=== PATIENT | female | born 1965 | race African-American/Black ===

== ENCOUNTER 2023-03-17 00:41 | Day surgery (SDC) | payer OTHER, MEDICAID, SELFPAY ==
[2023-03-13 10:00] VITALS: BMI 48.7
--- NOTE | 2023-03-17 07:35 | WPDANESEPPF ---
Anes - Initial Pre Proc Eval Procedure: Operation Date: 03/17/23 12:30 Proposed Procedures p Colonoscopy - Enrique Rodriguez MD Date/Time: 03/17/23 07:35 Surgeon: Enrique Rodriguez MD Pre Op Diagnosis: neoplasm screening Patient Data Age: 57 Gender: F Height: 1.57 m Weight: 121 kg Allergies Allergy/AdvReac Type Severity Reaction Status Date / Time No Known Allergies Allergy Unverified 03/17/23 11:59 Home Medications Medication Instructions Recorded Confirmed Type acetaminophen 500 mg tablet 500 mg PO DAILY 03/13/23 03/13/23 History albuterol sulfate 90 mcg/actuation 2 inh inhalation Q8H PRN Shortness 03/13/23 03/13/23 History aerosol inhaler Of Breath Or Wheezing amlodipine 5 mg tablet 5 mg PO DAILY 03/13/23 03/13/23 History baclofen 10 mg tablet 10 mg PO BID PRN Pain 03/13/23 03/13/23 History cetirizine 10 mg tablet 10 mg PO DAILY PRN Allergy Symptoms 03/13/23 03/13/23 History clotrimazole-betamethasone 1 1 applic topical BID PRN Rash 03/13/23 03/13/23 History %-0.05 % topical cream cyanocobalamin (vitamin B-12) 1,000 mcg IM DIRECTED 03/13/23 03/13/23 History 1,000 mcg/mL injection solution doxazosin 2 mg tablet 2 mg PO HS 03/13/23 03/13/23 History doxepin 3 mg tablet 3 mg PO DAILY 03/13/23 03/13/23 History duloxetine 60 mg capsule,delayed 60 mg PO DAILY 03/13/23 03/13/23 History release fluticasone propionate 50 1 spray intranasal DAILY PRN 03/13/23 03/13/23 History mcg/actuation nasal Allergy Symptoms spray,suspension hydrochlorothiazide 12.5 mg tablet 12.5 mg PO DAILY 03/13/23 03/13/23 History metoprolol succinate 25 mg 25 mg PO DAILY 03/13/23 03/13/23 History tablet,extended release 24 hr Patient hx anesthesia problems: none Family hx anesthesia problems: none Results Review: All pre-operative results and documents have been reviewed as part of the pre-operative evaluation. [facility] Past Medical History Medical History (Updated 03/14/23 @ 14:57 by Jose Daniel Jacobs DO) GERD (gastroesophageal reflux disease) Hypertension Surgical History Surgical History (Updated 03/14/23 @ 14:57 by Jose Daniel Jacobs DO) History of cholecystectomy History of partial hysterectomy Hx of laparoscopic gastric banding 2013 Social History Social History Smoking status: Never smoker Alcohol intake: current Substance use: never Substance use type: does not use Living arrangements: with family Spiritual care concerns: No Anes - Eval Final PreProcedure Day of Procedure 03/17/23 07:35 Patient weight: morbidly obese Heart: regular rate and rhythm Lungs: clear to auscultation Airway: Mallampati scale class II Neurological: alert and oriented Last oral intake: >/= 8 hours ASA classification: III Emergent: no Anesthetic plan: proceed Anesthesia type and monitoring: general GIVS and standard monitoring Results Review: All pre-operative results and documents have been reviewed as part of the pre-operative evaluation. Informed Consent: The patient's anesthetic plan and its attendant risks and benefits were discussed with the patient/family/POA. Questions were solicited and answers provided to the satisfaction of the patient/family/POA.
[2023-03-17 12:02] VITALS: BP 165/90; PULSE 97; RESP 18; TEMP 36.3; O2SAT 100
[2023-03-17] MEDS: LACTATED RINGERS 1,000 ML 150 ML IV CONT (12:16)
--- NOTE | 2023-03-17 12:49 | PM.HPGS ---
History of Present Illness History of Present Illness Consent: Risks, benefits, and alternatives have been discussed and questions answered. Patient agrees to proceed with procedure. Chief complaint: neoplasm screening Narrative: Nevin Deshpaned is a 57 year old female Presents for screening colonoscopy. Patient's current weight appetite and bowel movements are normal. Patient denies abdominal pain. She has had no bleeding. Family history noncontributory. Review of Systems Review of Systems: Review of systems noncontributory. [facility] Past Medical History Medical History (Updated 03/17/23 @ 12:50 by Enrique Rodriguez MD) GERD (gastroesophageal reflux disease) Hypertension Surgical History Surgical History (Updated 03/14/23 @ 14:57 by Jose Daniel Jacobs DO) History of cholecystectomy History of partial hysterectomy Hx of laparoscopic gastric banding 2012 Social History Social History Smoking status: Never smoker Alcohol intake: current Substance use: never Substance use type: does not use Living arrangements: with family Spiritual care concerns: No Meds Home Medications and Allergies Home Medications Medication Instructions Recorded Confirmed Type acetaminophen 500 mg tablet 500 mg PO DAILY 03/13/23 03/13/23 History albuterol sulfate 90 mcg/actuation 2 inh inhalation Q8H PRN Shortness 03/13/23 03/13/23 History aerosol inhaler Of Breath Or Wheezing amlodipine 5 mg tablet 5 mg PO DAILY 03/13/23 03/13/23 History baclofen 10 mg tablet 10 mg PO BID PRN Pain 03/13/23 03/13/23 History cetirizine 10 mg tablet 10 mg PO DAILY PRN Allergy Symptoms 03/13/23 03/13/23 History clotrimazole-betamethasone 1 1 applic topical BID PRN Rash 03/13/23 03/13/23 History %-0.05 % topical cream cyanocobalamin (vitamin B-12) 1,000 mcg IM DIRECTED 03/13/23 03/13/23 History 1,000 mcg/mL injection solution doxazosin 2 mg tablet 2 mg PO HS 03/13/23 03/13/23 History doxepin 3 mg tablet 3 mg PO DAILY 03/13/23 03/13/23 History duloxetine 60 mg capsule,delayed 60 mg PO DAILY 03/13/23 03/13/23 History release fluticasone propionate 50 1 spray intranasal DAILY PRN 03/13/23 03/13/23 History mcg/actuation nasal Allergy Symptoms spray,suspension hydrochlorothiazide 12.5 mg tablet 12.5 mg PO DAILY 03/13/23 03/13/23 History metoprolol succinate 25 mg 25 mg PO DAILY 03/13/23 03/13/23 History tablet,extended release 24 hr Allergies Allergy/AdvReac Type Severity Reaction Status Date / Time No Known Allergies Allergy Unverified 03/17/23 11:59 Vital Signs Vital Signs - 24 hr 03/17/23 12:02 Temperature 97.4 F L Pulse Rate 97 Respiratory Rate 18 Blood Pressure 165/90 H Pulse Oximetry 100 Oxygen Delivery Room Air Exam Narrative: Physical exam reveals patient to be alert. Vital signs stable. HEENT exam is unremarkable. Patient is anicteric. Lungs are clear to auscultation and percussion. Heart is without murmur or extra sounds. Abdomen is obese. Bowel sounds are present soft nontender with no organomegaly. Digital external rectal exam is normal with no obvious swelling appreciated. Assessment and Plan Assessment and plan (1) Encounter for screening colonoscopy: Code(s): Z12.11 - Encounter for screening for malignant neoplasm of colon Status: Acute Assessment and Plan: Patient presents for screening colonoscopy. She appears to be at average risk for colon polyps. Further recommendations may be given after endoscopy.
[2023-03-17 12:50] VITALS: BP 141/81; PULSE 91; RESP 20; O2SAT 99
[2023-03-17 13:00] VITALS: BP 155/84; PULSE 86; RESP 20; O2SAT 100
[2023-03-17 13:10] VITALS: BP 158/74; PULSE 86; RESP 22; O2SAT 100
== END 2023-03-17 13:24 | disposition home or self-care (01) ==
PROVIDERS: PCP Internal Medicine; Visit Provider Internal Medicine Gastroenterology
PROC: 0DJD8ZZ Inspection of Lower Intestinal Tract, Via Natural or Artificial Opening Endoscopic (ICD-10-PCS; CPT 45378; principal; 2023-03-17 12:30)
DX: Z12.11 Encounter for screening for malignant neoplasm of colon (principal); I10 Essential (primary) hypertension; K21.9 Gastro-esophageal reflux disease without esophagitis; Z98.84 Bariatric surgery status; E66.01 Morbid (severe) obesity due to excess calories; Z68.42 Body mass index [BMI] 45.0-49.9, adult; Z79.51 Long term (current) use of inhaled steroids
CPT/HCPCS: 45378; J2704; J7120

== ENCOUNTER 2024-09-30 03:50 | Emergency (ER) | payer OTHER, SELFPAY ==
--- NOTE | ~2024-09-30 | XR_ITS ---
EXAMINATION: XR chest 2V DATE: 09/30/2024 05:14 INDICATION: Cough. TECHNIQUE: Frontal and lateral views of the chest were obtained. COMPARISON: None. FINDINGS: There are airspace opacities in the lower lung zones. No pleural effusion or pneumothorax. Cardiomegaly is noted. There are surgical clips in the abdomen. IMPRESSION: 1. Airspace opacities in the lower lung zones, consistent with atelectasis versus pneumonia. 2. Cardiomegaly. Reviewed, dictated and finalized at location A. A [employer] IMPRESSION: 1. Airspace opacities in the lower lung zones, consistent with atelectasis vers us pneumonia. 2. Cardiomegaly.
[2024-09-30 03:55] VITALS: BP 218/96; PULSE 75; RESP 20; TEMP 36.2; O2SAT 96
[2024-09-30 04:39] VITALS: O2SAT 96
[2024-09-30] MEDS: IPRATROPIUM 0.5 MG/ALBUTEROL SULFATE 2.5 MG AMPUL.NEB 3 ML INHALATION (04:50)
[2024-09-30 04:52] VITALS: PULSE 77; RESP 20
[2024-09-30 05:12] LABS: Influenza A QL RT-PCR Negative (Negative); Influenza B QL RT-PCR Negative (Negative); RSV RNA, RT-PCR Negative (Negative); SARS-CoV-2 RNA PCR Negative (Negative)
--- NOTE | 2024-09-30 05:23 | ED_ITS ---
HPI - General Adult General Chief complaint: Upper Respiratory Infection Stated complaint: cough, tired, unable to sleep Time Seen by Provider: 09/30/24 04:10 History of Present Illness HPI narrative: Patient 59-year-old female who presents emergency department with chief complaint of cough body aches and generalized malaise. Patient reports the last 2 days she has been feeling body aches reports she has finished 2 courses of antibiotics reports that she has had some discolored mucus and congestion. The patient reports he has had no real relief of the symptoms. Patient does report that she has history of chronic hypertension Related Data Home Medications ?Medication ?Instructions ?Recorded ?Confirmed ?Last Taken ?Type acetaminophen 500 mg tablet 500 mg PO DAILY 03/13/23 03/13/23 Unknown History albuterol sulfate 90 mcg/actuation 2 inh inhalation Q8H PRN Shortness 03/13/23 03/13/23 Unknown History aerosol inhaler Of Breath Or Wheezing amlodipine 5 mg tablet 5 mg PO DAILY 03/13/23 03/13/23 Unknown History baclofen 10 mg tablet 10 mg PO BID PRN Pain 03/13/23 03/13/23 Unknown History cetirizine 10 mg tablet 10 mg PO DAILY PRN Allergy Symptoms 03/13/23 03/13/23 Unknown History clotrimazole-betamethasone 1 1 applic topical BID PRN Rash 03/13/23 03/13/23 Unknown History %-0.05 % topical cream cyanocobalamin (vitamin B-12) 1,000 mcg IM DIRECTED 03/13/23 03/13/23 Unknown History 1,000 mcg/mL injection solution doxazosin 2 mg tablet 2 mg PO HS 03/13/23 03/13/23 Unknown History doxepin 3 mg tablet 3 mg PO DAILY 03/13/23 03/13/23 Unknown History duloxetine 60 mg capsule,delayed 60 mg PO DAILY 03/13/23 03/13/23 Unknown History release fluticasone propionate 50 1 spray intranasal DAILY PRN 03/13/23 03/13/23 Unknown History mcg/actuation nasal Allergy Symptoms spray,suspension hydrochlorothiazide 12.5 mg tablet 12.5 mg PO DAILY 03/13/23 03/13/23 Unknown History metoprolol succinate 25 mg 25 mg PO DAILY 03/13/23 03/13/23 Unknown History tablet,extended release 24 hr Allergies Allergy/AdvReac Type Severity Reaction Status Date / Time No Known Allergies Allergy Verified 09/30/24 03:51 Review of Systems Review of Systems: A 10 system review of systems was completed on the patient and is negative except for what is stated in the HPI. Nursing and ancillary documentation was reviewed. [facility] Past Medical History Medical History GERD (gastroesophageal reflux disease) Hypertension Surgical History Surgical History History of partial hysterectomy Hx of laparoscopic gastric banding 2013 History of cholecystectomy Social History Social History Smoking status: Never smoker Alcohol intake: current Substance use: never Substance use type: does not use Living arrangements: with family Spiritual care concerns: No Exam Narrative: GENERAL: Well-appearing, well-nourished, and in no acute distress. HEAD: Normocephalic, atraumatic. EYES: PERRLA and EOMI. ENT: Nares clear, no rhinorrhea or epistaxis. Mucous membranes moist. NECK: Supple. CHEST: Clear to auscultation. No respiratory distress. HEART: Regular rate and rhythm. No murmur heard. Normal peripheral pulses. ABDOMEN: Soft, nontender, nondistended, normal active bowel sounds. EXTREMITIES: Normal range of motion. No edema. SKIN: Warm, dry, no rash. NEURO: No focal deficits. Alert and oriented x3. PSYCH: Normal mood and affect. Course Vital Signs Vital signs: Vital Signs Temperature 36.2 C L 09/30/24 03:55 Pulse Rate 75 09/30/24 03:55 Respiratory Rate 20 09/30/24 03:55 Blood Pressure 218/96 H 09/30/24 03:55 Pulse Oximetry 96 09/30/24 03:55 Oxygen Delivery Room Air 09/30/24 03:55 Temperature 36.2 C L 09/30/24 03:55 Pulse Rate 77 09/30/24 04:52 Respiratory Rate 20 09/30/24 04:52 Blood Pressure 218/96 H 09/30/24 03:55 Pulse Oximetry 96 09/30/24 04:39 Oxygen Delivery Room Air 09/30/24 04:39 Medical Decision Making MDM Narrative Medical decision making narrative: Differential diagnosis includes pneumonia, upper respiratory infection, viral illness COVID flu and RSV were Chest x-ray showed no focal infiltrate Patient was started on a course of prednisone also be given a prescription for Tristan Padron Vital Signs Vital Signs: Vital Signs Temperature 36.2 C L 09/30/24 03:55 Pulse Rate 75 09/30/24 03:55 Respiratory Rate 20 09/30/24 03:55 Blood Pressure 218/96 H 09/30/24 03:55 Pulse Oximetry 96 09/30/24 03:55 Oxygen Delivery Room Air 09/30/24 03:55 Temperature 36.2 C L 09/30/24 03:55 Pulse Rate 77 09/30/24 04:52 Respiratory Rate 20 09/30/24 04:52 Blood Pressure 218/96 H 09/30/24 03:55 Pulse Oximetry 96 09/30/24 04:39 Oxygen Delivery Room Air 09/30/24 04:39 Lab Data Labs: Lab Results 09/30/24 Range/Units 04:29 Influenza A (RT-PCR) Negative (Negative) Influenza B (RT-PCR) Negative (Negative) RSV (RT-PCR) Negative (Negative) SARS-CoV-2 RNA (RT-PCR) Negative (Negative) Discharge Plan Discharge Clinical Impression: Upper respiratory infection, Bronchitis Patient Disposition: Home, Self-Care Condition: Stable Instructions: Antibiotic Form, Acute Bronchitis (ED) Patient Language: Bulgarian Prescriptions: New prednisone 20 mg tablet 40 mg PO DAILY 5 Days Qty: 10 0RF benzonatate 200 mg capsule 200 mg PO TID PRN (Reason: cough) Qty: 21 0RF doxycycline hyclate 100 mg tablet 100 mg PO BID Qty: 14 0RF No Action cetirizine 10 mg tablet 10 mg PO DAILY PRN (Reason: Allergy Symptoms) amlodipine 5 mg tablet 5 mg PO DAILY acetaminophen 500 mg tablet 500 mg PO DAILY baclofen 10 mg tablet 10 mg PO BID PRN (Reason: Pain) cyanocobalamin (vitamin B-12) 1,000 mcg/mL solution 1,000 mcg IM DIRECTED clotrimazole-betamethasone 1-0.05 % cream 1 applic TOPICAL BID PRN (Reason: Rash) metoprolol succinate 25 mg tablet extended release 24 hr 25 mg PO DAILY albuterol sulfate 90 mcg/actuation HFA aerosol inhaler 2 inh INHALATION Q8H PRN (Reason: Shortness Of Breath Or Wheezing) fluticasone propionate 50 mcg/actuation spray,suspension 1 spray INTRANASAL DAILY PRN (Reason: Allergy Symptoms) doxazosin 2 mg tablet 2 mg PO HS duloxetine 60 mg capsule,delayed release(DR/EC) 60 mg PO DAILY hydrochlorothiazide 12.5 mg tablet 12.5 mg PO DAILY doxepin 3 mg tablet 3 mg PO DAILY Follow-up/Referrals: Camryn,MD Rhianna [Primary Care Provider] - Time of Disposition: 05:29
[2024-09-30] MEDS: predniSONE 20 MG TABLET 60 MG PO (05:40)
[2024-09-30] MEDS: DOXYCYCLINE HYCLATE 100 MG TABLET PO (05:40)
[2024-09-30 06:17] VITALS: BP 177/89; PULSE 88; RESP 18; O2SAT 98
--- OUTSIDE RECORDS SUMMARY | 2024-10-07 04:04 | XMS_ITS | Encounter Summary ---
Author Organization [facility] Health Address [address] [place] [address] Care Team Providers Care Inpatient Care Manager Rn Name Role Phone Rhianna Cowan MD Primary Care Provider [phone] Reason for Visit * Reason Comments Follow-up Encounter Details Date Type Department Care Team (Late Contact Info) Description 05/16/2023 10:30 AM CDT Office Visit [facility] [id number] [facility] [address] [facility] [address] [place] [address] Micki Bolden, [employer] [place] [id number] [facility] [address] [place] [address] Morbid obesity (HCC) (Primary Dx); Bariatric surgery status Social History Tobacco Use Types Packs/Day Years Used Date Smoking Tobacco: Never Smokeless Tobacco: Never Alcohol Use Standard Drinks/Week Comments Yes 0 (1 standard drink = 0.6 oz pur e alcohol) 0cc Overall Financial Resource Strain (CARDIA) Answe r Date Recorded How hard is it for you to pa y for the very basics like food, housing, medical care, and heating? Somewhat hard 04/14/2023 [facility] Occupat ional Health - Occupational Stress Questionnaire Answer Date Recorded Do you feel stress - tense, restless, nervous, or anxious, or unable to sleep at night because your mind is troubled all the time - these days? Not at all 04/14/2023 Hunger Vital Sign Answer Date Recorded Within the past 12 months, y ou worried that your food would run out before you got the money to buy more. Never true 04/14/20 23 Within the past 12 months, t he food you bought just didn't last and you didn't have money to get more. Never true 04/14/2023 PRAPARE - Transportation Answer Date Re corded In the past 12 months, has l ack of transportation kept you from medical appointments or from getting medications? No 04/05 In the past 12 months, has l ack of transportation kept you from meetings, work, or from getting things needed for daily living? No 04/14/2023 Housing Stability Vital Sign Answer Carlos e Recorded In the last 12 months, was t here a time when you were not able to pay the mortgage or rent on time? No 04/14/2023 In the last 12 months, how many places have you lived? 1 04/14/2023 In the last 12 months, was t here a time when you did not have a steady place to sleep or slept in a halfway (including now)? No 04/14/2023 Sex and Gender Information Value Date Recorded Sex Assigned at Not on file Gender Identity Not on file Sexual Orientation Not on file documented as of this encounter Last Filed Vital Signs Vital Sign Reading Time Taken Comments Blood Pressure 138/88 05/16/2023 10:41 AM CDT Pulse 91 05/16/2023 10:41 AM CDT Temperature 36.6 ??C (97.9 ??F) 05/16/2023 1 0:41 AM CDT Respiratory Rate - - Oxygen Saturation 95% 05/16/2023 10: 41 AM CDT Inhaled Oxygen Concentration - - Weight 114.9 kg (253 lb 3.2 oz) 023 10:41 AM CDT Height 157.5 cm (5' 2 ) 05/16/2023 10:4 1 AM CDT Body Mass Index 46.31 05/16/2023 10:41 AM CDT documented in this encounter Functional Status Functional Status Response Date of Assess ment Is person deaf or have serious hearing difficult y? No 04/14/2023 Is person blind or have serious difficulty seein g? No 04/14/2023 Does person have serious dif ficulty walking/climbing stairs? No 04/14/2023 Does person have difficulty dressing/bathing? No 04/14/2023 Does person have difficulty doing errands alone? No 04/14/2023 Cognitive Status Response Date of Assessm ent Does person have difficulty concentrating/remembering/making decisions? 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 ( amena ) 2.??Laparoscopic??Repair of gastric perforation?? 3. Omental isabel patch 3. esophagogastroduodenoscopy?? Date of Procedure: 04/14/2023 Todays Weight: 253 Subjective: Patient is here today for their 1 month post surgery follow up She has completed her antibiotics Patient reports overall she feels she is improving She is still feeling tired and is not sure she is ready to return to work and sit at a desk for 8 hours. Patient is tolerating diet and fluids , not following any particular diet Patient has been up and ambulating. Patient denies any fevers, CP or SOB Patient reports a few episodes of nausea and vomiting but is not sure what caused it Abdominal pain is present, overall better but continues to feel sore She is not taking any pain medication or tylenol Patient is moving their bowels Data Vitals: 05/16/23 1041 BP: 138/88 Pulse: 91 Temp: 97.9 ??F (36.6 ??C) SpO2: 95% Weight: 114.9 kg (253 lb 3.2 oz) Height: 1.575 m (5' 2 ) BMI (Calculated): 46.3 Current Outpatient Medications Medication ??? acetaminophen (Tylenol) 500 MG tablet ??? albuterol HFA (Proventil; Ventolin; Proair) 108 (90 Base) MCG/ACT inhaler ??? amLODIPine (Norvasc) 5 MG tablet ??? baclofen (Lioresal) 10 MG tablet ??? cetirizine (ZyrTEC) 10 MG tablet ??? clotrimazole-betamethasone (Lotrisone) 1-0.05 % cream ??? cyanocobalamin (Vitamin B-12) injection ??? doxazosin (Cardura) 2 MG tablet ??? doxepin (Silenor) 3 MG tablet ??? DULoxetine (Cymbalta) 60 MG capsule ??? fluticasone propionate (Flonase) 50 MCG/ACT nasal spray ??? hydroCHLOROthiazide (Hydrodiuril) 12.5 MG ??? metoprolol succinate XL 24hr (Toprol XL) 25 MG tablet ??? mupirocin (Bactroban) 2 % ointment ??? omeprazole (PriLOSEC) 20 MG capsule ??? sodium chloride (Deep Sea Nasal [place]) 0.65 % nasal spray No current facility-administered medications for this visit. Recent Labs Component Name 04/21/23 0924 04/20/23 1021 04/19/23 0414 SODIUM 139 140 140 POTASSIUM 3.6 3.9 4.1 CHLORIDE 105 106 108* CO2 24 27 22* BUN 4* 4* 7* CREATININE 0.85 0.83 0.84 GLUCOSE 99 116* 115* CALCIUM 9.0 9.1 9.1 Recent Labs Component Name 04/21/2324 04/19/23 0414 04/18/23 0357 WBC 8.2 11.9* 16.1* HGB 10.9* 11.2* 11.6* HCT 33.8* 34.2* 35.6* PLTCOUNT 254 211 242 Physical Exam A+O x 3, NAD ABD soft, ND, NT, incisions C/D/I, no e/o hernias Neg BLE edema Assessment/Plan: Pt s/p Laparoscopic removal of adjustable gastric band and port?? 2.??Laparoscopic??Repair of gastric perforation?? 3. Omental isabel patch 3. esophagogastroduodenoscopy?? - we reviewed postoperative complications following bariatric surgery and when to call the office. Patient is to follow soft diet, phase 3 We discussed food choices Incisional pain - pain has overall improved - patient is off pain medication - start tylenol every 4 hours - start ICE pack PRN - start with an abdominal binder - patient is to call the office with any worsening abdominal pain or no improvement Patient is to advance activity to include light cardio,light weights as tolerated Patient reports that she is off work until 05/25/23 currently. I have asked her to call office with any update . Patient is to follow up with PCP in 1-2 week Patient is to RTC as needed . CARLENE Lloyd documented in this encounter Plan of Treatment Not on file documented as of this encounter Visit Diagnoses Diagnosis Morbid obesity (HCC)- Primary Morbid obesity Bariatric surgery status documented in this encounter Care Teams Inpatient Care Manager Rn Relationship Specialty Start Date End Date Rhianna Cowan MD [address] [place] [address] [address] [place] [address] PCP - General Internal Medicine 11/12/16 documented as of this encounter
--- OUTSIDE RECORDS SUMMARY | 2024-10-07 04:04 | XMS_ITS | Referral Summary ---
Author Organization [facility] Address [address] [place] [address] Care Team Providers Care Sludge Filtration Operator Name Role Phone Rhianna Cowan MD Primary Care Provider Source Comments [facility],non-owned Affiliates and Associated Physician Practices is amultiple site organization consisting of ambulatory clinics and hospital sitesin [place], [place], [place] and [place]. This disclosure is being madepursuant to the Care Everywhere program and may not contain all information available regarding this patient. Last updated 18.[facility] Allergies Active Allergy Reactions Criticality Noted Date Comments Lisinopril Cough 04/16/2023 Sulfamethoxazole W-Trimethoprim Angioedema High 04/05 Medications * Be aware that medications may not be up to date on this document. Alwaysverify current medications with the patient. Medication Sig Dispensed Refills Start Date End Date Status acetaminophen (Tylenol) 500 MG tablet Take 1 (one) tablet by mouth every 8 hours as needed for Pain or Fever 06/17/2022 Active albuterol HFA (Proventil; Ventolin; Proair) 108 (90 Base) MCG/ACT inhaler Inhale 2 (two) puffs by mouth every 6 hours as needed for Shortness of Breath or Wheezing 11/30/2021 Active amLODIPine (Norvasc) 5 MG tablet Take 1 (one) tablet by mouth once daily 12/12/2021 Active baclofen (Lioresal) 10 MG tablet Take 1 (one) tablet by mouth 2 times daily as needed for Muscle Spasms 12/12/2021 Active cetirizine (ZyrTEC) 10 MG tablet Take 1 (one) tablet by mouth once daily as needed for Allergies 12/26/2022 Active clotrimazole-betameth asone (Lotrisone) 1-0.05 % cream Apply to affected area 2 times daily as needed (rash) 12/12/2021 Active cyanocobalamin (Vitamin B-12) injection Inject 1,000 (one thousand) mcg into muscle every 30 days Active doxazosin (Cardura) 2 MG tablet Take 1 (one) tablet by mouth at bedtime 12/26/2022 Active DULoxetine (Cymbalta) 60 MG capsule Take 1 (one) capsule by mouth once daily Active fluticasone propionate (Flonase) 50 MCG/ACT nasal spray [place] 2 (two) sprays into each nostril once daily as needed (allergies) 12/12/2021 Active hydroCHLOROthiazide (Hydrodiuril) 12.5 MG Take 1 (one) tablet by mouth once daily 12/12/2021 Active metoprolol succinate XL 24hr (Toprol XL) 25 MG tablet Take 1 (one) tablet by mouth once daily 01/28/2022 Active mupirocin (Bactroban) 2 % ointment Apply to affected area 2 times daily APPLY SMALL AMOUNT TOPICALLY IN EACH NOSTRIL EVERY NIGHT AT BEDTIME 12/26/2022 Active omeprazole (PriLOSEC) 20 MG capsule Take 1 (one) capsule by mouth once daily as needed for Heartburn Active sodium chloride (Deep Sea Nasal [place]) 0.65 % nasal spray [place] 2 (two) sprays into each nostril as needed for Dry Nose 12/26/2022 Active doxepin (Silenor) 3 MG tablet Take 1 (one) tablet by mouth at bedtime 03/10/2023 Active Active Problems Problem Noted Date Diagnosed Date Hypoxemia 04/19/2023 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 Somewhat hard 04/14/2023 [facility] [place] of Occupat ional Health - Occupational Stress [...] place to sleep or slept in a prison (including now)? No 04/14/2023 Sex and Gender Information Value Date Recorded Sex Assigned at Not on file Gender Identity Not on file Sexual Orientation Not on file Last Filed Vital Signs Vital Sign Reading Time Taken Comments Blood Pressure 138/88 05/16/2023 10:41 AM CDT Pulse 91 05/16/2023 10:41 AM CDT Temperature 36.6 ??C (97.9 ??F) 05/16/2023 1 0:41 AM CDT Respiratory Rate 18 04/22/2023 7:35 AM CDT Oxygen Saturation 95% 05/16/2023 10: 41 AM CDT Inhaled Oxygen Concentration - - Weight 114.9 kg (253 lb 3.2 oz) 023 10:41 AM CDT Height 157.5 cm (5' 2 ) 05/16/2023 10:4 1 AM CDT Body Mass Index 46.31 05/16/2023 10:41 AM CDT Functional Status Functional Status Response Date of [...] person have difficulty concentrating/remembering/making decisions? No 04/14/2023 Plan of Treatment Not on file Procedures Procedure Name Priority Date/Time Associated Diagnosis Comments BASIC METABOLIC PANEL (CALCIUM TOTAL) VINICIUS 04/21/2023 9:24 AM CDT from Last 3 Months or Most Recently Relevant to Health Maintenance Results * (ABNORMAL) BASIC METABOLIC PANEL (CALCIUM TOTAL) (04/21/2023 9:24 AM CDT) [facility] Glucose 99 70 - 105 mg/dL 04/21/2023 9:51 AM CDT [facility] Sodium 139 136 - 145 mmol/L 04/21/2023 9:51 AM CDT [facility] Potassium 3.6 3.5 - 5.1 mmol/L 04/21/2023 9:51 AM CDT [facility] Chloride 105 98 - 107 mmol/L 04/21/2023 9:51 AM CDT [facility] CO2 24 23 - 31 mmol/L 04/21/2023 9:51 AM CDT [facility] Calcium 9.0 8.4 - 10.4 mg/dL 04/21/2023 9:51 AM CDT [facility] Anion Gap 10 8 - 18 mmol/L 04/21/2023 9:51 AM CDT [facility] BUN 4(L) 9.8 - 20.1 mg/dL 04/21/2023 9:51 AM CDT [facility] Creatinine 0.85 0.57 - 1.11 mg/dL 04/21/2023 9:51 AM CDT [facility] eGFR by CKD-EPI 81(L) >=90 mL/min/1.7 3 m2 04/21/2023 9:51 AM CDT [facility] Blood BLOOD SPECIMEN / Unknown Venipuncture / Unknown 04/21/2023 9:24 AM CDT 04/21/2023 9:34 AM CDT Marybel Grider Donte CARDIOLOGY [facility]ICAL [facility] ORDERABLES [facility] [address] [place] [address] from Last 3 Months or Most Recently Relevant to Health Maintenance Care Teams Sludge Filtration Operator Relationship Specialty Start Date End Date Rhianna Cowan MD [address] [place] [address] PCP - General Internal Medicine 11/12/16
--- OUTSIDE RECORDS SUMMARY | 2024-10-07 04:04 | XMS_ITS | Encounter Summary ---
Author Organization [facility] Address [address] [address] Care Team Providers Care Stonecutter Name Role Phone Rhianna Cowan MD Primary Care Provider [phone] Encounter Details Date Type Department Care Team (Late Contact Info) Description 04/23/2023 Home Care Visit [facility] [address] [place] [address] Michelle Washington, RN TELEPHONE ENCOUNTER Social History Tobacco Use Types Packs/Day Years [...] medical care, and heating? Somewhat hard 04/14/2023 [facility] [place] of Occupat ional Health - Occupational Stress [...] place to sleep or slept in a residential (including now)? No 04/14/2023 Sex and Gender Information Value Date Recorded Sex Assigned at Not on file Gender Identity Not on file Sexual Orientation Not on file COVID-19 Exposure Response Date Recorded In the last 10 days, have yo u been in contact with someone who was confirmed or suspected to have Coronavirus/COVID-19? No / Unsure 04/01/2023 11:29 AM CDT documented as of this encounter Functional Status Functional Status Response [...] No 04/14/2023 documented as of this encounter Plan of Treatment Not on file documented as of this encounter Visit Diagnoses Not on filedocumented in this encounter Care Teams Stonecutter Relationship Specialty Start Date End Date Rhianna Cowan MD [address] [place] [address] PCP - General Internal Medicine 11/12/16 documented as of this encounter
--- OUTSIDE RECORDS SUMMARY | 2024-10-07 04:04 | XMS_ITS | Encounter Summary ---
Author Organization [facility] Address [address] [place] [address] Care Team Providers Care Hand Edger Name Role Phone Rhianna Cowan MD Primary Care Provider [phone] Reason for Referral * Home Connections (Routine) - Closed Specialty Diagnoses / Procedures Referred By Cydney scott Referred To Contact Home Health Services Diagnoses G[place] [id number] [place] [address] [facility] [address] [place] [address] Referral ID Status Reason Start Date Expiration Date V isits Requested Visits Authorized [id number] Closed Specialty Services Required 04/22/2023 04/21/2024 999 999 Reason for Visit * Auth/Cert (Routine) Specialty Diagnoses / Procedures Referred By Cydney t Referred To Contact Procedures ESOPHAGOGASTRODUODENOSCOPY (EGD) DIAGNOSTIC Referral ID Status Reason Start Date Expiration Date Visits Re quested Visits Authorized [id number] 1 1 Encounter Details Date Type Department Care Team (Latest Contact Info) Description 04/14/2023 7:34 AM CDT - 04/22/2023 3:03 PM CDT Hospital Encounter [facility] 2S SURG/BARIATRIC [address] [place] [address] [place] [address] [place] [address] Surgery General Discharge Disposition: Home or Self Care Social History Tobacco Use Types Packs/Day Years [...] medical care, and heating? Somewhat hard 04/14/2023 [place] [facility] - Occupational Stress [...] No 04/14/2023 Housing Stability Vital Sign Answer Acrlos e Recorded In the last 12 months, [...] place to sleep or slept in a penitentiary (including now)? No 04/14/2023 Sex and Gender [...] AM CDT documented as of this encounter Last Filed Vital Signs Vital Sign Reading Time Taken Comments Blood Pressure 157/98 04/22/2023 7:35 AM CDT Pulse 106 04/22/2023 7:35 AM CDT Temperature 36.6 ??C (97.8 ??F) 04/22/2023 7:35 AM CD T Respiratory Rate 18 04/22/2023 7:35 AM CDT Oxygen Saturation 95% 04/22/2023 7:35 AM CDT Inhaled Oxygen Concentration - - Weight 109.8 kg (242 lb) 04/14/2023 8:12 AM CDT Height 157.5 cm (5' 2 ) 04/14/2023 8:12 AM CDT Body Mass Index 44.26 04/14/2023 8:12 AM CDT documented in this encounter Functional [...] No 04/14/2023 documented as of this encounter Discharge Summaries * Marybel Kent APRN-CNP - 04/22/2023 3:03 PM CDT Physician Discharge Summary PCP: Rhianna Cowan MD, Admit date: 04/14/2023 Discharge date: 04/22/2023 Admitting Physician: Steffen Beckwith MD Attending Physician: Steffen Beckwith MD Discharge Provider : CARLENE Bryan Admission weight: Weight: 109.8 kg (242 lb) (04/14/23811) Most recent weight: Weight: 109.8 kg (242 lb) (04/14/23811) 04/22/2023 [id number] Admitting Diagnosis Clinically Severe Obesity with multiple co-morbidities Body mass index is 44.26 kg/m??. Past Medical History: Diagnosis Date ??? Anxiety and depression ??? Depression ??? Environmental allergies ??? GERD (gastroesophageal reflux disease) ??? Hypertension ??? Mild intermittent asthma, uncomplicated ??? Morbid obesity due to excess calories ([facility]) Discharge Diagnosis: Same Consults : Hospitalist Diagnostic Studies None Principal Procedures Performed: Laparoscopic removal of adjustable gastric band and port??(15735) 2.??Laparoscopic??Repair [place] gastric perforation??([place] [address]) 3. Omental isabel patch (91699) 3. Esophagogastroduodenoscopy Hospital Course The patient underwent the procedures noted above on the day of admission. Following surgery, the patient was taken from the operating room to the recovery room, and later to hospital room. Vital signs were carefully monitored. The patient was started on a phase I bariatric diet. Preoperative medication was administered when indicated by either an oral or parenteral route. Additional assessments of the patient's vital signs, laboratory values and level of pain were performed throughout the patient's hospitalization. The patient was also followed by a hospitalist to manage comorbid conditions. On the day of discharge, the patient was instructed on diet and medication, as well as on wound care. The patient was given a prescription for pain medication and told to take a PPI daily. Patient waseducated and instructions given on vitamin supplement and when to begin. Showers were allowed, but the patient was told not to submerge in water. The patient was instructed on constipation managementif needed. Finally, the patient was printed discharge instructions. We are to see the patient in the office in 1 week and this appointment has been arranged. The patient is to call if fever occurred,nausea persisted, emesis occurred or if there was excessive redenss at the wound sites. Patient Instructions Current Discharge Medication List START taking these medications Instructions Authorizing Provider amoxicillin-clavulanate 250-62.5 MG/5ML suspension Commonly known as: Augmentin Quantity Dispensed: 350 mL Take 17.5 mL by mouth 2 times daily with morning and evening meal for 10 days Marybel Kent APRN-ROHINI magnesium hydroxide 400 MG/5ML suspension Commonly known as: Milk Of Magnesia Take 15 mL by mouth as needed for Constipation CARLENE Bryan ondansetron (disintegrating) 4 MG tablet Commonly known as: Zofrkevin ODT Quantity Dispensed: 20 tablet Take 1 (one) tablet by mouth every 6 hours as needed for Nausea/Vomiting Allow tablet to dissolve on the tongue CARLENE Bryan senna-docusate 8.6-50 MG tablet Commonly known as: Senokot-S Take 1 (one) tablet by mouth 2 times daily as needed for Constipation CARLENE Bryan simethicone 80 MG chew tablet Commonly known as: Mylicon Take 1 (one) tablet by mouth 4 times daily as needed for Gas Pain CARLENE Bryan CONTINUE taking these medications which have NOT CHANGED Instructions Authorizing Provider acetaminophen 500 MG tablet Commonly known as: Tylenol Take 1 (one) tablet by mouth every 8 hours as needed for Pain or Fever albuterol HFA 108 (90 Base) MCG/ACT inhaler Commonly known as: Proventil; Ventolin; Proair Inhale 2 (two) puffs by mouth every 6 hours as needed for Shortness of Breath or Wheezing amLODIPine 5 MG tablet Commonly known as: Norvasc Take 1 (one) tablet by mouth once daily baclofen 10 MG tablet Commonly known as: Lioresal Take 1 (one) tablet by mouth 2 times daily as needed for Muscle Spasms cetirizine 10 MG tablet Commonly known as: ZyrTEC Take 1 (one) tablet by mouth once daily as needed for Allergies clotrimazole-betamethasone 1-0.05 % cream Commonly known as: Lotrisone Apply to affected area 2 times daily as needed (rash) cyanocobalamin injection Commonly known as: Vitamin B-12 Inject 1,000 (one thousand) mcg into muscle every 30 days Deep Sea Nasal Ethel 0.65 % nasal spray Generic drug: sodium chloride Ethel 2 (two) sprays into each nostril as needed for Dry Nose doxazosin 2 MG tablet Commonly known as: Cardura Take 1 (one) tablet by mouth at bedtime doxepin 3 MG tablet Commonly known as: Silenor Take 1 (one) tablet by mouth at bedtime DULoxetine 60 MG capsule Commonly known as: Cymbalta Take 1 (one) capsule by mouth once daily fluticasone propionate 50 MCG/ACT nasal spray Commonly known as: Flonase Ethel 2 (two) sprays into each nostril once daily as needed (allergies) hydroCHLOROthiazide 12.5 MG Commonly known as: Hydrodiuril Take 1 (one) tablet by mouth once daily metoprolol succinate XL 24hr 25 MG tablet Commonly known as: Toprol XL Take 1 (one) tablet by mouth once daily mupirocin 2 % ointment Commonly known as: Bactroban Apply to affected area 2 times daily APPLY SMALL AMOUNT TOPICALLY IN EACH NOSTRIL EVERY NIGHT AT BEDTIME omeprazole 20 MG capsule Commonly known as: PriLOSEC Take 1 (one) capsule by mouth once daily as needed for Heartburn Discharge Procedure Orders Referral to Home Connections Referral Priority: Routine Referral Type: Home Connections Referral Reason: Specialty Services Required Requested Specialty: Home Health Services Number of Visits Requested: 999 Why you were hospitalized Order Specific Question Answer Comments Your discharge diagnosis is: History of removal of laparoscopic gastric banding device [[id number]] Activity as tolerated -- Walk at least four times a day. -- If you are driving for longer than an hour, stop and walk for ten minutes every hour during the drive. No heavy lifting Do not lift anything over 15 pounds until cleared by Dr. Beckwith Shower with incision uncovered -- Remove dressings before showering, then replace dressing afterwards. -- Leave dressings off after 48 hours. No tub baths Until your incision(s) are completely healed. Incentive spirometer Continue to use your incentive spirometer four times a day for two more weeks. Return to work -- You may return to work after you are cleared by Dr. Beckwith Follow up with Primary Care Provider (PCP) Our records show your Primary Care Provider (PCP) is Rhianna Cowan MD. Additional Scheduling Instructions: Readmission Risk Score: 8. 0-20 = Low/Moderate Risk - Follow up within 14 days 21-100 = High Risk - Follow up within 5 days Order Specific Question Answer Comments Follow Up Instructions for Patient: Within 14 Days from Discharge Follow up with provider Additional Scheduling Instructions: Readmission Risk Score: 8. 0-20 = Low/Moderate Risk - Follow up within 14 days 21-100 = High Risk - Follow up within 5 days Order Specific Question Answer Comments Follow Up Instructions for Patient: Other (See Comment) 1 week Medication instructions Upon discharge from the hospital you may take capsules and regular pills (nothing larger than the size of an aspirin). Bariatric vitamins Patient not to take bariatric multivitamin or calcium supplement until your 1 month follow up Ok to take Prilosec No aspirin or NSAID's Until cleared by Dr. Beckwith -- Aspirin may be found in other medications, such as Excedrin or Anacin. -- Non-steroidal Anti-inflammatories (NSAID's) are found in many other medications, such as ibuprofen, Motrin, Aleve, or naproxen. -- Please ask if you are unsure about any medications. For relief of pain Take prescribed pain medications for relief of pain or discomfort. Diet instructions Phase 2 diet for 2 weeks then Phase 3 diet No alcoholic drinks Until cleared by Dr. Beckwith When to call your provider Call Dr. Beckwith if you have questions or concerns, or for any of the following issues: -- heart rate over 100 -- temperature higher than 101 F -- increased shortness of breath -- pain that gets worse or does not get better after taking your pain medication(s) as directed. Severe abdominal pain is defined as 8-10 on the pain scale. -- nausea or vomiting or cannot eat or drink -- bleeding from your incision or IV site -- if your incision or IV site looks infected (red, swollen, warm to the touch, or non-clear, foul-smelling drainage) documented in this encounter Medications at Time of Discharge Medication Sig Dispensed Refills Start Date End Date acetaminophen (Tylenol) 500 MG tablet Take 1 (one) tablet by mouth every 8 hours as needed for Pain or Fever 06/17/2022 albuterol HFA (Proventil; Ventolin; Proair) 108 (90 Base) MCG/ACT inhaler Inhale 2 (two) puffs by mouth every 6 hours as needed for Shortness of Breath or Wheezing 11/30/2021 amLODIPine (Norvasc) 5 MG tablet Take 1 (one) tablet by mouth once daily 12/12/2021 baclofen (Lioresal) 10 MG tablet Take 1 (one) tablet by mouth 2 times daily as needed for Muscle Spasms 12/12/2021 cetirizine (ZyrTEC) 10 MG tablet Take 1 (one) tablet by mouth once daily as needed for Allergies 12/26/2022 clotrimazole-betameth asone (Lotrisone) 1-0.05 % cream Apply to affected area 2 times daily as needed (rash) 12/12/2021 cyanocobalamin (Vitamin B-12) injection Inject 1,000 (one thousand) mcg into muscle every 30 days doxazosin (Cardura) 2 MG tablet Take 1 (one) tablet by mouth at bedtime 12/26/2022 doxepin (Silenor) 3 MG tablet Take 1 (one) tablet by mouth at bedtime 03/10/2023 DULoxetine (Cymbalta) 60 MG capsule Take 1 (one) capsule by mouth once daily fluticasone propionate (Flonase) 50 MCG/ACT nasal spray Ethel 2 (two) sprays into each nostril once daily as needed (allergies) 12/12/2021 hydroCHLOROthiazide (Hydrodiuril) 12.5 MG Take 1 (one) tablet by mouth once daily 12/12/2021 metoprolol succinate XL 24hr (Toprol XL) 25 MG tablet Take 1 (one) tablet by mouth once daily 01/28/2022 mupirocin (Bactroban) 2 % ointment Apply to affected area 2 times daily APPLY SMALL AMOUNT TOPICALLY IN EACH NOSTRIL EVERY NIGHT AT BEDTIME 12/26/2022 omeprazole (PriLOSEC) 20 MG capsule Take 1 (one) capsule by mouth once daily as needed for Heartburn sodium chloride (Deep Sea Nasal Ethel) 0.65 % nasal spray Ethel 2 (two) sprays into each nostril as needed for Dry Nose 12/26/2022 amoxicillin-clavulana te (Augmentin) 250-62.5 MG/5ML suspension Take 17.5 mL by mouth 2 times daily with morning and evening meal for 10 days 350 mL 04/21/2023 05/01/2023 magnesium hydroxide (Milk Of Magnesia) 400 MG/5ML suspension Take 15 mL by mouth as needed for Constipation 04/21/2023 05/16/2023 ondansetron, disintegrating, (Zofran ODT) 4 MG tablet Take 1 (one) tablet by mouth every 6 hours as needed for Nausea/Vomiting Allow tablet to dissolve on the tongue 20 tablet 04/21/2023 05/16/2023 oxyCODONE (Roxicodone) 5 MG/5ML oral solutionIndications:B ariatric surgery status Take 5 mL by mouth every 6 hours as needed for Pain 120 mL 04/22/2023 05/16/2023 senna-docusate (Senokot-S) 8.6-50 MG tablet Take 1 (one) tablet by mouth 2 times daily as needed for Constipation 04/21/2023 05/16/2023 simethicone (Mylicon) 80 MG chew tablet Take 1 (one) tablet by mouth 4 times daily as needed for Gas Pain 04/21/2023 05/16/2023 documented as of this encounter Progress Notes * Teagan Villarreal RN - 04/22/2023 2:04 PM CDT Care Coordination Progress Note Anticipated level of care at discharge: Home, Home - Home Connections Discharge Plan: home today with her daughter. Pt is agreeable to Home Connections. READMISSION RISK SCORE is 9 at 2:05 PM 04/22/2023. Anticipated Discharge Date: 04/22/23 Patient/Family provided with list of resources? Yes Preferred Provider / High Quality Network List given?: No Reason for provider choice: Insurance, Pt. choice - Physician driven, Pt. choice - previous provider, Pt. choice - Pt. choice Family Support (Name and Phone): Extended Emergency Contact Information Primary Emergency Contact: Yuliana Shepherd [address] [address] [place] [address] [place] [address] [facility] Relation: Daughter Patient is alert & orientated or has capacity for decision making: Yes If No , Legal or Designated Decision Maker: N/A Transportation at Discharge: Family Equipment at Home: Equipment at Home: None List DME patient requires but does not have: List DME pt. requires but does not have.: None DME Provider: Medication affordability concerns: No Follow Up Appointment: Follow up appointment/arrangements made Physician Follow Up Appointment(s) Made: Yes Appointment(s) made with the following physician providers: Surgeon Follow up date with Surgeon: 05/15/23 Follow up time with Surgeon: 08 Reason why no ancillary service appointment was made: Appointment already made Transportation to MD: Family Auth Number (if required): [place]: DME: Medications: Transportation: Name: Teagan Villarreal RN Phone: [phone] * Kary De Leon RN - 04/22/2023 1:18 PM CDT Shift Summary: pt A&Ox4, VSS, IV taken out, incisions to abdomen c/d/i, tolerating diet, passing gas/voiding, denies pain/nausea, discharge paperwork given to pt/all questions were answered, all belongings w/ pt, pt safely wheeled off of unit, ride waiting at front entrance..Kary De Leon RN 04/22/2023 1:21 PM * Maria Isabel Schafer MD - 04/22/2023 10:55 AM CDT Admit Date: 04/14/2023 7:34 AM Hospital Day: 8 Reason for visit/follow up: 57 y/o admitted with epigastric pain, gastric band complication/erosion New Symptoms Patient has no new symptoms Data Vitals: 04/21/23 1544 04/21/23 1928 04/22/23 0424 04/22/23 0735 BP: 157/85 159/95 147/66 157/98 Pulse: 98 95 105 106 Resp: Temp: 97.9 ??F (36.6 ??C) 98 ??F (36.7 ??C) 97.9 ??F (36.6 ??C) 97.8 ??F (36.6 ??C) SpO2: 95% 96% 97% 95% Weight: Height: Intake/Output Summary (Last 24 hours) at 04/22/2023 1055 Last data filed at 04/22/2023 0845 Gross per 24 hour Intake 160 ml Output -- Net 160 ml My review of labs, imaging, notes and other tests is significant for no new labs Recent Labs Component Name 04/21/23 0924 04/20/23 1021 04/19/23 0414 SODIUM 139 140 140 POTASSIUM 3.6 3.9 4.1 CHLORIDE 105 106 108* CO2 24 27 22* BUN 4* 4* 7* CREATININE 0.85 0.83 0.84 GLUCOSE 99 116* 115* CALCIUM 9.0 9.1 9.1 Recent Labs Component Name 04/21/23 0924 04/19/23 0414 04/18/23 0357 WBC 8.2 11.9* 16.1* HGB 10.9* 11.2* 11.6* HCT 33.8* 34.2* 35.6* PLTCOUNT 254 211 242 MEDICATIONS FOR CURRENT ENCOUNTER: ?? SCHEDULED MEDICATIONS: ?? acetaminophen (Tylenol) solution 500 mg, Oral, q4h ?? amLODIPine (Norvasc) tablet 5 mg, Oral, QDAY ?? cefTRIAXone (Rocephin) 2,000 mg in 0.9% NaCl IV 50 mL IVPB, Intravenous, q24h ?? doxazosin (Cardura) tablet 2 mg, Oral, AT BEDTIME ?? DULoxetine (Cymbalta) capsule 60 mg, Oral, QDAY ?? heparin injection 5,000 Units, Subcutaneous, BID ?? metroNIDAZOLE (Flagyl) tablet 500 mg, Oral, q8h ?? pantoprazole (Protonix) injection 40 mg, Intravenous, QDAY ?? CONTINUOUS MEDICATIONS: Exam General appearance: alert, cooperative, Heart: regular rhythm, normal S1 and S2, without murmurs, Lungs: breath sounds symmetric; no rales or wheezes Abdomen: soft , tender, with occasional bowel sounds Extremities: no cyanosis, trace edema Assessment and Plan S/P removal of adjustable gastric band and port, repair of gastric perforation - bariatric sx recommends abx for 7 days for perforation, on rocephin. Added flagyl - will plan for omnicef, flagyl at DC for 7 days - L LL haziness on CXR looks like 2/2 atelectasis - CT PE reviewed - already on rocephin, appears to be atelectasis and possible fluid overload giventrace effusions given IV lasix -will not need ambulatory oximetry prior to DC since maintaining O2 sats ?? HTN Resumed home meds ?? Anxiety/depression Resume home meds ?? Hypokalemia Replaced Discharge medication list reviewed and reconciled. ?? Portions of this document have been carried over from prior notes and may contain unintentional discrepancies. Please refer to orders and MAR for the most accurate and up-to-date information. * Kary De Leon RN - 04/22/2023 9:10 AM CDT Problem: Pain/Discomfort Goal: Patient exhibits reduced pain/discomfort as evidenced by pain scores Outcome: Progressing Goal: Patient uses pharmacological and non-pharmacological pain management strategies. Outcome: Progressing Goal: Patient verbalizes acceptable level of pain relief and ability to engage in desired activity. Outcome: Progressing Problem: Nausea/Vomiting Goal: Patients functional goal is met Outcome: Progressing Problem: Elimination--Bowel Goal: Elimination patterns are normal or improving Outcome: Progressing Problem: Fall Risk Goal: Fall risk and fall related injury risk are minimized (interventions related to the fall risk can be found in the flowsheet documentation) Outcome: Progressing Problem: Procedural Site (Incision) Care Goal: Incision remains intact with edges well approximated Outcome: Progressing Goal: Incision is free of infection. Outcome: Progressing Problem: Ineffective breathing pattern related to obstructive sleep apnea Goal: Maintains optimal sleep pattern, as evidenced by relaxed breathing at normal rate and depth. Outcome: Progressing Goal: Adheres to CPAP (Continuous Positive Airway Pressure) device regimen as prescribed. Outcome: Progressing Problem: Sleep deprivation related to sleep apnea. Goal: Achieves restful, refreshing sleep pattern. Outcome: Progressing * Marybel Kent APRN-EDGE BANDER HAND - 04/22/2023 8:09 AM CDT Bariatric Surgery Progress Note Nevin Deshpande Admit Date: 04/14/2023 7:34 AM Hospital Day: 8 Chief Complaint:??epigastric abdominal pain, gerd, dysphagia ?? Pt is a??57??yo F??admitted today secondary to findings of complications of gastric band. There wasnoted gastric band erosion on upper endoscopy. Pt??with a hx of LAGB years ago. Pt reports 30 lb weight loss at maximum with weight recidivism due to GERD and dysphagia symptoms. The GERD is managed with PPI daily but reports breakthrough acid backwash multiple times a week and heartburn. Pt reports intermittent dysphagia consisting of epigastric discomfort with eating with frequent regurgitation. the foods mainly problematic are meats and more solid dense foods. ?? Follow Up for Procedure: Laparoscopic removal of adjustable gastric band and port??(06791) 2.??Laparoscopic??Repair of gastric perforation??([place] [address]) 3. Omental isabel patch (30917) 3. Esophagogastroduodenoscopy POD #6 Overnight Events: None Subjective: Pain well controlled with medications, mild nausea, no emesis, ambulated, Tolerating Phase I diet well Denies CP or SOB + flatus, + loose BM's Data Vitals: 04/21/23 1544 04/21/23 1928 04/22/23 0424 04/22/23 0735 BP: 157/85 159/95 147/66 157/98 Pulse: 98 95 105 106 Resp: Temp: 97.9 ??F (36.6 ??C) 98 ??F (36.7 ??C) 97.9 ??F (36.6 ??C) 97.8 ??F (36.6 ??C) SpO2: 95% 96% 97% 95% Weight: Height: Intake/Output Summary (Last 24 hours) at 04/22/2023 1511 Last data filed at 04/22/2023 0845 Gross per 24 hour Intake 60 ml Output -- Net 60 ml Current Facility-Administered Medications Medication ??? acetaminophen (Tylenol) solution 500 mg ??? albuterol HFA (Proventil; Ventolin; Proair) 108 (90 Base) MCG/ACT inhaler 2 puff ??? amLODIPine (Norvasc) tablet 5 mg ??? baclofen (Lioresal) tablet 10 mg ??? cefTRIAXone (Rocephin) 2,000 mg in 0.9% NaCl IV 50 mL IVPB ??? doxazosin (Cardura) tablet 2 mg ??? DULoxetine (Cymbalta) capsule 60 mg ??? heparin injection 5,000 Units ??? hydroCHLOROthiazide (Hydrodiuril) tablet 12.5 mg ??? metoprolol succinate XL 24hr (Toprol XL) tablet 25 mg ??? metroNIDAZOLE (Flagyl) tablet 500 mg ??? ondansetron (Zofran) injection 4 mg ??? oxyCODONE (Roxicodone) oral solution 10 mg ??? pantoprazole EC (Protonix) tablet 40 mg ??? simethicone (Mylicon) chew tablet 80 mg Current Outpatient Medications Medication ??? acetaminophen (Tylenol) 500 MG tablet ??? albuterol HFA (Proventil; Ventolin; Proair) 108 (90 Base) MCG/ACT inhaler ??? amLODIPine (Norvasc) 5 MG tablet ??? amoxicillin-clavulanate (Augmentin) 250-62.5 MG/5ML suspension ??? baclofen (Lioresal) 10 MG tablet ??? cetirizine (ZyrTEC) 10 MG tablet ??? clotrimazole-betamethasone (Lotrisone) 1-0.05 % cream ??? cyanocobalamin (Vitamin B-12) injection ??? doxazosin (Cardura) 2 MG tablet ??? doxepin (Silenor) 3 MG tablet ??? DULoxetine (Cymbalta) 60 MG capsule ??? fluticasone propionate (Flonase) 50 MCG/ACT nasal spray ??? hydroCHLOROthiazide (Hydrodiuril) 12.5 MG ??? magnesium hydroxide (Milk Of Magnesia) 400 MG/5ML suspension ??? metoprolol succinate XL 24hr (Toprol XL) 25 MG tablet ??? mupirocin (Bactroban) 2 % ointment ??? omeprazole (PriLOSEC) 20 MG capsule ??? ondansetron, disintegrating, (Zofran ODT) 4 MG tablet ??? senna-docusate (Senokot-S) 8.6-50 MG tablet ??? simethicone (Mylicon) 80 MG chew tablet ??? sodium chloride (Deep Sea Nasal Ethel) 0.65 % nasal spray Recent Labs Component Name 04/21/23 0924 04/20/23 1021 04/19/23 0414 SODIUM 139 140 140 POTASSIUM 3.6 3.9 4.1 CHLORIDE 105 106 108* CO2 24 27 22* BUN 4* 4* 7* CREATININE 0.85 0.83 0.84 GLUCOSE 99 116* 115* CALCIUM 9.0 9.1 9.1 Recent Labs Component Name 04/21/23 0924 04/19/23 0414 04/18/23 0357 WBC 8.2 11.9* 16.1* HGB 10.9* 11.2* 11.6* HCT 33.8* 34.2* 35.6* PLTCOUNT 254 211 242 Physical Exam A+O x 3, NAD CTA B/L RRR ABD soft, ND, appropriate TTP, incisions C/D/I Neg BLE edema Assessment/Plan: S/P Laparoscopic removal of adjustable gastric band and port??(46440) 2.??Laparoscopic??Repair [place] gastric perforation[place] [address]) 3. Omental isabel patch (04788) 3. esophagogastroduodenoscopy POD #6 Neuro: ??PO pain control ( tylenol / roxicodone ) - increase roxicodone to 10 mg?? - continue with ice packs PRN - continue with abdominal binder PRN ?? PULM: aggressive IS, ambulation, OOBTC - CXR reviewed with hospitalist -??off oxygen , RA 90-91%? CV: stable ?? GI: - PPI, - UGI??ok?? - start bowel regimen ?? FEN: wean IVF ?? : adequate UOP ?? HEME: stable H/H ?? ID: afebrile,?? - leukocytosis??improving - continue with antibiotics for 10 days? DVT: cont SCD and heparin ?? Dispo: - continue with pain and nausea control and monitor oral intake -??Ok to DC today once ok with all other provider's?? - Plan for Phase 2 diet for 2 weeks then Phase 3 diet - Plan for Augmentin x 10 days Marybel Kent, MACHINE ST[employer] * Enrique Tapia - 04/21/2023 9:56 PM CDT Shift Summary; A+OX4 BP elevated, other VSS, CTM 4 sites w/ glue IV s.l, iv abx this shift Phase 2 jesus fair Ad abi, encouraged laps Voiding, bm loose and watery Scheduled pain medication Prn zofran Call light in place at this time Enrique Tapia 04/21/2023 9:57 PM * Enrique Tapia - 04/21/2023 9:55 PM CDT Problem: Pain/Discomfort Goal: Patient exhibits reduced pain/discomfort as evidenced by pain scores Outcome: Progressing Problem: Nausea/Vomiting Goal: Patients functional goal is met Outcome: Progressing Problem: Elimination--Bowel Goal: Elimination patterns are normal or improving Outcome: Progressing Problem: Fall Risk Goal: Fall risk and fall related injury risk are minimized (interventions related to the fall risk can be found in the flowsheet documentation) Outcome: Progressing Problem: Procedural Site (Incision) Care Goal: Incision remains intact with edges well approximated Outcome: Progressing * Teagan Villarreal RN - 04/21/2023 12:56 PM CDT Care Coordination Progress Note Anticipated level of care at discharge: Home S/P removal of adjustable gastric band and port, repair of gastric perforation. Omnicef and flagyl on discharge. Pt will need walk study prior to discharge. Discharge Plan: home READMISSION RISK SCORE is 9 at 12:57 PM 04/21/2023. Anticipated Discharge Date: 04/22/23 Patient/Family provided with list of resources? Yes Preferred Provider / High Quality Network List given?: No Reason for provider choice: Insurance, Pt. choice - Physician driven, Pt. choice - previous provider, Pt. choice - Pt. choice Family Support (Name and Phone): Extended Emergency Contact Information Primary Emergency Contact: Yuliana Shepherd Address: [address] [place] [address] [place] Relation: Daughter Patient is alert & orientated or has capacity for decision making: Yes If No , Legal or Designated Decision Maker: N/A Transportation at Discharge: Family Equipment at Home: Equipment at Home: None List DME patient requires but does not have: List DME pt. requires but does not have.: None Medication affordability concerns: No Transportation to MD: Family Auth Number (if required): [place]: DME: Medications: Transportation: Name: Teagan Villarreal RN Phone: [phone] * Guerline Melgar MD - 04/21/2023 9:40 AM CDT Admit Date: 04/14/2023 7:34 AM Hospital Day: 7 Clinical Course 57 y/o admitted with epigastric pain, gastric band complication/erosion New Symptoms No new complaints Exam Vitals: 04/20/23 2114 04/21/23 0059 04/21/23 0337 04/21/23 0726 BP: 157/89 177/95 Pulse: 100 93 92 93 Resp: 18 18 18 16 Temp: 97.8 ??F (36.6 ??C) 97.7 ??F (36.5 ??C) SpO2: 90% 91% 91% 91% Weight: Height: General appearance: awake, alert, NAD Lungs: clear to auscultation B/L Heart: regular rhythm, normal S1 and S2 Abdomen: soft without mass, appropriately tender Extremities: no clubbing, cyanosis or edema Data Intake/Output Summary (Last 24 hours) at 04/21/2023 0940 Last data filed at 04/21/2023 0821 Gross per 24 hour Intake 240 ml Output -- Net 240 ml My review of labs, imaging, notes and other tests is significant for improving leukocytosis Recent Labs Component Name 04/21/23 0924 04/19/23 0414 04/18/23 0357 WBC 8.2 11.9* 16.1* HGB 10.9* 11.2* 11.6* HCT 33.8* 34.2* 35.6* PLTCOUNT 254 211 242 Recent Labs Component Name 04/20/23 1021 04/19/23 0414 04/18/23 0357 SODIUM 140 140 139 POTASSIUM 3.9 4.1 4.2 CHLORIDE 106 108* 107 CO2 27 22* 23 BUN 4* 7* 9* CREATININE 0.83 0.84 0.89 GLUCOSE 116* 115* 118* CALCIUM 9.1 9.1 8.8 MEDICATIONS FOR CURRENT ENCOUNTER: SCHEDULED MEDICATIONS: acetaminophen (Tylenol) solution 500 mg, Oral, q4h amLODIPine (Norvasc) tablet 5 mg, Oral, QDAY cefTRIAXone (Rocephin) 2,000 mg in 0.9% NaCl IV 50 mL IVPB, Intravenous, q24h doxazosin (Cardura) tablet 2 mg, Oral, AT BEDTIME DULoxetine (Cymbalta) capsule 60 mg, Oral, QDAY furosemide (Lasix) injection 20 mg, Intravenous, Once heparin injection 5,000 Units, Subcutaneous, BID metroNIDAZOLE (Flagyl) 500 mg in 100 mL IVPB, Intravenous, q8h pantoprazole (Protonix) injection 40 mg, Intravenous, QDAY [COMPLETED] furosemide (Lasix) injection 20 mg, Intravenous, Once ?? [] iopamidol (Isovue 370) 76 % contrast, Intravenous, Contrast - Once ?? CONTINUOUS MEDICATIONS: PRN MEDICATIONS: ondansetron (Zofran) injection 4 mg, Intravenous, q6h PRN oxyCODONE (Roxicodone) oral solution 10 mg, Oral, q4h PRN ?? simethicone (Mylicon) chew tablet 80 mg, Oral, 4X/day PRN Assessment and Plan S/P removal of adjustable gastric band and port, repair of gastric perforation - bariatric sx recommends abx for 7 days for perforation, on rocephin. Added flagyl - will plan for omnicef, flagyl at DC for 7 days - L LL haziness on CXR looks like 2/2 atelectasis - CT PE reviewed - already on rocephin, appears to be atelectasis and possible fluid overload giventrace effusions - receiving IV lasix on and off - will need ambulatory oximetry prior to DC HTN - resumed home meds ?? Anxiety/depression - meds will be resumed when able to take PO ?? Hypokalemia - replaced D/W RN ?? Portions of this note were carried over from previous note, EHR template. I reviewed and updated asnecessary Peripheral IV Left;Posterior Hand (Active) Placement Date/Time: 04/21/23 6615 Orientation: Left;Posterior Location: Hand Name/Credentials of person who placed: james banks IV Catheter Size: 22 Gauge Number of start attempts: 1 Local Anesthetic Used?: None Procedure Tolerance: Well Number of days: 0 Procedural Site (Incision) Abdomen (Active) Date: 04/16/23 Location: Abdomen Multiple Sites: Laparoscopic Number of days: 5 READMISSION RISK SCORE is 8 at 9:40 AM 04/21/2023. * Marybel Kent, MACHINE [employer] - 04/21/2023 7:49 AM CDT Bariatric Surgery Progress Note Nevin Deshpande Admit Date: 04/14/2023 7:34 AM Hospital Day: 7 Chief Complaint: epigastric abdominal pain, gerd, dysphagia ?? Pt is a??57??yo F admitted today secondary to findings of complications of gastric band. There was noted gastric band erosion on upper endoscopy. Pt with a hx of LAGB years ago. Pt reports 30 lb weight loss at maximum with weight recidivism due to GERD and dysphagia symptoms. The GERD is managed with PPI daily but reports breakthrough acid backwash multiple times a week and heartburn. Pt reports intermittent dysphagia consisting of epigastric discomfort with eating with frequent regurgitation. the foods mainly problematic are meats and more solid dense foods. Follow Up for Procedure: Laparoscopic removal of adjustable gastric band and port??(84246) 2.??Laparoscopic??Repair of gastric perforation[place] [address]) 3. Omental isabel patch (99941) 3. esophagogastroduodenoscopy POD#5 Overnight Events: None Subjective: Pain well controlled with medications, mild nausea, no emesis, ambulated, Tolerating Phase I diet well-starting phase 2 diet this am Denies CP or SOB + flatus, + BM yesterday Data Vitals: 04/20/23 2114 04/21/23 0059 04/21/23 0337 04/21/23 0726 BP: 157/89 177/95 Pulse: 100 93 92 93 Resp: 18 18 18 16 Temp: 97.8 ??F (36.6 ??C) 97.7 ??F (36.5 ??C) SpO2: 90% 91% 91% 91% Weight: Height: Intake/Output Summary (Last 24 hours) at 04/21/2023 0832 Last data filed at 04/21/2023 0821 Gross per 24 hour Intake 240 ml Output -- Net 240 ml Current Facility-Administered Medications Medication ??? acetaminophen (Tylenol) solution 500 mg ??? amLODIPine (Norvasc) tablet 5 mg ??? cefTRIAXone (Rocephin) 2,000 mg in 0.9% NaCl IV 50 mL IVPB ??? doxazosin (Cardura) tablet 2 mg ??? DULoxetine (Cymbalta) capsule 60 mg ??? heparin injection 5,000 Units ??? iopamidol (Isovue 370) 76 % contrast ??? metroNIDAZOLE (Flagyl) 500 mg in 100 mL IVPB ??? ondansetron (Zofran) injection 4 mg ??? oxyCODONE (Roxicodone) oral solution 10 mg ??? pantoprazole (Protonix) injection 40 mg ??? simethicone (Mylicon) chew tablet 80 mg Recent Labs Component Name 04/20/23 1021 04/19/23 0414 04/18/23 0357 SODIUM 140 140 139 POTASSIUM 3.9 4.1 4.2 CHLORIDE 106 108* 107 CO2 27 22* 23 BUN 4* 7* 9* CREATININE 0.83 0.84 0.89 GLUCOSE 116* 115* 118* CALCIUM 9.1 9.1 8.8 Recent Labs Component Name 04/19/23 0414 04/18/23 0357 04/17/23 0633 WBC 11.9* 16.1* 18.9* HGB 11.2* 11.6* 12.8 HCT 34.2* 35.6* 39.5 PLTCOUNT 211 242 271 Physical Exam A+O x 3, NAD CTA B/L RRR ABD soft, ND, appropriate TTP, incisions C/D/I Neg BLE edema Assessment/Plan: S/P Laparoscopic removal of adjustable gastric band and port??(97883) 2.??Laparoscopic??Repair of gastric perforation??([place] similar to [address]) 3. Omental isabel patch (03368) 3. esophagogastroduodenoscopy POD #5 Neuro: ??PO pain control ( tylenol / roxicodone ) - increase roxicodone to 10 mg - continue with ice packs PRN - continue with abdominal binder PRN ?? PULM: aggressive IS, ambulation, OOBTC - CXR reviewed with hospitalist - off oxygen , RA 90-91% ?? CV: stable ?? GI: - PPI, - UGI ok - start bowel regimen ?? FEN: wean IVF ?? : adequate UOP ?? HEME: stable H/H ?? ID: afebrile,?? - leukocytosis improving - continue with antibiotics for 7 days ?? DVT: cont SCD and heparin ?? Dispo: - continue with pain and nausea control and monitor oral intake - Dr. beckwith to see - Possible discharge today if tolerates Phase 2 diet and labs ok - Plan for Phase 2 diet for 2 weeks then Phase 3 diet - Plan for Augmentin x 10 days Marybel Kent APRN-EDGE [employer] * Cinda Corley RN - 04/21/2023 7:23 AM CDT Problem: Pain/Discomfort Goal: Patient exhibits reduced pain/discomfort as evidenced by pain scores Outcome: Progressing Problem: Nausea/Vomiting Goal: Patients functional goal is met Outcome: Progressing Problem: Fall Risk Goal: Fall risk and fall related injury risk are minimized (interventions related to the fall risk can be found in the flowsheet documentation) Outcome: Progressing Problem: Procedural Site (Incision) Care Goal: Incision remains intact with edges well approximated Outcome: Progressing * Kathy Wadsworth RN - 04/20/2023 11:31 PM CDT Shift Summary:pt denies nausea or vomiting at this time,tolerating phase 1 diet,stated voiding and had bowel movement today,ambulates in room,encouraged to ambulate in the hallway,tylenol and roxicodone given for pain this shift. * Kathy Wadsworth RN - 04/20/2023 11:29 PM CDT Problem: Pain/Discomfort Goal: Patient exhibits reduced pain/discomfort as evidenced by pain scores Outcome: Progressing Note: Nevin was given tylenol and roxicodone for pain this shift . Problem: Fall Risk Goal: Fall risk and fall related injury risk are minimized (interventions related to the fall risk can be found in the flowsheet documentation) Outcome: Progressing Note: Nevin was instructed to call for help for safety this shift. Problem: Nausea/Vomiting Goal: Patients functional goal is met Outcome: Adequate for Discharge Note: Nevin denies nausea or vomiting at this time. Problem: Procedural Site (Incision) Care Goal: Incision remains intact with edges well approximated Outcome: Adequate for Discharge Note: Nevin's abdominal lap sites incision remains clean and well approximated this shift. * Marybel Mann RN - 04/20/2023 5:03 PM CDT Problem: Pain/Discomfort Goal: Patient exhibits reduced pain/discomfort as evidenced by pain scores Outcome: Progressing Goal: Patient uses pharmacological and non-pharmacological pain management strategies. Outcome: Progressing Goal: Patient verbalizes acceptable level of pain relief and ability to engage in desired activity. Outcome: Progressing Problem: Nausea/Vomiting Goal: Patients functional goal is met Outcome: Progressing Problem: Elimination--Bowel Goal: Elimination patterns are normal or improving Outcome: Progressing Problem: Fall Risk Goal: Fall risk and fall related injury risk are minimized (interventions related to the fall risk can be found in the flowsheet documentation) Outcome: Progressing Problem: Procedural Site (Incision) Care Goal: Incision remains intact with edges well approximated Outcome: Progressing Goal: Incision is free of infection. Outcome: Progressing Problem: Ineffective breathing pattern related to obstructive sleep apnea Goal: Maintains optimal sleep pattern, as evidenced by relaxed breathing at normal rate and depth. Outcome: Progressing Goal: Adheres to CPAP (Continuous Positive Airway Pressure) device regimen as prescribed. Outcome: Progressing Problem: Sleep deprivation related to sleep apnea. Goal: Achieves restful, refreshing sleep pattern. Outcome: Progressing * Guerline Melgar MD - 04/20/2023 1:36 PM CDT Admit Date: 04/14/2023 7:34 AM Hospital Day: 6 Clinical Course 57 y/o admitted with epigastric pain, gastric band complication/erosion New Symptoms Saturating 93-94% on RA sitting in bed Asking if her diet can be advanced Exam Vitals: 04/19/23 2110 04/20/23 0252 04/20/23 0328 04/20/23 0856 BP: 157/86 146/89 Pulse: 102 90 96 92 Resp: Temp: 98.6 ??F (37 ??C) 98.3 ??F (36.8 ??C) SpO2: 95% 96% 91% Weight: Height: General appearance: awake, alert, NAD Lungs: clear to auscultation B/L Heart: regular rhythm, normal S1 and S2 Abdomen: soft without mass, appropriately tender Extremities: no clubbing, cyanosis or edema Data Intake/Output Summary (Last 24 hours) at 04/20/2023 1336 Last data filed at 04/20/2023 0512 Gross per 24 hour Intake 4240.48 ml Output 1200 ml Net 3040.48 ml My review of labs, imaging, notes and other tests is significant for improving leukocytosis Recent Labs Component Name 04/19/23 0414 04/18/23 0357 04/17/23 0633 WBC 11.9* 16.1* 18.9* HGB 11.2* 11.6* 12.8 HCT 34.2* 35.6* 39.5 PLTCOUNT 211 242 271 Recent Labs Component Name 04/20/23 1021 04/19/23 0414 04/18/23 0357 SODIUM 140 140 139 POTASSIUM 3.9 4.1 4.2 CHLORIDE 106 108* 107 CO2 27 22* 23 BUN 4* 7* 9* CREATININE 0.83 0.84 0.89 GLUCOSE 116* 115* 118* CALCIUM 9.1 9.1 8.8 MEDICATIONS FOR CURRENT ENCOUNTER: SCHEDULED MEDICATIONS: acetaminophen (Tylenol) solution 500 mg, Oral, q4h amLODIPine (Norvasc) tablet 5 mg, Oral, QDAY cefTRIAXone (Rocephin) 2,000 mg in 0.9% NaCl IV 50 mL IVPB, Intravenous, q24h doxazosin (Cardura) tablet 2 mg, Oral, AT BEDTIME DULoxetine (Cymbalta) capsule 60 mg, Oral, QDAY heparin injection 5,000 Units, Subcutaneous, BID iopamidol (Isovue 370) 76 % contrast, Intravenous, Contrast - Once metroNIDAZOLE (Flagyl) 500 mg in 100 mL IVPB, Intravenous, q8h pantoprazole (Protonix) injection 40 mg, Intravenous, QDAY [COMPLETED] furosemide (Lasix) injection 20 mg, Intravenous, Once ?? [COMPLETED] furosemide (Lasix) injection 20 mg, Intravenous, Once ?? CONTINUOUS MEDICATIONS: PRN MEDICATIONS: ondansetron (Zofran) injection 4 mg, Intravenous, q6h PRN oxyCODONE (Roxicodone) oral solution 10 mg, Oral, q4h PRN ?? simethicone (Mylicon) chew tablet 80 mg, Oral, 4X/day PRN Assessment and Plan S/P removal of adjustable gastric band and port, repair of gastric perforation - bariatric sx recommends abx for 7 days for perforation, on rocephin. Added flagyl - will plan for omnicef, flagyl at PR for 7 days - L LL haziness on CXR looks like 2/2 atelectasis - CT PE reviewed - already on rocephin, appears to be atelectasis and possible fluid overload giventrace effusions - received IV lasix yesterday, another dose ordered for today HTN - resumed home meds ?? Anxiety/depression - meds will be resumed when able to take PO ?? Hypokalemia - replaced D/W RN ?? Portions of this note were carried over from previous note, EHR template. I reviewed and updated asnecessary Peripheral IV Left;Posterior Forearm (Active) Placement Date/Time: 04/15/23 0844 Orientation: Left;Posterior Location: Forearm Name/Credentials of person who placed: Hayes Singh RN task IV Catheter Length: 2.5 IV Catheter Size: 20 Gauge In Home Aide/Model : florez introcan Technique: An... Number of days: 5 Procedural Site (Incision) Abdomen (Active) Date: 04/16/23 Location: Abdomen Multiple Sites: Laparoscopic Number of days: 4 READMISSION RISK SCORE is 8 at 1:36 PM 04/20/2023. * Kathy Wadsworth RN - 04/20/2023 1:36 AM CDT Shift Summary:pt resting quietly in bed,ivf infusing,call light within reach,scheduled tylenol and roxicodone given for pain as needed this shift,remain on phase 1 diet,stated voiding and having bowel movement this shift. * Kathy Wadsworth RN - 04/20/2023 1:36 AM CDT Problem: Pain/Discomfort Goal: Patient exhibits reduced pain/discomfort as evidenced by pain scores Outcome: Progressing Note: Nevin was given scheduled tylenol with roxicodone as needed for pain this shift. Problem: Fall Risk Goal: Fall risk and fall related injury risk are minimized (interventions related to the fall risk can be found in the flowsheet documentation) Outcome: Progressing Note: Nevin was instructed to call for help for safety this shift. Problem: Procedural Site (Incision) Care Goal: Incision remains intact with edges well approximated Outcome: Progressing Note: Nevin's abdominal lap sites remains clean and well approximated at this time. Problem: Nausea/Vomiting Goal: Patients functional goal is met Outcome: Adequate for Discharge Note: Nevin denies nausea or vomiting at this time. * Kim Lazar RCP - 04/19/2023 11:10 PM CDT Pt remains on ETCO2. * Kary De Leon RN - 04/19/2023 7:17 PM CDT Shift Summary: pt A&Ox4, VSS, o2 on 3L/pulse o2 machine, IVF's infusing,??pt up to chair, voiding/passing gas/ BM/episode of incontinence, lasix given,??roxix1 for pain, denies nausea, toleratingphase 1 diet,??encouraged to sit up and use IS 10x an hour, incisions to ab c/d/i w/ skin glue,??bed/chair low and locked, call light within reach..Kary De Leon RN 04/19/2023 7:20 PM * Guerline Melgar MD - 04/19/2023 2:29 PM CDT Admit Date: 04/14/2023 7:34 AM Hospital Day: 5 Clinical Course 57 y/o admitted with epigastric pain, gastric band complication/erosion New Symptoms On and off [address] PE ordered pending Exam Vitals: 04/18/23 1927 04/19/23 0428 04/19/23 0809 04/19/23 1313 BP: 157/90 156/57 150/61 144/73 Pulse: 93 99 102 104 Resp: 16 18 18 20 Temp: 97.9 ??F (36.6 ??C) 98 ??F (36.7 ??C) 98.3 ??F (36.8 ??C) SpO2: 95% 94% 95% 90% Weight: Height: General appearance: drowsy, appears comfortable Lungs: decreased air entry B/L Heart: regular rhythm, normal S1 and S2 Abdomen: soft without mass, appropriately tender Extremities: no clubbing, cyanosis or edema Data Intake/Output Summary (Last 24 hours) at 04/19/2023 1429 Last data filed at 04/19/2023 0004 Gross per 24 hour Intake 340 ml Output -- Net 340 ml My review of labs, imaging, notes and other tests is significant for improving leukocytosis Recent Labs Component Name 04/19/23 0414 04/18/23 0357 04/17/23 0633 WBC 11.9* 16.1* 18.9* HGB 11.2* 11.6* 12.8 HCT 34.2* 35.6* 39.5 PLTCOUNT 211 242 271 Recent Labs Component Name 04/19/23 0414 04/18/23 0357 04/17/23 0633 SODIUM 140 139 139 POTASSIUM 4.1 4.2 4.4 CHLORIDE 108* 107 108* CO2 22* 23 22* BUN 7* 9* 6* CREATININE 0.84 0.89 0.96 GLUCOSE 115* 118* 140* CALCIUM 9.1 8.8 9.0 MEDICATIONS FOR CURRENT ENCOUNTER: SCHEDULED MEDICATIONS: acetaminophen (Tylenol) solution 500 mg, Oral, q4h cefTRIAXone (Rocephin) 2,000 mg in 0.9% NaCl IV 50 mL IVPB, Intravenous, q24h heparin injection 5,000 Units, Subcutaneous, BID iopamidol (Isovue 370) 76 % contrast, Intravenous, Contrast - Once metroNIDAZOLE (Flagyl) 500 mg in 100 mL IVPB, Intravenous, q8h pantoprazole (Protonix) injection 40 mg, Intravenous, QDAY [COMPLETED] loperamide (Imodium) capsule 2 mg, Oral, Once ?? [] iopamidol (Isovue 370) 76 % contrast, Oral, Contrast - Once CONTINUOUS MEDICATIONS: ?? dextrose 5 % and 0.45 % NaCl with KCl 20 mEq infusion, Intravenous, Continuous PRN MEDICATIONS: ondansetron (Zofran) injection 4 mg, Intravenous, q6h PRN oxyCODONE (Roxicodone) oral solution 10 mg, Oral, q4h PRN ?? simethicone (Mylicon) chew tablet 80 mg, Oral, 4X/day PRN Assessment and Plan S/P removal of adjustable gastric band and port, repair of gastric perforation - bariatric sx recommends abx for 7 days for perforation, on rocephin. Added flagyl - will plan for omnicef, flagyl at PR for 7 days - L LL haziness on CXR looks like 2/2 atelectasis - CT PE pending?? HTN - resumed home meds ?? Anxiety/depression - meds will be resumed when able to take PO ?? Hypokalemia - replaced ?? Portions of this note were carried over from previous note, EHR template. I reviewed and updated asnecessary Peripheral IV Left;Posterior Forearm (Active) Placement Date/Time: 04/15/23 0844 Orientation: Left;Posterior Location: Forearm Name/Credentials of person who placed: Hayes Singh RN task IV Catheter Length: 2.5 IV Catheter Size: 20 Gauge In Home Aide/Model : florez introcan Technique: An... Number of days: 4 Procedural Site (Incision) Abdomen (Active) Date: 04/16/23 Location: Abdomen Multiple Sites: Laparoscopic Number of days: 3 READMISSION RISK SCORE is 10 at 2:29 PM 04/19/2023. * Kary De Leon RN - 04/19/2023 9:39 AM CDT Problem: Pain/Discomfort Goal: Patient exhibits reduced pain/discomfort as evidenced by pain scores Outcome: Progressing Goal: Patient uses pharmacological and non-pharmacological pain management strategies. Outcome: Progressing Goal: Patient verbalizes acceptable level of pain relief and ability to engage in desired activity. Outcome: Progressing Problem: Nausea/Vomiting Goal: Patients functional goal is met Outcome: Progressing Problem: Elimination--Bowel Goal: Elimination patterns are normal or improving Outcome: Progressing Problem: Fall Risk Goal: Fall risk and fall related injury risk are minimized (interventions related to the fall risk can be found in the flowsheet documentation) Outcome: Progressing Problem: Procedural Site (Incision) Care Goal: Incision remains intact with edges well approximated Outcome: Progressing Goal: Incision is free of infection. Outcome: Progressing * Haley Boykin RN - 04/18/2023 9:45 PM CDT Problem: Pain/Discomfort Goal: Patient exhibits reduced pain/discomfort as evidenced by pain scores Outcome: Progressing Goal: Patient uses pharmacological and non-pharmacological pain management strategies. Outcome: Progressing Goal: Patient verbalizes acceptable level of pain relief and ability to engage in desired activity. Outcome: Progressing Problem: Nausea/Vomiting Goal: Patients functional goal is met Outcome: Progressing Problem: Elimination--Bowel Goal: Elimination patterns are normal or improving Outcome: Progressing Problem: Fall Risk Goal: Fall risk and fall related injury risk are minimized (interventions related to the fall risk can be found in the flowsheet documentation) Outcome: Progressing Problem: Procedural Site (Incision) Care Goal: Incision remains intact with edges well approximated Outcome: Progressing Goal: Incision is free of infection. Outcome: Progressing * Kary De Leon RN - 04/18/2023 2:09 PM CDT Shift Summary: pt A&Ox4, VSS, IVF's infusing, pt up to chair, voiding/passing gas/ BMx1, [id number] pain, denies nausea, tolerating phase 1 diet, encouraged to sit up and use IS 10x an hour, incisions to ab c/d/i w/ skin glue, bed/chair low and locked, call light within reach..Kary De Leon RN 04/18/2023 2:10 PM * Guerline Melgar MD - 04/18/2023 1:55 PM CDT Admit Date: 04/14/2023 7:34 AM Hospital Day: 4 Clinical Course 57 y/o admitted with epigastric pain, gastric band complication/erosion New Symptoms No new complaints Sitting in recliner Exam Vitals: 04/18/23 0204 04/18/23 0820 04/18/23 1210 04/18/23 1211 BP: 147/69 149/71 147/81 Pulse: (!) 118 108 98 Resp: 16 17 16 Temp: 99.6 ??F (37.6 ??C) 98.2 ??F (36.8 ??C) 98.1 ??F (36.7 ??C) SpO2: 90% 91% (!) 89% 93% Weight: Height: General appearance: drowsy, appears comfortable Lungs: breath sounds normal and symmetric; no rales or wheezes Heart: regular rhythm, normal S1 and S2 Abdomen: soft without mass, appropriately tender Extremities: no clubbing, cyanosis or edema Data Intake/Output Summary (Last 24 hours) at 04/18/2023 1355 Last data filed at 04/18/2023 0800 Gross per 24 hour Intake 420 ml Output 200 ml Net 220 ml My review of labs, imaging, notes and other tests is significant for leukocytosis Recent Labs Component Name 04/18/23 0357 04/17/23 0633 04/15/23 0404 WBC 16.1* 18.9* 6.1 HGB 11.6* 12.8 11.9* HCT 35.6* 39.5 36.8 PLTCOUNT 242 271 257 Recent Labs Component Name 04/18/23 0357 04/17/23 0633 04/16/23 0434 SODIUM 139 139 140 POTASSIUM 4.2 4.4 4.0 CHLORIDE 107 108* 109* CO2 23 22* 24 BUN 9* 6* 6* CREATININE 0.89 0.96 0.89 GLUCOSE 118* 140* 110* CALCIUM 8.8 9.0 9.1 MEDICATIONS FOR CURRENT ENCOUNTER: SCHEDULED MEDICATIONS: acetaminophen (Tylenol) solution 500 mg, Oral, q4h cefTRIAXone (Rocephin) 2,000 mg in 0.9% NaCl IV 50 mL IVPB, Intravenous, q24h heparin injection 5,000 Units, Subcutaneous, BID iopamidol (Isovue 370) 76 % contrast, Oral, Contrast - Once pantoprazole (Protonix) injection 40 mg, Intravenous, QDAY ?? [COMPLETED] HYDROcodone-acetaminophen (Plush) 5-325 MG tablet 1 tablet, Oral, Once CONTINUOUS MEDICATIONS: ?? dextrose 5 % and 0.45 % NaCl with KCl 20 mEq infusion, Intravenous, Continuous PRN MEDICATIONS: diphenhydrAMINE (Benadryl) injection 25 mg, Intravenous, Once PRN HYDROmorphone (Dilaudid) injection 0.5 mg, Intravenous, q10 min PRN ketorolac (Toradol) injection 15 mg, Intravenous, q6h PRN ondansetron (Zofran) injection 4 mg, Intravenous, q6h PRN oxyCODONE (Roxicodone) oral solution 10 mg, Oral, q4h PRN ?? simethicone (Mylicon) chew tablet 80 mg, Oral, 4X/day PRN Assessment and Plan S/P removal of adjustable gastric band and port, repair of gastric perforation - WBC higher today - bariatric sx recommends abx for 7 days for perforation, on rocephin. Monitor for now, if WBC not improving may consider zosyn - L LL haziness on CXR looks like 2/2 atelectasis, with O2 sats improved to RA with OOB to chair and IS ?? HTN - Holding home meds - will monitor BP and resume meds as needed - currently BP soft and does not need BP meds ?? Anxiety/depression - meds will be resumed when able to take PO ?? Hypokalemia - replaced ?? Portions of this note were carried over from previous note, EHR template. I reviewed and updated asnecessary Peripheral IV Left;Posterior Forearm (Active) Placement Date/Time: 04/15/23 0844 Orientation: Left;Posterior Location: Forearm Name/Credentials of person who placed: Hayes Singh RN task IV Catheter Length: 2.5 IV Catheter Size: 20 Gauge In Home Aide/Model : florez [email or web address] Technique: An... Number of days: 3 Procedural Site (Incision) Abdomen (Active) Date: 04/16/23 Location: Abdomen Multiple Sites: Laparoscopic Number of days: 2 READMISSION RISK SCORE is 7 at 1:55 PM 04/18/2023. * Kary De Leon RN - 04/18/2023 7:42 AM CDT Problem: Pain/Discomfort Goal: Patient exhibits reduced pain/discomfort as evidenced by pain scores Outcome: Progressing Goal: Patient uses pharmacological and non-pharmacological pain management strategies. Outcome: Progressing Goal: Patient verbalizes acceptable level of pain relief and ability to engage in desired activity. Outcome: Progressing Problem: Nausea/Vomiting Goal: Patients functional goal is met Outcome: Progressing Problem: Elimination--Bowel Goal: Elimination patterns are normal or improving Outcome: Progressing Problem: Fall Risk Goal: Fall risk and fall related injury risk are minimized (interventions related to the fall risk can be found in the flowsheet documentation) Outcome: Progressing Problem: Procedural Site (Incision) Care Goal: Incision remains intact with edges well approximated Outcome: Progressing Goal: Incision is free of infection. Outcome: Progressing * Micki Bolden APRN-CNP - 04/18/2023 7:11 AM CDT Bariatric Surgery Progress Note Nevin Deshpande Admit Date: 04/14/2023 7:34 AM Hospital Day: 4 Chief Complaint:??epigastric abdominal pain, gerd, dysphagia ?? Pt is a??57??yo F??admitted today secondary to findings of complications of gastric band. There wasnoted gastric band erosion on upper endoscopy. Pt??with a hx of LAGB years ago. Pt reports 30 lb weight loss at maximum with weight recidivism due to GERD and dysphagia symptoms. The GERD is managed with PPI daily but reports breakthrough acid backwash multiple times a week and heartburn. Pt reports intermittent dysphagia consisting of epigastric discomfort with eating with frequent regurgitation. the foods mainly problematic are meats and more solid dense foods. ? Procedure: Laparoscopic removal of adjustable gastric band and port?? 2.??Laparoscopic??Repair of gastric perforation?? 3. Omental isabel patch 3. esophagogastroduodenoscopy? POD#2 Overnight Events: None Subjective: Pain not controlled well and wanting IV medication , no nausea or emesis, ambulated, denies any CP or SOB Tolerating Phase I diet, minimal yesterday Positive gas , + BM Data Vitals: 04/17/23 1050 04/17/23 1523 04/17/23202404/18/23 0204 BP: 125/57 151/84 157/65 147/69 Pulse: 81 92 104 (!) 118 Resp: 16 16 18 16 Temp: 98.1 ??F (36.7 ??C) 98.4 ??F (36.9 ??C) 99.6 ??F (37.6 ??C) SpO2: 94% 91% 90% 90% Weight: Height: Intake/Output Summary (Last 24 hours) at 04/18/2023 0713 Last data filed at 04/17/20232007 Gross per 24 hour Intake 330 ml Output 1050 ml Net -720 ml Current Facility-Administered Medications Medication ??? albuterol-ipratropium (Duo-Neb) nebulizer solution 3 mL ??? cefTRIAXone (Rocephin) 2,000 mg in 0.9% NaCl IV 50 mL IVPB ??? dextrose 5 % and 0.45 % NaCl with KCl 20 mEq infusion ??? diphenhydrAMINE (Benadryl) injection 25 mg ??? diphenhydrAMINE (Benadryl) injection 25 mg ??? fentaNYL (PF) (Sublimaze) injection 25 mcg ??? heparin injection 5,000 Units ??? HYDROmorphone (Dilaudid) injection 0.2 mg ??? HYDROmorphone (Dilaudid) injection 0.5 mg ??? iopamidol (Isovue 370) 76 % contrast ??? ketorolac (Toradol) injection 15 mg ??? naloxone (Narcan) injection 0.04 mg ??? ondansetron (Zofran) injection 4 mg ??? ondansetron (Zofran) injection 4 mg ??? oxyCODONE (immediate release) (Roxicodone) tablet 5 mg ??? oxyCODONE (Roxicodone) oral solution 5 mg ??? pantoprazole (Protonix) injection 40 mg ??? prochlorperazine (Compazine) injection 10 mg ??? simethicone (Mylicon) chew tablet 80 mg Recent Labs Component Name 04/18/23 0357 04/17/23 0633 04/16/23 0434 SODIUM 139 139 140 POTASSIUM 4.2 4.4 4.0 CHLORIDE 107 108* 109* CO2 23 22* 24 BUN 9* 6* 6* CREATININE 0.89 0.96 0.89 GLUCOSE 118* 140* 110* CALCIUM 8.8 9.0 9.1 Recent Labs Component Name 04/18/23 0357 04/17/23 0633 04/15/23 0404 WBC 16.1* 18.9* 6.1 HGB 11.6* 12.8 11.9* HCT 35.6* 39.5 36.8 PLTCOUNT 242 271 257 Physical Exam A+O x 3, NAD ABD soft, ND, appropriate TTP, incisions C/D/I Neg BLE edema Assessment/Plan: S/P Laparoscopic removal of adjustable gastric band and port?? 2.??Laparoscopic??Repair of gastric perforation?? 3. Omental isabel patch 3. esophagogastroduodenoscopy?? POD #2 ?? Neuro: PO pain control ( tylenol / roxicodone ) - increase roxicodone to 10 mg - IV toradol - IV dilaudid PRN wean - continue with ice packs PRN - continue with abdominal binder PRN ?? PULM: aggressive IS, ambulation, OOBTC - CXR reviewed with hospitalist - off oxygen , RA 90-91% ?? CV: stable ?? GI: - PPI, - UGI ok - start bowel regimen ?? FEN: wean IVF ?? : adequate UOP ?? HEME: stable H/H ?? ID: afebrile, - leukocytosis improving - continue with antibiotics for 7 days ?? DVT: cont SCD and heparin ?? Dispo: - continue with pain and nausea control and monitor oral intake - Dr. beckwith to see Micki Bolden APRN-[facility] [facility] * Haley Boykin RN - 04/17/2023 9:53 PM CDT Problem: Pain/Discomfort Goal: Patient exhibits reduced pain/discomfort as evidenced by pain scores Outcome: Progressing Goal: Patient uses pharmacological and non-pharmacological pain management strategies. Outcome: Progressing Goal: Patient verbalizes acceptable level of pain relief and ability to engage in desired activity. Outcome: Progressing Problem: Nausea/Vomiting Goal: Patients functional goal is met Outcome: Progressing Problem: Elimination--Bowel Goal: Elimination patterns are normal or improving Outcome: Progressing Problem: Fall Risk Goal: Fall risk and fall related injury risk are minimized (interventions related to the fall risk can be found in the flowsheet documentation) Outcome: Progressing * Kary De Leon RN - 04/17/2023 6:27 PM CDT Shift Summary: pt A&Ox4, VSS, IVF's infusing, pt up to chair, voiding/no gas at this time, dilaudid x1 for pain, denies nausea, tolerating phase 1 diet, encouraged to sit up and use IS 10x an hour, bed low and locked, call light within reach..Kary De Leon RN 04/17/2023 6:29 PM * Teagan Villarreal RN - 04/17/2023 1:33 PM CDT Care Coordination Progress Note Anticipated level of care at discharge: Home LAPAROSCOPIC REMOVAL GASTRIC BAND W/GASTRIC PERFORATION REPAIR 04/16/23 ?? On presentation??pt c/o?epigastric abdominal pain, gerd, dysphagia??s/p LAGB years ago. Pt is encouraged OOB, IS Pt weaned to room air today. ?? Discharge Plan: home when medically cleared. READMISSION RISK SCORE is 9 at 1:33 PM 04/17/2023. Anticipated Discharge Date: 04/19/23 Patient/Family provided with list of resources? Yes Preferred Provider / High Quality Network List given?: No Reason for provider choice: Insurance, Pt. choice - Physician driven, Pt. choice - previous provider, Pt. choice - Pt. choice Family Support (Name and Phone): Extended Emergency Contact Information Primary Emergency Contact: PrasanthfannieYuliaan Address: [address] [place] [address] [place] [phone] [facility] Mobile Relation: Daughter Patient is alert & orientated or has capacity for decision making: Yes If No , Legal or Designated Decision Maker: N/A Transportation at Discharge: Family Equipment at Home: Equipment at Home: None List DME patient requires but does not have: List DME pt. requires but does not have.: None DME Provider: Medication affordability concerns: No Follow Up Appointment: Transportation to MD: Family Auth Number (if required): [place]: DME: Medications: Transportation: Name: Teagan Villarreal RN Phone: [phone] * Guerline Melgar MD - 04/17/2023 12:02 PM CDT Admit Date: 04/14/2023 7:34 AM Hospital Day: 3 Clinical Course 57 y/o admitted with epigastric pain, gastric band complication/erosion New Symptoms Remained in 6 lit NC O/N D/W RN Encouraged IS, OOB to chair and sats improved and saturating well on RA Exam Vitals: 04/17/23 0738 04/17/23 0740 04/17/23 0904 04/17/23 1050 BP: 155/78 125/57 Pulse: 85 81 Resp: 15 16 Temp: 97.9 ??F (36.6 ??C) SpO2: 92% 96% 92% 94% Weight: Height: General appearance: drowsy, appears comfortable Lungs: breath sounds normal and symmetric; no rales or wheezes Heart: regular rhythm, normal S1 and S2 Abdomen: soft without mass, appropriately tender Extremities: no clubbing, cyanosis or edema Data Intake/Output Summary (Last 24 hours) at 04/17/2023 1202 Last data filed at 04/17/2023 0331 Gross per 24 hour Intake 920 ml Output 650 ml Net 270 ml My review of labs, imaging, notes and other tests is significant for Recent Labs Component Name 04/17/23 0633 04/15/23 0404 WBC 18.9* 6.1 HGB 12.8 11.9* HCT 39.5 36.8 PLTCOUNT 271 257 Recent Labs Component Name 04/17/23 0633 04/16/23 0434 04/15/23 0404 SODIUM 139 140 141 POTASSIUM 4.4 4.0 3.3* CHLORIDE 108* 109* 108* CO2 22* 24 25 BUN 6* 6* 10 CREATININE 0.96 0.89 1.05 GLUCOSE 140* 110* 107* CALCIUM 9.0 9.1 9.4 MEDICATIONS FOR CURRENT ENCOUNTER: SCHEDULED MEDICATIONS: azithromycin (Zithromax) 500 mg in 250 mL IVPB, Intravenous, q24h cefTRIAXone (Rocephin) 2,000 mg in 0.9% NaCl IV 50 mL IVPB, Intravenous, q24h heparin injection 5,000 Units, Subcutaneous, BID iopamidol (Isovue 370) 76 % contrast, Oral, Contrast - Once pantoprazole (Protonix) injection 40 mg, Intravenous, QDAY ?? [COMPLETED] morphine injection 2 mg, Intravenous, Once CONTINUOUS MEDICATIONS: ?? dextrose 5 % and 0.45 % NaCl with KCl 20 mEq infusion, Intravenous, Continuous PRN MEDICATIONS: diphenhydrAMINE (Benadryl) injection 25 mg, Intravenous, Once PRN fentaNYL (PF) (Sublimaze) injection 25 mcg, Intravenous, q10 min PRN HYDROmorphone (Dilaudid) injection 0.2 mg, Intravenous, q15 min PRN HYDROmorphone (Dilaudid) injection 0.5 mg, Intravenous, q10 min PRN ketorolac (Toradol) injection 15 mg, Intravenous, q6h PRN ondansetron (Zofran) injection 4 mg, Intravenous, Once PRN ondansetron (Zofran) injection 4 mg, Intravenous, q6h PRN oxyCODONE (immediate release) (Roxicodone) tablet 5 mg, Oral, Once PRN oxyCODONE (Roxicodone) oral solution 5 mg, Oral, q4h PRN ?? prochlorperazine (Compazine) injection 10 mg, Intravenous, Once PRN Assessment and Plan S/P removal of adjustable gastric band and port, repair of gastric perforation - WBC higher today - will await bariatric recs regarding abx for perforation - L LL haziness on CXR looks like 2/2 atelectasis, with O2 sats improved to RA with OOB to chair and IS ?? HTN - Holding home meds - will monitor BP and resume meds as needed - currently BP soft and does not need BP meds ?? Anxiety/depression - meds will be resumed when able to take PO ?? Hypokalemia - replaced ?? Portions of this note were carried over from previous note, EHR template. I reviewed and updated asnecessary Peripheral IV Left;Posterior Forearm (Active) Placement Date/Time: 04/15/23 0844 Orientation: Left;Posterior Location: Forearm Name/Credentials of person who placed: Hayes Singh RN task IV Catheter Length: 2.5 IV Catheter Size: 20 Gauge In Home Aide/Model : [email or web address] [employer]can Technique: An... Number of days: 2 Procedural Site (Incision) Abdomen (Active) Date: 04/16/23 Location: Abdomen Multiple Sites: Laparoscopic Number of days: 1 READMISSION RISK SCORE is 9 at 12:02 PM 04/17/2023. * Kary De Leon RN - 04/17/2023 7:58 AM CDT Problem: Pain/Discomfort Goal: Patient exhibits reduced pain/discomfort as evidenced by pain scores 04/17/2023 0758 by Kary De Leon RN Outcome: Progressing 04/17/2023757 by Kary De Leon RN Outcome: Progressing Goal: Patient uses pharmacological and non-pharmacological pain management strategies. 04/17/2023757 by Kary De Leon RN Outcome: Progressing 04/17/2023757 by Kary De Leon RN Outcome: Progressing Goal: Patient verbalizes acceptable level of pain relief and ability to engage in desired activity. 04/17/2023757 by Kary De Leon RN Outcome: Progressing 04/17/2023757 by Kary De Leon RN Outcome: Progressing Problem: Nausea/Vomiting Goal: Patients functional goal is met 04/17/2023757 by Kary De Leon RN Outcome: Progressing 04/17/2023757 by Kary De Leon RN Outcome: Progressing Problem: Elimination--Bowel Goal: Elimination patterns are normal or improving 04/17/2023757 by Kary De Leon RN Outcome: Progressing 04/17/2023757 by Kary De Leon RN Outcome: Progressing Problem: Fall Risk Goal: Fall risk and fall related injury risk are minimized (interventions related to the fall risk can be found in the flowsheet documentation) 04/17/2023757 by Kary De Leon RN Outcome: Progressing 04/17/2023757 by Kary De Leon RN Outcome: Progressing * Kary De Leon RN - 04/17/2023 7:58 AM CDT Problem: Pain/Discomfort Goal: Patient exhibits reduced pain/discomfort as evidenced by pain scores Outcome: Progressing Goal: Patient uses pharmacological and non-pharmacological pain management strategies. Outcome: Progressing Goal: Patient verbalizes acceptable level of pain relief and ability to engage in desired activity. Outcome: Progressing Problem: Nausea/Vomiting Goal: Patients functional goal is met Outcome: Progressing Problem: Elimination--Bowel Goal: Elimination patterns are normal or improving Outcome: Progressing Problem: Fall Risk Goal: Fall risk and fall related injury risk are minimized (interventions related to the fall risk can be found in the flowsheet documentation) Outcome: Progressing * Micki Bolden APRN-[facility] [facility] [employer] - 04/17/2023 6:05 AM CDT Bariatric Surgery Progress Note Nevin Deshpande Admit Date: 04/14/2023 7:34 AM Hospital Day: 3 Chief Complaint:??epigastric abdominal pain, gerd, dysphagia ?? Pt is a??57??yo F??admitted today secondary to findings of complications of gastric band. There wasnoted gastric band erosion on upper endoscopy. Pt??with a hx of LAGB years ago. Pt reports 30 lb weight loss at maximum with weight recidivism due to GERD and dysphagia symptoms. The GERD is managed with PPI daily but reports breakthrough acid backwash multiple times a week and heartburn. Pt reports intermittent dysphagia consisting of epigastric discomfort with eating with frequent regurgitation. the foods mainly problematic are meats and more solid dense foods. ?? Procedure: Laparoscopic removal of adjustable gastric band and port?? 2.??Laparoscopic??Repair of gastric perforation?? 3. Omental isabel patch 3. esophagogastroduodenoscopy POD#1 Overnight Events: None Subjective: Pain well controlled, no nausea or emesis, She has not gotten out of bed yet She has not used the IS denies any CP or SOB Currently NPO Positive gas Data Vitals: 04/17/23 0420 04/17/23 0738 04/17/23 0740 04/17/23 0904 BP: 147/85 155/78 Pulse: 99 85 Resp: 17 15 Temp: 98.1 ??F (36.7 ??C) 97.9 ??F (36.6 ??C) SpO2: 97% 92% 96% 92% Weight: Height: Intake/Output Summary (Last 24 hours) at 04/17/2023 0922 Last data filed at 04/17/2023 0331 Gross per 24 hour Intake 920 ml Output 650 ml Net 270 ml Current Facility-Administered Medications Medication ??? albuterol-ipratropium (Duo-Neb) nebulizer solution 3 mL ??? azithromycin (Zithromax) 500 mg in 250 mL IVPB ??? cefTRIAXone (Rocephin) 2,000 mg in 0.9% NaCl IV 50 mL IVPB ??? dextrose 5 % and 0.45 % NaCl with KCl 20 mEq infusion ??? diphenhydrAMINE (Benadryl) injection 25 mg ??? diphenhydrAMINE (Benadryl) injection 25 mg ??? fentaNYL (PF) (Sublimaze) injection 25 mcg ??? heparin injection 5,000 Units ??? HYDROmorphone (Dilaudid) injection 0.2 mg ??? HYDROmorphone (Dilaudid) injection 0.5 mg ??? iopamidol (Isovue 370) 76 % contrast ??? ketorolac (Toradol) injection 15 mg ??? naloxone (Narcan) injection 0.04 mg ??? ondansetron (Zofran) injection 4 mg ??? ondansetron (Zofran) injection 4 mg ??? oxyCODONE (immediate release) (Roxicodone) tablet 5 mg ??? oxyCODONE (Roxicodone) oral solution 5 mg ??? pantoprazole (Protonix) injection 40 mg ??? prochlorperazine (Compazine) injection 10 mg Recent Labs Component Name 04/17/23 0633 04/16/23 0434 04/15/23 0404 SODIUM 139 140 141 POTASSIUM 4.4 4.0 3.3* CHLORIDE 108* 109* 108* CO2 22* 24 25 BUN 6* 6* 10 CREATININE 0.96 0.89 1.05 GLUCOSE 140* 110* 107* CALCIUM 9.0 9.1 9.4 Recent Labs Component Name 04/17/23 0633 04/15/23 0404 WBC 18.9* 6.1 HGB 12.8 11.9* HCT 39.5 36.8 PLTCOUNT 271 257 UGI: pending Physical Exam A+O x 3, NAD ABD soft, ND, appropriate TTP, incisions C/D/I Neg BLE edema Assessment/Plan: S/P Laparoscopic removal of adjustable gastric band and port?? 2.??Laparoscopic??Repair of gastric perforation?? 3. Omental isabel patch 3. esophagogastroduodenoscopy POD #1 Neuro: PO pain control ( tylenol / roxicodone ) - IV toradol - IV dilaudid PRN - continue with ice packs PRN - continue with abdominal binder PRN PULM: aggressive IS, ambulation, OOBTC - CXR reviewed with hospitalist - will attempt to wean down oxygen , currently 6L / NC CV: stable GI: - PPI, - UGI pending - start bowel regimen FEN: wean IVF : adequate UOP HEME: stable H/H ID: afebrile, on abx - leukocytosis will monitor, ? Reactive DVT: cont SCD and heparin Dispo: await UGI results, - continue with pain and nausea control and monitor oral intake - discharge instructions reviewed. Micki Bolden, AMRITA-[facility] * Haley Boykin RN - 04/17/2023 5:55 AM CDT Shift Summary: PRN paige, Toradol, and one time morphine dose for pain. 6L OxiMask continues. Voiding without complaint to bedpan. MIVF infusing. Tolerating ice chips. CXR complete. New IV abx given, see MAR. No other needs to report at this time. * Haley Boykin RN - 04/16/2023 11:24 PM CDT Problem: Pain/Discomfort Goal: Patient exhibits reduced pain/discomfort as evidenced by pain scores Outcome: Progressing Goal: Patient uses pharmacological and non-pharmacological pain management strategies. Outcome: Progressing Goal: Patient verbalizes acceptable level of pain relief and ability to engage in desired activity. Outcome: Progressing Problem: Nausea/Vomiting Goal: Patients functional goal is met Outcome: Progressing Problem: Elimination--Bowel Goal: Elimination patterns are normal or improving Outcome: Progressing Problem: Fall Risk Goal: Fall risk and fall related injury risk are minimized (interventions related to the fall risk can be found in the flowsheet documentation) Outcome: Progressing * Guerline Melgar MD - 04/16/2023 4:33 PM CDT Admit Date: 04/14/2023 7:34 AM Hospital Day: 2 Clinical Course 57 y/o admitted with epigastric pain, gastric band complication/erosion New Symptoms Seen in PACU Exam Vitals: 04/16/23 1600 04/16/23 1601 04/16/23 1615 04/16/23 1630 BP: 131/84 131/84 114/54 119/56 Pulse: 87 90 91 88 Resp: 19 25 17 25 Temp: SpO2: 95% 95% 93% 96% Weight: Height: General appearance: drowsy, appears comfortable Lungs: breath sounds normal and symmetric; no rales or wheezes Heart: regular rhythm, normal S1 and S2 Abdomen: soft without mass, non-tender, with normal bowel sounds Extremities: no clubbing, cyanosis or edema Data Intake/Output Summary (Last 24 hours) at 04/16/2023 1633 Last data filed at 04/16/2023 1548 Gross per 24 hour Intake 2295.04 ml Output 300 ml Net 1995.04 ml My review of labs, imaging, notes and other tests is significant for Recent Labs Component Name 04/15/23 0404 WBC 6.1 HGB 11.9* HCT 36.8 PLTCOUNT 257 Recent Labs Component Name 04/16/23 0434 04/15/23 0404 SODIUM 140 141 POTASSIUM 4.0 3.3* CHLORIDE 109* 108* CO2 24 25 BUN 6* 10 CREATININE 0.89 1.05 GLUCOSE 110* 107* CALCIUM 9.1 9.4 MEDICATIONS FOR CURRENT ENCOUNTER: ?? SCHEDULED MEDICATIONS: ?? ceFAZolin (Ancef) 2,000 mg in 50 ml IVPB, Intravenous, q8h ?? heparin injection 5,000 Units, Subcutaneous, BID ?? pantoprazole (Protonix) injection 40 mg, Intravenous, QDAY ?? [COMPLETED] potassium chloride 40 mEq in 270 mL bolus, Intravenous, Once ?? CONTINUOUS MEDICATIONS: ?? dextrose 5 % and 0.45 % NaCl with KCl 20 mEq infusion, Intravenous, Continuous ?? PRN MEDICATIONS: ?? diphenhydrAMINE (Benadryl) injection 25 mg, Intravenous, Once PRN ?? fentaNYL (PF) (Sublimaze) injection 25 mcg, Intravenous, q10 min PRN ?? HYDROmorphone (Dilaudid) injection 0.2 mg, Intravenous, q15 min PRN ?? HYDROmorphone (Dilaudid) injection 0.5 mg, Intravenous, q10 min PRN ?? ondansetron (Zofran) injection 4 mg, Intravenous, Once PRN ?? ondansetron (Zofran) injection 4 mg, Intravenous, q6h PRN ?? oxyCODONE (immediate release) (Roxicodone) tablet 5 mg, Oral, Once PRN ?? oxyCODONE (Roxicodone) oral solution 5 mg, Oral, q4h PRN ?? prochlorperazine (Compazine) injection 10 mg, Intravenous, Once PRN Assessment and Plan ?? HTN - Holding home meds - will monitor BP and resume meds as needed in AM - currently BP soft and does not need BP meds ?? Anxiety/depression - meds will be resumed when able to take PO ?? Hypokalemia - replaced ? Gastric band erosion S/P removal by Dr Beckwith Portions of this note were carried over from previous note, EHR template. I reviewed and updated asnecessary Peripheral IV Left;Posterior Forearm (Active) Placement Date/Time: 04/15/23 0844 Orientation: Left;Posterior Location: Forearm Name/Credentials of person who placed: Hayes Singh RN task IV Catheter Length: 2.5 IV Catheter Size: 20 Gauge In Home Aide/Model : florez introcan Technique: An... Number of days: 1 Procedural Site (Incision) Abdomen (Active) Date: 04/16/23 Location: Abdomen Multiple Sites: Laparoscopic Number of days: 0 READMISSION RISK SCORE is 9 at 4:33 PM 04/16/2023. * Jami Piña RN - 04/16/2023 4:22 PM CDT Able to arouse with tactile stimuli more than before, but drifts off to sleep immediately * Jami Piña RN - 04/16/2023 4:18 PM CDT Pt sedated, suddenly oxygen sat and respirations decreased significantly. Nasal trumpet inserted, oxygen sat decreased as low as 68%, upon insertion of nasal airway sat increased to 92% within 1-2 min. O2 increased to 15 L. Anesthesia here * Teagan Villarreal RN - 04/16/2023 3:01 PM CDT Care Coordination Initial Assessment Anticipated Discharge Date: 04/17/23 Transportation at Discharge: Family Anticipated level of care at discharge: Home Anticipated level of care provider: None Prior to admission level of care: Home Prior to admit provider: None Patient Goals: home Plans: Discharge needs identified. See progress notes for details. Case Management to follow for discharge planning. Comments: LAPAROSCOPIC REMOVAL GASTRIC BAND W/GASTRIC PERFORATION REPAIR 04/16/23 On presentation pt c/o epigastric abdominal pain, gerd, dysphagia s/p LAGB years ago. Lives with: Alone Physical Limitations: None Requires Assistance With: None Preferred Pharmacy: [facility][id number] - [id number] [facility] [id number] [place] [employer] [address] [facility] [id number] Advance Directive: No Advance Directive Information Given: Refused Information Would you like assistance on completing and executing or revising an Advance Directive?: No READMISSION RISK SCORE is 9 at 3:01 PM 04/16/2023. Met with chart reviewed Family Support (name and phone): Extended Emergency Contact Information Primary Emergency Contact: CoraYuliana Address: [address] [place] [id number] [place] Relation: Daughter Patient or traffic workforce representative requests care coordination reach out to family or caregiver listed above regarding discharge planning and at time of discharge? Yes Patient/Family provided with list of resources? Yes Preferred Provider / High Quality Network List given?: No Reason for provider choice: Insurance, Pt. choice - Physician driven, Pt. choice - previous provider, Pt. choice - Pt. choice Equipment at Home: None List DME pt. requires but does not have.: None Genetic Counselor Referral: No Will continue to follow. For any questions or needs please contact: Orchard Manager Name/Phone number: Teagan Villarreal RN [phone] * Kary De Leon RN - 04/16/2023 7:33 AM CDT Problem: Pain/Discomfort Goal: Patient exhibits reduced pain/discomfort as evidenced by pain scores Outcome: Progressing Goal: Patient uses pharmacological and non-pharmacological pain management strategies. Outcome: Progressing Goal: Patient verbalizes acceptable level of pain relief and ability to engage in desired activity. Outcome: Progressing Problem: Nausea/Vomiting Goal: Patients functional goal is met Outcome: Progressing Problem: Elimination--Bowel Goal: Elimination patterns are normal or improving Outcome: Progressing Problem: Fall Risk Goal: Fall risk and fall related injury risk are minimized (interventions related to the fall risk can be found in the flowsheet documentation) Outcome: Progressing * Steffen Beckwith MD - 04/16/2023 7:32 AM CDT Bariatric Surgery Progress Note Nevin Cherry Deshpande Admit Date: 04/14/2023 7:34 AM Hospital Day: 2 Chief Complaint: epigastric abdominal pain, gerd, dysphagia ?? Pt is a??57??yo F admitted today secondary to findings of complications of gastric band. There was noted gastric band erosion on upper endoscopy. Pt with a hx of LAGB years ago. Pt reports 30 lb weight loss at maximum with weight recidivism due to GERD and dysphagia symptoms. The GERD is managed with PPI daily but reports breakthrough acid backwash multiple times a week and heartburn. Pt reports intermittent dysphagia consisting of epigastric discomfort with eating with frequent regurgitation. the foods mainly problematic are meats and more solid dense foods. Overnight Events: None Subjective: Pain well controlled, mild nausea no emesis, ambulated, denies any CP or SOB Tolerating clears Positive gas Data Vitals: 04/15/23 0357 04/15/23 1617 04/15/23 1933 07/12/23 0429 BP: 129/66 110/67 136/57 147/51 Pulse: 88 81 93 83 Resp: 18 18 17 Temp: 97.7 ??F (36.5 ??C) 98.3 ??F (36.8 ??C) 97.7 ??F (36.5 ??C) 98 ??F (36.7 ??C) SpO2: 96% 96% 95% 94% Weight: Height: Intake/Output Summary (Last 24 hours) at 04/16/2023 0733 Last data filed at 04/16/2023 0457 Gross per 24 hour Intake 9.7 ml Output -- Net 9.7 ml Recent Labs Component Name 04/16/23 0434 04/15/23 0404 SODIUM 140 141 POTASSIUM 4.0 3.3* CHLORIDE 109* 108* CO2 24 25 BUN 6* 10 CREATININE 0.89 1.05 GLUCOSE 110* 107* CALCIUM 9.1 9.4 Recent Labs Component Name 04/15/23 0404 WBC 6.1 HGB 11.9* HCT 36.8 PLTCOUNT 257 UGI: pending Physical Exam A+O x 3, NAD CTA B/L RRR ABD soft, ND, appropriate TTP, incisions C/D/I Neg BLE edema Assessment/Plan: Impression: Epigastric abdominal pain, gastric band erosion ?? Plan: ?? 1. Epigastric abdominal pain - prn pain control - will plan for laparoscopic removal of gastric band and port ?? 2. Gastric band complication/erosion - laparoscopic removal of gastric band and port and repair of gastric perforation - clears - IV abx - PPI Steffen Beckwith MD * Jose Powell RN - 04/15/2023 10:30 PM CDT Problem: Pain/Discomfort Goal: Patient exhibits reduced pain/discomfort as evidenced by pain scores Outcome: Progressing Problem: Nausea/Vomiting Goal: Patients functional goal is met Outcome: Progressing Problem: Elimination--Bowel Goal: Elimination patterns are normal or improving Outcome: Progressing Problem: Fall Risk Goal: Fall risk and fall related injury risk are minimized (interventions related to the fall risk can be found in the flowsheet documentation) Outcome: Progressing * Kary De Leon RN - 04/15/2023 2:33 PM CDT Shift Summary: pt A&Ox4, VSS, IVF's infusing, K+ bolus given, ambulating in room, passing gas/voiding, paige x1 for pain, denies nausea, tolerating phase 1 diet, NPO at midnight for surgery in themorning, bed low and locked, call light within reach..Kary De Leon RN 04/15/2023 2:35 PM * Kary De Leon RN - 04/15/2023 11:06 AM CDT Problem: Pain/Discomfort Goal: Patient exhibits reduced pain/discomfort as evidenced by pain scores Outcome: Progressing Goal: Patient uses pharmacological and non-pharmacological pain management strategies. Outcome: Progressing Goal: Patient verbalizes acceptable level of pain relief and ability to engage in desired activity. Outcome: Progressing Problem: Nausea/Vomiting Goal: Patients functional goal is met Outcome: Progressing Problem: Elimination--Bowel Goal: Elimination patterns are normal or improving Outcome: Progressing Problem: Fall Risk Goal: Fall risk and fall related injury risk are minimized (interventions related to the fall risk can be found in the flowsheet documentation) Outcome: Progressing * Teagan Villarreal RN - 04/15/2023 9:38 AM CDT Care Coordination Initial Assessment Anticipated Discharge Date: 04/16/23 Transportation at Discharge: Family Anticipated level of care at discharge: Home Anticipated level of care provider: None Prior to admission level of care: Home Prior to admit provider: None Comments: pt c/o epigastric abdominal pain, gerd, dysphagia s/p LAGB years ago. Laparoscopic removal of gastric band and port Lives with: Alone Physical Limitations: None Requires Assistance With: None Preferred Pharmacy: [facility] #[id number] - [id number] [facility] [phone] [address] [facility] [phone] Advance Directive: No Advance Directive Information Given: Refused Information Would you like assistance on completing and executing or revising an Advance Directive?: No READMISSION RISK SCORE is 8 at 9:42 AM 04/15/2023. Met with: chart reviewed Family Support (name and phone): Extended Emergency Contact Information Primary Emergency Contact: Sara Shepherdney Address: [address] [place] [address] [facility] [place] Relation: Daughter Patient or traffic workforce representative requests care coordination reach out to family or caregiver listed above regarding discharge planning and at time of discharge? Yes Patient/Family provided with list of resources? Yes Preferred Provider / High Quality Network List given?: No Reason for provider choice: Insurance, Pt. choice - Physician driven, Pt. choice - previous provider, Pt. choice - Pt. choice Equipment at Home: None List DME pt. requires but does not have.: None Genetic Counselor Referral: No Will continue to follow. For any questions or needs please contact: Orchard Manager Name/Phone number: Teagan Villarreal RN [phone] * Jenise Santillan RN - 04/15/2023 6:32 AM CDT Shift Summary:uneventful night. paige given once. ivf infusing.VSS. * Jenise Santillan RN - 04/15/2023 6:31 AM CDT Problem: Pain/Discomfort Goal: Patient exhibits reduced pain/discomfort as evidenced by pain scores Outcome: Progressing Goal: Patient uses pharmacological and non-pharmacological pain management strategies. Outcome: Progressing Goal: Patient verbalizes acceptable level of pain relief and ability to engage in desired activity. Outcome: Progressing Problem: Nausea/Vomiting Goal: Patients functional goal is met Outcome: Progressing * Ky Torres PharmD - 04/14/2023 2:59 PM CDT [facility] Pharmacy Services Admission Medication Review Nevin Deshpande is a 57 year old female I have reviewed patient's home medication list with the patient and the electronic medical record. The medication list review was after the physician has seen and acted upon, and is now ready for re-review/order by physician. Medication List Revisions Medications removed: duplicate amlodipine aspirin 81 mg semaglutide sertraline topiramate Medications added: doxepin Medications were modified to correct dosage or frequencies: duloxetine increased from 30 to 60 mg baclofen, cetirizine, fluticasone nasal, omeprazole, and sodium intranasal changed to PRN Thank you for the opportunity to take part of Nevin Deshpande's care. Ky Torres PharmD * Kary De Leon RN - 04/14/2023 10:56 AM CDT Problem: Pain/Discomfort Goal: Patient exhibits reduced pain/discomfort as evidenced by pain scores Outcome: Progressing Goal: Patient uses pharmacological and non-pharmacological pain management strategies. Outcome: Progressing Goal: Patient verbalizes acceptable level of pain relief and ability to engage in desired activity. Outcome: Progressing Problem: Nausea/Vomiting Goal: Patients functional goal is met Outcome: Progressing Problem: Elimination--Bowel Goal: Elimination patterns are normal or improving Outcome: Progressing documented in this encounter H&P Notes * Steffen Beckwith MD - 04/14/2023 10:54 PM CDT BARIATRIC EVALUATION HISTORY & PHYSICAL Height: 157.5 cm (5' 2 ) Weight: 109.8 kg (242 lb) BMI (Calculated): 44.25 Chief Complaint: epigastric abdominal pain, gerd, dysphagia Pt is a 57 yo F admitted today secondary to findings of complications of gastric band. There was noted gastric band erosion on upper endoscopy. Pt with a hx of LAGB years ago. Pt reports 30 lb weightloss at maximum with weight recidivism due to GERD and dysphagia symptoms. The GERD is managed withPPI daily but reports breakthrough acid backwash multiple times a week and heartburn. Pt reports intermittent dysphagia consisting of epigastric discomfort with eating with frequent regurgitation. the foods mainly problematic are meats and more solid dense foods. Past Medical History: Diagnosis Date ??? Anxiety and depression ??? Depression ??? Environmental allergies ??? GERD (gastroesophageal reflux disease) ??? Hypertension ??? Mild intermittent asthma, uncomplicated ??? Morbid obesity due to excess calories (CMS/HCC) Past Surgical History: Procedure Laterality Date ??? ADJUSTABLE GASTRIC BAND, LAP PLACEMENT ??? Breast Reduction Bilateral ??? Section x3 ??? Cholecystectomy, Laparoscopic ??? ENDOSCOPY, UPPER N/A 04/14/2023 N/A; ESOPHAGOGASTRODUODENOSCOPY (EGD) DIAGNOSTIC ??? Hysterectomy Current Facility-Administered Medications Medication ??? dextrose 5 % and 0.45 % NaCl with KCl 20 mEq infusion ??? heparin injection 5,000 Units ??? ondansetron (Zofran) injection 4 mg ??? oxyCODONE (Roxicodone) oral solution 5 mg ??? pantoprazole (Protonix) injection 40 mg No Known Allergies Social History Smoking status: Never Smokeless tobacco: Never Alcohol use: Yes Comment: 0cc Drug use: Never Sexual activity: Not on file Review of Systems: Constitutional: denies recent significant weight loss HEENT: Denies headaches, vision or auditory changes Cardiovascular: Denies chest pain, orthopnea or palpitations Respiratory: Denies cough, hemoptysis. Oxygen dependent : No Gastrointestinal: + abdominal pain, no melena or hematemesis Genitourinary: denies hematuria, dysuria Musculoskeletal: denies muscle weakness Endocrine: Denies diabetes mellitus or thyroid issues Allergic / Immuno: Normal Neuro / Psych: denies depression, SI/SA Skin: denies open wounds, skin infections Functional Health Status prior to surgery : Independent- The patient does not require assistance from another person for any ADLs.. Physical Examination: BP 134/78 Pulse 84 Temp 98.3 ??F (36.8 ??C) (Oral) Resp 18 Ht 1.575 m (5' 2 ) Wt 109.8 kg(242 lb) SpO2 95% Constitutional: well-developed, well-nourished, and in no distress. No distress. HENT: Head: Normocephalic and atraumatic. Eyes: EOM are normal. No scleral icterus. Neck: No tracheal deviation present. Pulmonary/Chest: Effort normal. No stridor. No respiratory distress. Abdominal: Soft. Non tender, non distended, obese Musculoskeletal: Normal range of motion. Exhibits no tenderness. Neurological: A+O x3, GCS score is 15. Skin: Skin is warm. No erythema. Psychiatric: Mood and affect normal. Studies reviewed and discussed with patient: Upper endoscopy Findings: ?The examined esophagus was normal. ?Evidence of an adjustable gastric banding was found in the cardia. This ?was characterized by erosion of gastric band 75% intraluminal. ?Localized mild inflammation characterized by erosions and erythema was ?found in the gastric antrum. Biopsies were taken with a cold forceps for ?Helicobacter pylori testing using CLOtest. ?The duodenal bulb, first portion of the duodenum and second portion of ?the duodenum were normal. Impression: Epigastric abdominal pain Plan: 1. Epigastric abdominal pain - prn pain control - will plan for laparoscopic removal of gastric band and port 2. Gastric band complication/erosion - laparoscopic removal of gastric band and port - clears - IV abx - PPI Steffen Beckwith MD 04/14/2023 * Steffen Beckwith MD - 04/13/2023 10:46 PM CDT ENDOSCOPY PRE-PROCEDURE MEDICAL HISTORY & PHYSICAL Today's Date: 04/13/2023 10:46 PM Nevin Deshpande 57 year old female Date of Service: There were no vitals taken for this visit. History: Past Medical History: Diagnosis Date ??? Anxiety and depression ??? Depression ??? Environmental allergies ??? GERD (gastroesophageal reflux disease) ??? Hypertension ??? Mild intermittent asthma, uncomplicated ??? Morbid obesity due to excess calories ([facility]/HCC) No Known Allergies No medications prior to admission. No current facility-administered medications for this encounter. Current Outpatient Medications Medication Sig Dispense Refill ??? acetaminophen (Tylenol) 500 MG tablet acetaminophen 500 mg tablet TAKE 1 TABLET BY MOUTH EVERY 8 HOURS ??? albuterol HFA (Proventil; Ventolin; Proair) 108 (90 Base) MCG/ACT inhaler albuterol sulfate HFA90 mcg/actuation aerosol inhaler ??? amLODIPine (NORVASC) 2.5 MG tablet Take 1 (one) tablet by mouth once daily ??? amLODIPine (Norvasc) 5 MG tablet amlodipine 5 mg tablet TAKE 1 TABLET BY MOUTH EVERY MORNING ??? aspirin (ASPIRIN) 81 MG tablet Take 1 (one) tablet by mouth once daily ??? baclofen (Lioresal) 10 MG tablet baclofen 10 mg tablet TAKE 1 TABLET BY MOUTH TWICE DAILY NEEDED ??? cetirizine (ZyrTEC) 10 MG tablet cetirizine 10 mg tablet TAKE 1 TABLET BY MOUTH EVERY NIGHT AT BEDTIME ??? clotrimazole-betamethasone (Lotrisone) 1-0.05 % cream clotrimazole- betamethasone 1 %-0.05 % topical cream APPLY TOPICALLY TO THE AFFECTED AREA TWICE DAILY FOR 2 WEEKS ??? cyanocobalamin (Vitamin B-12) injection cyanocobalamin (vit B-12) 1,000 mcg/mL injection solution ??? doxazosin (Cardura) 2 MG tablet doxazosin 2 mg tablet TAKE 1 TABLET BY MOUTH EVERY DAY AT BEDTIME ??? DULoxetine (Cymbalta) 30 MG capsule Take 1 (one) capsule by mouth once daily ??? fluticasone propionate (Flonase) 50 MCG/ACT nasal spray fluticasone propionate 50 mcg/actuationnasal spray,suspension SHAKE LIQUID AND USE 1 SPRAY IN EACH NOSTRIL EVERY DAY ??? hydroCHLOROthiazide (Hydrodiuril) 12.5 MG hydrochlorothiazide 12.5 mg tablet TAKE 1 TABLET BY MOUTH EVERY MORNING ??? metoprolol succinate XL 24hr (Toprol XL) 25 MG tablet metoprolol succinate ER 25 mg tablet,extended release 24 hr TAKE 1 TABLET BY MOUTH EVERY DAY IN THE MORNING ??? mupirocin (Bactroban) 2 % ointment mupirocin 2 % topical ointment APPLY SMALL AMOUNT TOPICALLY IN EACH NOSTRIL EVERY NIGHT AT BEDTIME ??? omeprazole (PriLOSEC) 20 MG capsule Take 1 (one) capsule by mouth once daily ??? semaglutide (Ozempic, 0.25 or 0.5 MG/DOSE,) 2 MG/1.5ML pen Inject 0.25 mg every week by subcutaneous route. ??? sertraline (ZOLOFT) 100 MG tablet Take 100 mg by mouth once daily ??? sodium chloride (Deep Sea Nasal Ethel) 0.65 % nasal spray Deep Sea Nasal 0.65 % spray aerosol SPRAY 2 SPRAYS FIVE TIMES DAILY INTO EACH NOSTRIL ??? topiramate (Topamax) 25 MG tablet topiramate 25 mg tablet TAKE 1 TABLET BY MOUTH AT BEDTIME Physicial Exam: General appearance: alert, cooperative, no distress Heart: regular rhythm, normal S1 and S2, without murmurs, rubs or gallops Lungs: breath sounds normal and symmetric; no rales or wheezes Abdomen: soft without mass, non-tender, with normal bowel sounds Extremities: no clubbing, cyanosis or edema ASA Evaluation and Anesthesia Plan: Anesthesia administered per Anesthesia Department Indication(s) for Procedure: Dysphagia and Heartburn Procedure Planned: EGD Steffen Beckwith MD documented in this encounter Procedure Notes * Steffen Beckwith MD - 04/14/2023 9:09 AM CDTAssociated Order(s): EGD PLAN: 1. Admit 2. Laparoscopic removal of gastric band and port documented in this encounter Consult Notes * Guerline Melgar MD - 04/15/2023 6:00 PM CDTAssociated Order(s): IP CONSULT TO HOSPITALIST Date of Admission : 04/14/2023 PCP: Rhianna Cowan MD Reason for Consultation: Med management in pt with HTN, asthma, anxiety/depression admitted with epigastric pain, gastric band complication/erosion HPI: Pt is a 57 year old HTN, asthma, anxiety/depression admitted with epigastric pain, gastric band complication/erosion Pt with H/O gastric band from years ago Pt reports intermittent dysphagia consisting of epigastric discomfort with eating with frequent regurgitation. the foods mainly problematic are meats and more solid dense foods. EGD with gastric band erosion Allergies No Known Allergies Past Medical History: Diagnosis Date ??? Anxiety and depression ??? Depression ??? Environmental allergies ??? GERD (gastroesophageal reflux disease) ??? Hypertension ??? Mild intermittent asthma, uncomplicated ??? Morbid obesity due to excess calories (CMS/HCC) Past Surgical History: Procedure Laterality Date ??? ADJUSTABLE GASTRIC BAND, LAP PLACEMENT ??? Breast Reduction Bilateral ??? Section x3 ??? Cholecystectomy, Laparoscopic ??? ENDOSCOPY, UPPER N/A 04/14/2023 N/A; ESOPHAGOGASTRODUODENOSCOPY (EGD) DIAGNOSTIC ??? Hysterectomy No current facility-administered medications on file prior to encounter. Current Outpatient Medications on File Prior to Encounter Medication Sig Dispense Refill ??? acetaminophen (Tylenol) 500 MG tablet Take 1 (one) tablet by mouth every 8 hours as needed for Pain or Fever ??? albuterol HFA (Proventil; Ventolin; Proair) 108 (90 Base) MCG/ACT inhaler Inhale 2 (two) puffs by mouth every 6 hours as needed for Shortness of Breath or Wheezing ??? amLODIPine (Norvasc) 5 MG tablet Take 1 (one) tablet by mouth once daily ??? baclofen (Lioresal) 10 MG tablet Take 1 (one) tablet by mouth 2 times daily as needed for Muscle Spasms ??? cetirizine (ZyrTEC) 10 MG tablet Take 1 (one) tablet by mouth once daily as needed for Allergies ??? clotrimazole-betamethasone (Lotrisone) 1-0.05 % cream Apply to affected area 2 times daily as needed (rash) ??? cyanocobalamin (Vitamin B-12) injection Inject 1,000 (one thousand) mcg into muscle every 30 days ??? doxazosin (Cardura) 2 MG tablet Take 1 (one) tablet by mouth at bedtime ??? doxepin (Silenor) 3 MG tablet Take 1 (one) tablet by mouth at bedtime ??? DULoxetine (Cymbalta) 60 MG capsule Take 1 (one) capsule by mouth once daily ??? fluticasone propionate (Flonase) 50 MCG/ACT nasal spray Ethel 2 (two) sprays into each nostril once daily as needed (allergies) ??? hydroCHLOROthiazide (Hydrodiuril) 12.5 MG Take 1 (one) tablet by mouth once daily ??? metoprolol succinate XL 24hr (Toprol XL) 25 MG tablet Take 1 (one) tablet by mouth once daily ??? mupirocin (Bactroban) 2 % ointment Apply to affected area 2 times daily APPLY SMALL AMOUNT TOPICALLY IN EACH NOSTRIL EVERY NIGHT AT BEDTIME ??? omeprazole (PriLOSEC) 20 MG capsule Take 1 (one) capsule by mouth once daily as needed for Heartburn ??? sodium chloride (Deep Sea Nasal Ethel) 0.65 % nasal spray Ethel 2 (two) sprays into each nostril as needed for Dry Nose Social History Has been reviewed Social History Socioeconomic History ??? Marital status: Spouse name: Not on file ??? Number of children: Not on file ??? Years of education: Not on file ??? Highest education level: Not on file Occupational History ??? Not on file Tobacco Use ??? Smoking status: Never ??? Smokeless tobacco: Never Vaping Use ??? Vaping Use: Never used Substance and Sexual Activity ??? Alcohol use: Yes Comment: 0cc ??? Drug use: Never ??? Sexual activity: Not on file Other Topics Concern ??? Not on file Social History Narrative ??? Not on file Social Determinants of Health Financial Resource Strain: Medium Risk (04/14/2023) Overall Financial Resource Strain (CARDIA) ??? Difficulty of Paying Living Expenses: Somewhat hard Food Insecurity: No Food Insecurity (04/14/2023) Hunger Vital Sign ??? Worried About Running Out of Food in the Last Year: Never true ??? Ran Out of Food in the Last Year: Never true Transportation Needs: No Transportation Needs (04/14/2023) PRAPARE - Transportation ??? Lack of Transportation (Medical): No ??? Lack of Transportation (Non-Medical): No Stress: No Stress Concern Present (04/14/2023) [place] [employer] - Occupational Stress Questionnaire ??? Feeling of Stress : Not at all Housing Stability: Low Risk (04/14/2023) Housing Stability Vital Sign ??? Unable to Pay for Housing in the Last Year: No ??? Number of Places Lived in the Last Year: 1 ??? Unstable Housing in the Last Year: No Family History family history is not on file. ROS As per HPI, rest of the 14 point ROS were reviewed and were negative PHYSICAL EXAM: Patient Vitals for the past 24 hrs: Temp Pulse Resp BP 04/15/23 1617 98.3 ??F (36.8 ??C) 81 20 110/67 04/15/23 0357 97.7 ??F (36.5 ??C) 88 18 129/66 04/14/23 1919 98.3 ??F (36.8 ??C) 84 18 134/78 General appearance: alert, cooperative, no distress, HEENT : No JVD, non icteric conjunctiva Normocephalic , MM moist CVS: regular rhythm, normal S1 and S2 Pulm: breath sounds normal and symmetric; no rales or wheezes GI: soft without mass, non tender MSK/Extremities: no clubbing, cyanosis or edema Neuro: alert and oriented x 3, no gross focal deficits Psych: calm, Skin: no rash Recent Labs Component Name 04/15/23 0404 SODIUM 141 POTASSIUM 3.3* CHLORIDE 108* CO2 25 BUN 10 CREATININE 1.05 GLUCOSE 107* CALCIUM 9.4 ALBUMIN 3.5 ALKPHOS 151* ALT 13 AST 23 TBIL 0.7 TPROT 6.4 EGFR 63* Recent Labs Component Name 04/15/23 0404 ALBUMIN 3.5 ALKPHOS 151* ALT 13 AST 23 TBIL 0.7 TPROT 6.4 Recent Labs Component Name 04/15/23 0404 WBC 6.1 HGB 11.9* HCT 36.8 PLTCOUNT 257 LABS AND IMAGING DONE SINCE ADMISSION WERE REVIEWED BY ME ASSESSMENT AND PLAN HTN - Holding home meds - will monitor BP and resume meds as needed in AM, post procedure - currently BP soft and does not need BP meds Anxiety/depression - meds will be resumed in AM Hypokalemia - replaced Gastric band erosion Plan for removal in AM per Dr Beckwith documented in this encounter OR Notes * Operative - Steffen Beckwith MD - 04/16/2023 9:58 PM CDT [facility] Operative Report OPERATIVE REPORT PATIENT:Nevin Deshpande MR#: ADMIT DATE: 04/14/2023 7:34 AM ACCT#: DATE OF SURGERY: 04/16/2023 : 1965 PHYSICIAN: Steffen Beckwith MD 57 yrs Body mass index is 44.26 kg/m??. PREOPERATIVE DIAGNOSES: adjustable gastric band erosion, complications of adjustable gastric band, abdominal pain, gastric perforation Morbid Obesity, Body mass index is 44.26 kg/m??. Past Medical History: Diagnosis Date ??? Anxiety and depression ??? Depression ??? Environmental allergies ??? GERD (gastroesophageal reflux disease) ??? Hypertension ??? Mild intermittent asthma, uncomplicated ??? Morbid obesity due to excess calories (CMS/HCC) POSTOPERATIVE DIAGNOSES: SAME and gastric band erosion and gastric perforation PROCEDURES PERFORMED: 1. Laparoscopic removal of adjustable gastric band and port (17044) 2. Laparoscopic Repair [place] gastric perfor[place] [address]) 3. Omental isabel patch (28742) 3. esophagogastroduodenoscopy SURGEON: Steffen Beckwith MD ASSISTANT PLANT CONTROL OPERATOR: Aramis DAIGLE ANESTHESIA: General endotracheal. PROCEDURE: The patient was brought to the operating suite. Patient was placed under general endotracheal anesthesia. Patient was prepped and draped in the sterile fashion. Two 5mm incisions in the periumbilical region. An optical 5-mm port was placed under direct vision without difficulty via this incision site. The peritoneal cavity was insufflated with CO2 gas to 15 mmHg pressure. A 45- degree angled laparoscope was placed into the peritoneal cavity. There was no blood, fluid, or evidence of intra-abdominal injury. Two 5mm ports were placed in the LUQ and RUQ of the abdomen. The patient was placed in steep reverse Trendelenburg position.The left lobe of the liver was elevated demonstrating liver adhesions to the tubing of the band with dense chronic omental edema and calcifications with dense attachment of the omentum to the gastric wall along the lesser curve. These omental adhesions were taken down with the harmonic scalpel to identify the gastric band tubing and gastric band. There were additional dense adhesions that were also encountered and taken down along the area of lessersac surrounding the upper stomach. There was significant edema in this area. Continued dissection followed the gastric band tubing, as there were significant adhesions of omentum to the tubing with evidence of gastric secretions that were emanating as continued dissection proceeded to identify the gastric band buckle. The buckle was buried in the gastric inflammatory wall. This was indicative of gastric perforation from gastric band erosion. There was a gastric perforation. A gastrotomy was made using harmonic scalpel to cut the band cuff and facilitate the removal. The gastrotomy made was 3cm in length. The gastric band cuff was identified and it was sharply cut using scissors. Once cut the tubing along the lesser curve was grasped and pulled and the band was able to be removed. It was placed in an endocatch bag and removed from the abdomen via the trocar site. The gastric edges where the band had been removed was inflamed and a gastric perforation of 1cm was noted. The surrounding tissue was debrided using harmonic scalpel. This gastric perforation would be repaired. Using primaryapproach with omental patch reinforcement. A 3-0 vicryl suture was used to close and repair the gastric perforation. A running suture repair was performed taking wide bites of the gastric wall on opposing sides full thickness and the edges of the gastric perforation was approximated. Full thicknessbites of the gastric wall were taken and approximated in a running fashion. A second layer in a lembert seromuscular running technique was performed. To reinforce this an additional omental patch wasperformed. A pedicle of omentum was dissected and mobilized from the greater omentum about 4cm width. It was lifted and reflected to the area of the perforation closure. The omentum was sutured to the stomach using 3-0 vicryl suture in a isabel patch fashion by anchoring at three points. This completed the repair of the gastric perforation. The gastrotomy was then closed using 3-0 vicryl suture in a simple interrupted and running fashion followed by lembert sutures for the second layer. An esophagogastroduodenoscopy was performed to test the repair for gastric leak The gastroscope was inserted and passed thorugh the bite block into the posterior pharynx and into the esophagus. The gastroscope was further advanced to the level of the GE junction where the z-linewas noted at 38cm from the incissors. The gastroscope was further advanced and passed into the stomach. The stomach was insufflated with air revealing a patent pyloric channel and opening. The scope was further advanced into the duodenum. On slow withdrawel evaluation of the duodenum lining was performed and found to be normal in appearance, without ulcers, masses, bleeding. The gastroscope was further withdrawn into the stomach body where the antrum and pylorus appeared normal. The gastroscopewas retroflexed and the upper stomach inspected. The area of the repair appeared intact and an air leak test was performed, with no evidence of air bubbles. The gastroscope was straightened and further withdrawn to the level of the GE junction. The mucosa in the area of the lower esophagus appeared normal. Attention was then focused on removal of the gastric port. Blunt dissection was performed in the subcutaneous space. The adjustable gastric band port was seen. The LAGB port mobilized. Posterior portattachments were taken down using cautery. Once the LAGB port was completely mobilized it was removed. hemostasis with electrocautery was used. The fascia of the trocar site where the LAGB was removed was closed with a 0 Vicryl suture in a [id number] fashion.. The remaining incisions were closed with running subcuticular Vicryl sutures. Sterile dressing was placed. The patient tolerated the procedure well and was taken to recovery room in stable condition. FINDINGS: gastric band erosion and gastric perforation, gastric perforation repaired and omental patch reinforced, EGD peformed. SPECIMEN: none EBL: 25ml COMPLICATIONS: None. PROSTHETICS: none Steffen Beckwith MD * Brief Op Note - Steffen Beckwith MD - 04/16/2023 2:24 PM CDT Brief Op Note Procedure: LAPAROSCOPIC REMOVAL GASTRIC BAND & PORT W/GASTRIC PERFORATION REPAIR & UPPER ENODOSCOPY Patient Name: Nevin Deshpande Date of Service: 04/16/2023 Pre-Op Diagnosis: ??epigastric abdominal pain, gerd, dysphagia, gastric band erosion Post-Op Diagnosis: same Surgeon(s) and Role: * Steffen Beckwith MD - Primary Powder Operator(s): Blanche DAIGLE Anesthesia Type: general ETT Complications: none Findings: significant epigastric adhesions, band erosion along proximal lesser curve EBL: blood loss of 15 ml Urine Output : none IV Fluid Intake: per anesthesia Drains: * No LDAs found * Specimen(s): * No specimens in log * Implant(s): * No implants in log * Steffen Beckwith MD documented in this encounter Plan of Treatment Scheduled Orders Name Type Priority Associated Diagnoses Order Schedule HOME OXYGEN EVALUATION Respiratory Care Routine ONCE for 1 Occurrences starting 04/21/2023 until 04/21/2023 Scheduled Referrals Name Type Priority Associated Diagnoses Order Schedule Referral to Home Connections Outpatient Referral Routine Gastric band erosion Ordered: 04/22/2023 documented as of this encounter Procedures Procedure Name Priority Date/Time Associated Diagnosis Comments CBC W/O DIFFERENTIAL VINICIUS 04/21/2023 9:24 AM CDT BASIC METABOLIC PANEL (CALCIUM TOTAL) VINICIUS 04/21/2023 9:24 AM CDT BASIC METABOLIC PANEL (CALCIUM TOTAL) Routine 04/20/2023 10:[address] ANGIO CHEST PULM EMBOLISM Routine 04/19/2023 2:24 PM CDT Hypoxemia CBC W AUTO DIFFERENTIAL AM Draw 04/19/2023 4:14 AM CDT BASIC METABOLIC PANEL (CALCIUM TOTAL) AM Draw 04/19/2023 4:14 AM CDT CBC W AUTO DIFFERENTIAL AM Draw 04/18/2023 3:57 AM CDT BASIC METABOLIC PANEL (CALCIUM TOTAL) AM Draw 04/18/2023 3:57 AM CDT FL UGI SERIES Routine 04/17/2023 12:25 PM CDT Gastric band erosion CBC W/O DIFFERENTIAL STAT 04/17/2023 6:33 AM CDT Gastric band erosion BASIC METABOLIC PANEL (CALCIUM TOTAL) STAT 04/17/2023 6:33 AM CDT Gastric band erosion XR CHEST 1VW PORTABLE STAT 04/16/2023 7:30 PM CDT Gastric band erosion LAPAROSCOPIC REMOVAL/REPLACEMENT GASTRIC BAND 04/16/2023 1:43 PM CDT BASIC METABOLIC PANEL (CALCIUM TOTAL) AM Draw 04/16/2023 4:34 AM CDT Gastric band erosion CBC W AUTO DIFFERENTIAL AM Draw 04/15/2023 4:04 AM CDT Gastric band erosion COMPREHENSIVE METABOLIC PANEL AM Draw 04/15/2023 4:04 AM CDT Gastric band erosion HELICOBACTER PYLORI UREASE (STL) STAT 04/14/2023 9:08 AM CDT Diagnosis unknown MD ED EGD FLEX TRANSORAL DX 04/14/2023 8:20 AM CDT EGD Routine 04/14/2023 8:15 AM CDT documented in this encounter Results * (ABNORMAL) BASIC METABOLIC PANEL (CALCIUM TOTAL) (04/21/2023 9:24 AM CDT) Glucose 99 70 - 105 mg/dL 04/21/2023 9:51 AM CDT [facility] Sodium 139 136 - 145 mmol/L 04/21/2023 9:51 AM CDT [facility] Potassium 3.6 3.5 - 5.1 mmol/L 04/21/2023 9:51 AM CDT [facility] Chloride 105 98 - 107 mmol/L 04/21/2023 9:51 AM CDT [facility] CO2 24 23 - 31 mmol/L 04/21/2023 9:51 AM CDT [facility] Calcium 9.0 8.4 - 10.4 mg/dL 04/21/2023 9:51 AM CDT [facility] Anion Gap 10 8 - 18 mmol/L 04/21/2023 9:51 AM CDT [facility] BUN 4(L) 9.8 - 20.1 mg/dL 04/21/2023 9:51 AM CDT [facility] Creatinine 0.85 0.57 - 1.11 mg/dL 04/21/2023 9:51 AM CDT [facility] eGFR by CKD-EPI 81(L) >=90 mL/min/1.7 3 m2 04/21/2023 9:51 AM CDT [facility] Blood BLOOD SPECIMEN / Unknown Venipuncture / Unknown 04/21/2023 9:24 AM CDT 04/21/2023 9:34 AM CDT Marybel Grider Donte MACHINE ST[employer] [facility] - MANFRED GEMINI ORDERABLES Performing Organization Address City/State/RUST Co de Phone Number [facility] [address] [place] [address] * (ABNORMAL) CBC W/O DIFFERENTIAL (04/21/2023 9:24 AM CDT) WBC 8.2 4.4 - 10.7 x10E9/L 04/21/2023 9:37 AM CDT [facility] RBC 3.05(L) 3.80 - 5.20 x10E12/L 04/21/2023 9:37 AM CDT [facility] Hemoglobin 10.9(L) 12.0 - 15.6 gm/dL 04/21/2023 9:37 AM CDT [facility] Hematocrit 33.8(L) 35.9 - 45.5 % 04/21/2023 9:37 AM CDT [facility] MCV 110.8(H) 80.7 - 98.3 fl 04/21/2023 9:37 AM CDT [facility] MCH 35.7(H) 26.7 - 34.0 pg 04/21/2023 9:37 AM CDT [facility] MCHC 32.2 30.8 - 35.9 gm/dL 04/21/2023 9:37 AM CDT [facility] Platelet Count 254 153 - 416 x10E9/L 04/21/2023 9:37 AM CDT [facility] RDW-CV 14.6 12.1 - 14.9 % 04/21/2023 9:37 AM CDT [facility] MPV 10.8 9.4 - 12.9 fl 04/21/2023 9:37 AM CDT [facility] Blood BLOOD SPECIMEN / Unknown Venipuncture / Unknown 04/21/2023 9:24 AM CDT 04/21/2023 9:34 AM CDT Marybel Grider Donte MACHINE [employer] [facility] - HEM ATOLOGY ORDERABLES [facility] [address] [place] [address] * (ABNORMAL) BASIC METABOLIC PANEL (CALCIUM TOTAL) (04/20/2023 10:21 AM CDT) Glucose 116(H) 70 - 105 mg/dL 04/20/2023 10:45 AM CDT [facility] Sodium 140 136 - 145 mmol/L 04/20/2023 10:45 AM CDT [facility] Potassium 3.9 3.5 - 5.1 mmol/L 04/20/2023 10:45 AM CDT [facility] Chloride 106 98 - 107 mmol/L 04/20/2023 10:45 AM CDT [facility] CO2 27 23 - 31 mmol/L 04/20/2023 10:45 AM CDT [facility] Calcium 9.1 8.4 - 10.4 mg/dL 04/20/2023 10:45 AM T [facility] Anion Gap 7(L) 8 - 18 mmol/L 04/20/2023 10:45 AM CDT [facility] BUN 4(L) 9.8 - 20.1 mg/dL 04/20/2023 10:45 AM CDT [facility] Creatinine 0.83 0.57 - 1.11 mg/dL 04/20/2023 10:45 AM CDT [facility] eGFR by CKD-EPI 83(L) >=90 mL/min/1.7 3 m2 04/20/2023 10:45 AM CDT [facility] Blood BLOOD SPECIMEN / Unknown Venipuncture / Unknown 04/20/2023 10:21 AM CDT 04/20/2023 10:27 AM CDT Guerline Melgar MD LAB - CHEMISTRY INGRID CORRALES [facility] [address] [place] [address] * CT CHEST PE (04/19/2023 2:24 PM CDT) Anatomical Region Laterality Modality Chest Computed Tomogra phy 04/19/2023 2:35 PM CDT Impressions 04/19/2023 2:37 PM CDT IMPRESSION: No pulmonary embolism. Mild left basilar infiltrate and minimal infiltrate right lung base. Trace pleural effusions. > Interpreting Provider: Wally Disla MD on 04/19/2023 2:37 PM Narrative 04/19/2023 2:[address] angiogram PE Protocol Clinical Indication: Shortness of breath Technique: The pulmonary embolus protocol was utilized. Axial CT images from the lung apices to the lung bases were obtained following Isovue 370, 80 cc intravenous contrast administration. Multiplanar maximum intensity projection reconstructions were created on an independent workstation. Findings: There is no supraclavicular or axillary lymphadenopathy. No mediastinal or hilar lymphadenopathy. The heart is normal in size. Trace pleural effusions noted. No thoracic aneurysm or dissection. No pulmonary embolism identified. Limited views of the upper abdomen show small amount of fluid within the gastrohepatic ligament. Lung windows demonstrate patchy infiltrate in the left lung base and minimal groundglass infiltrate right lung base. Mild bibasilar atelectasis. The central airways are clear. The bony thorax is intact. Procedure Note Wally Disla MD - 04/19/2023 CT angiogram PE Protocol Clinical Indication: Shortness of breath Technique: The pulmonary embolus protocol was utilized. Axial CT images from the lung apices to the lung bases were obtained following [id number], 80 cc intravenous contrast administration. Multiplanar maximum intensity projection reconstructions were created on an independent workstation. Findings: There is no supraclavicular or axillary lymphadenopathy. No mediastinalor hilar lymphadenopathy. The heart is normal in size. Trace pleuraleffusions noted. No thoracic aneurysm or dissection. No pulmonary embolism identified. Limited views of the upper abdomen show small amount of fluid within the gastrohepatic ligament. Lung windows demonstrate patchy infiltrate in the left lung base and minimal groundglass infiltrate right lung base. Mild bibasilaratelectasis. The central airways are clear. The bony thorax is intact. IMPRESSION: No pulmonary embolism. Mild left basilar infiltrate and minimal infiltrate right lung base.Trace pleural effusions. > Interpreting Provider: Wally Disla MD on 04/19/2023 2:37 PM Steffen Beckwith MD CT ORDERABLES * (ABNORMAL) BASIC METABOLIC PANEL (CALCIUM TOTAL) (04/19/2023 4:14 AM CDT) Glucose 115(H) 70 - 105 mg/dL 04/19/2023 4:48 AM CDT [facility] Sodium 140 136 - 145 mmol/L 04/19/2023 4:48 AM CDT [facility] Potassium 4.1 3.5 - 5.1 mmol/L 04/19/2023 4:48 AM CDT [facility] Chloride 108(H) 98 - 107 mmol/L 04/19/2023 4:48 AM CDT [facility] CO2 22(L) 23 - 31 mmol/L 04/19/2023 4:48 AM CDT [facility] Calcium 9.1 8.4 - 10.4 mg/dL 04/19/2023 4:48 AM CDT [facility] Anion Gap 10 8 - 18 mmol/L 04/19/2023 4:48 AM CDT [facility] BUN 7(L) 9.8 - 20.1 mg/dL 04/19/2023 4:48 AM CDT [facility] Creatinine 0.84 0.57 - 1.11 mg/dL 04/19/2023 4:48 AM CDT [facility] eGFR by CKD-EPI 82(L) >=90 mL/min/1.7 3 m2 04/19/2023 4:48 AM CDT [facility] Blood BLOOD SPECIMEN / Unknown Venipuncture / Unknown 04/19/2023 4:14 AM CDT 04/19/2023 4:18 AM CDT Guerline Melgar MD LAB - CHEMISTRY INGRID CORRALES [facility] Organization Address City/State/ZIP Co de Phone Number [facility] [address] [place] [address] * (ABNORMAL) CBC W AUTO DIFFERENTIAL (04/19/2023 4:14 AM CDT) WBC 11.9(H) 4.4 - 10.7 x10E9/L 04/19/2023 4:22 AM CDT [facility] WBC Corrected 04/19/2023 4:22 AM CDT [facility] RBC 3.07(L) 3.80 - 5.20 x10E12/L 04/19/2023 4:22 AM CDT [facility] Hemoglobin 11.2(L) 12.0 - 15.6 gm/dL 04/19/2023 4:22 AM CDT [facility] Hematocrit 34.2(L) 35.9 - 45.5 % 04/19/2023 4:22 AM CDT [facility] MCV 111.4(H) 80.7 - 98.3 fl 04/19/2023 4:22 AM CDT [facility] MCH 36.5(H) 26.7 - 34.0 pg 04/19/2023 4:22 AM CDT [facility] MCHC 32.7 30.8 - 35.9 gm/dL 04/19/2023 4:22 AM CDT [facility] Platelet Count 211 153 - 416 x10E9/L 04/19/2023 4:22 AM CDT [facility] RDW-CV 14.8 12.1 - 14.9 % 04/19/2023 4:22 AM CDT [facility] MPV 11.1 9.4 - 12.9 fl 04/19/2023 4:22 AM CDT [facility] Neutrophils % 79.3(H) 44.0 - 73.0 % 04/19/2023 4:22 AM CDT [facility] Lymphocytes % 9.2(L) 20.0 - 43.0 % 04/19/2023 4:22 AM CDT [facility] Monocytes % 6.7 5.0 - 13.0 % 04/19/2023 4:22 AM CDT [facility] Eosinophils % 3.3 0.0 - 6.0 % 04/19/2023 4:22 AM CDT [facility] Basophils % 0.4 0.0 - 2.0 % 04/19/2023 4:22 AM CDT [facility] Immature Granulocytes 1.1(H) 0 - 1 % 04/19/2023 4:22 AM CDT [facility] Neutrophil Absolute 9.47(H) 2.01 - 7.14 x10E9/L 04/19/2023 4:22 AM CDT [facility] Lymphocytes Absolute 1.10 1.07 - 3.94 x10E9/L 04/19/2023 4:22 AM CDT [facility] Monocytes Absolute 0.80 0.26 - 1.07 x10E9/L 04/19/2023 4:22 AM CDT [facility] Eosinophils Absolute 0.39 0 - 0.47 x10E9/L 04/19/2023 4:22 AM CDT [facility] Basophils Absolute 0.05 0 - 0.08 x10E9/L 04/19/2023 4:22 AM CDT [facility] Immature Granulocytes Absolute 0.13(H) 0.00 - 0.06 x10E9/L 04/19/2023 4:22 AM CDT [facility] nRBC Auto 0 /100 WBC 04/19/2023 4:22 AM CDT [facility] Blood BLOOD SPECIMEN / Unknown Venipuncture / Unknown 04/19/2023 4:14 AM CDT 04/19/2023 4:18 AM CDT Guerline Melgar MD LAB - HEMATOLOGY ORD ERABLES [facility] [address] [place] [address] * (ABNORMAL) CBC W AUTO DIFFERENTIAL (04/18/2023 3:57 AM CDT) WBC 16.1(H) 4.4 - 10.7 x10E9/L 04/18/2023 4:08 AM CDT [facility] WBC Corrected 04/18/2023 4:08 AM CDT [facility] RBC 3.26(L) 3.80 - 5.20 x10E12/L 04/18/2023 4:08 AM CDT [facility] Hemoglobin 11.6(L) 12.0 - 15.6 gm/dL 04/18/2023 4:08 AM CDT [facility] Hematocrit 35.6(L) 35.9 - 45.5 % 04/18/2023 4:08 AM CDT [facility] MCV 109.2(H) 80.7 - 98.3 fl 04/18/2023 4:08 AM CDT [facility] MCH 35.6(H) 26.7 - 34.0 pg 04/18/2023 4:08 AM CDT [facility] MCHC 32.6 30.8 - 35.9 gm/dL 04/18/2023 4:08 AM CDT [facility] Platelet Count 242 153 - 416 x10E9/L 04/18/2023 4:08 AM CDT [facility] RDW-CV 14.9 12.1 - 14.9 % 04/18/2023 4:08 AM CDT [facility] MPV 10.9 9.4 - 12.9 fl 04/18/2023 4:08 AM CDT [facility] Neutrophils % 85.1(H) 44.0 - 73.0 % 04/18/2023 4:08 AM CDT [facility] Lymphocytes % 6.5(L) 20.0 - 43.0 % 04/18/2023 4:08 AM CDT [facility] Monocytes % 6.7 5.0 - 13.0 % 04/18/2023 4:08 AM CDT [facility] Eosinophils % 0.7 0.0 - 6.0 % 04/18/2023 4:08 AM CDT [facility] Basophils % 0.3 0.0 - 2.0 % 04/18/2023 4:08 AM CDT [facility] Immature Granulocytes 0.7 0 - 1 % 04/18/2023 4:08 AM CDT [facility] Neutrophil Absolute 13.67(H) 2.01 - 7.14 x10E9/L 04/18/2023 4:08 AM CDT [facility] Lymphocytes Absolute 1.04(L) 1.07 - 3.94 x10E9/L 04/18/2023 4:08 AM CDT [facility] Monocytes Absolute 1.08(H) 0.26 - 1.07 x10E9/L 04/18/2023 4:08 AM CDT [facility] Eosinophils Absolute 0.12 0 - 0.47 x10E9/L 04/18/2023 4:08 AM CDT [facility] Basophils Absolute 0.05 0 - 0.08 x10E9/L 04/18/2023 4:08 AM CDT [facility] Immature Granulocytes Absolute 0.11(H) 0.00 - 0.06 x10E9/L 04/18/2023 4:08 AM CDT [facility] nRBC Auto 0 /100 WBC 04/18/2023 4:08 AM CDT [facility] Blood BLOOD SPECIMEN / Unknown Venipuncture / Unknown 04/18/2023 3:57 AM CDT 04/18/2023 4:00 AM CDT Steffen Beckwith MD LAB - HEMATOLOGY ORD ERABLES [facility] [address] [place] [address] * (ABNORMAL) BASIC METABOLIC PANEL (CALCIUM TOTAL) (04/18/2023 3:57 AM CDT) Glucose 118(H) 70 - 105 mg/dL 04/18/2023 4:27 AM CDT [facility] Sodium 139 136 - 145 mmol/L 04/18/2023 4:27 AM CDT [facility] Potassium 4.2 3.5 - 5.1 mmol/L 04/18/2023 4:27 AM CDT [facility] Chloride 107 98 - 107 mmol/L 04/18/2023 4:27 AM CDT [facility] CO2 23 23 - 31 mmol/L 04/18/2023 4:27 AM CDT [facility] Calcium 8.8 8.4 - 10.4 mg/dL 04/18/2023 4:27 AM CDT [facility] Anion Gap 9 8 - 18 mmol/L 04/18/2023 4:27 AM CDT [facility] BUN 9(L) 9.8 - 20.1 mg/dL 04/18/2023 4:27 AM CDT [facility] Creatinine 0.89 0.57 - 1.11 mg/dL 04/18/2023 4:27 AM CDT [facility] eGFR by CKD-EPI 77(L) >=90 mL/min/1.7 3 m2 04/18/2023 4:27 AM CDT [facility] Blood BLOOD SPECIMEN / Unknown Venipuncture / Unknown 04/18/2023 3:57 AM CDT 04/18/2023 4:00 AM CDT Micki Bolden MACHINE [employer] [facility] - CHEMIS TRY ORDERABLES [facility] [address] [place] [address] * FL UGI SERIES (04/17/2023 12:25 PM CDT) Anatomical Region Laterality Modality Abdomen Radiographic Josie ging 04/17/2023 1:10 PM CDT Impressions 04/17/2023 1:16 PM CDT IMPRESSION: 1. No contrast extravasation is identified to indicate a persistent or recurrent gastric leak. > Interpreting Provider: Roge Corley DO on 04/17/2023 1:16 PM Narrative 04/17/2023 1:16 PM CDT PROCEDURE: ??FL UGI SERIES DATE/TIME OF EXAM: ??04/17/2023 12:36 PM CLINICAL INFORMATION: Removal of laparoscopic gastric band device with repair of gastric perforation with Isabel patch. COMPARISON: Upper GI examination 03/10/2023. TECHNIQUE: Patient ingested 100 cc Isovue 370 contrast. 394 images were obtained utilizing video format. 1.1 minutes of fluoroscopy. FINDINGS: Contrast empties from the nondilated distal esophagus into the stomach. No hiatal hernia. Laparoscopic gastric banding device has been removed. Stomach fills normally. There is no contrast extravasation to indicate a gastric leak. Contrast is seen emptying into the duodenum. FLUOROSCOPY DOSE: ??5.99 mGy Reference air kerma (ka,r). Procedure Note Roge Corley DO - 04/17/2023 PROCEDURE: FL UGI SERIES DATE/TIME OF EXAM: 04/17/2023 12:36 PM CLINICAL INFORMATION: Removal of laparoscopic gastric band device with repair of gastric perforation with Isabel patch. COMPARISON: Upper GI examination 03/10/2023. TECHNIQUE: Patient ingested 100 cc Isovue 370 contrast. 394 images were obtained utilizing video format. 1.1 minutes of fluoroscopy. FINDINGS: Contrast empties from the nondilated distal esophagus into the stomach.No hiatal hernia. Laparoscopic gastric banding device has been removed. Stomach fills normally. There is no contrast extravasation to indicate a gastric leak. Contrast is seen emptying into the duodenum. FLUOROSCOPY DOSE: 5.99 mGy Reference air kerma (ka,r). IMPRESSION: 1. No contrast extravasation is identified to indicate a persistent or recurrent gastric leak. > Interpreting Provider: Roge Corley DO on 04/17/2023 1:16 PM Steffen Beckwith MD FLUOROSCOPY ORDERABL ES * (ABNORMAL) BASIC METABOLIC PANEL (CALCIUM TOTAL) (04/17/2023 6:33 AM CDT) Glucose 140(H) 70 - 105 mg/dL 04/17/2023 7:36 AM CDT [facility] Sodium 139 136 - 145 mmol/L 04/17/2023 7:36 AM CDT [facility] Potassium 4.4 3.5 - 5.1 mmol/L 04/17/2023 7:36 AM CDT [facility] Chloride 108(H) 98 - 107 mmol/L 04/17/2023 7:36 AM CDT [facility] CO2 22(L) 23 - 31 mmol/L 04/17/2023 7:36 AM CDT [facility] Calcium 9.0 8.4 - 10.4 mg/dL 04/17/2023 7:36 AM CDT [facility] Anion Gap 9 8 - 18 mmol/L 04/17/2023 7:36 AM CDT [facility] BUN 6(L) 9.8 - 20.1 mg/dL 04/17/2023 7:36 AM CDT [facility] Creatinine 0.96 0.57 - 1.11 mg/dL 04/17/2023 7:36 AM CDT [facility] eGFR by CKD-EPI 70(L) >=90 mL/min/1.7 3 m2 04/17/2023 7:36 AM CDT [facility] Blood BLOOD SPECIMEN / Unknown Venipuncture / Unknown 04/17/2023 6:33 AM CDT 04/17/2023 6:37 AM CDT Micki Stephan Kimi [employer] [facility] - CHEMIS TRY ORDERABLES [facility] [address] [place] [address] * (ABNORMAL) CBC W/O DIFFERENTIAL (04/17/2023 6:33 AM CDT) WBC 18.9(H) 4.4 - 10.7 x10E9/L 04/17/2023 6:45 AM CDT [facility] RBC 3.62(L) 3.80 - 5.20 x10E12/L 04/17/2023 6:45 AM CDT [facility] Hemoglobin 12.8 12.0 - 15.6 gm/dL 04/17/2023 6:45 AM CDT [facility] Hematocrit 39.5 35.9 - 45.5 % 04/17/2023 6:45 AM CDT [facility] MCV 109.1(H) 80.7 - 98.3 fl 04/17/2023 6:45 AM CDT [facility] MCH 35.4(H) 26.7 - 34.0 pg 04/17/2023 6:45 AM CDT [facility] MCHC 32.4 30.8 - 35.9 gm/dL 04/17/2023 6:45 AM CDT [facility] Platelet Count 271 153 - 416 x10E9/L 04/17/2023 6:45 AM CDT [facility] RDW-CV 14.6 12.1 - 14.9 % 04/17/2023 6:45 AM CDT [facility] MPV 11.2 9.4 - 12.9 fl 04/17/2023 6:45 AM CDT [facility] Blood BLOOD SPECIMEN / Unknown Venipuncture / Unknown 04/17/2023 6:33 AM CDT 04/17/2023 6:37 AM CDT Micki Bolden [employer] [facility] - HEMATO LOGY ORDERABLES [facility] [address] [place] [address] * XR CHEST 1VW PORTABLE (04/16/2023 7:30 PM CDT) Anatomical Region Laterality Modality Chest Radiographic Josie ging 04/16/2023 7:46 PM CDT Narrative 04/16/2023 7:46 PM CDT PROCEDURE(s): XR CHEST 1VW PORTABLE DATE AND TIME OF EXAM(s): 04/16/2023 7:30 PM INDICATION(s): K95.09: Other complications of gastric band procedure. COMPARISON(s): None available. FINDINGS: The cardiomediastinal silhouette is grossly unremarkable. There is trace left basilar atelectasis or infiltrate. No pneumothorax or pleural effusion is seen. The osseous structures are grossly unremarkable. > Interpreting Provider: Kristopher Crowell MD on 04/16/2023 7:46 PM Procedure Note Kristopher Crowell MD - 04/16/2023 PROCEDURE(s): XR CHEST 1VW PORTABLE DATE AND TIME OF EXAM(s): 04/16/2023 7:30 PM INDICATION(s): K95.09: Other complications of gastric band procedure. COMPARISON(s): None available. FINDINGS: The cardiomediastinal silhouette is grossly unremarkable.There is trace left basilar atelectasis or infiltrate. No pneumothorax orpleural effusion is seen. The osseous structures are grossly unremarkable. > Interpreting Provider: Kristopher Crowell MD on 04/16/2023 7:46 PM Guerline Melgar MD DIAGNOSTIC IMAGING O RDERABLES * (ABNORMAL) BASIC METABOLIC PANEL (CALCIUM TOTAL) (04/16/2023 4:34 AM CDT) Glucose 110(H) 70 - 105 mg/dL 04/16/2023 5:16 AM CDT [facility] Sodium 140 136 - 145 mmol/L 04/16/2023 5:16 AM CDT [facility] Potassium 4.0 3.5 - 5.1 mmol/L 04/16/2023 5:16 AM CDT [facility] Chloride 109(H) 98 - 107 mmol/L 04/16/2023 5:16 AM CDT [facility] CO2 24 23 - 31 mmol/L 04/16/2023 5:16 AM CDT [facility] Calcium 9.1 8.4 - 10.4 mg/dL 04/16/2023 5:16 AM CDT [facility] Anion Gap 7(L) 8 - 18 mmol/L 04/16/2023 5:16 AM CDT [facility] BUN 6(L) 9.8 - 20.1 mg/dL 04/16/2023 5:16 AM CDT [facility] Creatinine 0.89 0.57 - 1.11 mg/dL 04/16/2023 5:16 AM CDT [facility] eGFR by CKD-EPI 77(L) >=90 mL/min/1.7 3 m2 04/16/2023 5:16 AM CDT [facility] Blood BLOOD SPECIMEN / Unknown Venipuncture / Unknown 04/16/2023 4:34 AM CDT 04/16/2023 4:39 AM CDT Steffen Beckwith MD LAB - CHEMISTRY INGRID CORRALES [facility] Organization Address City/State/ZIP Co de Phone Number [facility] [address] [place] [address] * (ABNORMAL) COMPREHENSIVE METABOLIC PANEL (04/15/2023 4:04 AM CDT) [facility] Glucose 107(H) 70 - 105 mg/dL 04/15/2023 5:26 AM CDT [facility] Sodium 141 136 - 145 mmol/L 04/15/2023 5:26 AM CDT [facility] Potassium 3.3(L) 3.5 - 5.1 mmol/L 04/15/2023 5:26 AM CDT [facility] Chloride 108(H) 98 - 107 mmol/L 04/15/2023 5:26 AM CDT [facility] CO2 25 23 - 31 mmol/L 04/15/2023 5:26 AM CDT [facility] Calcium 9.4 8.4 - 10.4 mg/dL 04/15/2023 5:26 AM CDT [facility] Anion Gap 8 8 - 18 mmol/L 04/15/2023 5:26 AM CDT [facility] BUN 10 9.8 - 20.1 mg/dL 04/15/2023 5:26 AM CDT [facility] Creatinine 1.05 0.57 - 1.11 mg/dL 04/15/2023 5:26 AM CDT [facility] Alkaline Phosphatase 151(H) 40 - 150 U/L 04/15/2023 5:26 AM CDT [facility] ALT 13 0 - 61 U/L 04/15/2023 5:26 AM CDT [facility] AST 23 5 - 34 U/L 04/15/2023 5:26 AM CDT [facility] Protein Total 6.4 6.4 - 8.3 gm/dL 04/15/2023 5:26 AM CDT [facility] Albumin 3.5 3.5 - 5.2 gm/dL 04/15/2023 5:26 AM CDT [facility] Bilirubin Total 0.7 0.2 - 1.2 mg/dL 04/15/2023 5:26 AM CDT [facility] eGFR by CKD-EPI 63(L) >=90 mL/min/1.7 3 m2 04/15/2023 5:26 AM CDT [facility] Blood BLOOD SPECIMEN / Unknown Venipuncture / Unknown 04/15/2023 4:04 AM CDT 04/15/2023 4:38 AM CDT Steffen Beckwith MD LAB - CHEMISTRY INGRID CORRALES [facility] [address] [place] [address] * (ABNORMAL) CBC W AUTO DIFFERENTIAL (04/15/2023 4:04 AM CDT) WBC 6.1 4.4 - 10.7 x10E9/L 04/15/2023 5:02 AM CDT [facility] WBC Corrected 04/15/2023 5:02 AM CDT [facility] RBC 3.32(L) 3.80 - 5.20 x10E12/L 04/15/2023 5:02 AM CDT [facility] Hemoglobin 11.9(L) 12.0 - 15.6 gm/dL 04/15/2023 5:02 AM CDT [facility] Hematocrit 36.8 35.9 - 45.5 % 04/15/2023 5:02 AM CDT [facility] MCV 110.8(H) 80.7 - 98.3 fl 04/15/2023 5:02 AM CDT [facility] MCH 35.8(H) 26.7 - 34.0 pg 04/15/2023 5:02 AM CDT [facility] MCHC 32.3 30.8 - 35.9 gm/dL 04/15/2023 5:02 AM CDT [facility] Platelet Count 257 153 - 416 x10E9/L 04/15/2023 5:02 AM CDT [facility] RDW-CV 15.0(H) 12.1 - 14.9 % 04/15/2023 5:02 AM CDT [facility] MPV 11.3 9.4 - 12.9 fl 04/15/2023 5:02 AM CDT [facility] Neutrophils % 62.4 44.0 - 73.0 % 04/15/2023 5:02 AM CDT [facility] Lymphocytes % 26.2 20.0 - 43.0 % 04/15/2023 5:02 AM CDT [facility] Monocytes % 8.9 5.0 - 13.0 % 04/15/2023 5:02 AM CDT [facility] Eosinophils % 1.3 0.0 - 6.0 % 04/15/2023 5:02 AM CDT [facility] Basophils % 0.7 0.0 - 2.0 % 04/15/2023 5:02 AM CDT [facility] Immature Granulocytes 0.5 0 - 1 % 04/15/2023 5:02 AM CDT [facility] Neutrophil Absolute 3.80 2.01 - 7.14 x10E9/L 04/15/2023 5:02 AM CDT [facility] Lymphocytes Absolute 1.59 1.07 - 3.94 x10E9/L 04/15/2023 5:02 AM CDT [facility] Monocytes Absolute 0.54 0.26 - 1.07 x10E9/L 04/15/2023 5:02 AM CDT [facility] Eosinophils Absolute 0.08 0 - 0.47 x10E9/L 04/15/2023 5:02 AM CDT [facility] Basophils Absolute 0.04 0 - 0.08 x10E9/L 04/15/2023 5:02 AM CDT [facility] Immature Granulocytes Absolute 0.03 0.00 - 0.06 x10E9/L 04/15/2023 5:02 AM CDT [facility] nRBC Auto 0 /100 WBC 04/15/2023 5:02 AM CDT [facility] Blood BLOOD SPECIMEN / Unknown Venipuncture / Unknown 04/15/2023 4:04 AM CDT 04/15/2023 4:38 AM CDT Steffen Beckwith MD LAB - HEMATOLOGY ORD ERABLES Performing Organization Address [facility] de Phone Number [facility] [address] [place] [id number] * HELICOBACTER PYLORI UREASE (STL) (04/14/2023 9:08 AM CDT) Helicobacter pylori Urease Initial Negative Negative 04/15/2023 9:14 AM CDT [facility] Helicobacter pylori Urease Final Negative Negative 04/15/2023 9:14 AM CDT [facility] Comment:This is an appended report. These results have been appended to a previously preliminary verified report. Microbiology GASTRIC ANTRAL BIOPSY SPECIMEN / Unknown 04/14/2023 9:08 AM CDT 04/14/2023 2:44 PM CDT Steffen Beckwith MD LAB - MICROBIOLOGY O RDERABLES Performing Organization Address [facility] Co de Phone Number [facility] [id number] [place] [address] [phone] * EGD (04/14/2023 8:15 AM CDT) Report Endoscopy POC _ Patient Name: Nevin Deshpande ? Procedure Date: 04/14/2023 8:15 AM ? Date of : 1965 ? Admit Type: Outpatient Age: 57 ? Gender: Female Attending MD: Steffen Beckwith MD, ?? _ Procedure: ? Upper GI endoscopy Indications: ? Epigastric abdominal pain, Heartburn, Postoperative ? assessment Providers: ? Steffen Beckwith MD (Doctor) Referring MD: ?Rhianna Cowan MD (Referring MD) Medicines: ? Propofol per Anesthesia Complications: ? No immediate complications. _ Estimated Blood Loss: ? Estimated blood loss: none. Procedure: ? Pre-Anesthesia Assessment: ? - Prior to the procedure, a History and Physical was ? performed, and patient medications and allergies were ? reviewed. The patient's tolerance of previous ? anesthesia was also reviewed. The risks and benefits ? of the procedure and the sedation options and risks ? were discussed with the patient. All questions were ? answered, and informed consent was obtained. Prior ? Anticoagulants: The patient has taken no anticoagulant ? or antiplatelet agents. ASA Grade Assessment: II - A ? patient with mild systemic disease. After reviewing ? the risks and benefits, the patient was deemed in ? satisfactory condition to undergo the procedure. ? After obtaining informed consent, the endoscope was ? passed under direct vision. Throughout the procedure, ? the patient's blood pressure, pulse, and oxygen ? saturations were monitored continuously. The Endoscope ? was introduced through the mouth, and advanced to the ? second part of duodenum. The upper GI endoscopy was ? accomplished without difficulty. The patient tolerated ? the procedure well. ? Findings: ? The examined esophagus was normal. ? 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 This ? was characterized by erosion of gastric band 75% intraluminal. ? Localized mild inflammation characterized by erosions and erythema was ? found in the gastric antrum. Biopsies were taken with a cold forceps for ? Helicobacter pylori testing using CLOtest. ? The duodenal bulb, first portion of the duodenum and second portion of ? the duodenum were normal. _ ? Impression: ?- Normal esophagus. ? 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 characterized by erosion of gastric band 75% ? intraluminal. ? - Gastritis. Biopsied. ? - Normal duodenal bulb, first portion of the duodenum ? and second portion of the duodenum. Recommendation: ?- Await pathology results. ? - Discharge patient to home. ? - Resume previous diet. ? - Continue present medications. ? Procedure Code(s): ? --- Professional --- ? 38624, Esophagogastroduo denoscopy, flexible, transoral; with biopsy, ? single or multiple ? --- Technical --- ? 93499, Esophagogastroduo denoscopy, flexible, transoral; with biopsy, ? single or multiple Diagnosis Code(s): ? --- Professional --- ? Z98.84, Bariatric surgery status ? K29.70, Gastritis, unspecified, without bleeding ? R10.13, Epigastric pain ? R12, Heartburn ? Z09, Encounter for follow-up examination after completed treatment for ? conditions other than malignant neoplasm ? --- Technical --- ? Z98.84, Bariatric surgery status ? K29.70, Gastritis, unspecified, without bleeding ? R10.13, Epigastric pain ? R12, Heartburn ? Z09, Encounter for follow-up examination after completed treatment for ? conditions other than malignant neoplasm CPT copyright 2020 [employer]. All rights reserved. The codes documented in this report are preliminary and upon poker in review may be revised to meet current compliance requirements. __ Steffen Beckwith MD 04/14/2023 9:09:18 AM Number of Addenda: 0 Note Initiated On: 04/14/2023 8:15 AM [facility] 04/14/2023 8:15 AM CDT Narrative Procedure Note Steffen Beckwith MD - 04/14/2023 9:09 AM CDT PLAN: 1. Admit 2. Laparoscopic removal of gastric band and port Steffen Beckwith MD GI PROCEDURE ORDERAB LES [facility] [place] [address] documented in this encounter Visit Diagnoses Diagnosis Gastric band erosion- Primary Mechanical complication due to other implant and internal device, not elsewhere classified Diagnosis unknown Other unknown and unspecified cause of morbidity or mortality Gastric band erosion Mechanical complication due to other implant and internal device, not elsewhere classified Hypoxemia Hypoxemia documented in this encounter Administered Medications Inactive Administered Medications - up to 3 most recent administrations Medication Order MAR Action Action Date Dose Rate Site acetaminophen (Tylenol) solution 500 mg 500 mg, Oral, EVERY 4 HOURS, First dose on Fri04/18/23 at 1200, Until Discontinued, Patient preference for lesser PRN pain meds may be honored when the patient requests a less strong medication, a lower dose, or a less intrusive route of administration when the lesser drug, dose and route have been ordered for the patient. This patient request must be documented in the MAR. $ Given 04/21/2023 10:06 PM CDT 500 mg $ Given 04/21/2023 7:41 AM CDT 500 mg $ Given 04/20/2023 10:57 PM CDT 500 mg amLODIPine (Norvasc) tablet 5 mg 5 mg, Oral, DAILY, First dose on Fri04/19/23 at 1515, Until Discontinued $ Given 04/22/2023 7:53 AM CDT 5 mg $ Given 04/21/2023 7:42 AM CDT 5 mg $ Given 04/20/2023 8:20 AM CDT 5 mg azithromycin (Zithromax) 500 mg in 250 mL IVPB 500 mg, at 250 mL/hr, Intravenous, EVERY 24 HOURS, 5 doses, First dose on Fri04/16/23 at 2200, Last dose on Fri04/20/23 at 2200, Indication for anti-infective therapy: Suspected infection, Site of anti-infective therapy: Lower Respiratory $ New Bag/Syringe 04/16/2023 10:02 PM CDT 500 mg 250 mL/hr ceFAZolin (Ancef) 2,000 mg in 50 ml IVPB 2,000 mg (2 g), at 100 mL/hr, Intravenous, EVERY 12 HOURS, First dose on Fri04/14/23 at 2345, Until Discontinued, Indication for anti-infective therapy: Documented infection, Site of anti-infective therapy: Intra-abdominal $ New Bag/Syringe 04/16/2023 12:02 AM CDT 2,000 mg 100 mL/hr $ New Bag/Syringe 04/15/2023 11:38 AM CDT 2,000 mg 100 m L/hr $ New Bag/Syringe 04/15/2023 12:05 AM CDT 2,000 mg 100 m L/hr ceFAZolin (Ancef) 2,000 mg in 50 ml IVPB 2,000 mg (2 g), at 100 mL/hr, Intravenous, EVERY 8 HOURS, First dose (after last modification) on Fri04/16/23 at 1745, Until Discontinued, Indication for anti-infective therapy: Documented infection, Site of anti-infective therapy: Intra-abdominal $ New Bag/Syringe 04/16/2023 6:28 PM CDT 2,000 mg 100 mL/hr cefTRIAXone (Rocephin) 2,000 mg in 0.9% NaCl IV 50 mL IVPB 2,000 mg (2 g), at 100 mL/hr, Intravenous, EVERY 24 HOURS, 7 doses, First dose on Fri04/16/23 at 2100, Last dose on Fri04/22/23 at 2100, Ceftriaxone can cause precipitation when administered with calcium-containing fluids, including LR. Flush lines with a compatible fluid, such as D5W or NS before and after ceftriaxone dose. Admin through separate lumens is acceptable. , Indication for anti-infective therapy: Suspected infection, Site of anti-infective therapy: Lower Respiratory $ New Bag/Syringe 04/21/2023 10:05 PM CDT 2,000 mg 100 mL/hr $ New Bag/Syringe 04/20/2023 9:32 PM CDT 2,000 mg 100 mL /hr $ New Bag/Syringe 04/19/2023 9:07 PM CDT 2,000 mg 100 mL /hr dextrose 5 % and 0.45 % NaCl with KCl 20 mEq infusion at 75 mL/hr, Intravenous, CONTINUOUS, Starting on 04/14/23 at 1015, Until 04/20/23 at 1100 $ New Bag/Syringe 04/20/2023 2:50 AM CDT 75 mL/hr Current Rate 04/19/2023 5:32 PM CDT 75 mL/hr Restarted 04/19/2023 2:37 PM CDT 75 mL/hr doxazosin (Cardura) tablet 2 mg 2 mg, Oral, AT BEDTIME, First dose on 04/19/23 at 2100, Until Discontinued $ Given 04/21/2023 10:06 PM CDT 2 mg DULoxetine (Cymbalta) capsule 60 mg 60 mg, Oral, DAILY, First dose on 04/19/23 at 1515, Until Discontinued, Capsules can be opened and sprinkled on food/mixed with liquids and should be used within 2 hrs (Do not crush pellets inside capsule) Whole capsules should be swallowed whole and not chewed $ Given 04/22/2023 7:53 AM CDT 60 mg $ Given 04/21/2023 7:42 AM CDT 60 mg $ Given 04/20/2023 8:20 AM CDT 60 mg furosemide (Lasix) injection 20 mg 20 mg, Intravenous, ONCE, 1 dose, On 04/19/23 at 1515 $ Given 04/19/2023 2:59 PM CDT 20 mg furosemide (Lasix) injection 20 mg 20 mg, Intravenous, ONCE, 1 dose, On Fri04/20/23 at 1130 $ Given 04/20/2023 11:37 AM CDT 20 mg furosemide (Lasix) injection 20 mg 20 mg, Intravenous, ONCE, 1 dose, On Fri04/21/23 at 1000 $ Given 04/21/2023 10:28 AM CDT 20 mg heparin injection 5,000 Units 5,000 Units, Subcutaneous, 2 TIMES DAILY, First dose on Fri04/14/23 at 2100, Until Discontinued $ Given 04/22/2023 7:53 AM CDT 5,000 Units Abdominal Tissue $ Given 04/21/2023 10:06 PM CDT 5,000 Units Abd Left Lower Quadrant $ Given 04/21/2023 7:41 AM CDT 5,000 Units A bdominal Tissue hydroCHLOROthiazide (Hydrodiuril) tablet 12.5 mg 12.5 mg, Oral, DAILY, First dose on Fri04/22/23 at 1130, Until Discontinued, Hold dose if Blood pressure is less than 120mm Hg systolic $ Given 04/22/2023 12:03 PM CDT 12.5 mg HYDROcodone-acetaminophen (Plush) 5-325 MG tablet 1 tablet 1 tablet, Oral, Once, 1 dose, On Fri04/18/23 at 0030, Patient preference for lesser PRN pain meds may be honored when the patient requests a less strong medication, a lower dose, or a less intrusive route of administration when the lesser drug, dose and route have been ordered for the patient. This patient request must be documented in the MAR. $ Given 04/18/2023 12:21 AM CDT 1 tablet HYDROmorphone (Dilaudid) injection 0.5 mg 0.5 mg, Intravenous, EVERY 10 MIN PRN, Severe Pain, 4 doses, Starting on Fri04/16/23 at 1611, Until 04/19/23 at 1415, Maximum total of 4 doses If patient reaches max total dose, please consult anesthesiologist prior to further administration of pain meds. Hold pain meds if there are signs of hypoventilation. Patient preference for lesser PRN pain meds may be honored when the patient requests a less strong medication, a lower dose, or a less intrusive route of administration when the lesser drug, dose and route have been ordered for the patient. This patient request must be documented in the MAR., PACU $ Given 04/17/2023 7:23 PM CDT 0.5 mg $ Given 04/17/2023 1:03 PM CDT 0.5 mg iopamidol (Isovue 370) 76 % contrast Oral, CONTRAST ONCE, Starting on Chiara 04/17/23 at 0816, Until 04/19/23 at 0815 $ Given - Contrast 04/17/2023 12:35 PM CDT 100 mL iopamidol (Isovue 370) 76 % contrast Intravenous, CONTRAST ONCE, Starting on 04/19/23 at 0858, Until 04/21/23 at 0857 $ Given - Contrast 04/19/2023 2:25 PM CDT 80 mL ketorolac (Toradol) injection 15 mg 15 mg, Intravenous, EVERY 6 HOURS PRN, Moderate Pain, Starting on Fri04/16/23 at 1907, Until Fri04/18/23 at 1906 $ Given 04/16/2023 8:06 PM CDT 15 mg lactated ringers infusion at 20 mL/hr, Intravenous, PRE-OP ONCE, 1 dose, On Fri04/16/23 at 0945 $ New Bag/Syringe 04/16/2023 9:42 AM CDT 20 mL/hr loperamide (Imodium) capsule 2 mg 2 mg, Oral, ONCE, 1 dose, On Fri04/19/23 at 0030, Max dose 16mg/day $ Given 04/19/2023 12:12 AM CDT 2 mg metoprolol succinate XL 24hr (Toprol XL) tablet 25 mg 25 mg, Oral, DAILY, First dose on Fri04/22/23 at 1130, Until Discontinued, Hold dose if BP is less than 110 systolic or heart rate is less than 60 bpm. May cut in half but do not crush or chew $ Given 04/22/2023 12:02 PM CDT 25 mg metroNIDAZOLE (Flagyl) 500 mg in 100 mL IVPB 500 mg, at 200 mL/hr, Intravenous, EVERY 8 HOURS, First dose on Fri04/19/23 at 1230, Until Discontinued, Controlled Room Temperature, Indication for anti-infective therapy: Suspected infection, Site of anti-infective therapy: Intra-abdominal $ New Bag/Syringe 04/21/2023 4:30 AM CDT 500 mg 200 mL/hr $ New Bag/Syringe 04/20/2023 8:38 PM CDT 500 mg 200 mL /hr $ New Bag/Syringe 04/20/2023 11:39 AM CDT 500 mg 200 m L/hr metroNIDAZOLE (Flagyl) tablet 500 mg 500 mg, Oral, EVERY 8 HOURS, First dose on Fri04/21/23 at 1400, Until Discontinued, May take with food or milk., Indication for anti-infective therapy: Suspected infection, Site of anti-infective therapy: Intra-abdominal $ Given 04/22/2023 8:33 AM CDT 500 mg $ Given 04/21/2023 10:06 PM CDT 500 mg $ Given 04/21/2023 2:24 PM CDT 500 mg morphine injection 2 mg 2 mg, Intravenous, ONCE, 1 dose, On Chiara 04/17/23 at 0015, Patient preference for lesser PRN pain meds may be honored when the patient requests a less strong medication, a lower dose, or a less intrusive route of administration when the lesser drug, dose and route have been ordered for the patient. This patient request must be documented in the MAR. $ Given 04/17/2023 12:02 AM CDT 2 mg ondansetron (Zofran) injection 4 mg 4 mg, Intravenous, EVERY 6 HOURS PRN, Nausea/Vomiting, Starting on Fri04/14/23 at 0910, Until Fri04/22/23 at 1603, Administer over 2 to 5 minutes. $ Given 04/21/2023 10:06 PM CDT 4 mg $ Given 04/21/2023 6:30 AM CDT 4 mg $ Given 04/20/2023 6:00 PM CDT 4 mg oxyCODONE (Roxicodone) oral solution 10 mg 10 mg, Oral, EVERY 4 HOURS PRN, Moderate Pain, Starting on Fri04/18/23 at 0839, Until Fri04/22/23 at 1603, Patient preference for lesser PRN pain meds may be honored when the patient requests a less strong medication, a lower dose, or a less intrusive route of administration when the lesser drug, dose and route have been ordered for the patient. This patient request must be documented in the MAR. $ Given 04/20/2023 10:57 PM CDT 10 m g $ Given 04/20/2023 6:00 PM CDT 10 mg $ Given 04/20/2023 8:19 AM CDT 10 mg oxyCODONE (Roxicodone) oral solution 5 mg 5 mg, Oral, EVERY 4 HOURS PRN, Moderate Pain, Starting on Fri04/14/23 at 0910, Until Fri04/18/23 at 0839, Patient preference for lesser PRN pain meds may be honored when the patient requests a less strong medication, a lower dose, or a less intrusive route of administration when the lesser drug, dose and route have been ordered for the patient. This patient request must be documented in the MAR. $ Given 04/17/2023 3:28 AM CDT 5 mg $ Given 04/16/2023 12:01 AM CDT 5 mg $ Given 04/15/2023 7:18 PM CDT 5 mg pantoprazole (Protonix) injection 40 mg 40 mg, Intravenous, DAILY, First dose on Fri04/14/23 at 0945, Until Discontinued, For every 40 mg of pantoprazole mix with 10 mL Normal Saline (final concentration = 4 mg/mL). Inject SLOWLY over 2 min. $ Given 04/22/2023 7:53 AM CDT 40 mg $ Given 04/21/2023 7:41 AM CDT 40 mg $ Given 04/20/2023 8:20 AM CDT 40 mg potassium chloride 40 mEq in 270 mL bolus 40 mEq, at 54 mL/hr, Administer over 5 Hours, Intravenous, ONCE, 1 dose, On Fri04/15/23 at 1345 $ New Bag/Syringe 04/15/2023 1:48 PM CDT 40 mEq 54 mL/hr simethicone (Mylicon) chew tablet 80 mg 80 mg, Oral, 4 TIMES DAILY PRN, Gas Pain, Starting on Fri04/18/23 at 0015, Until Fri04/22/23 at 1603 $ Given 04/21/2023 7:42 AM CDT 80 mg $ Given 04/18/2023 4:57 PM CDT 80 mg $ Given 04/18/2023 12:21 AM CDT 80 mg documented in this encounter Active and Recently Administered Medications Times are shown in CDT. Scheduled Medication Order 04/20/2023 04/21/2023 04/22/2023 acetaminophen (Tylenol) solution 500 mg 500 mg, Oral, EVERY 4 HOURS, First dose on Fri04/18/23 at 1200, Until Discontinued, Patient preference for lesser PRN pain meds may be honored when the patient requests a less strong medication, a lower dose, or a less intrusive route of administration when the lesser drug, dose and route have been ordered for the patient. This patient request must be documented in the MAR. 0026 (Not Administered - Provider: Kathy Wadsworth RN - Reason: Refused-Patient)0452 (Not Administered - Provider: Kathy Wadsworth RN - Reason: Refused-Patient)0819 ($ Given - Provider: Marybel Mann RN)1137 ($ Given - Provider: aMrybel Mann, SAQIB)1801 ($ Given - Provider: Marybel Mann RN)2038 (Not Administered - Provider: Kathy Wadsworth RN - Reason: Documented on duplicate row)2257 ($ Given - Provider: Kathy Wadsworth RN) 0429 (Not Administered - Provider: Kathy Wadsworth RN - Reason: Refused-Patient)0741 ($ Given - Provider: Cinda Corley RN)1238 (Not Administered - Provider: Cinda Corley RN - Reason: Refused-Patient)1433 (Not Administered - Provider: Cinda Corley RN - Reason: Refused-Patient)2206 ($ Given - Provider: Enrique Tapia) 0209 (Not Administered - Provider: Enrique Tapia - Reason: Refused-Patient)0534 (Not Administered - Provider: Enrique Tapia - Reason: Refused-Patient)0957 (Not Administered - Provider: Kary De Leon RN - Reason: Refused-Patient)1323 (Not Administered - Provider: Kary De Leon RN - Reason: Refused-Patient) amLODIPine (Norvasc) tablet 5 mg 5 mg, Oral, DAILY, First dose on Fri04/19/23 at 1515, Until Discontinued 0820 ($ Given - Provider: Marybel Mann RN) 0742 ($ Given - Provider: Cinda Corley, RN) 0753 ($ Given - Provider: Kary De Leon, SAQIB) cefTRIAXone (Rocephin) 2,000 mg in 0.9% NaCl IV 50 mL IVPB 2,000 mg (2 g), at 100 mL/hr, Intravenous, EVERY 24 HOURS, 7 doses, First dose on Fri04/16/23 at 2100, Last dose on Fri04/22/23 at 2100, Ceftriaxone can cause precipitation when administered with calcium-containing fluids, including LR. Flush lines with a compatible fluid, such as D5W or NS before and after ceftriaxone dose. Admin through separate lumens is acceptable. , Indication for anti-infective therapy: Suspected infection, Site of anti-infective therapy: Lower Respiratory 2131 ($ New Bag/Syringe - Provider: Kathy Wadsworth RN)225 (Stopped - Provider: Kathy Wadsworth RN) 2204 ($ New Bag/Syringe - Provider: Enrique Tapia)225 (Stopped - Provider: Enrique Tapia) doxazosin (Cardura) tablet 2 mg 2 mg, Oral, AT BEDTIME, First dose on 04/19/23 at 2100, Until Discontinued 2110 (Not Administered - Provider: Kathy Wadsworth RN - Reason: Refused-Patient) 2205 ($ Given - Provider: Enrique Tapia) DULoxetine (Cymbalta) capsule 60 mg 60 mg, Oral, DAILY, First dose on 04/19/23 at 1515, Until Discontinued, Capsules can be opened and sprinkled on food/mixed with liquids and should be used within 2 hrs (Do not crush pellets inside capsule) Whole capsules should be swallowed whole and not chewed 0820 ($ Given - Provider: Marybel Mann RN) 0742 ($ Given - Provider: Cinda Corley, SAQIB) 0753 ($ Given - Provider: Kary De Leon, SAQIB) furosemide (Lasix) injection 20 mg (COMPLETED) 20 mg, Intravenous, ONCE, 1 dose, On 04/20/23 at 1130 1137 ($ Given - Provider: Marybel Mann RN) furosemide (Lasix) injection 20 mg (COMPLETED) 20 mg, Intravenous, ONCE, 1 dose, On Fri04/21/23 at 1000 1028 ($ Given - Provider: Kary De Leon RN) heparin injection 5,000 Units 5,000 Units, Subcutaneous, 2 TIMES DAILY, First dose on Fri04/14/23 at 2100, Until Discontinued 0820 ($ Given - Provider: Marybel Mann, SAQIB)2039 ($ Given - Provider: Kathy Wadsworth RN) 0741 ($ Given - Provider: Cinda Corley RN)2206 ($ Given - Provider: Enrique Tapia) 0753 ($ Given - Provider: Kary De Leon, SAQIB) hydroCHLOROthiazide (Hydrodiuril) tablet 12.5 mg 12.5 mg, Oral, DAILY, First dose on Fri04/22/23 at 1130, Until Discontinued, Hold dose if Blood pressure is less than 120mm Hg systolic 1203 ($ Given - Provider: Kary De Leon RN) metoprolol succinate XL 24hr (Toprol XL) tablet 25 mg 25 mg, Oral, DAILY, First dose on Fri04/22/23 at 1130, Until Discontinued, Hold dose if BP is less than 110 systolic or heart rate is less than 60 bpm. May cut in half but do not crush or chew 1202 ($ Given - Provider: Kary De Leon RN) metroNIDAZOLE (Flagyl) 500 mg in 100 mL IVPB (CANCELED) 500 mg, at 200 mL/hr, Intravenous, EVERY 8 HOURS, First dose on Fri04/19/23 at 1230, Until Discontinued, Controlled Room Temperature, Indication for anti-infective therapy: Suspected infection, Site of anti-infective therapy: Intra-abdominal 0453 ($ New Bag/Syringe - Provider: Kathy Wadsworth RN)0523 (Stopped - Provider: Marybel Mann RN)1139 ($ New Bag/Syringe - Provider: Marybel Mann RN)1209 (Stopped - Provider: Marybel Mann RN)2038 ($ New Bag/Syringe - Provider: Kathy Wadsworth RN)2112 (Stopped - Provider: Kathy Wadsworth RN) 0430 ($ New Bag/Syringe - Provider: Kathy Wadsworth RN)0520 (Stopped - Provider: Kathy Wadsworth RN) metroNIDAZOLE (Flagyl) tablet 500 mg 500 mg, Oral, EVERY 8 HOURS, First dose on Fri04/21/23 at 1400, Until Discontinued, May take with food or milk., Indication for anti-infective therapy: Suspected infection, Site of anti-infective therapy: Intra-abdominal 1424 ($ Given - Provider: Cherri Hawkins)2206 ($ Given - Provider: Enrique Tapia) 0833 ($ Given - Provider: Kary De Leon, SAQIB - Comment: pt request to take it with/ after breakfast)1400 (Due) pantoprazole (Protonix) injection 40 mg (CANCELED) 40 mg, Intravenous, DAILY, First dose on Fri04/14/23 at 0945, Until Discontinued, For every 40 mg of pantoprazole mix with 10 mL Normal Saline (final concentration = 4 mg/mL). Inject SLOWLY over 2 min. 0820 ($ Given - Provider: Marybel Mann RN) 0741 ($ Given - Provider: Cinda Corley RN) 0753 ($ Given - Provider: Kary De Leon, SAQIB) pantoprazole EC (Protonix) tablet 40 mg 40 mg, Oral, DAILY, First dose on Fri04/22/23 at 1130, Until Discontinued, Do not crush, chew, or cut in half. 1203 (Not Administered - Provider: Kary De Leon RN - Reason: See Comments - Comment: already gave this morning IV) Continuous Medication Order 04/20/2023 04/21/2023 04/22/2023 dextrose 5 % and 0.45 % NaCl with KCl 20 mEq infusion (CANCELED) at 75 mL/hr, Intravenous, CONTINUOUS, Starting on Fri04/14/23 at 1015, Until Fri04/20/23 at 1100 0250 ($ New Bag/Syringe - Provider: Bella Camarena, Graduate Nurse) PRN Medication Order 04/20/2023 04/21/2023 04/22/2023 albuterol HFA (Proventil; Ventolin; Proair) 108 (90 Base) MCG/ACT inhaler 2 puff 2 puff, Inhalation, EVERY 6 HOURS PRN, Shortness of Breath, Wheezing, Starting on Fri04/22/23 at 1057, Until Fri04/22/23 at 1603, Shake well before using. WASTE DISPOSAL INSTRUCTION: Send to Pharmacy for Disposal. baclofen (Lioresal) tablet 10 mg 10 mg, Oral, 2 TIMES DAILY PRN, Muscle Spasms, Starting on Fri04/22/23 at 1057, Until Fri04/22/23 at 1603 ondansetron (Zofran) injection 4 mg 4 mg, Intravenous, EVERY 6 HOURS PRN, Nausea/Vomiting, Starting on Fri04/14/23 at 0910, Until Fri04/22/23 at 1603, Administer over 2 to 5 minutes. 1800 ($ Given - Provider: Marybel Mann RN) 0630 ($ Given - Provider: Kathy Wadsworth RN)2206 ($ Given - Provider: Enrique Tapia) oxyCODONE (Roxicodone) oral solution 10 mg 10 mg, Oral, EVERY 4 HOURS PRN, Moderate Pain, Starting on Fri04/18/23 at 0839, Until Fri04/22/23 at 1603, Patient preference for lesser PRN pain meds may be honored when the patient requests a less strong medication, a lower dose, or a less intrusive route of administration when the lesser drug, dose and route have been ordered for the patient. This patient request must be documented in the MAR. 818 ($ Given - Provider: Marybel Mann RN)1800 ($ Given - Provider: Marybel Mann RN)2257 ($ Given - Provider: Kathy Wadsworth RN) simethicone (Mylicon) chew tablet 80 mg 80 mg, Oral, 4 TIMES DAILY PRN, Gas Pain, Starting on Fri04/18/23 at 0015, Until Fri04/22/23 at 1603 0742 ($ Given - Provider: Cinda Corley RN) documented in this encounter Care Teams Hand Edger Relationship Specialty Start Date End Date Rhianna Cowan MD [address] [facility] [address] [place] [address] PCP - General Internal Medicine 11/12/16 documented as of this encounter
--- OUTSIDE RECORDS SUMMARY | 2024-10-07 04:04 | XMS_ITS | Encounter Summary ---
Author Organization [facility] Address [address] [place] [address] Care Team Providers Care Insurance Territory Manager Name Role Phone Rhianna Cowan MD Primary Care Provider [phone] Reason for Visit * Auth/Cert (Routine) Specialty Diagnoses / Procedures Referred By Cydney scott Referred To Contact Procedures ESOPHAGOGASTRODUODENOSCOPY (EGD) DIAGNOSTIC Referral ID Status Reason Start Date Expiration Date Visits Re quested Visits Authorized [id number] 1 1 Encounter Details Date Type Department Care Team (Late st Contact Info) Description 04/16/2023 1:49 PM CDT Anesthesia Event [facility] - Perioperative Surgery [address] [place] [address] Kristopher Araujo MD [address] [place] [address] Kirk Torres APRN-BARAK [address] [place] [address] Anesthesia Record Procedure Summary Procedure Name Responsible Anesthesiologist Anesthesia Start Time Anesthesia Stop Time LAPAROSCOPIC REMOVAL GASTRIC BAND & PORT W/GASTRIC PERFORATION REPAIR & UPPER ENODOSCOPY (Abdomen) Kristopher Araujo MD 04/16/23 1349 04/16/23 1551 Events Date Time Event Comment 04/16/2023 1111 1349 An Start 1353 An Start Data 1359 PT Reassessment 1400 An Induction 1403 An Intubation 1424 Timeout Anesthesia part icipated in timeout at the time documented in the record by nursing. 1537 An Emergence 1539 Extubation 1544 Electnc Sig This record is electronically signed by the providers listed under staff. 1544 an stop data 1544 ANPTO2 1551 An Stop Meds Name Total midazolam 2 mg/2mL injection 2 mg fentaNYL 100 mcg/2mL injection 200 mcg lidocaine 1% (PF) injection (50 mg/5mL) 50 mg propofol 200 mg/20mL injection 200 mg rocuronium 50 mg/5mL injection 90 mg ondansetron 4 mg/2mL injection 8 mg dexamethasone 4 mg/mL injection 8 mg sugammadex 200 mg/2mL injection 400 mg ceFAZolin 2g/20mL syringe 2 g metoprolol 5 mg/5mL injection 2.5 mg lactated ringers infusion 700 mL * Agents Name Exp. Sevoflurane Exp. N2O O2 Air Insp. Sevoflurane * Blood No blood administrations on file. Lines, Drains, and Airways Type Details Placement Removal Peripheral IV Date: 04/15/23; Time : 0844; Orientation: Left, Posterior; Placed By: Hayes Singh RN task; Length (in): 2.5 ; Tolerance: Well 04/15/23 0844 by Susanna Moon RN 04/21/23 0451 by Kathy Wadsworth RN Procedural Site (Incision) 04/16/23; Abdomen; Laparoscopic; 04/22/23; 21004/16/23 0000 by Sweta Castro RN 04/22/232102 by Generic, Auto Release ETT Date: 04/16/23; Time : 1403; Placed By: AUDREY Carter; Vent: easy with oral airway mask; Induction: Standard IV; Blade Type: Video; Blade Size: 3; Laryngoscopy View: Grade 1 (full cords); Intubation Adjuncts: Stylet; Tube: Endotracheal Tube; Placement: Oral; Tube Type: Cuffed-inflated; Tube Size(mm): 7 MM; Depth of Insertion: 21 CM; Measured From: lips; Attempts: 1; Cuff Infated: Air; Verified By: Direct visualization, Bilateral breath sounds, Chest Auscultation, CO2 Monitor 04/16/23 1403 by Kirk Torres APRN-CRNA 04/16/23 1539 by Thuy Bernstein APRN-CRNA Airways 04/16/23; 1600; DARIANA NOLASCO RN-PACU; Nasal Pharyngeal Airway; Sedated; 04/16/23; 1627; NEYDA RN- PACU 04/16/23 1600 by Neyda Piña RN 04/16/23 1627 by Neyda Piña, RN documented in this encounter Social History Tobacco Use Types Packs/Day Years [...] medical care, and heating? Somewhat hard 04/14/2023 [facility] [place] of Occupat ional Health - Occupational Stress [...] place to sleep or slept in a care home (including now)? No 04/14/2023 Sex and Gender Information Value Date Recorded Sex Assigned at Not on file Gender Identity Not on file Sexual Orientation Not on file COVID-19 Exposure Response Date Recorded In the last 10 days, have janette u been in contact with someone who [...] as of this encounter Progress Notes * Ajay Nowak APRN-BARAK - 04/16/2023 3:51 PM CDT ANESTHESIA POSTOP EVALUATION NOTE Procedure: LAPAROSCOPIC REMOVAL GASTRIC BAND & PORT W/GASTRIC PERFORATION REPAIR & UPPER ENODOSCOPY (Abdomen) Nevin Deshpande is a 57 year old female No data found. Anesthesia Type: general ETT * No Diagnosis Codes entered * Mental Status: awake, alert and sufficiently recovered from acute administration of anesthesia to participate in the evaluation Neuro Status: No numbness, tingling or visual disturbances Respiratory Function: natural Cardiac Function: stable Postop Pain: acceptable to the patient Postop Hydration: adequate Postop Nausea: none Assessment: no apparent anesthetic complications, patient tolerated procedure well and no evidence of recall Patient Disposition: Release from Anesthesia Care NOTABLE EVENTS: No notable events documented. * Ronnie Langley MD - 04/16/2023 11:10 AM CDT ANESTHESIA PREOPERATIVE EVALUATION NOTE Procedure: LAPAROSCOPIC REMOVAL GASTRIC BAND W/GASTRIC PERFORATION REPAIR (Abdomen) NPO status: Since Midnight (04/16/2023 9:40 AM) Vitals: Patient Vitals for the past 6 hrs: BP Temp Pulse Resp SpO2 Pain Rating Score #1 04/16/23 0938 144/95 96.9 ??F (36.1 ??C) 81 16 96 % 0 04/16/23 0830 -- -- -- -- -- 0 04/16/23 0751 155/74 98.1 ??F (36.7 ??C) 79 16 97 % -- LMP: No LMP recorded. Patient has had a hysterectomy. OB Status: Hysterectomy ANESTHESIA PRE-EVALUATION NOTE Physical Exam: Orientation X3 Airway/Mallampati Score: II Mouth Opening Distance: 3 fingerwidths Neck ROM: full Teeth: normal Heart: normal - S1 S2 Lungs: clear to ausculation bilaterally Review of Systems: History of anesthetic complications: No Diagnostic Tests: ECG(s) reviewed: Yes Lab(s) reviewed: Yes. ANESTHESIA PLAN ASA Score: 3 NPO Status: No solids since midnight Anesthesia Plan: general Planned Induction: intravenous Planned Postop Destination: PACU Anesthetic plan was discussed with: patient Anesthetic Plan discussion was: Consented The patient's procedural Anesthetic Plan was discussed with the CONTACT OFFICER. BMI, Height, Weight Tobacco History Estimated body mass index is 44.26 kg/m?? as calculated from the following: Height as of this encounter: 1.575 m (5' 2 ). Weight as of this encounter: 109.8 kg (242 lb). Social History Tobacco Use Smoking Status Never Smokeless Tobacco Never Vaping Use ??? Vaping Use: Never used Alcohol History Drug History Social History Substance and Sexual Activity Alcohol Use Yes Comment: 0cc Social History Substance and Sexual Activity Drug Use Never Outpatient Medications: Inpatient Medications: Outpatient Medications Marked as Taking for the 04/14/23 encounter (Hospital Encounter) Medication Sig Last Dose ??? albuterol HFA Inhale 2 (two) puffs by mouth every 6 hours as needed for Shortness of Breath or Wheezing Past Month ??? amLODIPine Take 1 (one) tablet by mouth once daily 04/13/2023 ??? baclofen Take 1 (one) tablet by mouth 2 times daily as needed for Muscle Spasms Past Month ??? cetirizine Take 1 (one) tablet by mouth once daily as needed for Allergies 04/13/2023 ??? doxazosin Take 1 (one) tablet by mouth at bedtime 04/13/2023 ??? DULoxetine Take 1 (one) capsule by mouth once daily 04/13/2023 ??? fluticasone propionate [place] 2 (two) sprays into each nostril once daily as needed (allergies) Past Week ??? hydroCHLOROthiazide Take 1 (one) tablet by mouth once daily 04/13/2023 ??? metoprolol succinate XL 24hr Take 1 (one) tablet by mouth once daily 04/13/2023 ??? omeprazole Take 1 (one) capsule by mouth once daily as needed for Heartburn 04/13/2023 ??? sodium chloride [place] 2 (two) sprays into each nostril as needed for Dry Nose Past Week Current Facility-Administered Medications Medication Dose Last Admin ??? ceFAZolin 2 g ??? dextrose 5 % and 0.45 % NaCl with KCl 20 mEq New Bag at 04/16/23 0443 ??? heparin 5,000 Units 5,000 Units at 04/15/23 2200 ??? ondansetron 4 mg 4 mg at 04/14/232010 ??? oxyCODONE 5 mg 5 mg at 04/16/23 0001 ??? pantoprazole 40 mg 40 mg at 04/16/23 0753 Allergies: Allergies Allergen Reactions ??? Lisinopril Cough ??? Sulfamethoxazole W-Trimethoprim Angioedema Relevant Problems No relevant active problems Problem List: Patient Active Problem List Diagnosis Date Noted ??? Gastric band erosion 04/14/2023 Priority: Not Prioritized Medical History: Past Medical History: Diagnosis Date ??? Anxiety and depression ??? Depression ??? Environmental allergies ??? GERD (gastroesophageal reflux disease) ??? Hypertension ??? Mild intermittent asthma, uncomplicated ??? Morbid obesity due to excess calories ([facility]) Surgical History: Past Surgical History: Procedure Laterality Date ??? ADJUSTABLE GASTRIC BAND, LAP PLACEMENT ??? Breast Reduction Bilateral ??? Section x3 ??? Cholecystectomy, Laparoscopic ??? ENDOSCOPY, UPPER N/A 04/14/2023 N/A; ESOPHAGOGASTRODUODENOSCOPY (EGD) DIAGNOSTIC ??? Hysterectomy DIGITAL COMPUTER SYSTEMS ANALYST Status: No LMP recorded. Patient has had a hysterectomy. Hysterectomy OB History No obstetric history on file. Covid Vaccine: Lab Results: Recent Labs Component Name 04/15/23 0404 WBC 6.1 RBC 3.32* HCT 36.8 HGB 11.9* PLTCOUNT 257 MCV 110.8* MCH 35.8* MCHC 32.3 MPV 11.3 Recent Labs Component Name 04/16/23 0434 SODIUM 140 POTASSIUM 4.0 CALCIUM 9.1 CHLORIDE 109* CO2 24 GLUCOSE 110* BUN 6* CREATININE 0.89 No results found for requested labs within last 120 days. Recent Labs Result Component Current Result Albumin 3.5 (04/15/2023) Alkaline Phosphatase 151 (H) (04/15/2023) ALT 13 (04/15/2023) Anion Gap 7 (L) (04/16/2023) AST 23 (04/15/2023) Bilirubin Total 0.7 (04/15/2023) eGFR by CKD-EPI 77 (L) (04/16/2023) documented in this encounter Procedure Notes * Kirk Torres APRN-CRNA - 04/16/2023 2:19 PM CDTAssociated Order(s): ETT Placement Endotracheal Tube Placement: Patient Location: OR. Intubation Event Date/Time: 04/16/2023 2:03 PM Procedure: intubation (69353). Procedure Section: Sedation: under general anesthesia. Indications for Airway Management: anesthesia Procedure pretreatments used? Nursing documentation on the [facility] Procedure Pretreatments (manual): 100% O2 Induction: standard IV Patient Position: sniffing Mask Ventilation: easy with oral airway. Blade Type: Video Blade Size: 3 Laryngoscopy View: grade 1 (full cords) Intubation Adjuncts: stylet Tube: endotracheal tube Placement: oral Tube type: cuff - inflated Tube Size (MM): 7 Depth of Insertion (CM): 21 Measured From: lips Cuff Inflated With: air Number of Attempts: 1. Placement Verified By: direct visualization, bilateral breath sounds, CO2 monitor and chest auscultation CXR Findings: ETT in proper place. Tube secured with: adhesive tape. Dentition unchanged? Yes Difficult Airway? No. Procedure Start Time: 04/16/2023 2:03 PM. Staff Section Anesthesia Provider: Kirk Torres APRN-CRNA, Performed the procedure documented in this encounter Miscellaneous Notes * Anesthesia Transfer of Care - Ajay Nowak PROFESSOR OF ENGLISH-CONTACT OFFICER - 04/16/2023 3:50 PM CDT ANESTHESIA TRANSFER OF CARE NOTE Today's Date: 04/16/2023 Date of : 1965 Patient: Nevin Deshpande Procedure(s): LAPAROSCOPIC REMOVAL GASTRIC BAND & PORT W/GASTRIC PERFORATION REPAIR & UPPER ENODOSCOPY Surgeon(s): Primary: Steffen Choi MD Preop Diagnosis: * No Diagnosis Codes entered * Pre-op Meds (From admission, onward) Start Stop Status Route Frequency Ordered 04/16/23 1528 0.9% NaCl injection -- Sent PRN 04/16/23 1528 04/16/23 1520 0.9% nacl irrigation solution -- Sent CONTINUOUS PRN 04/16/23 1520 04/16/23 1528 BUPivacaine liposome (Exparel) 1.3 % injection -- Sent PRN 04/16/23 1529 04/16/23 1745 ceFAZolin (Ancef) 2,000 mg in 50 ml IVPB -- Verified IV EVERY 8 HOURS 04/16/23 1029 04/16/23 1418 ceFAZolin (Ancef) syringe -- Sent IV PRN 04/16/23 1419 04/16/23 1418 dexAMETHasone (Decadron) injection -- Sent IV PRN 04/16/23 1418 04/14/23 1010 dextrose 5 % and 0.45 % NaCl with KCl 20 mEq infusion -- Dispensed IV CONTINUOUS 04/14/23 0911 04/16/23 1400 fentaNYL (PF) (Sublimaze) injection -- Sent IV PRN 04/16/23 1402 04/14/23 2100 heparin injection 5,000 Units -- Dispensed SC 2 TIMES DAILY 04/14/23 0911 04/16/23 0945 lactated ringers infusion 04/16/23 0942 Completed IV PRE-OP ONCE 04/16/23 0942 04/16/23 1353 lactated ringers infusion -- Sent IV CONTINUOUS PRN 04/16/23 1453 04/16/23 1400 lidocaine PF (Xylocaine MPF) 1 % injection -- Sent IV PRN 04/16/23 1402 04/16/23 1435 metoprolol (Lopressor) injection -- Sent IV PRN 04/16/23 1438 04/16/23 1349 midazolam (Versed) injection -- Sent IV PRN 04/16/23 1359 04/16/23 1513 ondansetron (Zofran) injection -- Sent IV PRN 04/16/23 1514 04/14/23 0910 ondansetron (Zofran) injection 4 mg -- Dispensed IV EVERY 6 HOURS PRN 04/14/23 0911 04/16/23 1512 Oxidized Cellulose PADS -- Sent PRN 04/16/23 1512 04/14/23 0910 oxyCODONE (Roxicodone) oral solution 5 mg -- Dispensed PO EVERY 4 HOURS PRN 04/14/23 0911 04/14/23 0945 pantoprazole (Protonix) injection 40 mg -- Dispensed IV DAILY 04/14/23 0911 04/15/23 1345 potassium chloride 40 mEq in 270 mL bolus 04/15/23 2130 Completed IV ONCE 04/15/23 1341 04/16/23 1400 propofol (Diprivan) injection -- Sent IV PRN 04/16/23 1402 04/16/23 1401 rocuronium (Zemuron) injection -- Sent IV PRN 04/16/23 1402 04/16/23 1536 sugammadex (Bridion) injection -- Sent IV PRN 04/16/23 1536 * No Diagnosis Codes entered * . Allergies Allergen Reactions ??? Lisinopril Cough ??? Sulfamethoxazole W-Trimethoprim Angioedema Vitals: No data found. Lines, Drains, and Airways Type Details Placement Removal Peripheral IV Date: 04/15/23; Time: 843; Orientation: Left, Posterior; Location: Forearm; Placed By: Hayes Singh RN task; Length (in): 2.5 ; Gauge: 20 Gauge; Locals: None; Tolerance: Well 04/15/2344 by Susanna Moon RN ETT Date: 04/16/23; Time: 1402; Placed By: Kirk Torres APRN-CONTACT OFFICER; Vent: easy with oral airway mask; Induction: Standard IV; Blade Type: Video; Blade Size: 3; Laryngoscopy View: Grade 1 (full cords); Intubation Adjuncts: Stylet; Tube: Endotracheal Tube; Placement: Oral; Tube Type: Cuffed-inflated;Tube Size(mm): 7 MM; Depth of Insertion: 21 CM; Measured From: lips; Attempts: 1; Cuff Infated: Air; Verified By: Direct visualization, Bilateral breath sounds, Chest Auscultation, CO2 Monitor 04/16/23 1403 by Kirk Torres APRN-CRNA 04/16/23 1539 by Thuy Bernstein APRN-CRNA Intraprocedure I/O Totals Intake ceFAZolin 2g/20mL syringe 20.00 mL Total Intake 20 mL Patient Transfer Location: PACU Transport Airway: supplemental O2 and spontaneous respirations Complications: None Handoff Given? Yes Checklist or Protocol - The [facility] handoff elements that must be included in the transfer of care checklist include: 1. Identification of patient. 2. Identification of responsible practitioner (PACU nurse or advanced practitioner). 3. Discussion of pertinent medical history. 4. Discussion of the surgical/procedure course (procedure, reason for surgery, procedure performed). 5. Intraoperative anesthetic management and issue/concerns. 6. Expectations/Plans for the early post-procedure period. 7. Opportunity for questions and acknowledgement of understanding of report from the receiving PACUteam. AUDREY Arboleda documented in this encounter Plan of Treatment Not on file documented as of this encounter Procedures Procedure Name Priority Date/Time Associated Diagnosis Comments ENDOTRACHEAL TUBE NOTE Routine 04/16/2023 2:19 PM CDT documented in this encounter Results * ETT LINE PERFORMABLE (04/16/2023 2:19 PM CDT) Narrative Kirk Torres APRN-CRNA - 04/16/2023 2:19 PM CDT Kirk Torres APRN-CRNA ? 04/16/2023 ??2:19 PM Endotracheal Tube Placement: ? Patient Location: OR. Intubation Event Date/Time: ??04/16/2023 2:03 PM Procedure: intubation (45024). Procedure Section: ?? Sedation: under general anesthesia. Indications for Airway Management: ??anesthesia Procedure pretreatments used? ??Nursing documentation on the MAR ? Procedure Pretreatments (manual): ??100% O2 Induction: standard IV Patient Position: ??sniffing Mask Ventilation: easy with oral airway. Blade Type: Video Blade Size: 3 Laryngoscopy View: grade 1 (full cords) Intubation Adjuncts: stylet Tube: endotracheal tube Placement: oral Tube type: cuff - inflated Tube Size (MM): 7 Depth of Insertion (CM): 21 Measured From: lips Cuff Inflated With: air Number of Attempts: 1. Placement Verified By: direct visualization, bilateral breath sounds, CO2 monitor and chest auscultation CXR Findings: ETT in proper place. Tube secured with: ??adhesive tape. Dentition unchanged? ??Yes Difficult Airway? ??No. Procedure Start Time: 04/16/2023 2:03 PM. Staff Section ? Anesthesia Provider: Kirk Torres APRN-BARAK, Performed the procedure Kristopher Araujo MD GENERAL ANESTHESIA O RDERABLES documented in this encounter Visit Diagnoses Not on filedocumented in this encounter Administered Medications Inactive Administered Medications - up to 3 most recent administrations Medication Order [facility] Action Action Date Dose Rate Site ceFAZolin (Ancef) syringe Intravenous, PRN, Starting on Fri04/16/23 at 1418, Until Fri04/16/23 at 1551, Anesthesia Intra-op $ Given 04/16/2023 2:18 PM CDT 2 g dexAMETHasone (Decadron) injection Intravenous, PRN, Starting on Fri04/16/23 at 1418, Until Fri04/16/23 at 1551, Anesthesia Intra-op $ Given 04/16/2023 2:18 PM CDT 8 mg fentaNYL (PF) (Sublimaze) injection Intravenous, PRN, Starting on Fri04/16/23 at 1400, Until Fri04/16/23 at 1551, Anesthesia Intra-op $ Given 04/16/2023 3:49 PM CDT 50 mcg $ Given 04/16/2023 2:26 PM CDT 50 mcg $ Given 04/16/2023 2:00 PM CDT 100 mcg lactated ringers infusion Intravenous, CONTINUOUS PRN, Starting on Fri04/16/23 at 1353, Until Fri04/16/23 at 1551, Anesthesia Intra-op $ New Bag/Syringe 04/16/2023 1:53 PM CDT lidocaine PF (Xylocaine MPF) 1 % injection Intravenous, PRN, Starting on Fri04/16/23 at 1400, Until Fri04/16/23 at 1551, Anesthesia Intra-op $ Given 04/16/2023 2:00 PM CDT 50 mg metoprolol (Lopressor) injection Intravenous, PRN, Starting on Fri04/16/23 at 1435, Until Fri04/16/23 at 1551, Anesthesia Intra-op $ Given 04/16/2023 2:35 PM CDT 2.5 mg midazolam (Versed) injection Intravenous, PRN, Starting on Fri04/16/23 at 1349, Until Fri04/16/23 at 1551, Anesthesia Intra-op $ Given 04/16/2023 1:49 PM CDT 2 mg ondansetron (Zofran) injection Intravenous, PRN, Starting on Fri04/16/23 at 1513, Until Fri04/16/23 at 1551, Anesthesia Intra-op $ Given 04/16/2023 3:13 PM CDT 8 mg propofol (Diprivan) injection Intravenous, PRN, Starting on Fri04/16/23 at 1400, Until Fri04/16/23 at 1551, Anesthesia Intra-op $ Given 04/16/2023 2:00 PM CDT 200 mg rocuronium (Zemuron) injection Intravenous, PRN, Starting on Fri04/16/23 at 1401, Until Fri04/16/23 at 1551, Anesthesia Intra-op $ Given 04/16/2023 2:58 PM CDT 20 mg $ Given 04/16/2023 2:12 PM CDT 20 mg $ Given 04/16/2023 2:01 PM CDT 50 mg sugammadex (Bridion) injection Intravenous, PRN, Starting on Fri04/16/23 at 1536, Until Fri04/16/23 at 1551, Anesthesia Intra-op $ Given 04/16/2023 3:36 PM CDT 400 mg documented in this encounter Care Teams Insurance Territory Manager Relationship Specialty Start Date End Date Rhianna Cowan MD [address] [place] [address] PCP - General Internal Medicine 11/12/16 documented as of this encounter
--- OUTSIDE RECORDS SUMMARY | 2024-10-07 04:04 | XMS_ITS | Encounter Summary ---
Author Organization [facility] Address [address] [place] [address] Care Team Providers Care Director Electronics Name Role Phone Rhianna Cowan MD Primary Care Provider [phone] Encounter Details Date Type Department Care Team (Latest Contact Info) Description 04/01/2023 Travel Social History Tobacco Use Types Packs/Day Years Used Date Smoking Tobacco: Never Smokeless Tobacco: Never Alcohol Use Standard Drinks/Week Comments Yes 0 (1 standard drink = 0.6 oz pur e alcohol) 0cc Sex and Gender Information Value Date Recorded Sex Assigned at Not on file Gender Identity Not on file Sexual Orientation Not on file COVID-19 Exposure Response Date Recorded In the last 10 days, have yo u been in contact with someone who was confirmed or suspected to have Coronavirus/COVID-19? No / Unsure 04/01/2023 11:29 AM CDT documented as of this encounter Plan of Treatment Not on file documented as of this encounter Visit Diagnoses Not on filedocumented in this encounter Care Teams Director Electronics Relationship Specialty Start Date End Date Rhianna Cowan MD [address] [place] [address] PCP - General Internal Medicine 11/12/16 documented as of this encounter
--- OUTSIDE RECORDS SUMMARY | 2024-10-07 04:04 | XMS_ITS | Encounter Summary ---
Author Organization [facility] Address [address] [place] [address] Care Team Providers Care Site Safety Coordinator Name Role Phone Rhianna Cowan MD Primary Care Provider [phone] Encounter Details Date Type Department Care Team (Late Contact Info) Description 04/24/2023 Home Care Visit [facility] [address] [place] [address] Michelle Washington, RN TELEPHONE ENCOUNTER [...] medical care, and heating? Somewhat hard 04/14/2023 [facility] of Occupat ional Health - Occupational Stress [...] place to sleep or slept in a retirement (including now)? No 04/14/2023 Sex and Gender [...] on filedocumented in this encounter Care Teams Site Safety Coordinator Relationship Specialty Start Date End Date Rhianna Cowan MD [address] [place] [address] PCP - General Internal Medicine 11/12/16 documented as of this encounter
--- OUTSIDE RECORDS SUMMARY | 2024-10-07 04:04 | XMS_ITS | Encounter Summary ---
Author Organization [facility] Address [address] [place] [address] Care Team Providers Care Physical Science Aide Name Role Phone Rhianna Cowan MD Primary Care Provider [phone] Encounter Details Date Type Department Care Team (Late st Contact Info) Description 04/21/2023 Orders Only [facility] Weight Management Services [address] [place] [address] Marybel Kent, WATER COMMISSIONER-TOOL RADIAL DRILL PRESS SET UP OPERATOR [address] [address] [place] [address] Bariatric surgery status Social History Tobacco Use [...] medical care, and heating? Somewhat hard 04/14/2023 [facility] [place] of Occupat ional Health - Occupational Stress [...] place to sleep or slept in a snf (including now)? No 04/14/2023 Sex and Gender [...] as of this encounter Visit Diagnoses Diagnosis Bariatric surgery status- Primary documented in this encounter Care Teams Physical Science Aide Relationship Specialty Start Date End Date Rhianna Cowan MD [address] [facility] [address] [place] [address] PCP - General Internal Medicine 11/12/16 documented as of this encounter
--- OUTSIDE RECORDS SUMMARY | 2024-10-07 04:04 | XMS_ITS | Clinical Summary ---
Author Organization [facility] Address [address] [place] [address] Care Team Providers Care Acquisition Lead Name Role Phone Rhianna Cowan MD Primary Care Provider [phone] Source Comments [facility],non-owned Affiliates and Associated Physician Practices is amultiple site organization consisting of ambulatory clinics and hospital sitesin [place], [place], [place] and [place]. This disclosure is being madepursuant to the Care Everywhere program and may not contain all information available regarding this patient. Last updated 18.[facility] Allergies Active Allergy Reactions Criticality Noted Date [...] fluticasone propionate (Flonase) 50 MCG/ACT nasal spray [place] 2 (two) sprays into each nostril once [...] Heartburn Active sodium chloride (Deep Sea Nasal [place]) 0.65 % nasal spray [place] 2 (two) sprays into each nostril as [...] medical care, and heating? Somewhat hard 04/14/2023 [facility] [place] [facility] - Occupational Stress [...] place to sleep or slept in a [facility] (including now)? No 04/14/2023 Sex and Gender [...] Mass Index 46.31 05/16/2023 10:41 AM CDT Plan of Treatment Health Maintenance Due Date Last Done Comments COLOGUARD (AGES 45-75) - COLON CA SCREENING 1967 COLON MONITORING 1967 COLONOSCOPY - COLON CA SCREENING 1967 CT COLONOGRAPHY - COLON CA SCREENING 1967 Colorectal Cancer Screening 1967 FIT - COLON CA SCREENING 1967 FLEX SIG - COLON CA SCREENING 1967 LIPID TESTING 1967 MAMMOGRAM 1967 PAP SMEAR 1967 HIV SCREENING 1982 HEPATITIS C SCREENING 08/10/1985 DTAP/TDAP/TD VACCINES (1 - Tdap) 1986 HEPATITIS B VACCINE (1 of 3 - 19+ 3-dose series) 1986 ZOSTER VACCINE (1 of 2) 2017 DEPRESSION SCREENING 10/06/2023 COVID-19 VACCINE ( season) 2024 INFLUENZA VACCINE (#1) 2024 0, 08/05/2017, 08/01/2016 SCREENING FOR DIABETES 04/21/2026 3, 04/20/2023, 04/19/2023, Additional history exists HIB VACCINE Aged Out No longer eligi ble based on patient's age to complete this topic HPV VACCINE Aged Out No longer eligi ble based on patient's age to complete this topic MENINGOCOCCAL VACCINE Aged Out No mahamed jeremiah eligible based on patient's age to complete this topic PNEUMOCOCCAL VACCINE Aged Out No long er eligible based on patient's age to complete this topic Procedures Procedure Name Priority Date/Time Associated Diagnosis Comments BASIC METABOLIC PANEL (CALCIUM TOTAL) VINICIUS 04/21/2023 9:24 AM CDT from Last 3 Months or Most Recently Relevant to Health Maintenance Results * (ABNORMAL) BASIC METABOLIC PANEL (CALCIUM TOTAL) (04/21/2023 9:24 AM CDT) Pathologist [facility] Glucose 99 70 - 105 mg/dL 04/21/2023 9:51 AM CDT [facility] Sodium 139 136 - 145 mmol/L 04/21/2023 9:51 AM CDT [facility] Potassium 3.6 3.5 - 5.1 mmol/L 04/21/2023 9:51 AM CDT [facility] Chloride 105 98 - 107 mmol/L 04/21/2023 9:51 AM CDT [facility] CO2 24 23 - 31 mmol/L 04/21/2023 9:51 AM CDT [facility] Calcium 9.0 8.4 - 10.4 mg/dL 04/21/2023 9:51 AM CDT [facility] Anion Gap 10 8 - 18 mmol/L 04/21/2023 9:51 AM CDT [facility] BUN 4(L) 9.8 - 20.1 mg/dL 04/21/2023 9:51 AM CDT [facility] Creatinine 0.85 0.57 - 1.11 mg/dL 04/21/2023 9:51 AM CDT [facility] eGFR by CKD-EPI 81(L) >=90 mL/min/1.7 3 m2 04/21/2023 9:51 AM CDT [facility] Blood BLOOD SPECIMEN / Unknown Venipuncture / Unknown 04/21/2023 9:24 AM CDT 04/21/2023 9:34 AM CDT Marybel Kent [employer] MECH[employer]IC-MECH[employer]ICAL SP[employer]ER OPERATOR [facility] - [facility] GEMINI ORDERABLES [facility] [address] [place] [address] from Last 3 Months or Most Recently Relevant to Health Maintenance Care Teams Acquisition Lead Relationship Specialty Start Date End Date Rhianna Cowan MD [address] [place] [address] PCP - General Internal Medicine 11/12/16
--- OUTSIDE RECORDS SUMMARY | 2024-10-07 04:04 | XMS_ITS | Encounter Summary ---
Author Organization [facility] Address [address] [place] [address] Care Team Providers Care Social Scientist Name Role Phone Rhianna Cowan MD Primary Care Provider [phone] Reason for Visit * Auth/Cert (Routine) Specialty Diagnoses / Procedures Referred By Cydney t Referred To Contact Procedures ESOPHAGOGASTRODUODENOSCOPY (EGD) DIAGNOSTIC Referral ID Status Reason Start Date Expiration Date Visits Re quested Visits Authorized [id number] 1 1 Encounter Details Date Type Department Care Team (Latest Contact Info) Description 04/14/2023 8:20 AM CDT - 04/14/2023 8:40 AM CDT Surgery [facility] - Endoscopy Services [address] [place] [address] [place] [address] [facility] [address] [place] [address] ESOPHAGOGASTRODUODENOSCOPY (EGD) DIAGNOSTIC Surgery Details Date/Time Status Location OR Service Patient Class Case Class Case Type Trauma Case? 04/14/2023 8:20 AM Posted [facility] ENDO ENDO 02 Gastroenterology Surgery Day Care Elective > 5 days Panel 1 Procedure LRB Anes Op Region Wound Class Comments ESOPHAGOGASTRODUODENOSCOPY ( EGD) DIAGNOSTIC N/A MAC Clean Contaminated Surgeon Surgeon Role Service Panel Steffen Beckwith MD Primary Gastroenterology 1 documented in this encounter Social History Tobacco [...] medical care, and heating? Somewhat hard 04/14/2023 [place] [facility] - Occupational Stress [...] place to sleep or slept in a long-term (including now)? No 04/14/2023 Sex and Gender [...] Sign Reading Time Taken Comments Blood Pressure 153/70 04/14/2023 8:12 AM CDT Pulse 76 04/14/2023 8:12 AM CDT Temperature 36.7 ??C (98.1 ??F) 04/14/2023 8:12 AM CD T Respiratory Rate 18 04/14/2023 8:12 AM CDT Oxygen Saturation 98% 04/14/2023 8:12 AM CDT Inhaled Oxygen Concentration - - [...] Physician: Steffen Beckwith MD Discharge Provider : [facility]bel [place] [facility] Nevin Deshpande Admission weight: Weight: 109.8 kg (242 lb) (04/14/23811) Most recent weight: Weight: 109.8 kg (242 lb) (04/14/23811) 04/22/2023 [id number] Admitting Diagnosis Clinically Severe Obesity with multiple co-morbidities Body mass index is 44.26 kg/m??. Past Medical History: Diagnosis Date ??? Anxiety and depression ??? Depression ??? Environmental allergies ??? GERD (gastroesophageal reflux disease) ??? Hypertension ??? Mild intermittent asthma, uncomplicated ??? Morbid obesity due to excess calories ([facility]) Discharge Diagnosis: Same Consults : Hospitalist Diagnostic Studies None Principal Procedures Performed: Laparoscopic removal of adjustable gastric band and port??(20321) 2.??Laparoscopic??Repair of gastric perforation??([place] [address]) 3. Omental isabel patch (08848) 3. Esophagogastroduodenoscopy Hospital Course The patient underwent [...] morning and evening meal for 10 days CARLENE Bryan magnesium hydroxide 400 MG/5ML suspension Commonly known as: Milk Of Magnesia Take 15 mL by mouth as needed for Constipation CARLENE Bryan ondansetron (disintegrating) 4 MG tablet Commonly known as: Zofran ODT Quantity Dispensed: 20 tablet Take 1 (one) tablet by mouth every 6 hours as needed for Nausea/Vomiting Allow tablet to dissolve on the tongue Marybel [place] APRN-ROHINI senna-docusate 8.6-50 MG tablet Commonly known as: [...] muscle every 30 days Deep Sea Nasal [place] 0.65 % nasal spray Generic drug: sodium chloride [place] 2 (two) sprays into each nostril as [...] MCG/ACT nasal spray Commonly known as: Flonase [place] 2 (two) sprays into each nostril once [...] of removal of laparoscopic gastric banding device [0266350] Activity as tolerated -- Walk at least [...] fluticasone propionate (Flonase) 50 MCG/ACT nasal spray [place] 2 (two) sprays into each nostril once [...] for Heartburn sodium chloride (Deep Sea Nasal [place]) 0.65 % nasal spray [place] 2 (two) sprays into each nostril as [...] Information Primary Emergency Contact: Yuliana [place] Address: [address] [place] [id number] [facility] Mobile Relation: Daughter Patient is alert [...] Surgeon: 05/15/23 Follow up time with Surgeon: 819 Reason why no ancillary service appointment was made: Appointment already made Transportation to MD: Family Auth Number (if required): [place]: DME: Medications: Transportation: Name: Teagan Villarreal RN Phone: [phone] * Kary De Leon RN - 04/22/2023 [...] Component Name 04/21/23 0924 04/20/23 1021 04/19/23 041 SODIUM 139 140 140 POTASSIUM 3.6 3.9 4.1 CHLORIDE 105 106 108* CO2 24 27 22* BUN 4* 4* 7* CREATININE 0.85 0.83 0.84 GLUCOSE 99 116* 115* CALCIUM 9.0 9.1 9.1 Recent Labs Component Name 04/21/2392304/19/23 0414 04/18/23 0357 WBC 8.2 11.9* 16.1* [...] sleep pattern. Outcome: Progressing * Marybel [place] APRN-REGASIFICATION PLANT OPERATOR - 04/22/2023 8:09 AM CDT Bariatric Surgery [...] Laparoscopic removal of adjustable gastric band and port??(45958) 2.??Laparoscopic??Repair of gastric perforation??([place] to [address]) 3. Omental isabel patch (19236) 3. Esophagogastroduodenoscopy POD #6 Overnight Events: None [...] tablet ??? sodium chloride (Deep Sea Nasal [place]) 0.65 % nasal spray Recent Labs Component [...] Laparoscopic removal of adjustable gastric band and port??(37504) 2.??Laparoscopic??Repair of gastric perforation??([place] similar to [address]) 3. Omental isabel patch (19165) 3. esophagogastroduodenoscopy POD #6 Neuro: ??PO pain [...] for Augmentin x 10 days Marybel [place], EATING DISORDER PSYCHOLOGIST-REGASIFICATION PLANT OPERATOR * Enrique Tapia - 04/21/2023 9:56 PM CDT Shift Summary; A+OX4 BP elevated, other VSS, CTM 4 sites w/ glue IV s.l, iv abx this shift Phase 2 jesus fair Ad abi, encouraged laps Voiding, bm loose and watery Scheduled pain medication Prn zofran Call light in place at this time Enrique Tapia 04/21/2023 9:57 PM * nErique Tapia - 04/21/2023 9:55 PM CDT Problem: [...] Contact Information Primary Emergency Contact: CoraYuliana [address]: [address] [place] [address] Mobile Relation: Daughter Patient is alert & [...] Medications: Transportation: Name: Teagan Villarreal RN Phone: [phone] * Guerline Melgar MD - 04/21/2023 9:40 AM CDT Admit Date: 04/14/2023 7:34 AM Hospital Day: 7 Clinical Course 57 y/o admitted with epigastric pain, gastric band complication/erosion New Symptoms No new complaints Exam Vitals: 04/20/23 2114 04/21/23 0059 04/21/23 0337 04/21/23 0726 BP: 157/89 177/95 Pulse: 100 93 92 93 Resp: 18 16 Temp: 97.8 ??F (36.6 ??C) [...] IV Left;Posterior Hand (Active) Placement Date/Time: 04/21/23 0430 Orientation: Left;Posterior Location: Hand Name/Credentials of person who placed: james banks IV Catheter Size: 22 Gauge Number of start attempts: 1 Local Anesthetic Used?: None Procedure Tolerance: Well Number of days: 0 Procedural Site (Incision) Abdomen (Active) Date: 04/16/23 Location: Abdomen Multiple Sites: Laparoscopic Number of days: 5 READMISSION RISK SCORE is 8 at 9:40 AM 04/21/2023. * Donte Marybel Marni, EATING DISORDER PSYCHOLOGIST-REGASIFICATION PLANT OPERATOR - 04/21/2023 7:49 AM CDT Bariatric Surgery [...] Laparoscopic removal of adjustable gastric band and port??(59383) 2.??Laparoscopic??Repair of gastric perforation??([place] to [address]) 3. Omental isabel patch (15884) 3. esophagogastroduodenoscopy POD#5 Overnight Events: None Subjective: [...] Laparoscopic removal of adjustable gastric band and port??(41998) 2.??Laparoscopic??Repair of gastric perforation??([place] similar to [address]) 3. Omental isabel patch (91747) 3. esophagogastroduodenoscopy POD #5 Neuro: ??PO pain [...] for Augmentin x 10 days Marybel [place] APRN-REGASIFICATION PLANT OPERATOR * Cinda Corley RN - 04/21/2023 7:23 [...] - will plan for omnicef, flagyl at [facility] for 7 days - L LL haziness [...] Length: 2.5 IV Catheter Size: 20 Gauge Director Of Surgery/Model : florez introcan Technique: An... Number of [...] - will plan for omnicef, flagyl at [facility] for 7 days - L LL haziness [...] Length: 2.5 IV Catheter Size: 20 Gauge Director Of Surgery/Model : florez introcan Technique: An... Number of [...] pt up to chair, voiding/passing gas/ BMx1, [id number] pain, denies nausea, tolerating phase 1 diet, [...] 40 mg, Intravenous, QDAY ?? [COMPLETED] HYDROcodone-acetaminophen (Douglas) 5-325 MG tablet 1 tablet, Oral, Once [...] Length: 2.5 IV Catheter Size: 20 Gauge Director Of Surgery/Model : florez introcan Technique: An... Number of days: 3 Procedural [...] of infection. Outcome: Progressing * Micki Bolden APRN-ROHINI - 04/18/2023 7:11 AM CDT Bariatric Surgery [...] 9.1 Recent Labs Component Name 04/18/23 0357 04/17/2333 04/15/23 0404 WBC 16.1* 18.9* 6.1 HGB [...] - Dr. beckwith to see Micki Bolden APRN-REGASIFICATION PLANT OPERATOR * Haley Boykin RN - 04/17/2023 9:53 [...] Information Primary Emergency Contact: Sara Shepherdney Address: [address] [place] [address] [facility] Mobile Relation: Daughter Patient is alert [...] Medications: Transportation: Name: Teagan Villarreal RN Phone: [phone] * Guerline Melgar MD - 04/17/2023 12:02 [...] Length: 2.5 IV Catheter Size: 20 Gauge Director Of Surgery/Model : florez introcan Technique: An... Number of days: 2 Procedural Site (Incision) Abdomen (Active) Date: 04/16/23 Location: Abdomen Multiple Sites: Laparoscopic Number of days: 1 READMISSION RISK SCORE is 9 at 12:02 PM 04/17/2023. * Kary De Leon RN - 04/17/2023 7:58 AM CDT Problem: Pain/Discomfort Goal: Patient exhibits reduced pain/discomfort as evidenced by pain scores 04/17/2023757 by Kary De Leon RN Outcome: [...] flowsheet documentation) Outcome: Progressing * Micki Bolden APRN-ROHINI - 04/17/2023 6:05 AM CDT Bariatric Surgery [...] oral intake - discharge instructions reviewed. Micki Bolden APRN-REGASIFICATION PLANT OPERATOR * Haley Boykin RN - 04/17/2023 5:55 [...] Length: 2.5 IV Catheter Size: 20 Gauge Director Of Surgery/Model : florez introcan Technique: An... Number of [...] None Requires Assistance With: None Preferred Pharmacy: [id number] - [id number] [facility] [phone] [facility] [address] [facility] [id number] Advance Directive: No Advance Directive Information Given: Refused Information Would you like assistance on completing and executing or revising an Advance Directive?: No READMISSION RISK SCORE is 9 at 3:01 PM 04/16/2023. Met with chart reviewed Family Support (name and phone): Extended Emergency Contact Information Primary Emergency Contact: PrasanthfannieYuliana Address: [address] [place] [address] [facility] Mobile Relation: Daughter Patient or litigation claim representative requests care coordination reach out to [...] pt. requires but does not have.: None Deep [place] Diver Referral: No Will continue to follow. For any questions or needs please contact: Spray Dyer Name/Phone number: Teagan Villarreal RN [phone] * Kary De Leon RN - 04/16/2023 [...] Vitals: 04/15/23 0357 04/15/23 1617 04/15/23 1933 04/16/23 0429 BP: 129/66 110/67 136/57 147/51 Pulse: 88 81 93 83 Resp: 18 20 18 17 Temp: 97.7 ??F (36.5 ??C) 98.3 ??F (36.8 ??C) 97.7 ??F (36.5 ??C) 98 ??F (36.7 ??C) SpO2: 96% 96% 95% 94% Weight: Height: Intake/Output Summary (Last 24 hours) at 04/16/2023732 Last data filed at 04/16/2023 0457 Gross per 24 hour Intake 2029.7 ml Output -- Net 2029.7 ml Recent Labs Component Name 04/16/23 0434 [...] None Requires Assistance With: None Preferred Pharmacy: [id number] - [address] [facility] [address] [place] [facility] [address] Advance Directive: No Advance Directive Information Given: Refused Information Would you like assistance on completing and executing or revising an Advance Directive?: No READMISSION RISK SCORE is 8 at 9:42 AM 04/15/2023. Met with: chart reviewed Family Support (name and phone): Extended Emergency Contact Information Primary Emergency Contact: Yuliana [place] Address: [address] [place] [address] [facility] Mobile Relation: Daughter Patient or litigation claim representative requests care coordination reach out to [...] pt. requires but does not have.: None Deep Sea Diver Referral: No Will continue to follow. For any questions or needs please contact: Spray Dyer Name/Phone number: Teagan Villarreal RN [phone] * Jenise Santillan RN - 04/15/2023 6:32 [...] PharmD - 04/14/2023 2:59 PM CDT [facility] Pharmacy Services Admission Medication Review Nevin Deshpande [...] ??? Morbid obesity due to excess calories ([facility]) No Known Allergies No medications prior to [...] daily ??? sodium chloride (Deep Sea Nasal [place]) 0.65 % nasal spray Deep Sea Nasal [...] fluticasone propionate (Flonase) 50 MCG/ACT nasal spray [place] 2 (two) sprays into each nostril once [...] Heartburn ??? sodium chloride (Deep Sea Nasal [place]) 0.65 % nasal spray [place] 2 (two) sprays into each nostril as [...] No Stress: No Stress Concern Present (04/14/2023) [place] [facility] - Occupational Stress Questionnaire [...] Beckwith MD - 04/16/2023 9:58 PM CDT [facility] Operative Report OPERATIVE REPORT PATIENT:Nevin Deshpande MR#: [...] ??? Morbid obesity due to excess calories ([facility]/H[facility]) POSTOPERATIVE DIAGNOSES: SAME and gastric band erosion and gastric perforation PROCEDURES PERFORMED: 1. Laparoscopic removal of adjustable gastric band and port (69452) 2. Laparoscopic Repair of gastric perfor[place] ([place] [address]) 3. Omental isabel patch (43226) 3. esophagogastroduodenoscopy SURGEON: Steffen Beckwith MD WEIGHT CALLER: Aramis DAIGLE ANESTHESIA: General endotracheal. PROCEDURE: The [...] with a 0 Vicryl suture in a krqyhg-en-zrpeo fashion.. The remaining incisions were closed with [...] Role: * Steffen Beckwith MD - Primary Marine Scientist(s): Blanche DAIGLE Anesthesia Type: general ETT Complications: [...] 04/16/2023 7:30 PM CDT Gastric band erosion BASIC METABOLIC PANEL (CALCIUM TOTAL) AM Draw 04/16/2023 4:34 AM CDT Gastric band erosion CBC W AUTO DIFFERENTIAL AM Draw 04/15/2023 4:04 AM CDT Gastric band erosion COMPREHENSIVE METABOLIC PANEL AM Draw 04/15/2023 4:04 AM CDT Gastric band erosion HELICOBACTER PYLORI UREASE (STL) STAT 04/14/2023 9:08 AM CDT Diagnosis unknown [facility] ED EGD FLEX TRANSORAL DX 04/14/2023 8:20 [...] - 10.4 mg/dL 04/21/2023 9:51 AM CDT [facility] Anion Gap 10 8 - 18 mmol/L 04/21/2023 9:51 AM CDT [facility] BUN 4(L) 9.8 - 20.1 mg/dL 04/21/2023 9:51 AM CDT [facility] Creatinine 0.85 0.57 - 1.11 mg/dL 04/21/2023 9:51 AM CDT [facility] eGFR by CKD-EPI 81(L) >=90 mL/min/1.7 3 m2 04/21/2023 9:51 AM CDT [facility] Blood BLOOD SPECIMEN / Unknown Venipuncture / Unknown 04/21/2023 9:24 AM CDT 04/21/2023 9:34 AM CDT Marybelrach Grider Donte EATING DISORDER PSYCHOLOGIST-REGASIFICATION PLANT OPERATOR LAB - MANFRED GEMINI ORDERABLES [facility] [address] [place] [address] * (ABNORMAL) CBC W/O DIFFERENTIAL (04/21/2023 9:24 AM CDT) WBC 8.2 4.4 - 10.7 x10E9/L 04/21/2023 9:37 AM CDT [facility] RBC 3.05(L) 3.80 - 5.20 x10E12/L 04/21/2023 9:37 AM CDT [facility] Hemoglobin 10.9(L) 12.0 - 15.6 gm/dL 04/21/2023 9:37 AM CDT [facility] Hematocrit 33.8(L) 35.9 - 45.5 % 04/21/2023 9:37 AM CDT [facility] MCV 110.8(H) 80.7 - 98.3 fl 04/21/2023 9:37 AM CDT [facility] MCH 35.7(H) 26.7 - 34.0 pg 04/21/2023 9:37 AM CDT [facility] MCHC 32.2 30.8 - 35.9 gm/dL 04/21/2023 9:37 AM CDT [facility] Platelet Count 254 153 - 416 x10E9/L 04/21/2023 9:37 AM CDT [facility] RDW-CV 14.6 12.1 - 14.9 % 04/21/2023 9:37 AM CDT [facility] MPV 10.8 9.4 - 12.9 fl 04/21/2023 9:37 AM CDT [facility] Blood BLOOD SPECIMEN / Unknown Venipuncture / Unknown 04/21/2023 9:24 AM CDT 04/21/2023 9:34 AM CDT Marybel Grider Donte EATING DISORDER PSYCHOLOGIST-REGASIFICATION PLANT OPERATOR LAB - HEM ATOLOGY ORDERABLES [facility] [address] [place] [id number] * (ABNORMAL) BASIC METABOLIC PANEL (CALCIUM TOTAL) (04/20/2023 10:21 AM CDT) Glucose 116(H) 70 - 105 mg/dL 04/20/2023 10:45 AM CDT [facility] Sodium 140 136 - 145 mmol/L 04/20/2023 10:45 AM CDT [facility] Potassium 3.9 3.5 - 5.1 mmol/L 04/20/2023 10:45 AM CDT [facility] Chloride 106 98 - 107 mmol/L 04/20/2023 10:45 AM CDT [facility] CO2 27 23 - 31 mmol/L 04/20/2023 10:45 AM CDT [facility] Calcium 9.1 8.4 - 10.4 mg/dL 04/20/2023 10:45 AM CDT [facility] Anion Gap 7(L) 8 - 18 mmol/L 04/20/2023 10:45 AM CDT [facility] BUN 4(L) 9.8 - 20.1 mg/dL 04/20/2023 10:45 AM CDT [facility] Creatinine 0.83 0.57 - 1.11 mg/dL 04/20/2023 10:45 AM CDT [facility] eGFR by CKD-EPI 83(L) >=90 mL/min/1.7 3 m2 04/20/2023 10:45 AM CDT [facility] Blood BLOOD SPECIMEN / Unknown Venipuncture / Unknown 04/20/2023 10:21 AM CDT 04/20/2023 10:27 AM CDT Guerline Melgar MD LAB - CHEMISTRY INGRID CORRALES [facility] [address] [place] [address] * CT CHEST PE (04/19/2023 2:24 PM [...] to the lung bases were obtained following [id number], 80 cc intravenous contrast administration. Multiplanar maximum [...] - 105 mg/dL 04/19/2023 4:48 AM CDT [facility] Sodium 140 136 - 145 mmol/L 04/19/2023 4:48 AM CDT [facility] Potassium 4.1 3.5 - 5.1 mmol/L 04/19/2023 4:48 AM CDT [facility] Chloride 108(H) 98 - 107 mmol/L 04/19/2023 4:48 AM CDT [facility] CO2 22(L) 23 - 31 mmol/L 04/19/2023 4:48 AM CDT [facility] Calcium 9.1 8.4 - 10.4 mg/dL 04/19/2023 4:48 AM CDT [facility] Anion Gap 10 8 - 18 mmol/L 04/19/2023 4:48 AM CDT [facility] BUN 7(L) 9.8 - 20.1 mg/dL 04/19/2023 4:48 AM CDT [facility] Creatinine 0.84 0.57 - 1.11 mg/dL 04/19/2023 4:48 AM CDT [facility] eGFR by CKD-EPI 82(L) >=90 mL/min/1.7 3 m2 04/19/2023 4:48 AM CDT [facility] Blood BLOOD SPECIMEN / Unknown Venipuncture / Unknown 04/19/2023 4:14 AM CDT 04/19/2023 4:18 AM CDT Guerline Mel[place] MD LAB - CHEMISTRY INGRID CORRALES [facility] [address] [place] [address] * (ABNORMAL) CBC W AUTO DIFFERENTIAL (04/19/2023 4:14 AM CDT) WBC 11.9(H) 4.4 - 10.7 x10E9/L 04/19/2023 4:22 AM CDT [facility] WBC Corrected 04/19/2023 4:22 AM CDT [facility] RBC 3.07(L) 3.80 - 5.20 x10E12/L 04/19/2023 4:22 AM CDT [facility] Hemoglobin 11.2(L) 12.0 - 15.6 gm/dL 04/19/2023 4:22 AM CDT [facility] Hematocrit 34.2(L) 35.9 - 45.5 % 04/19/2023 4:22 AM CDT [facility] MCV 111.4(H) 80.7 - 98.3 fl 04/19/2023 4:22 AM CDT [facility] MCH 36.5(H) 26.7 - 34.0 pg 04/19/2023 4:22 AM CDT [facility] MCHC 32.7 30.8 - 35.9 gm/dL 04/19/2023 4:22 AM CDT [facility] Platelet Count 211 153 - 416 x10E9/L 04/19/2023 4:22 AM CDT [facility] RDW-CV 14.8 12.1 - 14.9 % 04/19/2023 4:22 AM CDT [facility] MPV 11.1 9.4 - 12.9 fl 04/19/2023 4:22 AM CDT [facility] Neutrophils % 79.3(H) 44.0 - 73.0 % 04/19/2023 4:22 AM CDT [facility] Lymphocytes % 9.2(L) 20.0 - 43.0 % 04/19/2023 4:22 AM CDT [facility] Monocytes % 6.7 5.0 - 13.0 % 04/19/2023 4:22 AM CDT [facility] Eosinophils % 3.3 0.0 - 6.0 % 04/19/2023 4:22 AM CDT [facility] Basophils % 0.4 0.0 - 2.0 % 04/19/2023 4:22 AM CDT [facility] Immature Granulocytes 1.1(H) 0 - 1 % 04/19/2023 4:22 AM CDT [facility] Neutrophil Absolute 9.47(H) 2.01 - 7.14 x10E9/L 04/19/2023 4:22 AM CDT [facility] Lymphocytes Absolute 1.10 1.07 - 3.94 x10E9/L 04/19/2023 4:22 AM CDT [facility] Monocytes Absolute 0.80 0.26 - 1.07 x10E9/L 04/19/2023 4:22 AM CDT [facility] Eosinophils Absolute 0.39 0 - 0.47 x10E9/L 04/19/2023 4:22 AM CDT [facility] Basophils Absolute 0.05 0 - 0.08 x10E9/L 04/19/2023 4:22 AM CDT [facility] Immature Granulocytes Absolute 0.13(H) 0.00 - 0.06 x10E9/L 04/19/2023 4:22 AM CDT [facility] nRBC Auto 0 /100 WBC 04/19/2023 4:22 AM CDT [facility] Blood BLOOD SPECIMEN / Unknown Venipuncture / Unknown 04/19/2023 4:14 AM CDT 04/19/2023 4:18 AM CDT Guerline Melgar MD LAB - HEMATOLOGY ORD ERABLES [facility] [address] [place] [address] * (ABNORMAL) CBC W AUTO DIFFERENTIAL (04/18/2023 3:57 AM CDT) WBC 16.1(H) 4.4 - 10.7 x10E9/L 04/18/2023 4:08 AM CDT [facility] WBC Corrected 04/18/2023 4:08 AM CDT [facility] RBC 3.26(L) 3.80 - 5.20 x10E12/L 04/18/2023 4:08 AM CDT [facility] Hemoglobin 11.6(L) 12.0 - 15.6 gm/dL 04/18/2023 4:08 AM CDT [facility] Hematocrit 35.6(L) 35.9 - 45.5 % [...] - 12.9 fl 04/18/2023 4:08 AM CDT [facility] Neutrophils % 85.1(H) 44.0 - 73.0 % 04/18/2023 4:08 AM CDT [facility] Lymphocytes % 6.5(L) 20.0 - 43.0 % 04/18/2023 4:08 AM CDT [facility] Monocytes % 6.7 5.0 - 13.0 % 04/18/2023 4:08 AM CDT [facility] Eosinophils % 0.7 0.0 - 6.0 % 04/18/2023 4:08 AM CDT [facility] Basophils % 0.3 0.0 - 2.0 % 04/18/2023 4:08 AM CDT [facility] Immature Granulocytes 0.7 0 - 1 % 04/18/2023 4:08 AM CDT [facility] Neutrophil Absolute 13.67(H) 2.01 - 7.14 x10E9/L 04/18/2023 4:08 AM CDT [facility] Lymphocytes Absolute 1.04(L) 1.07 - 3.94 x10E9/L 04/18/2023 4:08 AM CDT [facility] Monocytes Absolute 1.08(H) 0.26 - 1.07 x10E9/L 04/18/2023 4:08 AM CDT [facility] Eosinophils Absolute 0.12 0 - 0.47 x10E9/L 04/18/2023 4:08 AM CDT [facility] Basophils Absolute 0.05 0 - 0.08 x10E9/L 04/18/2023 4:08 AM CDT [facility] Immature Granulocytes Absolute 0.11(H) 0.00 - 0.06 x10E9/L 04/18/2023 4:08 AM CDT [facility] nRBC Auto 0 /100 WBC 04/18/2023 4:08 AM CDT [facility] Blood BLOOD SPECIMEN / Unknown Venipuncture / Unknown 04/18/2023 3:57 AM CDT 04/18/2023 4:00 AM CDT Steffen Beckwith MD LAB - HEMATOLOGY ORD ERABLES [facility] [id number] [place] [address] * (ABNORMAL) BASIC METABOLIC PANEL (CALCIUM TOTAL) (04/18/2023 3:57 AM CDT) Glucose 118(H) 70 - 105 mg/dL 04/18/2023 4:27 AM CDT [facility] Sodium 139 136 - 145 mmol/L 04/18/2023 4:27 AM CDT [facility] Potassium 4.2 3.5 - 5.1 mmol/L 04/18/2023 4:27 AM CDT [facility] Chloride 107 98 - 107 mmol/L 04/18/2023 4:27 AM CDT [facility] CO2 23 23 - 31 mmol/L 04/18/2023 4:27 AM CDT [facility] Calcium 8.8 8.4 - 10.4 mg/dL 04/18/2023 4:27 AM CDT [facility] Anion Gap 9 8 - 18 mmol/L 04/18/2023 4:27 AM CDT [facility] BUN 9(L) 9.8 - 20.1 mg/dL 04/18/2023 4:27 AM CDT [facility] Creatinine 0.89 0.57 - 1.11 mg/dL 04/18/2023 4:27 AM CDT [facility] eGFR by CKD-EPI 77(L) >=90 mL/min/1.7 3 m2 04/18/2023 4:27 AM CDT [facility] Blood BLOOD SPECIMEN / Unknown Venipuncture / Unknown 04/18/2023 3:57 AM CDT 04/18/2023 4:00 AM CDT Micik Bolden EATING DISORDER PSYCHOLOGIST-REGASIFICATION PLANT OPERATOR LAB - CHEMIS TRY ORDERABLES [facility] [address] [place] [address] * FL UGI SERIES (04/17/2023 12:25 PM [...] mGy Reference air kerma (ka,r). Procedure Note Rgoe Corley DO - 04/17/2023 PROCEDURE: FL UGI [...] - 105 mg/dL 04/17/2023 7:36 AM CDT [facility] Sodium 139 136 - 145 mmol/L 04/17/2023 7:36 AM CDT [facility] Potassium 4.4 3.5 - 5.1 mmol/L 04/17/2023 7:36 AM CDT [facility] Chloride 108(H) 98 - 107 mmol/L 04/17/2023 7:36 AM CDT [facility] CO2 22(L) 23 - 31 mmol/L 04/17/2023 7:36 AM CDT [facility] Calcium 9.0 8.4 - 10.4 mg/dL 04/17/2023 7:36 AM CDT [facility] Anion Gap 9 8 - 18 mmol/L 04/17/2023 7:36 AM CDT [facility] BUN 6(L) 9.8 - 20.1 mg/dL 04/17/2023 7:36 AM CDT [facility] Creatinine 0.96 0.57 - 1.11 mg/dL 04/17/2023 7:36 AM CDT [facility] eGFR by CKD-EPI 70(L) >=90 mL/min/1.7 3 m2 04/17/2023 7:36 AM CDT [facility] Blood BLOOD SPECIMEN / Unknown Venipuncture / Unknown 04/17/2023 6:33 AM CDT 04/17/2023 6:37 AM CDT Micki Bolden APRN-REGASIFICATION PLANT OPERATOR LAB - CHEMIS TRY ORDERABLES Performing Organization Address City/[facility]/ZIP Co de Phone Number [facility] [address] [place] [address] * (ABNORMAL) CBC W/O DIFFERENTIAL (04/17/2023 6:33 AM CDT) WBC 18.9(H) 4.4 - 10.7 x10E9/L 04/17/2023 6:45 AM CDT [facility] RBC 3.62(L) 3.80 - 5.20 x10E12/L 04/17/2023 6:45 AM CDT [facility] Hemoglobin 12.8 12.0 - 15.6 gm/dL 04/17/2023 6:45 AM CDT [facility] Hematocrit 39.5 35.9 - 45.5 % 04/17/2023 6:45 AM CDT [facility] MCV 109.1(H) 80.7 - 98.3 fl 04/17/2023 6:45 AM CDT [facility] MCH 35.4(H) 26.7 - 34.0 pg 04/17/2023 6:45 AM CDT [facility] MCHC 32.4 30.8 - 35.9 gm/dL 04/17/2023 6:45 AM CDT [facility] Platelet Count 271 153 - 416 x10E9/L 04/17/2023 6:45 AM CDT [facility] RDW-CV 14.6 12.1 - 14.9 % 04/17/2023 6:45 AM CDT [facility] MPV 11.2 9.4 - 12.9 fl 04/17/2023 6:45 AM CDT [facility] Blood BLOOD SPECIMEN / Unknown Venipuncture / Unknown 04/17/2023 6:33 AM CDT 04/17/2023 6:37 AM CDT Micki Bolden [facility] LAB - HEMATO LOGY ORDERABLES Performing Organization Address City/[facility]/ZIP Co de Phone Number [facility] [address] [place] [address] * XR CHEST 1VW PORTABLE (04/16/2023 7:30 [...] - 105 mg/dL 04/16/2023 5:16 AM CDT [facility] Sodium 140 136 - 145 mmol/L 04/16/2023 5:16 AM CDT [facility] Potassium 4.0 3.5 - 5.1 mmol/L 04/16/2023 5:16 AM CDT [facility] Chloride 109(H) 98 - 107 mmol/L 04/16/2023 5:16 AM CDT [facility] CO2 24 23 - 31 mmol/L 04/16/2023 5:16 AM CDT [facility] Calcium 9.1 8.4 - 10.4 mg/dL 04/16/2023 5:16 AM CDT [facility] Anion Gap 7(L) 8 - 18 mmol/L 04/16/2023 5:16 AM CDT [facility] BUN 6(L) 9.8 - 20.1 mg/dL 04/16/2023 5:16 AM CDT [facility] Creatinine 0.89 0.57 - 1.11 mg/dL 04/16/2023 5:16 AM CDT [facility] eGFR by CKD-EPI 77(L) >=90 mL/min/1.7 3 m2 04/16/2023 5:16 AM CDT [facility] Blood BLOOD SPECIMEN / Unknown Venipuncture / Unknown 04/16/2023 4:34 AM CDT 04/16/2023 4:39 AM CDT Steffen Beckwith MD LAB - [facility]MISTRY [facility] Organization Address City/State/ZIP Co de Phone Number [facility] [address] [place] [address] * (ABNORMAL) COMPREHENSIVE METABOLIC PANEL (04/15/2023 4:04 AM CDT) Glucose 107(H) 70 - 105 mg/dL 04/15/2023 5:26 AM CDT [facility] Sodium 141 136 - 145 mmol/L 04/15/2023 5:26 AM CDT [facility] Potassium 3.3(L) 3.5 - 5.1 mmol/L 04/15/2023 5:26 AM CDT [facility] Chloride 108(H) 98 - 107 mmol/L 04/15/2023 5:26 AM CDT [facility] CO2 25 23 - 31 mmol/L 04/15/2023 5:26 AM CDT [facility] Calcium 9.4 8.4 - 10.4 mg/dL 04/15/2023 5:26 AM CDT [facility] Anion Gap 8 8 - 18 mmol/L 04/15/2023 5:26 AM CDT [facility] BUN 10 9.8 - 20.1 mg/dL 04/15/2023 5:26 AM CDT [facility] Creatinine 1.05 0.57 - 1.11 mg/dL 04/15/2023 5:26 AM CDT [facility] Alkaline Phosphatase 151(H) 40 - 150 U/L 04/15/2023 5:26 AM CDT [facility] ALT 13 0 - 61 U/L 04/15/2023 5:26 AM CDT [facility] AST 23 5 - 34 U/L 04/15/2023 5:26 AM CDT [facility] Protein Total 6.4 6.4 - 8.3 gm/dL 04/15/2023 5:26 AM CDT [facility] Albumin 3.5 3.5 - 5.2 gm/dL 04/15/2023 5:26 AM CDT [facility] Bilirubin Total 0.7 0.2 - 1.2 mg/dL 04/15/2023 5:26 AM CDT [facility] eGFR by CKD-EPI 63(L) >=90 mL/min/1.7 3 m2 04/15/2023 5:26 AM CDT [facility] Blood BLOOD SPECIMEN / Unknown Venipuncture / Unknown 04/15/2023 4:04 AM CDT 04/15/2023 4:38 AM CDT Steffen Beckwith MD LAB - CHEMISTRY INGRID [facility] Organization Address City/State/ZIP Co de Phone Number [facility] [address] [place] [address] * (ABNORMAL) CBC W AUTO DIFFERENTIAL (04/15/2023 4:04 AM CDT) WBC 6.1 4.4 - 10.7 x10E9/L 04/15/2023 5:02 AM CDT [facility] WBC Corrected 04/15/2023 5:02 AM CDT [facility] RBC 3.32(L) 3.80 - 5.20 x10E12/L 04/15/2023 5:02 AM CDT [facility] Hemoglobin 11.9(L) 12.0 - 15.6 gm/dL 04/15/2023 5:02 AM CDT [facility] Hematocrit 36.8 35.9 - 45.5 % 04/15/2023 5:02 AM CDT [facility] MCV 110.8(H) 80.7 - 98.3 fl 04/15/2023 5:02 AM CDT [facility] MCH 35.8(H) 26.7 - 34.0 pg 04/15/2023 5:02 AM CDT [facility] MCHC 32.3 30.8 - 35.9 gm/dL 04/15/2023 5:02 AM CDT [facility] Platelet Count 257 153 - 416 [...] - 1.07 x10E9/L 04/15/2023 5:02 AM CDT [facility] Eosinophils Absolute 0.08 0 - 0.47 x10E9/L 04/15/2023 5:02 AM CDT [facility] Basophils Absolute 0.04 0 - 0.08 x10E9/L 04/15/2023 5:02 AM CDT [facility] Immature Granulocytes Absolute 0.03 0.00 - 0.06 x10E9/L 04/15/2023 5:02 AM CDT [facility] nRBC Auto 0 /100 WBC 04/15/2023 5:02 AM CDT [facility] Blood BLOOD SPECIMEN / Unknown Venipuncture / Unknown 04/15/2023 4:04 AM CDT 04/15/2023 4:38 AM CDT Steffen Beckwith MD LAB - HEMATOLOGY ORD ERABLES Performing Organization Address [facility] de Phone Number [facility] [address] [place] [address] * HELICOBACTER PYLORI UREASE (STL) (04/14/2023 9:08 AM CDT) Helicobacter pylori Urease Initial Negative Negative 04/15/2023 9:14 AM CDT [facility] Helicobacter pylori Urease Final Negative Negative 04/15/2023 9:14 AM CDT [facility] Comment:This is an appended report. These results have been appended to a previously preliminary verified report. Microbiology GASTRIC ANTRAL BIOPSY SPECIMEN / Unknown 04/14/2023 9:08 AM CDT 04/14/2023 2:44 PM CDT Steffen Beckwith MD LAB - MICROBIOLOGY O RDERABLES Performing Organization Address [facility] de Phone Number [facility] [address] [place] [address] * EGD (04/14/2023 8:15 AM CDT) Report [...] Procedure Code(s): ? --- Professional --- ? 49750, Esophagogastroduo denoscopy, flexible, transoral; with biopsy, ? single or multiple ? --- Technical --- ? 34240, Esophagogastroduo denoscopy, flexible, transoral; with biopsy, ? [...] other than malignant neoplasm CPT copyright 2020 [employer]. All rights reserved. The codes documented in this report are preliminary and upon bridge tender review may be revised to meet current compliance requirements. __ Steffen Beckwith MD 04/14/2023 9:09:18 AM Number of Addenda: 0 Note Initiated On: 04/14/2023 8:15 AM [facility] 04/14/2023 8:15 AM CDT Narrative Procedure Note Steffen Beckwith MD - 04/14/2023 9:09 AM CDT PLAN: 1. Admit 2. Laparoscopic removal of gastric band and port Steffen Beckwith MD GI PROCEDURE ORDERAB LES [facility] [place] [address] documented in this encounter Visit Diagnoses Not [...] Given 04/20/2023 8:20 AM CDT 5 mg cefTRIAXone (Rocephin) 2,000 mg in 0.9% NaCl [...] PM CDT 2,000 mg 100 mL /hr doxazosin (Cardura) tablet 2 mg 2 mg, [...] Given 04/20/2023 8:20 AM CDT 60 mg heparin injection 5,000 Units 5,000 Units, [...] Given 04/22/2023 12:03 PM CDT 12.5 mg metoprolol succinate XL 24hr (Toprol XL) tablet 25 mg 25 mg, Oral, DAILY, First dose on Fri04/22/23 at 1130, Until Discontinued, Hold dose if BP is less than 110 systolic or heart rate is less than 60 bpm. May cut in half but do not crush or chew $ Given 04/22/2023 12:02 PM CDT 25 mg metroNIDAZOLE (Flagyl) tablet 500 mg 500 mg, Oral, EVERY 8 HOURS, First dose on Fri04/21/23 at 1400, Until Discontinued, May take with food or milk., Indication for anti-infective therapy: Suspected infection, Site of anti-infective therapy: Intra-abdominal $ Given 04/22/2023 8:33 AM CDT 500 mg $ Given 04/21/2023 10:06 PM CDT 500 mg $ Given 04/21/2023 2:24 PM CDT 500 mg ondansetron (Zofran) injection 4 mg 4 [...] Given 04/20/2023 8:19 AM CDT 10 mg simethicone (Mylicon) chew tablet 80 mg 80 [...] Marybel Mann RN)1137 ($ Given - Provider: Marybel Mann RN)1801 ($ Given - Provider: Marybel Mann RN)2038 (Not Administered - Provider: Kathy Wadsworth RN - Reason: Documented on duplicate row)2257 ($ Given - Provider: Kathy Wadsworth RN) 0429 (Not Administered - Provider: Kathy Wadsworth RN - Reason: Refused-Patient)0741 ($ Given - Provider: Cinda Corley RN)1238 (Not Administered - Provider: Cinda Corley RN - Reason: Refused-Patient)1433 (Not Administered - Provider: Cinda C Ptaszek, RN - Reason: Refused-Patient)220 ($ Given - Provider: Enrique Tapia) 0209 (Not Administered - Provider: Enrique Tapia - Reason: Refused-Patient)0534 (Not Administered - Provider: Enrique Tapia - Reason: Refused-Patient)0957 (Not Administered - Provider: Kary De Leon RN - Reason: Refused-Patient)1323 (Not Administered - Provider: Kary De Leon RN - Reason: Refused-Patient) amLODIPine (Norvasc) tablet 5 mg 5 mg, Oral, DAILY, First dose on 04/19/23 at 1515, Until Discontinued 0820 ($ Given - Provider: Marybel Mann RN) 0742 ($ Given - Provider: Cinda Corley RN) 0753 ($ Given - Provider: Kary De Leon RN) cefTRIAXone (Rocephin) 2,000 mg in 0.9% NaCl [...] ($ New Bag/Syringe - Provider: Kathy Wadsworth RN)2256 (Stopped - Provider: Kathy Wadsworth RN) 2204 [...] ONCE, 1 dose, On Fri04/20/23 at 1130 1137 ($ Given - Provider: Marybel Mann RN) furosemide (Lasix) injection 20 mg (COMPLETED) 20 mg, Intravenous, ONCE, 1 dose, On Fri04/21/23 at 1000 1028 ($ Given - Provider: Kary De Leon RN) heparin injection 5,000 Units 5,000 Units, Subcutaneous, 2 TIMES DAILY, First dose on Fri04/14/23 at 2100, Until Discontinued 0820 ($ Given - Provider: Marybel Mann RN)2039 ($ Given - Provider: Kathy Wadsworth RN) [...] 1203 ($ Given - Provider: Kary De Leon, SAQIB) metoprolol succinate XL 24hr (Toprol XL) tablet 25 mg 25 mg, Oral, DAILY, First dose on Fri04/22/23 at 1130, Until Discontinued, Hold dose if BP is less than 110 systolic or heart rate is less than 60 bpm. May cut in half but do not crush or chew 1202 ($ Given - Provider: Kary De Leon, SAQIB) metroNIDAZOLE (Flagyl) 500 mg in 100 mL [...] 0833 ($ Given - Provider: Kary De Leon RN - Comment: pt request to take it [...] 0753 ($ Given - Provider: Kary De Leon RN) pantoprazole EC (Protonix) tablet 40 mg 40 mg, Oral, DAILY, First dose on Fri04/22/23 at 1130, Until Discontinued, Do not crush, chew, or cut in half. 1203 (Not Administered - Provider: Kary De Leon RN - Reason: See Comments - Comment: already gave this morning IV) Continuous Medication Order 04/20/2023 04/21/202304/22/2023 dextrose 5 % and 0.45 % NaCl [...] request must be documented in the MAR. 0819 ($ Given - Provider: Marybel Mann RN)1800 ($ Given - Provider: Marybel Mann RN)2257 ($ Given - Provider: Kathy Wadsworth RN) simethicone (Mylicon) chew tablet 80 mg 80 mg, Oral, 4 TIMES DAILY PRN, Gas Pain, Starting on Fri04/18/23 at 0015, Until Fri04/22/23 at 1603 0742 ($ Given - Provider: Cinda Corley RN) documented in this encounter Care Teams Social Scientist Relationship Specialty Start Date End Date Rhianna Cowan MD [address] [place] [address] [address] [place] [address] PCP - General Internal Medicine 11/12/16 documented as of this encounter
--- OUTSIDE RECORDS SUMMARY | 2024-10-07 04:04 | XMS_ITS | Encounter Summary ---
Author Organization [facility] Health Address [address] [email or web address] [address] Care Team Providers Care Staff Radiographer Name Role Phone Rhianna Cowan MD Primary Care Provider [phone] Encounter Details Date Type Department Care Team (Late Contact Info) Description 04/25/[address] [facility] [address] [facility] [address] [place] [address] Michelle Washington, RN TELEPHONE ENCOUNTER [...] medical care, and heating? Somewhat hard 04/14/2023 [facility] [place] [facility] - Occupational Stress [...] place to sleep or slept in a skilled nursing (including now)? No 04/14/2023 Sex and Gender [...] on filedocumented in this encounter Care Teams Staff Radiographer Relationship Specialty Start Date End Date Rhianna Cowan MD [address] [facility] [address] [place] [address] PCP - General Internal Medicine 11/12/16 documented as of this encounter
--- OUTSIDE RECORDS SUMMARY | 2024-10-07 04:04 | XMS_ITS | Encounter Summary ---
Author Organization [facility] Address [address] [facility] [place] [address] Care Team Providers Care Mold Release Worker Name Role Phone Rhianna Cowan MD Primary Care Provider [phone] Reason for Visit * Reason Onset Date Comments Procedure 03/11/2023 Band removal EGD Encounter Details Date Type Department Care Team (Late st Contact Info) Description 03/11/2023 Telephone [facility] [employer] [facility] [address] [facility], [address] [place] [address] [place] [address] [facility] [address] [place] [address] Procedure (Band removal EGD) Social History Tobacco Use Types Packs/Day Years [...] AM CDT documented as of this encounter Miscellaneous Notes * Telephone Encounter - Svitlana Jimenez - 04/01/2023 11:32 AM CDT Spoke with patient, EGD has been scheduled for 7/10/23 at 8:20 am. Patient aware she will receive amychart message with appointment information and instructions. * Telephone Encounter - Svitlana Jimenez - 03/11/2023 1:00 PM CDT Called patient to schedule pre band removal EGD, female answered phone and said patient is working right now and she will call back when she goes on her break. documented in this encounter Plan of Treatment Not on file documented as of this encounter Visit Diagnoses Not on filedocumented in this encounter Care Teams Mold Release Worker Relationship Specialty Start Date End Date Rhianna Cowan MD [address] [facility] [address] [place] [phone] PCP - General Internal Medicine 11/12/16 documented as of this encounter
--- OUTSIDE RECORDS SUMMARY | 2024-10-07 04:04 | XMS_ITS | Encounter Summary ---
Author Organization [facility] Address [address] [place] [address] Care Team Providers Care Rn Clinical Documentation Specialist Name Role Phone Rhianna Cowan MD Primary Care Provider [phone] Reason for Visit * Auth/Cert (Routine) Specialty Diagnoses / Procedures Referred By Cydney t Referred To Contact Procedures ESOPHAGOGASTRODUODENOSCOPY (EGD) DIAGNOSTIC Referral ID Status Reason Start Date Expiration Date Visits Re quested Visits Authorized [id number] 1 1 Encounter Details Date Type Department Care Team (Late st Contact Info) Description 04/16/2023 12:05 PM CDT - 04/16/2023 1:37 PM CDT Surgery [facility] - Perioperative Surgery [address] [place], [place] [id number] [place] [address] [place] [address] LAPAROSCOPIC REMOVAL GASTRIC BAND & PORT W/GASTRIC PERFORATION REPAIR & UPPER ENODOSCOPY Surgery Details Date/Time Status Location OR Service Patient Class Case Class Case Type Trauma Case? 04/16/2023 12:05 PM Posted [facility] MAIN OR OR 03 Bariatric Inpatient Work Ins >24 Hrs to 5 Days Panel 1 Procedure LRB Anes Op Region Wound Class Comments LAPAROSCOPIC REMOVAL GASTRIC BAND & PORT W/GASTRIC PERFORATION REPAIR & UPPER ENODOSCOPY N/A General Abdomen Clean Contaminated Surgeon Surgeon Role Service Panel Steffen Beckwith MD Primary Bariatric 1 documented in this encounter Social History [...] medical care, and heating? Somewhat hard 04/14/2023 [facility] [place] [facility] - Occupational Stress [...] Sign Reading Time Taken Comments Blood Pressure 144/95 04/16/2023 9:38 AM CDT Pulse 81 04/16/2023 9:38 AM CDT Temperature 36.1 ??C (96.9 ??F) 04/16/2023 9:38 AM CD T Respiratory Rate 16 04/16/2023 9:38 AM CDT Oxygen Saturation 96% 04/16/2023 9:38 AM CDT Inhaled Oxygen Concentration - - [...] Weight: 109.8 kg (242 lb) (04/14/23811) 04/22/2023 [id number] Admitting Diagnosis Clinically Severe Obesity with multiple co-morbidities Body mass index is 44.26 kg/m??. Past Medical History: Diagnosis Date ??? Anxiety and depression ??? Depression ??? Environmental allergies ??? GERD (gastroesophageal reflux disease) ??? Hypertension ??? Mild intermittent asthma, uncomplicated ??? Morbid obesity due to excess calories ([facility]) Discharge Diagnosis: Same Consults : Hospitalist Diagnostic Studies None Principal Procedures Performed: Laparoscopic removal of adjustable gastric band and port??(60238) 2.??Laparoscopic??Repair of gastric perforation??([place] [address]) 3. Omental isabel patch (70394) 3. Esophagogastroduodenoscopy Hospital Course The patient underwent [...] muscle every 30 days Deep Sea Nasal [place] 0.65 % nasal spray Generic drug: sodium chloride [place] 2 (two) sprays into each nostril as [...] MCG/ACT nasal spray Commonly known as: Flonase [place] 2 (two) sprays into each nostril once [...] of removal of laparoscopic gastric banding device [7625650] Activity as tolerated -- Walk at least [...] fluticasone propionate (Flonase) 50 MCG/ACT nasal spray [place] 2 (two) sprays into each nostril once [...] for Heartburn sodium chloride (Deep Sea Nasal [place]) 0.65 % nasal spray [place] 2 (two) sprays into each nostril as [...] Information Primary Emergency Contact: Yuliana Shepherd Address: [address] [place] [address] Mobile Relation: Daughter Patient is alert [...] Medications: Transportation: Name: Teagan Villarreal RN Phone: [phone] * Kary De Leon RN - 04/22/2023 [...] sleep pattern. Outcome: Progressing * Marybel Kent APRN-CNP - 04/22/2023 8:09 AM CDT Bariatric Surgery [...] Laparoscopic removal of adjustable gastric band and port??(72720) 2.??Laparoscopic??Repair of gastric perforation??([place] to [address]) 3. Omental isabel patch (96322) 3. Esophagogastroduodenoscopy POD #6 Overnight Events: None [...] tablet ??? sodium chloride (Deep Sea Nasal [place]) 0.65 % nasal spray Recent Labs Component [...] Laparoscopic removal of adjustable gastric band and port??(60472) 2.??Laparoscopic??Repair of gastric perforation??([place] [address]) 3. Omental isabel patch (07190) 3. esophagogastroduodenoscopy POD #6 Neuro: ??PO pain [...] for Augmentin x 10 days Marybel Kent, HYDRAULIC PUNCH PRESS OPERATOR-[employer] W[employer]ER * Enrique Tapia - 04/21/2023 9:56 PM [...] Information Primary Emergency Contact: Yuliana Shepherd Address: [address] [place] [address] Mobile Relation: Daughter Patient is alert [...] Medications: Transportation: Name: Teagan Villarreal RN Phone: [phone] * Guerline Melgar MD - 04/21/2023 9:40 AM CDT Admit Date: 04/14/2023 7:34 AM Hospital Day: 7 Clinical Course 57 y/o admitted with epigastric pain, gastric band complication/erosion New Symptoms No new complaints Exam Vitals: 04/20/23 2114 04/21/23 0059 04/21/23 0337 04/21/23 0726 BP: 157/89 177/95 Pulse: 100 93 92 93 Resp: 18 18 16 Temp: 97.8 ??F (36.6 [...] at 9:40 AM 04/21/2023. * Marybel Kent, HYDRAULIC PUNCH PRESS OPERATOR-[employer]INS WINDER - 04/21/2023 7:49 AM CDT Bariatric Surgery [...] Laparoscopic removal of adjustable gastric band and port??(09736) 2.??Laparoscopic??Repair of gastric perforation??([place] to [address]) 3. Omental isabel patch (88924) 3. esophagogastroduodenoscopy POD#5 Overnight Events: None Subjective: [...] Laparoscopic removal of adjustable gastric band and port??(57517) 2.??Laparoscopic??Repair of gastric perforation??([place] [address]) 3. Omental isabel patch (99150) 3. esophagogastroduodenoscopy POD #5 Neuro: ??PO pain [...] for Augmentin x 10 days Marybel Kent APRN-[employer] * Cinda Corley RN - 04/21/2023 7:23 [...] with edges well approximated Outcome: Progressing * Ktahy Wadsworth RN - 04/20/2023 11:31 PM CDT [...] Length: 2.5 IV Catheter Size: 20 Gauge Supervisor [employer]/Model : florez introcan Technique: An... Number of [...] is met Outcome: Adequate for Discharge Note: eNvin denies nausea or vomiting at this time. [...] - will plan for omnicef, [place]yl [place] for 7 days - L LL haziness [...] Length: 2.5 IV Catheter Size: 20 Gauge Supervisor [employer]/Model : florez introcan Technique: An... Number of [...] pt up to chair, voiding/passing gas/ BMx1, [id number] pain, denies nausea, tolerating phase 1 diet, [...] 40 mg, Intravenous, QDAY ?? [COMPLETED] HYDROcodone-acetaminophen ([place]) 5-325 MG tablet 1 tablet, Oral, Once [...] Length: 2.5 IV Catheter Size: 20 Gauge Supervisor [employer]/Model : florez introcan Technique: An... Number of [...] BM Data Vitals: 04/17/23 1050 04/17/23 1523 04/17/23 2025 04/18/23 0204 BP: 125/57 151/84 157/65 147/69 Pulse: [...] - Dr. beckwith to see Micki Bolden APRN-[employer] * Haley Boykin, SAQIB - 04/17/2023 9:53 PM CDT Problem: Pain/Discomfort [...] Contact Information Primary Emergency Contact: PrasanthfannieYuliana Address: [address] [place] [address] [facility] Mobile Relation: Daughter Patient is alert & [...] Medications: Transportation: Name: Teagan Villarreal RN Phone: [phone] * Guerline Melgar MD - 04/17/2023 12:02 [...] Length: 2.5 IV Catheter Size: 20 Gauge Supervisor [employer]/Model : florez introcan Technique: An... Number of [...] flowsheet documentation) Outcome: Progressing * Micki Bolden APRN-CNP - 04/17/2023 6:05 AM CDT Bariatric Surgery [...] intake - discharge instructions reviewed. Micki Bolden APRN-[employer] * Haley Boykin RN - 04/17/2023 5:55 [...] Length: 2.5 IV Catheter Size: 20 Gauge Supervisor [employer]/Model : florez introcan Technique: An... Number of [...] None Requires Assistance With: None Preferred Pharmacy: [facility][id number] - [address] [facility] [address] [facility] [address] [facility] [address] [facility] [address] Advance Directive: No Advance Directive Information Given: Refused Information Would you like assistance on completing and executing or revising an Advance Directive?: No READMISSION RISK SCORE is 9 at 3:01 PM 04/16/2023. 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 requires but does not have.: None Columnist Referral: No Will continue to follow. For any questions or needs please contact: Focuser Name/Phone number: Teagan Villarreal RN [phone] * Kary De Leon RN - 04/16/2023 [...] hour Intake 9.7 ml Output -- Net 2029.7 ml Recent [...] None Requires Assistance With: None Preferred Pharmacy: [id number] - [address] [facility] [address] [address] [facility] [address] Advance Directive: No Advance Directive Information Given: Refused Information Would you like assistance on completing and executing or revising an Advance Directive?: No READMISSION RISK SCORE is 8 at 9:42 AM 04/15/2023. Met with: chart reviewed Family Support (name and phone): Extended Emergency Contact Information Primary Emergency Contact: Yuliana Shepherd Address: [address] [place] [address] [facility] Mobile Relation: Daughter Patient or senior sales representative requests care coordination reach out to [...] pt. requires but does not have.: None Columnist Referral: No Will continue to follow. For any questions or needs please contact: Focuser Name/Phone number: Teagan Villarreal RN [phone] * Jenise Santillan RN - 04/15/2023 6:32 [...] Torres PharmD - 04/14/2023 2:59 PM CDT [facility] Pharmacy Services Admission Medication Review Nevin [...] ??? Morbid obesity due to excess calories ([facility]) No Known Allergies No medications prior to [...] daily ??? sodium chloride (Deep Sea Nasal [place]) 0.65 % nasal spray Deep Sea Nasal [...] fluticasone propionate (Flonase) 50 MCG/ACT nasal spray [place] 2 (two) sprays into each nostril once [...] Heartburn ??? sodium chloride (Deep Sea Nasal [place]) 0.65 % nasal spray [place] 2 (two) sprays into each nostril as [...] No Stress: No Stress Concern Present (04/14/2023) [place] [facility] - Occupational Stress Questionnaire [...] Beckwith MD - 04/16/2023 9:58 PM CDT [facility] Operative Report OPERATIVE REPORT PATIENT:Nevin Deshpande MR#: [...] ??? Morbid obesity due to excess calories ([facility]) POSTOPERATIVE DIAGNOSES: SAME and gastric band erosion and gastric perforation PROCEDURES PERFORMED: 1. Laparoscopic removal of adjustable gastric band and port (91605) 2. Laparoscopic Repair [place] [address]) 3. Omental isabel patch (01232) 3. esophagogastroduodenoscopy SURGEON: Steffen Beckwith MD [employer]: Aramis DAIGLE ANESTHESIA: General endotracheal. PROCEDURE: The [...] stomach using 3-0 vicryl suture in a isable patch fashion by anchoring at three points. [...] with a 0 Vicryl suture in a vqruqh-da-lzela fashion.. The remaining incisions were closed with [...] Role: * Steffen Beckwith MD - Primary Pharm Tech(s): Blanche DAIGLE Anesthesia Type: general ETT Complications: [...] STAT 04/14/2023 9:08 AM CDT Diagnosis unknown EGD Routine 04/14/2023 8:15 AM CDT documented [...] - 1.11 mg/dL 04/21/2023 9:51 AM CDT [facility] eGFR by CKD-EPI 81(L) >=90 mL/min/1.7 3 m2 04/21/2023 9:51 AM CDT [facility] Blood BLOOD SPECIMEN / Unknown Venipuncture / Unknown 04/21/2023 9:24 AM CDT 04/21/2023 9:34 AM CDT Marybelrach Grider Donte HYDRAULIC PUNCH PRESS OPERATOR-[employer]ER LAB - MANFRED GEMINI ORDERABLES [facility] [address] [place] [address] * (ABNORMAL) CBC W/O DIFFERENTIAL (04/21/2023 9:24 AM CDT) WBC 8.2 4.4 - 10.7 x10E9/L 04/21/2023 9:37 AM CDT [facility] RBC 3.05(L) 3.80 - 5.20 x10E12/L 04/21/2023 9:37 AM CDT [facility] Hemoglobin 10.9(L) 12.0 - 15.6 gm/dL 04/21/2023 9:37 AM CDT [facility] Hematocrit 33.8(L) 35.9 - 45.5 % 04/21/2023 9:37 AM CDT [facility] MCV 110.8(H) 80.7 - 98.3 fl 04/21/2023 9:37 AM CDT [facility] MCH 35.7(H) 26.7 - 34.0 pg 04/21/2023 9:37 AM CDT [facility] MCHC 32.2 30.8 - 35.9 gm/dL 04/21/2023 9:37 AM CDT [facility] Platelet Count 254 153 - 416 x10E9/L 04/21/2023 9:37 AM CDT [facility] RDW-CV 14.6 12.1 - 14.9 % 04/21/2023 9:37 AM CDT [facility] MPV 10.8 9.4 - 12.9 fl 04/21/2023 9:37 AM CDT [facility] Blood BLOOD SPECIMEN / Unknown Venipuncture / Unknown 04/21/2023 9:24 AM CDT 04/21/2023 9:34 AM CDT Marybel Coxlion HYDRAULIC PUNCH PRESS OPERATOR-[employer]INS WINDER LAB - HEM ATOLOGY ORDERABLES Performing Organization Address City/[facility]/ZIP Co de Phone Number [facility] [address] [place] [address] * (ABNORMAL) BASIC METABOLIC PANEL (CALCIUM TOTAL) (04/20/2023 10:21 AM CDT) Glucose 116(H) 70 - 105 mg/dL 04/20/2023 10:45 AM CDT [facility] Sodium 140 136 - 145 mmol/L 04/20/2023 10:45 AM CDT [facility] Potassium 3.9 3.5 - 5.1 mmol/L 04/20/2023 10:45 AM CDT [facility] Chloride 106 98 - 107 mmol/L 04/20/2023 10:45 AM CDT [facility] CO2 27 23 - 31 mmol/L 04/20/2023 10:45 AM CDT [facility] Calcium 9.1 8.4 - 10.4 mg/dL 04/20/2023 10:45 AM CDT [facility] Anion Gap 7(L) 8 - 18 mmol/L 04/20/2023 10:45 AM CDT [facility] BUN 4(L) 9.8 - 20.1 mg/dL 04/20/2023 10:45 AM CDT [facility] Creatinine 0.83 0.57 - 1.11 mg/dL 04/20/2023 10:45 AM CDT [facility] eGFR by CKD-EPI 83(L) >=90 mL/min/1.7 3 m2 04/20/2023 10:45 AM CDT [facility] Blood BLOOD SPECIMEN / Unknown Venipuncture / Unknown 04/20/2023 10:21 AM CDT 04/20/2023 10:27 AM CDT Guerline Melgar MD LAB - CHEMISTRY INGRID CORRALES [facility] [address] [place] [address] * CT CHEST PE (04/19/2023 2:24 PM [...] to the lung bases were obtained following [id number], 80 cc intravenous contrast administration. Multiplanar maximum [...] - 105 mg/dL 04/19/2023 4:48 AM CDT [facility] Sodium 140 136 - 145 mmol/L 04/19/2023 4:48 AM CDT [facility] Potassium 4.1 3.5 - 5.1 mmol/L 04/19/2023 4:48 AM CDT [facility] Chloride 108(H) 98 - 107 mmol/L 04/19/2023 4:48 AM CDT [facility] CO2 22(L) 23 - 31 mmol/L 04/19/2023 4:48 AM CDT [facility] Calcium 9.1 8.4 - 10.4 mg/dL 04/19/2023 4:48 AM CDT [facility] Anion Gap 10 8 - 18 mmol/L 04/19/2023 4:48 AM CDT [facility] BUN 7(L) 9.8 - 20.1 mg/dL 04/19/2023 4:48 AM CDT [facility] Creatinine 0.84 0.57 - 1.11 mg/dL 04/19/2023 4:48 AM CDT [facility] eGFR by CKD-EPI 82(L) >=90 mL/min/1.7 3 m2 04/19/2023 4:48 AM CDT [facility] Blood BLOOD SPECIMEN / Unknown Venipuncture / Unknown 04/19/2023 4:14 AM CDT 04/19/2023 4:18 AM CDT Guerline Melgar MD LAB - CHEMISTRY INGRID CORRALES [facility] Organization Address City/State/ZIP Co de Phone Number [facility] [address] [place] [address] * (ABNORMAL) CBC W AUTO [...] - 12.9 fl 04/19/2023 4:22 AM CDT [facility] Neutrophils % 79.3(H) 44.0 - 73.0 [...] - 1 % 04/19/2023 4:22 AM CDT [facility] Neutrophil Absolute 9.47(H) 2.01 - 7.14 x10E9/L 04/19/2023 4:22 AM CDT [facility] Lymphocytes Absolute 1.10 1.07 - 3.94 x10E9/L 04/19/2023 4:22 AM CDT [facility] Monocytes Absolute 0.80 0.26 - 1.07 x10E9/L 04/19/2023 4:22 AM CDT [facility] Eosinophils Absolute 0.39 0 - 0.47 x10E9/L 04/19/2023 4:22 AM CDT [facility] Basophils Absolute 0.05 0 - 0.08 x10E9/L 04/19/2023 4:22 AM CDT [facility] Immature Granulocytes Absolute 0.13(H) 0.00 - 0.06 x10E9/L 04/19/2023 4:22 AM CDT [facility] nRBC Auto 0 /100 WBC 04/19/2023 4:22 AM CDT [facility] Blood BLOOD SPECIMEN / Unknown Venipuncture / Unknown 04/19/2023 4:14 AM CDT 04/19/2023 4:18 AM CDT Guerline Melgar MD LAB - HEMATOLOGY ORD ERABLES [facility] [address] [place] [address] * (ABNORMAL) CBC W AUTO DIFFERENTIAL (04/18/2023 3:57 AM CDT) WBC 16.1(H) 4.4 - 10.7 x10E9/L 04/18/2023 4:08 AM CDT [facility] WBC Corrected 04/18/2023 4:08 AM CDT [facility] RBC 3.26(L) 3.80 - 5.20 x10E12/L 04/18/2023 4:08 AM CDT [facility] Hemoglobin 11.6(L) 12.0 - 15.6 gm/dL [...] - 416 x10E9/L 04/18/2023 4:08 AM CDT [facility] RDW-CV 14.9 12.1 - 14.9 % 04/18/2023 4:08 AM CDT [facility] MPV 10.9 9.4 - 12.9 fl 04/18/2023 4:08 AM T [facility] Neutrophils % 85.1(H) 44.0 - 73.0 % 04/18/2023 4:08 AM CDT [facility] Lymphocytes % 6.5(L) 20.0 - 43.0 % 04/18/2023 4:08 AM CDT [facility] Monocytes % 6.7 5.0 - 13.0 % 04/18/2023 4:08 AM CDT [facility] Eosinophils % 0.7 0.0 - 6.0 % 04/18/2023 4:08 AM T [facility] Basophils % 0.3 0.0 - 2.0 % 04/18/2023 4:08 AM CDT [facility] Immature Granulocytes 0.7 0 - 1 % 04/18/2023 4:08 AM CDT [facility] Neutrophil Absolute 13.67(H) 2.01 - 7.14 x10E9/L 04/18/2023 4:08 AM CDT [facility] Lymphocytes Absolute 1.04(L) 1.07 - 3.94 x10E9/L 04/18/2023 4:08 AM CDT [facility] Monocytes Absolute 1.08(H) 0.26 - 1.07 x10E9/L 04/18/2023 4:08 AM CDT [facility] Eosinophils Absolute 0.12 0 - 0.47 x10E9/L 04/18/2023 4:08 AM CDT [facility] Basophils Absolute 0.05 0 - 0.08 x10E9/L 04/18/2023 4:08 AM CDT [facility] Immature Granulocytes Absolute 0.11(H) 0.00 - 0.06 x10E9/L 04/18/2023 4:08 AM CDT [facility] nRBC Auto 0 /100 WBC 04/18/2023 4:08 AM CDT [facility] Blood BLOOD SPECIMEN / Unknown Venipuncture / Unknown 04/18/2023 3:57 AM CDT 04/18/2023 4:00 AM CDT Steffen Beckwith MD LAB - HEMATOLOGY ORD ERABLES [facility] [address] [place] [address] * (ABNORMAL) BASIC METABOLIC PANEL (CALCIUM TOTAL) (04/18/2023 3:57 AM CDT) Glucose 118(H) 70 - 105 mg/dL 04/18/2023 4:27 AM CDT [facility] Sodium 139 136 - 145 mmol/L 04/18/2023 4:27 AM CDT [facility] Potassium 4.2 3.5 - 5.1 mmol/L 04/18/2023 4:27 AM CDT [facility] Chloride 107 98 - 107 mmol/L 04/18/2023 4:27 AM CDT [facility] CO2 23 23 - 31 mmol/L 04/18/2023 4:27 AM CDT [facility] Calcium 8.8 8.4 - 10.4 mg/dL 04/18/2023 4:27 AM CDT [facility] Anion Gap 9 8 - 18 mmol/L 04/18/2023 4:27 AM CDT [facility] BUN 9(L) 9.8 - 20.1 mg/dL 04/18/2023 4:27 AM CDT [facility] Creatinine 0.89 0.57 - 1.11 mg/dL 04/18/2023 4:27 AM CDT [facility] eGFR by CKD-EPI 77(L) >=90 mL/min/1.7 3 m2 04/18/2023 4:27 AM CDT [facility] Blood BLOOD SPECIMEN / Unknown Venipuncture / Unknown 04/18/2023 3:57 AM CDT 04/18/2023 4:00 AM CDT Micki Bolden HYDRAULIC PUNCH PRESS OPERATOR-[employer] LAB - CHEMIS TRY ORDERABLES [facility] [address] [place] [address] * FL UGI SERIES (04/17/2023 12:25 PM [...] CDT 04/17/2023 6:37 AM CDT Micki Bolden APRN-[facility] LAB - CHEMIS TRY ORDERABLES Performing Organization Address City/[facility]/ZIP Co de Phone Number [facility] [address] [place] [address] * (ABNORMAL) CBC W/O DIFFERENTIAL (04/17/2023 6:33 AM CDT) WBC 18.9(H) 4.4 - 10.7 x10E9/L 04/17/2023 6:45 AM CDT [facility] RBC 3.62(L) 3.80 - 5.20 x10E12/L 04/17/2023 6:45 AM CDT [facility] Hemoglobin 12.8 12.0 - 15.6 gm/dL 04/17/2023 6:45 AM CDT [facility] Hematocrit 39.5 35.9 - 45.5 % 04/17/2023 6:45 AM CDT [facility] MCV 109.1(H) 80.7 - 98.3 fl 04/17/2023 6:45 AM CDT [facility] MCH 35.4(H) 26.7 - 34.0 pg 04/17/2023 6:45 AM CDT [facility] MCHC 32.4 30.8 - 35.9 gm/dL 04/17/2023 6:45 AM CDT [facility] Platelet Count 271 153 - 416 x10E9/L 04/17/2023 6:45 AM CDT [facility] RDW-CV 14.6 12.1 - 14.9 % 04/17/2023 6:45 AM CDT [facility] MPV 11.2 9.4 - 12.9 fl 04/17/2023 6:45 AM CDT [facility] Blood BLOOD SPECIMEN / Unknown Venipuncture / Unknown 04/17/2023 6:33 AM CDT 04/17/2023 6:37 AM CDT Micki Bolden APRN-[employer] LAB - HEMATO LOGY ORDERABLES [facility] [address] [place] [address] * XR CHEST 1VW PORTABLE (04/16/2023 7:30 [...] - 31 mmol/L 04/16/2023 5:16 AM CDT [facility] Calcium 9.1 8.4 - 10.4 mg/dL 04/16/2023 5:16 AM CDT [facility] Anion Gap 7(L) 8 - 18 mmol/L 04/16/2023 5:16 AM CDT [facility] BUN 6(L) 9.8 - 20.1 mg/dL 04/16/2023 5:16 AM CDT [facility] Creatinine 0.89 0.57 - 1.11 mg/dL 04/16/2023 5:16 AM CDT [facility] eGFR by CKD-EPI 77(L) >=90 mL/min/1.7 3 m2 04/16/2023 5:16 AM CDT [facility] Blood BLOOD SPECIMEN / Unknown Venipuncture / Unknown 04/16/2023 4:34 AM CDT 04/16/2023 4:39 AM CDT Steffen Beckwith MD LAB - CHEMISTRY [facility] Organization Address City/State/ZIP Co de Phone Number [facility] [id number] [place] [address] * (ABNORMAL) COMPREHENSIVE METABOLIC PANEL (04/15/2023 4:04 AM CDT) Glucose 107(H) 70 - 105 mg/dL 04/15/2023 5:26 AM CDT [facility] Sodium 141 136 - 145 mmol/L 04/15/2023 5:26 AM CDT [facility] Potassium 3.3(L) 3.5 - 5.1 mmol/L 04/15/2023 5:26 AM CDT [facility] Chloride 108(H) 98 - 107 mmol/L 04/15/2023 5:26 AM CDT [facility] CO2 25 23 - 31 mmol/L 04/15/2023 5:26 AM CDT [facility] Calcium 9.4 8.4 - 10.4 mg/dL 04/15/2023 5:26 AM CDT [facility] Anion Gap 8 8 - 18 mmol/L 04/15/2023 5:26 AM CDT [facility] BUN 10 9.8 - 20.1 mg/dL 04/15/2023 5:26 AM CDT [facility] Creatinine 1.05 0.57 - 1.11 mg/dL 04/15/2023 5:26 AM CDT [facility] Alkaline Phosphatase 151(H) 40 - 150 U/L 04/15/2023 5:26 AM CDT [facility] ALT 13 0 - 61 U/L 04/15/2023 5:26 AM CDT [facility] AST 23 5 - 34 U/L 04/15/2023 5:26 AM CDT [facility] Protein Total 6.4 6.4 - 8.3 gm/dL 04/15/2023 5:26 AM CDT [facility] Albumin 3.5 3.5 - 5.2 gm/dL 04/15/2023 5:26 AM CDT [facility] Bilirubin Total 0.7 0.2 - 1.2 mg/dL 04/15/2023 5:26 AM CDT [facility] eGFR by CKD-EPI 63(L) >=90 mL/min/1.7 3 m2 04/15/2023 5:26 AM CDT [facility] Blood BLOOD SPECIMEN / Unknown Venipuncture / Unknown 04/15/2023 4:04 AM CDT 04/15/2023 4:38 AM CDT Steffen Beckwith MD [facility] Organization Address City/State/ZIP Co de Phone Number [facility] [address] [place] [address] * (ABNORMAL) CBC W AUTO DIFFERENTIAL (04/15/2023 4:04 AM CDT) [facility] WBC 6.1 4.4 - 10.7 x10E9/L 04/15/2023 5:02 AM CDT [facility] WBC Corrected 04/15/2023 5:02 AM CDT [facility] RBC 3.32(L) 3.80 - 5.20 x10E12/L 04/15/2023 5:02 AM CDT [facility] Hemoglobin 11.9(L) 12.0 - 15.6 gm/dL 04/15/2023 5:02 AM CDT [facility] Hematocrit 36.8 35.9 - 45.5 % [...] - 0.08 x10E9/L 04/15/2023 5:02 AM CDT [facility] Immature Granulocytes Absolute 0.03 0.00 - 0.06 x10E9/L 04/15/2023 5:02 AM CDT [facility] nRBC Auto 0 /100 WBC 04/15/2023 5:02 AM CDT [facility] Blood BLOOD SPECIMEN / Unknown Venipuncture / Unknown 04/15/2023 4:04 AM CDT 04/15/2023 4:38 AM CDT Steffen Beckwith MD LAB - HEMATOLOGY ORD ERABLES Performing Organization Address [facility] Co de Phone Number [facility] [address] [place] [address] * HELICOBACTER PYLORI UREASE (STL) (04/14/2023 9:08 AM CDT) Helicobacter pylori Urease Initial Negative Negative 04/15/2023 9:14 AM CDT [facility] Helicobacter pylori Urease Final Negative Negative 04/15/2023 9:14 AM CDT [facility] Comment:This is an appended report. These results have been appended to a previously preliminary verified report. Microbiology GASTRIC ANTRAL BIOPSY SPECIMEN / Unknown 04/14/2023 9:08 AM CDT 04/14/2023 2:44 PM CDT Steffen Beckwith MD LAB - MICROBIOLOGY O RDERABLES Performing Organization Address [facility] Co de Phone Number [facility] [id number] [place] [address] * EGD (04/14/2023 8:15 AM CDT) Report [...] Procedure Code(s): ? --- Professional --- ? 36413, Esophagogastroduo denoscopy, flexible, transoral; with biopsy, ? single or multiple ? --- Technical --- ? 39085, Esophagogastroduo denoscopy, flexible, transoral; with biopsy, ? [...] other than malignant neoplasm CPT copyright 2020 [employer]. All rights reserved. The codes documented in this report are preliminary and upon central office maintainer review may be revised to meet current compliance requirements. __ Steffen Beckwith MD 04/14/2023 9:09:18 AM Number of Addenda: 0 Note Initiated On: 04/14/2023 8:15 AM [facility] 04/14/2023 8:15 AM CDT Narrative Procedure Note Steffen Beckwith MD - 04/14/2023 9:09 AM CDT PLAN: 1. Admit 2. Laparoscopic removal of gastric band and port Steffen Beckwith MD GI PROCEDURE ORDERAB LES [facility] [place] [address] documented in this encounter Visit Diagnoses Not on filedocumented in this encounter Administered Medications Inactive Administered Medications - up to 3 most recent administrations Medication Order MAR Action Action Date Dose Rate Site 0.9% NaCl injection PRN, Starting on Fri04/16/23 at 1528, Until Fri04/16/23 at 1608, Intra-op $ Given 04/16/2023 3:28 PM CDT 20 mL Operative Site 0.9% nacl irrigation solution CONTINUOUS PRN, Starting on Fri04/16/23 at 1520, Until Fri04/16/23 at 1608, Intra-op $ New Bag/Syringe 04/16/2023 3:20 PM CDT 3,000 mL Operative Site acetaminophen (Tylenol) solution 500 mg 500 [...] dose on 04/19/23 at 1515, Until Discontinued $ Given 04/22/2023 7:53 AM CDT 5 mg $ Given 04/21/2023 7:42 AM CDT 5 mg $ Given 04/20/2023 8:20 AM CDT 5 mg BUPivacaine liposome (Exparel) 1.3 % injection PRN, Starting on Fri04/16/23 at 1528, Until Fri04/16/23 at 1608, Intra-op $ Given 04/16/2023 3:28 PM CDT 20 mL Operative Site cefTRIAXone (Rocephin) 2,000 mg in 0.9% NaCl [...] Given 04/20/2023 6:00 PM CDT 4 mg Oxidized Cellulose PADS PRN, Starting on Fri04/16/23 at 1512, Until Fri04/16/23 at 1608, Intra-op $ Given 04/16/2023 3:12 PM CDT 1 Each Operative Site oxyCODONE (Roxicodone) oral solution 10 mg 10 [...] $ Given 04/20/2023 10:57 PM CDT 10 mg $ Given 04/20/2023 6:00 PM CDT 10 [...] 2204 ($ New Bag/Syringe - Provider: Enrique Tapia)2255 (Stopped - Provider: Enrique Tapia) doxazosin (Cardura) [...] Given - Provider: Kary De Leon RN) furosemide (Lasix) injection 20 mg (COMPLETED) 20 mg, Intravenous, ONCE, 1 dose, On Fri04/20/23 at 1130 1137 ($ Given - Provider: Marybel Mann RN) furosemide (Lasix) injection 20 mg (COMPLETED) 20 mg, Intravenous, ONCE, 1 dose, On 04/21/23 at 1000 1028 ($ Given - Provider: Kary De Leon RN) heparin injection 5,000 Units 5,000 Units, Subcutaneous, 2 TIMES DAILY, First dose on Fri04/14/23 at 2100, Until Discontinued 0820 ($ Given - Provider: Marybel Mann RN)203 ($ Given - Provider: Kathy Wadsworth RN) 0741 ($ Given - Provider: Cinda Corley RN)2205 ($ Given - Provider: Enrique Tapia) 0753 ($ Given - Provider: Kary De Leon RN) hydroCHLOROthiazide (Hydrodiuril) tablet 12.5 mg 12.5 mg, [...] Enrique Tapia) 0833 ($ Given - Provider: Kray De Leon RN - Comment: pt request [...] RN) documented in this encounter Care Teams Rn Clinical Documentation Specialist Relationship Specialty Start Date End Date Rhianna Cowan MD [address] [place] [address] [address] [place] [address] PCP - General Internal Medicine 11/12/16 documented as of this encounter
--- OUTSIDE RECORDS SUMMARY | 2024-10-07 04:04 | XMS_ITS | Patient Health Summary ---
Author Organization [facility] Address [address] [place] [address] Care Team Providers Care Associate Professor Of Literacy Name Role Phone Rhianna Cowan MD Primary Care Provider [phone] Note from [facility],non-owned Affiliates and Associated Physician Practices is amultiple site organization consisting of ambulatory clinics and hospital sitesin [place], [place], [place] and [place]. This disclosure is being madepursuant to the Care Everywhere program and may not contain all information available regarding this patient. Last updated 18.[facility] Allergies * Lisinopril(Cough) * Sulfamethoxazole W-Trimethoprim(Angioedema) -High Criticality Medications * Be aware that medications may not be up to date on this document. Alwaysverify current medications with the patient. * acetaminophen (Tylenol) 500 MG tablet(Started 06/17/2022) Take 1 (one) tablet by mouth every 8 hours as needed for Pain or Fever * albuterol HFA (Proventil; Ventolin; Proair) 108 (90 Base) MCG/ACT inhaler (Started 11/30/2021) Inhale 2 (two) puffs by mouth every 6 hours as needed for Shortness of Breath or Wheezing * amLODIPine (Norvasc) 5 MG tablet(Started 12/12/2021) Take 1 (one) tablet by mouth once daily * baclofen (Lioresal) 10 MG tablet(Started 12/12/2021) Take 1 (one) tablet by mouth 2 times daily as needed for Muscle Spasms * cetirizine (ZyrTEC) 10 MG tablet(Started 12/26/2022) Take 1 (one) tablet by mouth once daily as needed for Allergies * clotrimazole-betamethasone (Lotrisone) 1-0.05 % cream(Started 12/12/2021) Apply to affected area 2 times daily as needed (rash) * cyanocobalamin (Vitamin B-12) injection Inject 1,000 (one thousand) mcg into muscle every 30 days * doxazosin (Cardura) 2 MG tablet(Started 12/26/2022) Take 1 (one) tablet by mouth at bedtime * DULoxetine (Cymbalta) 60 MG capsule Take 1 (one) capsule by mouth once daily * fluticasone propionate (Flonase) 50 MCG/ACT nasal spray(Started 12/12/2021) Eldred 2 (two) sprays into each nostril once daily as needed (allergies) * hydroCHLOROthiazide (Hydrodiuril) 12.5 MG(Started 12/12/2021) Take 1 (one) tablet by mouth once daily * metoprolol succinate XL 24hr (Toprol XL) 25 MG tablet(Started 01/28/2022) Take 1 (one) tablet by mouth once daily * mupirocin (Bactroban) 2 % ointment(Started 12/26/2022) Apply to affected area 2 times daily APPLY SMALL AMOUNT TOPICALLY IN EACH NOSTRIL EVERY NIGHT AT BEDTIME * omeprazole (PriLOSEC) 20 MG capsule Take 1 (one) capsule by mouth once daily as needed for Heartburn * sodium chloride (Deep Sea Nasal Eldred) 0.65 % nasal spray(Started 12/26/2022) Eldred 2 (two) sprays into each nostril as needed for Dry Nose * doxepin (Silenor) 3 MG tablet(Started 03/10/2023) Take 1 (one) tablet by mouth at bedtime Active Problems Problem Noted Date Diagnosed Date [...] medical care, and heating? Somewhat hard 04/14/2023 [facility] - Occupational Stress [...] place to sleep or slept in a chcf (including now)? No 04/14/2023 Sex and Gender [...] Mass Index 46.31 05/16/2023 10:41 AM CDT Procedures * BASIC METABOLIC PANEL (CALCIUM TOTAL)(Performed 04/21/2023) * CBC W/O DIFFERENTIAL(Performed 04/21/2023) * BASIC METABOLIC PANEL (CALCIUM TOTAL)(Performed 04/20/2023) * CT ANGIO CHEST PULM EMBOLISM(Performed 04/19/2023) Performed for Hypoxemia * BASIC METABOLIC PANEL (CALCIUM TOTAL)(Performed 04/19/2023) * CBC W AUTO DIFFERENTIAL(Performed 04/19/2023) * CBC W AUTO DIFFERENTIAL(Performed 04/18/2023) * BASIC METABOLIC PANEL (CALCIUM TOTAL)(Performed 04/18/2023) * FL UGI SERIES(Performed 04/17/2023) Performed for Gastric band erosion * BASIC METABOLIC PANEL (CALCIUM TOTAL)(Performed 04/17/2023) Performed for Gastric band erosion * CBC W/O DIFFERENTIAL(Performed 04/17/2023) Performed for Gastric band erosion * XR CHEST 1VW PORTABLE(Performed 04/16/2023) Performed for Gastric band erosion * ENDOTRACHEAL TUBE NOTE(Performed 04/16/2023) * LAPAROSCOPIC REMOVAL/REPLACEMENT GASTRIC BAND(Performed 04/16/2023) * BASIC METABOLIC PANEL (CALCIUM TOTAL)(Performed 04/16/2023) Performed for Gastric band erosion * COMPREHENSIVE METABOLIC PANEL(Performed 04/15/2023) Performed for Gastric band erosion * CBC W AUTO DIFFERENTIAL(Performed 04/15/2023) Performed for Gastric band erosion * HELICOBACTER PYLORI UREASE (STL)(Performed 04/14/2023) Performed for Diagnosis unknown * [place] ED EGD FLEX TRANSORAL DX(Performed 04/14/2023) * EGD(Performed 04/14/2023) * FL UGI SERIES(Performed 03/10/2023) Performed for Morbid obesity (HCC), Gastric band slippage * STREP A SCREEN - POINT OF CARE (AMB) STL(Performed 03/23/2018) Performed for Strep throat * STREP A SCREEN - POINT OF CARE (AMB) STL(Performed 12/15/2017) Performed for Strep throat Results * (ABNORMAL) CBC W/O DIFFERENTIAL (04/21/2023 9:24 AM CDT) Only the most recent of2 resultswithin the time period is included. Pathologist [facility] WBC 8.2 4.4 - 10.7 x10E9/L 04/21/2023 9:37 AM CDT [facility] RBC 3.05(L) 3.80 - 5.20 x10E12/L 04/21/2023 9:37 AM CDT [facility] Hemoglobin 10.9(L) 12.0 - 15.6 gm/dL 04/21/2023 9:37 AM CDT [facility] Hematocrit 33.8(L) 35.9 - 45.5 % 04/21/2023 9:37 AM CDT [facility] MCV 110.8(H) 80.7 - 98.3 fl 04/21/2023 9:37 AM CDT [facility] MCH 35.7(H) 26.7 - 34.0 pg 04/21/2023 9:37 AM CDT [facility] MCHC 32.2 30.8 - 35.9 gm/dL 04/21/2023 9:37 AM CDT [facility] Platelet Count 254 153 - 416 x10E9/L 04/21/2023 9:37 AM CDT [facility] RDW-CV 14.6 12.1 - 14.9 % 04/21/2023 9:37 AM CDT [facility] MPV 10.8 9.4 - 12.9 fl 04/21/2023 9:37 AM CDT [facility] Blood BLOOD SPECIMEN / Unknown Venipuncture / Unknown 04/21/2023 9:24 AM CDT 04/21/2023 9:34 AM CDT Marybel Kent PRODUCTION FINISHER-MOTOR COACH DRIVER LAB - HEM ATOLOGY ORDERABLES [facility] [address] [place] [address] * (ABNORMAL) BASIC METABOLIC PANEL (CALCIUM TOTAL) (04/21/2023 9:24 AM CDT) Only the most recent of6 resultswithin the time period is included. Pathologist [facility] Glucose 99 70 - 105 mg/dL 04/21/2023 9:51 AM CDT [facility] Sodium 139 136 - 145 mmol/L 04/21/2023 9:51 AM CDT [facility] Potassium 3.6 3.5 - 5.1 mmol/L 04/21/2023 9:51 AM CDT [facility] Chloride 105 98 - 107 mmol/L 04/21/2023 9:51 AM CDT [facility] CO2 24 23 - 31 mmol/L 04/21/2023 9:51 AM CDT [facility] Calcium 9.0 8.4 - 10.4 mg/dL 04/21/2023 9:51 AM CDT [facility] Anion Gap 10 8 - 18 mmol/L 04/21/2023 9:51 AM CDT [facility] BUN 4(L) 9.8 - 20.1 mg/dL 04/21/2023 9:51 AM CDT [facility] Creatinine 0.85 0.57 - 1.11 mg/dL 04/21/2023 9:51 AM CDT [facility] eGFR by CKD-EPI 81(L) >=90 mL/min/1.7 3 m2 04/21/2023 9:51 AM CDT [facility] Blood BLOOD SPECIMEN / Unknown Venipuncture / Unknown 04/21/2023 9:24 AM CDT 04/21/2023 9:34 AM CDT Marybel Grider Donte PRODUCTION FINISHER-MOTOR COACH DRIVER LAB - MANFRED GEMINI ORDERABLES Performing Organization Address City/State/[facility] Co de Phone Number [facility] [address] [place] [address] * CT CHEST PE (04/19/2023 [...] to the lung bases were obtained following [id number], 80 cc intravenous contrast administration. Multiplanar maximum [...] Disla MD on 04/19/2023 2:37 PM [address] Choi MD [address] ORDERABLES * (ABNORMAL) CBC W AUTO DIFFERENTIAL (04/19/2023 4:14 AM CDT) Only the most recent of3 resultswithin the time period is included. WBC 11.9(H) 4.4 - 10.7 x10E9/L 04/19/2023 4:22 AM CDT [facility] WBC Corrected 04/19/2023 4:22 AM CDT [facility] RBC 3.07(L) 3.80 - 5.20 x10E12/L 04/19/2023 4:22 AM CDT [facility] Hemoglobin 11.2(L) 12.0 - 15.6 gm/dL 04/19/2023 4:22 AM CDT [facility] Hematocrit 34.2(L) 35.9 - 45.5 % 04/19/2023 4:22 AM CDT [facility] MCV 111.4(H) 80.7 - 98.3 fl 04/19/2023 4:22 AM CDT [facility] MCH 36.5(H) 26.7 - 34.0 pg 04/19/2023 4:22 AM CDT [facility] MCHC 32.7 30.8 - 35.9 gm/dL 04/19/2023 4:22 AM CDT [facility] Platelet Count 211 153 - 416 x10E9/L 04/19/2023 4:22 AM CDT [facility] RDW-CV 14.8 12.1 - 14.9 % 04/19/2023 4:22 AM CDT [facility] MPV 11.1 9.4 - 12.9 fl 04/19/2023 4:22 AM CDT [facility] Neutrophils % 79.3(H) 44.0 - 73.0 % 04/19/2023 4:22 AM CDT [facility] Lymphocytes % 9.2(L) 20.0 - 43.0 % 04/19/2023 4:22 AM CDT [facility] Monocytes % 6.7 5.0 - 13.0 % 04/19/2023 4:22 AM CDT [facility] Eosinophils % 3.3 0.0 - 6.0 % 04/19/2023 4:22 AM CDT [facility] Basophils % 0.4 0.0 - 2.0 % 04/19/2023 4:22 AM CDT [facility] Immature Granulocytes 1.1(H) 0 - 1 % 04/19/2023 4:22 AM CDT [facility] Neutrophil Absolute 9.47(H) 2.01 - 7.14 x10E9/L 04/19/2023 4:22 AM CDT [facility] Lymphocytes Absolute 1.10 1.07 - 3.94 x10E9/L 04/19/2023 4:22 AM CDT [facility] Monocytes Absolute 0.80 0.26 - 1.07 x10E9/L 04/19/2023 4:22 AM CDT [facility] Eosinophils Absolute 0.39 0 - 0.47 x10E9/L 04/19/2023 4:22 AM CDT [facility] Basophils Absolute 0.05 0 - 0.08 x10E9/L 04/19/2023 4:22 AM CDT [facility] Immature Granulocytes Absolute 0.13(H) 0.00 - 0.06 x10E9/L 04/19/2023 4:22 AM CDT [facility] nRBC Auto 0 /100 WBC 04/19/2023 4:22 AM CDT [facility] Blood BLOOD SPECIMEN / Unknown Venipuncture / Unknown 04/19/2023 4:14 AM CDT 04/19/2023 4:18 AM CDT Guerline Melgar MD LAB - HEMATOLOGY ORD ERABLES [facility] [address] [place] [id number] * FL UGI SERIES (04/17/2023 12:25 PM CDT) Only the most recent of2 resultswithin the time period is included. Anatomical Region Laterality Modality Abdomen Radiographic Josie [...] device with repair of gastric perforation with Charlie patch. COMPARISON: Upper GI examination 03/10/2023. TECHNIQUE: [...] mGy Reference air kerma (ka,r). Procedure Note Jory RogeDO eva - 04/17/2023 PROCEDURE: FL UGI SERIES DATE/TIME OF EXAM: 04/17/2023 12:36 PM CLINICAL INFORMATION: Removal of laparoscopic gastric band device with repair of gastric perforation with Charlie patch. COMPARISON: Upper GI examination 03/10/2023. TECHNIQUE: [...] Corley DO on 04/17/2023 1:16 PM Steffen Choi MD FLUOROSCOPY ORDERABL ES * XR CHEST 1VW PORTABLE (04/16/2023 7:30 [...] Melgar MD DIAGNOSTIC IMAGING O RDERABLES * ETT LINE PERFORMABLE (04/16/2023 2:19 PM CDT) Narrative Kirk Torres APRN-CRNA - 04/16/2023 2:19 PM CDT Kirk Torres APRN-CRNA ? 04/16/2023 ??2:19 PM Endotracheal Tube Placement: ? Patient Location: OR. Intubation Event Date/Time: ??04/16/2023 2:03 PM Procedure: intubation (47593). Procedure Section: ?? Sedation: under general anesthesia. [...] Staff Section ? Anesthesia Provider: Kirk Torres APRN-CRNA, Performed the procedure Kristopher Araujo MD GENERAL ANESTHESIA O RDERABLES * (ABNORMAL) COMPREHENSIVE METABOLIC PANEL (04/15/2023 4:04 AM CDT) Glucose 107(H) 70 - 105 mg/dL 04/15/2023 5:26 AM CDT [facility] Sodium 141 136 - 145 mmol/L 04/15/2023 5:26 AM CDT [facility] Potassium 3.3(L) 3.5 - 5.1 mmol/L 04/15/2023 5:26 AM CDT [facility] Chloride 108(H) 98 - 107 mmol/L 04/15/2023 5:26 AM CDT [facility] CO2 25 23 - 31 mmol/L 04/15/2023 5:26 AM CDT [facility] Calcium 9.4 8.4 - 10.4 mg/dL 04/15/2023 5:26 AM CDT [facility] Anion Gap 8 8 - 18 mmol/L 04/15/2023 5:26 AM CDT [facility] BUN 10 9.8 - 20.1 mg/dL 04/15/2023 5:26 AM CDT [facility] Creatinine 1.05 0.57 - 1.11 mg/dL 04/15/2023 5:26 AM CDT [facility] Alkaline Phosphatase 151(H) 40 - 150 U/L 04/15/2023 5:26 AM CDT [facility] ALT 13 0 - 61 U/L 04/15/2023 5:26 AM CDT [facility] AST 23 5 - 34 U/L 04/15/2023 5:26 AM CDT [facility] Protein Total 6.4 6.4 - 8.3 gm/dL 04/15/2023 5:26 AM CDT [facility] Albumin 3.5 3.5 - 5.2 gm/dL 04/15/2023 5:26 AM CDT [facility] Bilirubin Total 0.7 0.2 - 1.2 mg/dL 04/15/2023 5:26 AM CDT [facility] eGFR by CKD-EPI 63(L) >=90 mL/min/1.7 3 m2 04/15/2023 5:26 AM CDT [facility] Blood BLOOD SPECIMEN / Unknown Venipuncture / Unknown 04/15/2023 4:04 AM CDT 04/15/2023 4:38 AM CDT Steffen Choi MD LAB - CHEMISTRY INGRID CORRALES Performing Organization Address [facility] de Phone Number [facility] [address] [place] [address] * HELICOBACTER PYLORI UREASE (STL) (04/14/2023 9:08 AM CDT) Helicobacter pylori Urease Initial Negative Negative 04/15/2023 9:14 AM CDT [facility] Helicobacter pylori Urease Final Negative Negative 04/15/2023 9:14 AM CDT [facility] Comment:This is an appended report. These results have been appended to a previously preliminary verified report. Microbiology GASTRIC ANTRAL BIOPSY SPECIMEN / Unknown 04/14/2023 9:08 AM CDT 04/14/2023 2:44 PM CDT Steffen Choi MD LAB - MICROBIOLOGY O RDERABLES Performing Organization Address [facility] de Phone Number [facility] [address] [place] [address] * EGD (04/14/2023 8:15 AM CDT) Report Endoscopy POC _ Patient Name: Nevin Deshpande ? Procedure Date: 04/14/2023 8:15 AM ? Date of : 1965 ? Admit Type: Outpatient Age: 57 ? Gender: Female Attending MD: Steffen Choi MD, ?? _ Procedure: ? Upper GI endoscopy Indications: ? Epigastric abdominal pain, Heartburn, Postoperative ? assessment Providers: ? Steffen Choi MD (Doctor) Referring MD: ?Rhianna Cowan MD [...] Procedure Code(s): ? --- Professional --- ? 40824, Esophagogastroduo denoscopy, flexible, transoral; with biopsy, ? single or multiple ? --- Technical --- ? 65959, Esophagogastroduo denoscopy, flexible, transoral; with biopsy, ? [...] other than malignant neoplasm CPT copyright 2020 [employer]. All rights reserved. The codes documented in this report are preliminary and upon business control manager review may be revised to meet current compliance requirements. __ Steffen Choi MD 04/14/2023 9:09:18 AM Number of Addenda: 0 Note Initiated On: 04/14/2023 8:15 AM [facility] 04/14/2023 8:15 AM CDT Narrative Procedure Note Steffen Choi MD - 04/14/2023 9:09 AM CDT PLAN: 1. Admit 2. Laparoscopic removal of gastric band and port Steffen Choi MD GI PROCEDURE ORDERAB LES [facility] [place] [address] * (ABNORMAL) STREP A SCREEN (03/23/2018) Only the most recent of2 resultswithin the time period is included. Strep A Rapid POCT Positive(A) Negative Strep A Internal Control Present Lot # [id number] Expiration Date 09/17/19 Throat ENTIRE THROAT (SURFACE REGION OF NECK) / Unknown 03/23/2018 Yaneli Eden PRODUCTION FINISHER-MOTOR COACH DRIVER LAB - POINT OF CA RE ORDERABLES Care Teams Associate Professor Of Literacy Relationship Specialty Start Date End Date Rhianna Cowan MD [address] [place] [address] PCP - General Internal Medicine 11/12/16
--- OUTSIDE RECORDS SUMMARY | 2024-10-07 04:04 | XMS_ITS | Encounter Summary ---
Author Organization [facility] Address [address] [place] [address] Care Team Providers Care Driver Salesman Name Role Phone Rhianna Cowan MD Primary Care Provider [phone] Reason for Visit * Auth/Cert (Routine) Specialty Diagnoses / Procedures Referred By Cydney scott Referred To Contact Procedures ESOPHAGOGASTRODUODENOSCOPY (EGD) DIAGNOSTIC Referral ID Status Reason Start Date Expiration Date Visits Re quested Visits Authorized [id number] 1 1 Encounter Details Date Type Department Care Team (Late st Contact Info) Description 04/14/2023 8:55 AM CDT Anesthesia Event [facility] - Endoscopy [facility] [address] [place] [address] Ronnie Langley MD [address] [facility] [place] [address] Jc Olson, TANK ERECTOR-FRONT OFFICE SPEC [address] [place] [id number] Anesthesia Record Procedure Summary Procedure Name Responsible Anesthesiologist Anesthesia Start Time Anesthesia Stop Time ESOPHAGOGASTRODUODENOSCOPY ( EGD) DIAGNOSTIC Ronnie Langley MD 04/14/23 0855 04/14/23 0911 Events Date Time Event Comment 04/14/2023 0855 0855 An Start 0855 Out OR Start Data 0900 Timeout Anesthesia part icipated in timeout at the time documented in the record by nursing. 0906 PT Reassessment 0909 Electnc Sig This record is electronically signed by the providers listed under staff. 0909 Out OR Stop Data 0911 An Stop Meds Name Total lidocaine 1% (PF) injection (50 mg/5mL) 100 mg propofol (DIPRIVAN) injection 10mg/ml (E NDO USE) 15 mL 0.9% NaCl infusion 200 mL * Agents Name Exp. N2O O2 * Blood No blood administrations on file. Lines, Drains, and Airways Type Details Placement Removal Peripheral IV Date: 04/14/23; Time : 819; Orientation: Right; Placed By: AT RN 04/14/23 08 by Neto Avina RN 04/15/23 0754 by Kary Naqvi RN documented in this encounter Social History [...] medical care, and heating? Somewhat hard 04/14/2023 [facility] Occupat ional Health - Occupational Stress [...] place to sleep or slept in a senior care (including now)? No 04/14/2023 Sex and Gender [...] as of this encounter Progress Notes * Jc Olson, TANK ERECTOR-FRONT OFFICE SPEC - 04/14/2023 9:12 AM CDT ANESTHESIA POSTOP EVALUATION NOTE Procedure: ESOPHAGOGASTRODUODENOSCOPY (EGD) DIAGNOSTIC Nevin Deshpande is a 57 year old female Patient Vitals for the past 6 hrs: BP Temp Pulse Resp SpO2 Pain Rating Score #1 Pain Scale/Observation 04/14/23 0812 153/70 98.1 ??F (36.7 ??C) 76 18 98 % 0 N 04/14/23 0855 146/88 -- -- -- -- -- -- 04/14/23 0859 -- -- -- -- 100 % -- -- 04/14/23 0901 121/86 -- -- -- -- -- -- 04/14/23 0904 -- -- -- -- 100 % -- -- 04/14/23 0905 134/96 -- -- -- -- -- -- 04/14/23 0906 -- -- -- -- 95 % -- -- Anesthesia Type: MAC * No Diagnosis Codes entered * Mental Status: awake and sufficiently recovered from acute administration of [...] NOTABLE EVENTS: No notable events documented. * Jc Olson APRN-FRONT OFFICE SPEC - 04/14/2023 8:55 AM CDT ANESTHESIA PREOPERATIVE EVALUATION NOTE Procedure: ESOPHAGOGASTRODUODENOSCOPY (EGD) DIAGNOSTIC NPO status: Since Midnight (04/14/2023 8:13 AM) Vitals: Patient Vitals for the past 6 hrs: BP Temp Pulse Resp SpO2 Pain Rating Score #1 04/14/23 0812 153/70 98.1 ??F (36.7 ??C) 76 18 98 % 0 LMP: No LMP recorded. Patient has had a hysterectomy. OB Status: Hysterectomy ANESTHESIA PRE-EVALUATION NOTE The patient is a current non-smoker. Physical Exam: Orientation X3 Airway/Mallampati Score: III Mouth Opening Distance: 2.5 fingerwidths Neck ROM: full Teeth: normal Abdomen Exam: obese and soft Review of Systems: History of anesthetic complications: Yes Sleep Apnea Risk: Yes, Large neck circumference Malignant Hyperthermia: No PONV: Yes GERD: No Poor Exercise Tolerance: No Recent Chest Pain: No Shortness of Breath: No AICD/Pacemaker: No Renal Disease: No Diagnostic Tests: Lab(s) reviewed: Yes. ANESTHESIA PLAN ASA Score: 3 NPO Status: No solids since midnight and No liquids within 2 hours Anesthesia Plan: MAC Planned Induction: intravenous Planned Postop Destination: endo Anesthetic plan was discussed with: patient Anesthetic Plan discussion was: Consented BMI, Height, Weight Tobacco History Estimated body [...] Medication Sig Last Dose ??? albuterol HFA albuterol sulfate HFA 90 mcg/actuation aerosol inhaler Past Month ??? amLODIPine amlodipine 5 mg tablet TAKE 1 TABLET BY MOUTH EVERY MORNING 04/13/2023 ??? baclofen baclofen 10 mg tablet TAKE 1 TABLET BY MOUTH TWICE DAILY NEEDED Past Month ??? cetirizine cetirizine 10 mg tablet TAKE 1 TABLET BY MOUTH EVERY NIGHT AT BEDTIME 04/13/2023 ??? doxazosin doxazosin 2 mg tablet TAKE 1 TABLET BY MOUTH EVERY DAY AT BEDTIME 04/13/2023 ??? DULoxetine Take 1 (one) capsule by mouth once daily 04/13/2023 ??? fluticasone propionate fluticasone propionate 50 mcg/actuation nasal spray,suspension SHAKE LIQUID AND USE 1 SPRAY IN EACH NOSTRIL EVERY DAY Past Week ??? hydroCHLOROthiazide hydrochlorothiazide 12.5 mg tablet TAKE 1 TABLET BY MOUTH EVERY MORNING 04/13/2023 ??? metoprolol succinate XL 24hr metoprolol succinate ER 25 mg tablet,extended release 24 hr TAKE 1 TABLET BY MOUTH EVERY DAY IN THE MORNING 04/13/2023 ??? omeprazole Take 1 (one) capsule by mouth once daily 04/13/2023 ??? sodium chloride Deep Sea Nasal 0.65 % spray aerosol SPRAY 2 SPRAYS FIVE TIMES DAILY INTO EACH NOSTRIL Past Week Current Facility-Administered Medications Medication Dose Last Admin ??? 0.9% NaCl 3 mL Allergies: No Known Allergies Relevant Problems No relevant active problems Problem List: There are no problems to display for this patient. Medical History: Past Medical History: Diagnosis Date ??? Anxiety and depression ??? Depression ??? Environmental allergies ??? GERD (gastroesophageal reflux disease) ??? Hypertension ??? Mild intermittent asthma, uncomplicated ??? Morbid obesity due to excess calories ([facility]/HCC) Surgical History: Past Surgical History: Procedure Laterality Date ??? ADJUSTABLE GASTRIC BAND, LAP PLACEMENT ??? Breast Reduction Bilateral ??? Section x3 ??? Cholecystectomy, Laparoscopic ??? Hysterectomy SPRINKLER HELPER Status: No LMP recorded. Patient has had a hysterectomy. Hysterectomy OB History No obstetric history on file. Covid Vaccine: Lab Results: No results found for requested labs within last 120 days. No results found for requested labs within last 120 days. documented in this encounter Miscellaneous Notes * Anesthesia Transfer of Care - Jc Olson, TANK ERECTOR-FRONT OFFICE SPEC - 04/14/2023 9:11 AM CDT ANESTHESIA TRANSFER OF CARE NOTE Today's Date: 04/14/2023 Date of : 1965 Patient: Nevin Deshpande Procedure(s): ESOPHAGOGASTRODUODENOSCOPY (EGD) DIAGNOSTIC Surgeon(s): Primary: Steffen Choi MD Preop Diagnosis: * No Diagnosis Codes entered * Pre-op Meds (From admission, onward) Start Stop Status Route Frequency Ordered 04/14/23 08 0.9% NaCl injection 3 mL -- Dispensed IK PRE-PROCEDURE MULTIPLE 04/14/23 0802 04/14/23 0945 dextrose 5 % and 0.45 % NaCl with KCl 20 mEq infusion -- Sent IV CONTINUOUS 04/14/23 0911 04/14/23 0945 heparin injection 5,000 Units -- Sent SC 2 TIMES DAILY 04/14/23 0911 04/14/23 0910 ondansetron (Zofran) injection 4 mg -- Sent IV EVERY 6 HOURS PRN 04/14/23 0911 04/14/23 0910 oxyCODONE (Roxicodone) oral solution 5 mg -- Sent PO EVERY 4 HOURS PRN 04/14/23 0911 04/14/23 0945 pantoprazole (Protonix) injection 40 mg -- Sent IV DAILY 04/14/23910 * No Diagnosis Codes entered * . No Known Allergies Vitals: Patient Vitals for the past 3 hrs: BP Temp Pulse Resp SpO2 Pain Rating Score #1 04/14/2306 -- -- -- -- 95 % -- 04/14/23 0905 134/96 -- -- -- -- -- 04/14/23 0904 -- -- -- -- 100 % -- 04/14/23 0901 121/86 -- -- -- -- -- 04/14/23 0859 -- -- -- -- 100 % -- 04/14/23 0855 146/88 -- -- -- -- -- 04/14/23 0812 153/70 98.1 ??F (36.7 ??C) 76 18 98 % 0 Lines, Drains, and Airways Type Details Placement Removal Peripheral IV Date: 04/14/23; Time: 819; Orientation: Right; Location: Antecubital; Placed By: AT RN; Gauge: 22 Gauge 04/14/23819 by Neto Avina RN Intraprocedure I/O Totals Intake propofol (DIPRIVAN) injection 10mg/ml (ENDO USE) 15.00 mL 0.9% NaCl infusion 200.00 mL Total Intake 215 mL Patient Transfer Location: Endo Recovery Transport Airway: spontaneous respirations Complications: None Handoff Given? Yes [...] of report from the receiving PACUteam. AUDREY Dueñas documented in this encounter Plan of Treatment Not on file documented as of this encounter Visit Diagnoses Not on filedocumented in this encounter Administered Medications Inactive Administered Medications - up to 3 most recent administrations Medication Order MAR Action Action Date Dose Rate Site 0.9% NaCl infusion Intravenous, CONTINUOUS PRN, Starting on Fri04/14/23 at 0855, Until Fri04/14/23 at 0911, Anesthesia Intra-op $ New Bag/Syringe 04/14/2023 8:55 AM CDT lidocaine PF (Xylocaine MPF) 1 % injection Intravenous, PRN, Starting on Fri04/14/23 at 0901, Until Fri04/14/23 at 0911, Anesthesia Intra-op $ Given 04/14/2023 9:01 AM CDT 100 mg propofol (Diprivan) injection Intravenous, CONTINUOUS PRN, Starting on Fri04/14/23 at 0901, Until Fri04/14/23 at 0911, Anesthesia Intra-op $ New Bag/Syringe 04/14/2023 9:01 AM CDT documented in this encounter Care Teams Driver Salesman Relationship Specialty Start Date End Date Rhianna Cowan MD [address] [place] [address] PCP - General Internal Medicine 11/12/16 documented as of this encounter
--- OUTSIDE RECORDS SUMMARY | 2024-10-07 04:05 | XMS_ITS | Encounter Summary ---
Author Organization [facility] Address [address] [place] [address] Care Team Providers Care Director Validation Name Role Phone Rhianna Cowan MD Primary Care Provider [phone] Encounter Details Date Type Department Care Team (Late Contact Info) Description 07/31/2020 10:00 AM CDT Video Visit [facility] [address] [place] [address] Roge Gipson DO [address] [place] [address] H/O laparoscopic adjustable gastric banding ; Morbid obesity (HCC); Preop examination Social History Tobacco Use Types Packs/Day Years Used Date Smoking Tobacco: Never Smokeless Tobacco: Never Sex and Gender Information Value Date Recorded Sex Assigned at Not on file Gender Identity Not on file Sexual Orientation Not on file documented as of this encounter H&P Notes * Roge Gipson DO - 07/31/2020 10:15 AM CDT Today's visit was conducted virtually due to COVID-19 countermeasures. The patient has given verbalconsent to have today's visit conducted by this same means with treatment provided remotely. The patient verbally consents to the billing and collection practices of the provider's medical group. Patient location: Home This encounter was performed using: audio and video Total time spent on visit on date of encounter is: 45 minutes with 30 minutes spent in medical discussion [facility] HISTORY & PHYSICAL Chief Complaint: Morbid Obesity HPI: Pt is a 54 year old year old female with a hx of morbid obesity who presents for surgical tx for lap band removal. Lap band placed 5 years ago at [facility]. Unsure about how much fluid is in the band. Lost about 30-40 pounds but has gained most of that back. She is also interested in conversion to either the sleeve gastrectomy or gastric bypass following her band removal. She reports issues with food feeling like it's getting stuck while eating and GERD symptoms. She was told several years ago that the band wasn't positioned appropriately. Current Weight: Wt Readings from Last 3 Encounters: 08/02/19 240 lb (108.9 kg) 03/23/18 240 lb (108.9 kg) 12/15/17 230 lb (104.3 kg) Height: BMI: There is no height or weight on file to calculate BMI. Medical: no new medical changes Past Medical History: Diagnosis Date ??? Anxiety and depression ??? Environmental allergies ??? Hypertension Past Surgical History: Procedure Laterality Date ??? ADJUSTABLE GASTRIC BAND, LAP PLACEMENT ??? Section x3 ??? Hysterectomy PATIENT MEDICAL HISTORY SCREENING: Morbid Obesity..................................Yes Diabetes............................................No Hypertension.....................................Yes Hypercholesterolemia.......................No Gastroesophageal reflux disease.....Yes Sleep apnea......................................No Thyroid problems...............................No Renal Disease...................................Yes Heart Disease.....................................No Dyspnea on exertion.........................No Multiple arthropathies........................Yes - back Depression/Anxiety........................................Yes Blood clots........................................No Anesthetic Complications.................No Has the patient had a positive history of MRSA No. Other................................................. None FAMILY HISTORY SCREENING: Significant for obesity....................... No Blood clots........................................ No Anesthetic Complications................. No Other................................................. none Current Outpatient Medications Medication ??? amLODIPine (NORVASC) 2.5 MG tablet ??? aspirin (ASPIRIN) 81 MG tablet ??? sertraline (ZOLOFT) 100 MG tablet ??? valsartan-hydroCHLOROthiazide (DIOVAN HCT) 320-12.5 MG tablet No current facility-administered medications for this visit. No Known Allergies Social History Smoking status: Never Smoker Smokeless tobacco: Never Used Alcohol use: Not on file Drug use: Not on file Sexual activity: Not on file No family history on file. All past medical, family, and social history was reviewed and updated today. Review of Systems: Constitutional: Denies recent significant weight loss HEENT: Denies headaches, vision or auditory changes Cardiovascular: Denies chest pain, orthopnea or palpitations Respiratory: Denies cough, hemoptysis. Oxygen dependent : No Gastrointestinal: no abdominal pain, no melena or hematemesis Genitourinary: denies hematuria, dysuria Musculoskeletal: denies muscle weakness Endocrine: no diabetes mellitus, no thyroid issues Allergic / Immuno: Normal Neuro / Psych: denies depression, SI/SA Skin: denies open wounds, skin infections Functional Health Status prior to surgery : Independent- The patient does not require assistance from another person for any ADLs.. Physical Examination: There were no vitals taken for this visit. Constitutional: well-developed, well-nourished, and in no distress. ENMT: pink, moist oral mucosa Head: Normocephalic and atraumatic. Eyes: EOM are normal. No scleral icterus. Neck: No tracheal deviation present. Chest: stable on RA Abdomen: well healed scars on abdomen, port in left abdominal wall. Musculoskeletal: Normal movement Neurological: Alert and oriented. Gross motor intact. Skin: No visible erythema. Psychiatric: Mood and affect normal. No results for input(s): SODIUM, POTASSIUM, CHLORIDE, CO2, BUN, CREATININE, GLUCOSE, CALCIUM in thelast 04125 hours. No results for input(s): WBC, HGB, HCT, PLTCOUNT in the last 24501 hours. Risk / Benefits: Risks and benefits were reviewed with patient including but not limited to , blood clots of the extremities or the lungs, enteral leaks, hemorrhage, damage to organs, infections, non guaranteed weight loss results among others. There are also risks of vitamin deficiencies that can generate vitamin deficiency symptoms. There are also risks of additional procedures or operations in the perioperative and fci periods. Questions were answered. Covid Discussion: Because the nature of the virus is not yet completely understood, the risks associated with COVID-19 infections have not been fully identified and there may be additional risks which are not known atthis time. In addition, the impact of COVID-19 infections on the known risks associated with the donell atment/procedure/surgery have not been identified and there may be additional or increased risks associated with the treatment/procedure/surgery that are not known at this time. Risks of surgery during COVID19 pandemic was discussed. Discussed that testing would be done prior to operation. Questions were answered. Bariatric Surgery Patient Education: The patient was informed of other factors that are necessary to achieve weight loss in addition to surgery. Specifically, the patient was informed of the different surgical procedures, including the duodenal switch, the kelly y gastric bypass, the sleeve gastrectomy and the adjustable gastric band. It was explained that bariatric surgery is part of the overall weight loss program which includes a low calorie nutritional program with nutritional and vitamin supplementation, a frequent and consistent exercise program and a social support program or network. The patient will experience successfuland fci weight loss when these components along with bariatric surgery are followed. The patient has had or will have the above discussions with multiple program team members includingsurgeon, want ad receiver, bariatric nurse and mental health radar technician. Impression: Morbid obesity with above listed comorbidities. Multiple failed diet attempts and s/p lap band placement. Plan: Based on discussion with the patient and consideration of the patients medical history and diagnosis of morbid obesity the patient is an appropriate candidate for bariatric surgery. Recommendation isfor: Laparoscopic removal of lap band and all components Pre-op Plan: Liquid Protein Diet: No for No Weeks Rubberizing Mechanic: Yes Additional Testing: Yes GI: hx of GERD, morbid obesity with increased risk of silent heartburn and hiatal hernia -EGD: ordered -UGI: ordered CV: hx of HTN -Cardiology clearance via PCP, EKG Pulmonary: no issues Renal: No issues Endocrine: no issues Heme: no family hx of DVT / PE, no personal hx of DVT/PE, no increase VTE risk -Standard post operative anticoagulation Other: none Psych/Social: -Pt has no history of drug use, alcohol use for greater than one year or treatment for alcohol or drug use for greater than one year -Pt has not smoked for at least 6 weeks -Pt cleared by behavioral health professional: No Preoperative Labs: CBC, CMP, B1, B12 Preoperative weight loss: No Weight check at Class: Yes Comments: Hospitalist Consult: Yes Schedule: anytime Location: [facility] Robotic: No Standard incision, surgical unit, no [place], observational stay Roge Gipson DO [facility] General and Bariatric Surgery Office: [phone] Exchange: [phone] 07/31/2020 10:15 AM documented in this encounter Plan of Treatment Not on file documented as of this encounter Visit Diagnoses Diagnosis H/O laparoscopic adjustable gastric banding- Primary Bariatric surgery status Morbid obesity (HCC) Morbid obesity Preop examination Preoperative examination, unspecified documented in this encounter Care Teams Director Validation Relationship Specialty Start Date End Date Rhianna Cowan MD [address] [place] [address] PCP - General Internal Medicine 11/12/16 documented as of this encounter
--- OUTSIDE RECORDS SUMMARY | 2024-10-07 04:05 | XMS_ITS | Encounter Summary ---
Author Organization [facility] Address [address] [place] [address] Care Team Providers Care Director Data Name Role Phone Rhianna Cowan MD Primary Care Provider [phone] Reason for Visit * Reason Onset Date Comments Surgery Scheduling 09/04/2020 EGD Encounter Details Date Type Department Care Team (Late st Contact Info) Description 09/04/2020 Telephone [facility] [address] [place] [address] Kaitlynn Jasso Surgery Scheduling (EGD) Social History Tobacco Use Types Packs/Day Years Used Date Smoking Tobacco: Never Smokeless Tobacco: Never Sex and Gender Information Value Date Recorded Sex Assigned at Not on file Gender Identity Not on file Sexual Orientation Not on file documented as of this encounter Miscellaneous Notes * Telephone Encounter - Kaitlynn Jasso MA - 09/07/2020 10:26 AM CST 3rd attempt Left message for patient to return call to schedule for EGD with Dr. Gipson. This is needed prior to obtaining prior auth and proceeding with Lap Gastric Band Removal. [employer] message and email via [email or web address] sent. E RUNNER * Telephone Encounter - Kaitlynn Jasso MA - 09/05/2020 9:30 AM CST 2nd attempt to schedule EGD Left message for patient to return my call to schedule EGD with Dr. Gipson. [employer] message and email sent via [employer]. E RUNNER * Telephone Encounter - Kaitlynn Jasso MA - 09/04/2020 11:46 AM CST Tried to call patient to schedule EGD with . Per automated system patient is not accepting calls at this time,unable to leave voicemail. [employer] message sent requesting patient to return my call. E RUNNER documented in this encounter Plan of Treatment Not on file documented as of this encounter Visit Diagnoses Not on filedocumented in this encounter Care Teams Director Data Relationship Specialty Start Date End Date Rhianna Cowan MD [address] [place] [address] PCP - General Internal Medicine 11/12/16 documented as of this encounter
--- OUTSIDE RECORDS SUMMARY | 2024-10-07 04:05 | XMS_ITS | Encounter Summary ---
Author Organization [facility] Address [address] [place] [address] Care Team Providers Care Testing Tech Name Role Phone Rhianna Cowan MD Primary Care Provider [phone] Reason for Visit * Reason Comments Refill Request Encounter Details Date Type Department Care Team (Late Contact Info) Description 11/01/2018 Refill [facility] [employer] [facility] [address] [place] [address] Yaneli Eden, FEED GRINDER-POLICE DEPARTMENT SECRETARY [address] [place] [address] Refill Request Social History Tobacco Use Types Packs/Day Years Used Date Smoking Tobacco: Never Smokeless Tobacco: Never Sex and Gender Information Value Date Recorded Sex Assigned at Not on file Gender Identity Not on file Sexual Orientation Not on file documented as of this encounter Plan of Treatment Not on file documented as of this encounter Visit Diagnoses Not on filedocumented in this encounter Care Teams Testing Tech Relationship Specialty Start Date End Date Rhianna Cowan MD [address] [place] [address] PCP - General Internal Medicine 11/12/16 documented as of this encounter
--- OUTSIDE RECORDS SUMMARY | 2024-10-07 04:05 | XMS_ITS | Encounter Summary ---
Author Organization [facility] Address [address] [place] [address] Care Team Providers Care Pottery Decorator Name Role Phone Rhianna Cowan MD Primary Care Provider [phone] Reason for Visit * Reason Comments Sinusitis Encounter Details Date Type Department Care Team (Late Contact Info) Description 11/12/2016 7:00 PM WATER RIGHTS SPECIALIST Office Visit [facility] AT [address] [address] Provider, Maik Exp Nameoki Acute maxillary sinusitis, recurrence not specified (Primary Dx) Social History Tobacco Use Types Packs/Day Years Used Date Smoking Tobacco: Never Assessed Sex and Gender Information Value Date Recorded Sex Assigned at Not on file Gender Identity Not on file Sexual Orientation Not on file documented as of this encounter Last Filed Vital Signs Vital Sign Reading Time Taken Comments Blood Pressure 116/84 11/12/2016 7:09 PM WATER RIGHTS SPECIALIST Pulse 99 11/12/2016 7:09 PM WATER RIGHTS SPECIALIST Temperature 36.6 ??C (97.8 ??F) 11/12/2016 7:09 PM CS T Respiratory Rate 18 11/12/2016 7:09 PM WATER RIGHTS SPECIALIST Oxygen Saturation - - Inhaled Oxygen Concentration - - Weight 102.5 kg (226 lb) 11/12/2016 7:09 PM WATER RIGHTS SPECIALIST Height 157.5 cm (5' 2 ) 11/12/2016 7:09 PM WATER RIGHTS SPECIALIST Body Mass Index 41.34 11/12/2016 7:09 PM WATER RIGHTS SPECIALIST documented in this encounter Patient Instructions * Patient Instructions* Spring Amaral, AMRITA-SOLUTION DESIGN AND ANALYSIS MANAGER - 11/12/2016 7:17 PM WATER RIGHTS SPECIALIST Use Flonase per package instructions, Saline nasal mist to prevent nasal drying Tylenol or Motrin as needed Claritin or Zyrtec per package instructions Cool Mist humidifier as needed If no improvement in 48-72 hours follow up with PCP or return to clinic Sinusitis PATIENT SERVICES COORDINATOR: Sinusitis is inflammation or infection of your sinuses. It is most often caused by a virus. Acute sinusitis may last up to 12 weeks. Chronic sinusitis lasts longer than 12 weeks. Recurrent sinusitis is when you have 3 or more episodes of sinusitis in 1 year. Common symptoms include the following: ?? Fever ?? Pain, pressure, redness, or swelling around the forehead, cheeks, or eyes ?? Thick yellow or green discharge from your nose ?? Tenderness when you touch your face over your sinuses ?? Dry cough that happens mostly at night or when you lie down ?? Headache and face pain that is worse when you lean forward ?? Teeth pain or pain when you chew Seek care immediately if: ?? Your eye and eyelid are red, swollen, and painful. ?? You cannot open your eye. ?? You have vision changes, such as double vision. ?? Your eyeball bulges out or you cannot move your eye. ?? You are more sleepy than normal, or you notice changes in your ability to think, move, or talk. ?? You have a stiff neck, a fever, or a bad headache. ?? You have swelling of your forehead or scalp. Contact your healthcare provider if: ?? Your symptoms get worse after 5 to 7 days. ?? Your symptoms do not go away after 10 days. ?? You have nausea and vomiting. ?? Your nose is bleeding. ?? You have questions or concerns about your condition or care. Treatment for sinusitis may include any of the following: ?? Acetaminophen decreases pain and fever. It is available without a doctor's order. Ask how much to take and how often to take it. Follow directions. Acetaminophen can cause liver damage if not taken correctly. ?? NSAIDs , such as ibuprofen, help decrease swelling, pain, and fever. This medicine is available with or without a doctor's order. NSAIDs can cause stomach bleeding or kidney problems in certain people. If you take blood thinner medicine, always ask if NSAIDs are safe for you. Always read the medicine label and follow directions. Do not give these medicines to children under 6 months of age without direction from your child's healthcare provider. ?? Nasal steroid sprays may help decrease inflammation in your nose and sinuses. ?? Decongestants help reduce swelling and drain mucus in the nose and sinuses. They may help you breathe easier. ?? Antihistamines help dry mucus in the nose and relieve sneezing. ?? Take your medicine as directed. Contact your healthcare provider if you think your medicine is not helping or if you have side effects. Tell him or her if you are allergic to any medicine. Keep a list of the medicines, vitamins, and herbs you take. Include the amounts, and when and why you take them. Bring the list or the pill bottles to follow-up visits. Carry your medicine list with you in case of an emergency. Self-care: ?? Rinse your sinuses. Use a sinus rinse device to rinse your nasal passages with a saline (salt water) solution. This will help thin the mucus in your nose and rinse away pollen and dirt. It will also help reduce swelling so you can breathe normally. Ask your healthcare provider how often to do this. ?? Breathe in steam. Heat a bowl of water until you see steam. Lean over the bowl and make a tent over your head with a large towel. Breathe deeply for about 20 minutes. Be careful not to get too close to the steam or burn yourself. Do this 3 times a day. You can also breathe deeply when you take ahot shower. ?? Sleep with your head elevated. Place an extra pillow under your head before you go to sleep to help your sinuses drain. ?? Drink liquids as directed. Ask your healthcare provider how much liquid to drink each day and which liquids are best for you. Liquids will thin the mucus in your nose and help it drain. Avoid drinks that contain alcohol or caffeine. ?? Do not smoke, and avoid secondhand smoke. Nicotine and other chemicals in cigarettes and cigars can make your symptoms worse. Ask your healthcare provider for information if you currently smoke and need help to quit. E-cigarettes or smokeless tobacco still contain nicotine. Talk to your healthcare provider before you use these products. Prevent the spread of germs that cause sinusitis: Wash your hands often with soap and water. Wash your hands after you use the bathroom, change a child's diaper, or sneeze. Wash your hands before youprepare or eat food. Follow up with your healthcare provider as directed: Write down your questions so you remember to ask them during your visits. ?? 2016 [employer]. Information is for End User's use only and may not be sold, redistributed or otherwise used for commercial purposes. All illustrations and images included in CareNotes?? are the copyrighted property of [employer] or [employer]. The above information is an lab aide only. It is not intended as medical advice for individual conditions or treatments. Talk to your doctor, nurse or pharmacist before following any medical regimen to see if it is safe and effective for you. R RIGHTS SPECIALIST documented in this encounter Progress Notes * Spring Amaral APRN-CNP - 11/12/2016 7:09 PM CST [facility] Chief Complaint Patient presents with ??? Sinusitis SUBJECTIVE: General The history is provided by the patient. This is a new problem. The current episode started more than 1 week ago. The problem occurs constantly. The problem has been gradually worsening. Associated symptoms include shortness of breath. Pertinent negatives include no headaches. Treatments tried: flonase and benadryl. 51 y/o female c/o sinus congestion and SOB x 1 week. Hot and cold spells symptoms got better but worse again. No past medical history on file. No current outpatient prescriptions on file prior to visit. No current facility-administered medications on file prior to visit. No past surgical history on file. History Social History ??? Marital status: Spouse name: N/A ??? Number of children: N/A ??? Years of education: N/A Occupational History ??? Not on file. Social History Main Topics ??? Smoking status: Not on file ??? Smokeless tobacco: Not on file ??? Alcohol use: Not on file ??? Drug use: Not on file ??? Sexual activity: Not on file Other Topics Concern ??? Not on file Social History Narrative No family history on file. No current outpatient prescriptions on file. No current facility-administered medications for this visit. Allergies not on file REVIEW OF SYSTEMS: Review of Systems Constitutional: Negative for chills and fever. Hot and cold spells HENT: Positive for congestion. Negative for ear discharge, ear pain and sore throat. Sinus pressure, pressure when leaning forward Respiratory: Positive for shortness of breath and wheezing. Negative for cough. Infrequent cough Gastrointestinal: Negative for diarrhea, nausea and vomiting. Neurological: Negative for headaches. OBJECTIVE: General appearance: alert, well appearing, and in no distress. BP 116/84 Pulse 99 Temp 97.8 ??F (Oral) Resp 18 Ht 1.575 m (5' 2 ) Wt 102.5 kg (226 lb) BMI 41.34 kg/m2 Physical Exam Constitutional: She is oriented to person, place, and time and well-developed, well-nourished, and in no distress. HENT: Head: Normocephalic and atraumatic. Bilateral erythema turbinates maxillary sinus tenderness Neck: Normal range of motion. Neck supple. Cardiovascular: Normal rate and regular rhythm. Pulmonary/Chest: Effort normal and breath sounds normal. Neurological: She is alert and oriented to person, place, and time. Vitals reviewed. ASSESSMENT: No results found for this visit on 11/12/16. No diagnosis found. PLAN: Use Flonase per package instructions, Saline nasal mist to prevent nasal drying Tylenol or Motrin as needed Claritin or Zyrtec per package instructions Cool Mist humidifier as needed If no improvement in 48-72 hours follow up with PCP or return to clinic R RIGHTS SPECIALIST documented in this encounter Plan of Treatment Not on file documented as of this encounter Visit Diagnoses Diagnosis Acute maxillary sinusitis, recurrence not specified- Primary documented in this encounter Care Teams Pottery Decorator Relationship Specialty Start Date End Date Rhianna Cowan MD [address] [address] PCP - General Internal Medicine 11/12/16 documented as of this encounter
--- OUTSIDE RECORDS SUMMARY | 2024-10-07 04:05 | XMS_ITS | Encounter Summary ---
Author Organization [facility] Address [address] [place] [address] Care Team Providers Care Audience Development Manager Name Role Phone Rhianna Cowan MD Primary Care Provider [phone] Reason for Referral * Radiology Services (Routine) - Closed Specialty Diagnoses / Procedures Referred By Contac t Referred To Contact Diagnoses Morbid obesity (HCC) Gastric band slippage [place] [address] [facility] [address] [place] [address] Referral ID Status Reason Start Date Expiration Date Visits Re quested Visits Authorized [id number] Closed 02/13/2023 02/13/2024 1 1 Reason for Visit * Radiology Services (Routine) - Closed Specialty Diagnoses / Procedures Referred By Contgrazyna scott Referred To Contact Diagnoses Morbid obesity (HCC) Gastric band slippage [place] [address] [facility] [address] [place] [address] Referral ID Status Reason Start Date Expiration Date Visits Re quested Visits Authorized [id number] Closed 02/13/2023 02/13/2024 1 1 Encounter Details Date Type Department Care Team (Latest Contact Info) Description 03/10/2023 11:00 AM CDT - 03/10/2023 11:59 PM CDT Hospital Encounter [facility] Services - Radiology [address] [place] [address] [place] [address] [facility] [address] [place] [address] Discharge Disposition: Home or Self Care Social [...] suspected to have Coronavirus/COVID-19? No / Unsure 02/13/2023 12:56 PM CDT documented as of this encounter Medications at Time of Discharge [...] once daily as needed for Allergies 12/26/2022 clotrimazole-betametha sone (Lotrisone) 1-0.05 % cream Apply to affected [...] fluticasone propionate (Flonase) 50 MCG/ACT nasal spray Salem 2 (two) sprays into each nostril once [...] for Heartburn sodium chloride (Deep Sea Nasal Salem) 0.65 % nasal spray Salem 2 (two) sprays into each nostril as needed for Dry Nose 12/26/2022 amLODIPine (NORVASC) 2.5 MG tablet Take 1 (one) tablet by mouth once daily 04/14/2023 aspirin (ASPIRIN) 81 MG tablet Take 1 (one) tablet by mouth once daily 04/14/2023 semaglutide (Ozempic, 0.25 or 0.5 MG/DOSE,) 2 MG/1.5ML pen Inject 0.25 mg every week by subcutaneous route. 12/26/2022 04/14/2023 sertraline (ZOLOFT) 100 MG tablet Take 100 mg by mouth once daily 04/14/2023 topiramate (Topamax) 25 MG tablet Take 1 (one) tablet by mouth at bedtime 04/14/2023 documented as of this encounter Plan of Treatment Not on file documented as of this encounter Procedures Procedure Name Priority Date/Time Associated Diagnosis Comments FL UGI SERIES Routine 03/10/2023 12:13 PM CDT Morbid obesity (HCC) Gastric band slippage documented in this encounter Results * FL UGI SERIES (03/10/2023 12:13 PM CDT) Anatomical Region Laterality Modality Abdomen Radiographic Josie ging 03/10/2023 12:5 6 PM CDT Impressions 03/10/2023 1:14 PM CDT IMPRESSION: Persistent contrast seen within stomach 8 minutes post ingestion of contrast. Delayed gastric emptying could look similar. Edited by Malinda Moore on 03/10/2023 1:00 PM > Interpreting Provider: Alton Hager MD on 03/10/2023 1:14 PM Narrative 03/10/2023 1:14 PM CDT PROCEDURE: ??FL UGI SERIES DATE/TIME OF EXAM: ??03/10/2023 12:23 PM CLINICAL INFORMATION: None relevant/not provided if blank. 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 TECHNIQUE: Water-soluble contrast was taken by mouth. 83 seconds of fluoroscopy was used. FINDINGS: Normal deglutition is demonstrated. There is no obstruction to flow of contrast through the esophagus and into the stomach. No gross stenosis or extravasation is seen. 8 minutes following ingestion of the contrast, contrast was still seen within the stomach. This could represent delayed gastric emptying. FLUOROSCOPY DOSE: ??6.47 mGy Reference air kerma (ka,r). Procedure Note Alton Hager MD - 03/10/2023 PROCEDURE: FL UGI SERIES DATE/TIME OF EXAM: 03/10/2023 12:23 PM CLINICAL INFORMATION: None relevant/not provided if blank. Indication: E66.01: Morbid (severe) obesity due to excess calories (CMS/HCC) K95.09: Other complications of gastric band procedure Additional History: COMPARISON: None. TECHNIQUE: Water-soluble contrast was taken by mouth. 83 seconds of fluoroscopy was used. FINDINGS: Normal deglutition is demonstrated. There is no obstruction to flow of contrast through the esophagus and into the stomach. No gross stenosisor extravasation is seen. 8 minutes following ingestion of the contrast, contrast was still seen within the stomach. This could represent delayed gastric emptying. FLUOROSCOPY DOSE: 6.47 mGy Reference air kerma (ka,r). IMPRESSION: Persistent contrast seen within stomach 8 minutes post ingestion of contrast. Delayed gastric emptying could look similar. Edited by Malinda Moore on 03/10/2023 1:00 PM > Interpreting Provider: Alton Hager MD on 03/10/2023 1:14 PM Steffen Choi MD FLUOROSCOPY ORDERABL ES documented in this encounter Visit Diagnoses Diagnosis Morbid obesity (HCC) Morbid obesity Gastric band slippage documented in this encounter Care Teams Audience Development Manager Relationship Specialty Start Date End Date Rhianna Cowan MD [address] [facility] [address] [facility] [address] [place] [address] PCP - General Internal Medicine 11/12/16 documented as of this encounter
--- OUTSIDE RECORDS SUMMARY | 2024-10-07 04:05 | XMS_ITS | Encounter Summary ---
Author Organization [facility] Address [address] [place] [address] Care Team Providers Care Route Sales Person Name Role Phone Unknown, Provider Primary Care Provider Francisca schmidt Encounter Details Date Type Department Care Team (Latest Contact Info) Description 08/29/2008 12:01 AM PRINT LINE SUPERVISOR - 08/29/2008 11:59 PM PRINT LINE SUPERVISOR Hospital Encounter [facility] Default [address] [place] [address] [place] [address] [place] [id number] Diagnostic Discharge Disposition: Home or Self Care Social [...] on filedocumented in this encounter Care Teams Route Sales Person Relationship Specialty Start Date End Date Unknown, Provider PCP - General 08/28/08 02/22/14 documented as of this encounter
--- OUTSIDE RECORDS SUMMARY | 2024-10-07 04:05 | XMS_ITS | Encounter Summary ---
Author Organization [facility] Address [address] [place] [address] Care Team Providers Care Vacuum Extractor Operator Name Role Phone Rhianna Cowan MD Primary Care Provider [phone] Reason for Visit * Reason Onset Date Comments Appointment 07/31/2020 Encounter Details Date Type Department Care Team (Late st Contact Info) Description 07/31/2020 Telephone [facility] [employer] [facility] [address] [facility] [address], [address] [place] [address] Roge Gipson, DO [address] [address] Appointment Social History Tobacco Use Types Packs/Day Years Used Date Smoking Tobacco: Never Smokeless Tobacco: Never Sex and Gender Information Value Date Recorded Sex Assigned at Not on file Gender Identity Not on file Sexual Orientation Not on file documented as of this encounter Miscellaneous Notes * Telephone Encounter - Aguilar Alberto - 07/31/2020 9:40 AM CDT Called patient to begin rooming documented in this encounter Plan of Treatment Not on file documented as of this encounter Visit Diagnoses Not on filedocumented in this encounter Care Teams Vacuum Extractor Operator Relationship Specialty Start Date End Date Rhianna Cowan MD [address] [place] [address] [address] [place] [address] PCP - General Internal Medicine 11/12/16 documented as of this encounter
--- OUTSIDE RECORDS SUMMARY | 2024-10-07 04:05 | XMS_ITS | Encounter Summary ---
Author Organization [facility] Address [address] [place] [address] Care Team Providers Care Sports Development Officer Name Role Phone Rhianna Cowan MD Primary Care Provider [phone] Reason for Visit * Reason Onset Date Comments Medication Issue 03/26/2018 Encounter Details Date Type Department Care Team (Late st Contact Info) Description 03/26/2018 Telephone [facility] [employer] [facility] [address] [place] [address] Provider, Maik Exp Nameoki Medication Issue Social History Tobacco Use Types Packs/Day Years Used Date Smoking Tobacco: Never Smokeless Tobacco: Never Sex and Gender Information Value Date Recorded Sex Assigned at Not on file Gender Identity Not on file Sexual Orientation Not on file documented as of this encounter Miscellaneous Notes * Telephone Encounter - Janice Soliman APRN-CNP - 03/26/2018 3:28 PM CDT Spoke with patient, states the redness and itching of the left eye is not any better, and now the right eye is red and itching. States she does not feel like the Polytrim is working. Informed patientthat it could be viral or allergy related, and if so, the antibiotic drops would not help, but I recommended that she follow-up with her eye dr (patient states she does have an eye doctor she sees) to be reevaluated to make sure nothing else is going on. Patient verbalized understanding. * Telephone Encounter - Yessica Benjamin - 03/26/2018 3:18 PM CDT Who is calling? pt What is the reason for call? Pt was seen on . She stated that the pink eye is not any better and is now in both eyes. She would something else prescribed to take care of this. Expected Response from the Clinic? Call back documented in this encounter Plan of Treatment Not on file documented as of this encounter Visit Diagnoses Not on filedocumented in this encounter Care Teams Sports Development Officer Relationship Specialty Start Date End Date Rhianna Cowan MD [address] [place] [address] [address] [place] [address] PCP - General Internal Medicine 11/12/16 documented as of this encounter
--- OUTSIDE RECORDS SUMMARY | 2024-10-07 04:05 | XMS_ITS | Encounter Summary ---
Author Organization [facility] Address [address] [place] [address] Care Team Providers Care Linux Kernel Engineer Name Role Phone Rhianna Cowan MD Primary Care Provider [phone] Reason for Visit * Reason Comments Congestion Encounter Details Date Type Department Care Team (Latest Contact Info) Description 08/02/2019 10:40 AM CDT Office Visit [facility] AT [address] [address] Provider, Maik Exp Nameili Acute bacterial conjunctivitis of both eyes (Primary Dx) Social History Tobacco Use Types Packs/Day Years Used Date Smoking Tobacco: Never Smokeless Tobacco: Never Sex and Gender Information Value Date Recorded Sex Assigned at Not on file Gender Identity Not on file Sexual Orientation Not on file documented as of this encounter Last Filed Vital Signs Vital Sign Reading Time Taken Comments Blood Pressure 118/76 08/02/2019 10:49 AM CDT Pulse 68 08/02/2019 10:49 AM CDT Temperature 36.5 ??C (97.7 ??F) 08/02/2019 10:49 AM C DT Respiratory Rate 16 08/02/2019 10:49 AM CDT Oxygen Saturation 100% 08/02/2019 10:49 AM CDT Inhaled Oxygen Concentration - - Weight 108.9 kg (240 lb) 08/02/2019 10:49 AM CDT Height 160 cm (5' 3 ) 08/02/2019 10:49 AM CDT Body Mass Index 42.51 08/02/2019 10:49 AM CDT documented in this encounter Patient Instructions * Patient Instructions* Hope Ghosh, MECHANICAL DEVELOPMENT ENGINEER-MICROPHONE OPERATOR - 08/02/2019 11:02 AM CDT -Keep hands clean and away from eyes. -Contagious precautions -May use warm compress to eye for comfort Conjunctivitis - How to use eye drops You must be on antibiotic eye drops for at least 24 hours before returning to work or school ??? Tilt your head back. With one finger gently pull down on one lower eyelid ??? Drop the prescribed number of drops into one eye. DO NOT BLINK. Repeat for the other eye. ??? Then close both eyes WITHOUT BLINKING and block your tear ducts by using your fingers to put mild pressure on your tear ducts (where your eyes meet your nose). Stay in this position for 1-2 minutes to bathe your eyes in the medication. ??? Repeat according to the instructions on your prescription. -Follow up with Rhianna Cowan MD if symptoms worsen or do not completley resolve Seek immediate treatment from ER or general education instructor if any vision changes occur, including, but notlimited to, pain, spots before eyes, decreased visual acuity, sensitivity to light, or any other visual changes. Patient Education Conjunctivitis WATCH CRYSTAL EDGE GRINDER: Conjunctivitis, or pink eye, is inflammation of your conjunctiva. The conjunctiva is a thin tissue that covers the front of your eye and the back of your eyelids. The conjunctiva helps protect your eye and keep it moist. Conjunctivitis may be caused by bacteria, allergies, or a virus. If your conjun ctivitis is caused by bacteria, it may get better on its own in about 7 days. Viral conjunctivitis can last up to 3 weeks. Common symptoms may include any of the following: You will usually have symptoms in both eyes if your conjunctivitis is caused by allergies. You may also have other allergic symptoms, such as a rash or runny nose. Symptoms will usually start in 1 eye if your conjunctivitis is caused by a virus or bacteria. ?? Redness in the whites of your eye ?? Itching in your eye or around your eye ?? Feeling like there is something in your eye ?? Watery or thick, sticky discharge ?? Crusty eyelids when you wake up in the morning ?? Burning, stinging, or swelling in your eye ?? Pain when you see bright light Seek care immediately if: ?? You have worsening eye pain. ?? The swelling in your eye gets worse, even after treatment. ?? Your vision suddenly becomes worse or you cannot see at all. Contact your healthcare provider if: ?? You develop a fever and ear pain. ?? You have tiny bumps or spots of blood on your eye. ?? You have questions or concerns about your condition or care. Treatment will depend on the cause of your conjunctivitis. You may need antibiotics or allergy medicine as a pill, eye drop, or eye ointment. Manage your symptoms: ?? Apply a cool compress. Wet a washcloth with cold water and place it on your eye. This will help decrease itching and irritation. ?? Do not wear contact lenses. They can irritate your eye. Throw away the pair you are using and ask when you can wear them again. Use a new pair of lenses when your healthcare provider says it is okay. ?? Avoid irritants. Stay away from smoke filled areas. Shield your eyes from wind and sun. ?? Flush your eye. You may need to flush your eye with saline to help decrease your symptoms. Ask for more information on how to flush your eye. Medicines: Treatment depends on what is causing your conjunctivitis. You may be given any of the following: ?? Allergy medicine helps decrease itchy, red, swollen eyes caused by allergies. It may be given asa pill, eye drops, or nasal spray. ?? Antibiotics may be needed if your conjunctivitis is caused by bacteria. This medicine may be given as a pill, eye drops, or eye ointment. ?? Take your medicine as directed. Contact [...] with you in case of an emergency. Prevent the spread of conjunctivitis: ?? Wash your hands with soap and water often. Wash your hands before and after you touch your eyes.Also wash your hands before you prepare or eat food and after you use the bathroom or change a diaper. ?? Avoid allergens. Try to avoid the things that cause your allergies, such as pets, dust, or grass. ?? Avoid contact with others. Do not share towels or washcloths. Try to stay away from others as much as possible. Ask when you can return to work or school. ?? Throw away eye makeup. The bacteria that caused your conjunctivitis can stay in eye makeup. Throw away mascara and other eye makeup. ?? Copyright [employer] 2018 Information is for End User's use only and may not be sold, redistributed or otherwise used for commercial purposes. All illustrations and images included in CareNotes?? are the copyrighted property of [employer]. or [employer] The above information is an educational administrator only. It is not intended as medical advice for individual conditions or treatments. Talk to your doctor, nurse or pharmacist before following any medical regimen to see if it is safe and effective for you. documented in this encounter Progress Notes * Hope Ghosh APRN-CNP - 08/02/2019 10:49 AM CDT Images from the original note were not included. Subjective: Nevin Deshpande is a 53 year old female who is presents to the clinic today for Chief Complaint Patient presents with ??? Congestion Primary Care Physician is Rhianna Cowan MD. She has noticed foreign body sensation, discharge,erythema, itching starting in the right eye, now in bilateral eyes, for 1 week. Onset was acute. Patient denies pain, blurred vision, visual field deficit, photophobia. There is a history of contact lens use, trauma, exposure to chemicals, allergies, other family members with similar symptoms. Patient wears glasses. OTC- Mucinex with relief of symptoms. Sick Contacts: niece with cold. Patient states she has also had chest congestion, hoarseness, and sinus symptoms that have all improved. Past Medical History: Diagnosis Date ??? Anxiety and depression ??? Environmental allergies ??? Hypertension Past Surgical History: Procedure Laterality Date ??? ADJUSTABLE GASTRIC BAND, LAP PLACEMENT ??? Section x3 ??? Hysterectomy No family history on file. Social History Socioeconomic History ??? Marital status: Spouse name: Not on file ??? Number of children: Not on file ??? Years of education: Not on file ??? Highest education level: Not on file Occupational History ??? Not on file Social Needs ??? Financial resource strain: Not on file ??? Food insecurity: Worry: Not on file Inability: Not on file ??? Transportation needs: Medical: Not on file Non-medical: Not on file Tobacco Use ??? Smoking status: Never Smoker ??? Smokeless tobacco: Never Used Substance and Sexual Activity ??? Alcohol use: Not on file ??? Drug use: Not on file ??? Sexual activity: Not on file Lifestyle ??? Physical activity: Days per week: Not on file Minutes per session: Not on file ??? Stress: Not on file Relationships ??? Social connections: Talks on phone: Not on file Gets together: Not on file Attends mandaeism service: Not on file Active member of club or organization: Not on file Attends meetings of clubs or organizations: Not on file Relationship status: Not on file ??? Intimate partner violence: Fear of current or ex partner: Not on file Emotionally abused: Not on file Physically abused: Not on file Forced sexual activity: Not on file Other Topics Concern ??? Not on file Social History Narrative ??? Not on file No Known Allergies Current Outpatient Medications Medication Sig Dispense Refill ??? amLODIPine (NORVASC) 2.5 MG tablet Take 2.5 mg by mouth once daily ??? aspirin (ASPIRIN) 81 MG tablet Take 81 mg by mouth once daily ??? ciprofloxacin 0.3% (CILOXAN) 0.3 % ophthalmic solution Instill 2 drops into both eyes 3 times daily for 7 days Reasons: Bacterial Conjunctivitis 2.5 mL 0 ??? sertraline (ZOLOFT) 100 MG tablet Take 100 mg by mouth once daily ??? valsartan-hydroCHLOROthiazide (DIOVAN HCT) 320-12.5 MG tablet Take 1 tablet by mouth once daily No current facility-administered medications for this visit. Review of Systems Constitutional: Negative for fevers, chills. Eyes: Positive for purulent drainage and irritation bilaterally Ears, nose, mouth, and throat: Positive for nasal congestion, rhinorrhea, and bilateral ear pain- resolving Respiratory: Positive for acute cough-resolving Cardiovascular: Negative Hematologic/lymphatic: Negative Objective: BP 118/76 Pulse 68 Temp 97.7 ??F (36.5 ??C) Resp 16 Ht 1.6 m (5' 3 ) Wt 108.9 kg (240 lb) SpO2 100%BMI 42.51 kg/m2 Exam General appearance: alert, cooperative, no distress, oriented to person, place, and time, wellappearing Head: normocephalic, without trauma Eyes: Right Eye - eyelids/periorbital - normal, conjunctivae/corneas - mild injection, pupils - PERRLA, Left Eye - eyelids/periorbital - normal, conjunctivae/corneas - mild injection, pupils - PERRLA Ears: canals clear, tympanic membranes normal, hearing intact to voice Nose: nares open; no septal deviation is noted, nasal mucosa not inflamed Throat: no mucous membrane abnormalities Neck: supple Nodes: no cervical adenopathy Lungs: breath sounds normal and symmetric; no rales or wheezes Heart: regular rhythm, normal S1 and S2, without murmurs, gallops or rubs Assessment: Encounter Diagnosis Name Primary? Acute bacterial conjunctivitis of both eyes Yes Plan: -Keep hands clean and away from eyes. -Contagious precautions -May use warm compress to eye for comfort Conjunctivitis - How to use eye drops You must be on antibiotic eye drops for at least 24 hours before returning to work or school ??? Tilt your head back. With one finger, gently pull down on the lower eyelid ??? Drop the prescribed number of drops into eye. DO NOT BLINK. Repeat for the other eye. ??? Then close both eyes WITHOUT BLINKING and block your tear ducts by using your fingers to put mild pressure on your tear ducts (where your eyes meet your nose). Stay in this position for 1-2 minutes to bathe your eyes in the medication. ??? Repeat according to the instructions on your prescription. -Reviewed education materials and instructions with patient and answered all questions. -Nevin Deshpande verbalized understanding and agrees with plan. -Follow up with Rhianna Cowan MD if symptoms worsen or do not completley resolve Seek immediate treatment from ER or general education instructor if any vision changes occur, including, but notlimited to, pain, spots before eyes, decreased visual acuity, sensitivity to light, or any other visual changes. Orders Placed This Encounter ??? ciprofloxacin 0.3% (CILOXAN) 0.3 % ophthalmic solution Sig: Instill 2 drops into both eyes 3 times daily for 7 days Reasons: Bacterial Conjunctivitis Dispense: 2.5 mL Refill: 0 DIANA Phelps 08/02/2019 11:02 AM documented in this encounter Plan of Treatment Not on file documented as of this encounter Visit Diagnoses Diagnosis Acute bacterial conjunctivitis of both eyes- Primary documented in this encounter Care Teams Linux Kernel Engineer Relationship Specialty Start Date End Date Rhianna Cowan MD [address] [place] [address] [place] [phone] PCP - General Internal Medicine 11/12/16 documented as of this encounter
--- OUTSIDE RECORDS SUMMARY | 2024-10-07 04:05 | XMS_ITS | Encounter Summary ---
Author Organization [facility] Address [address] [place] [address] Care Team Providers Care Stencil Typist Name Role Phone Rhianna Cowan MD Primary Care Provider [phone] Encounter Details Date Type Department Care Team (Late st Contact Info) Description 02/13/2023 Orders Only [facility] [address], [address] [place] [address] [place] [address] [place] [address] Encounter for adjustment of gastric lap band Social History Tobacco Use Types Packs/Day Years [...] medical care, and heating? Somewhat hard 04/14/2023 [facility] - Occupational Stress [...] as of this encounter Visit Diagnoses Diagnosis Encounter for adjustment of gastric lap band- Primary Fitting and adjustment of gastric lap band documented in this encounter Care Teams Stencil Typist Relationship Specialty Start Date End Date Rhianna Cowan MD [address] [place] [address] PCP - General Internal Medicine 11/12/16 documented as of this encounter
--- OUTSIDE RECORDS SUMMARY | 2024-10-07 04:05 | XMS_ITS | Encounter Summary ---
Author Organization [facility] Address [address] [place] [address] Care Team Providers Care Health Information Administrator Name Role Phone Rhianna Cowan MD Primary Care Provider [phone] Reason for Visit * Reason Comments Sore Throat Encounter Details Date Type Department Care Team (Late Contact Info) Description 12/15/2017 5:20 PM CDT Office Visit [facility] AT [address] [address] Provider, Maik Exp Nameoki Strep throat (Primary Dx) Social History Tobacco Use Types Packs/Day Years Used Date Smoking Tobacco: Never Smokeless Tobacco: Never Sex and Gender Information Value Date Recorded Sex Assigned at Not on file Gender Identity Not on file Sexual Orientation Not on file documented as of this encounter Last Filed Vital Signs Vital Sign Reading Time Taken Comments Blood Pressure 162/94 12/15/2017 5:45 PM CDT Pulse 84 12/15/2017 5:45 PM CDT Temperature 36.5 ??C (97.7 ??F) 12/15/2017 5:45 PM CD T Respiratory Rate 16 12/15/2017 5:45 PM CDT Oxygen Saturation 96% 12/15/2017 5:45 PM CDT Inhaled Oxygen Concentration - - Weight 104.3 kg (230 lb) 12/15/2017 5:45 PM CDT Height 157.5 cm (5' 2 ) 12/15/2017 5:45 PM CDT Body Mass Index 42.07 12/15/2017 5:45 PM CDT documented in this encounter Patient Instructions * Patient Instructions* Yaneli Eden, WHITE GOODS APPLIANCE TECH-DIESEL PLANT OPERATOR - 12/15/2017 5:57 PM CDT Images from the original note were not included. Drink plenty of fluids May take Tylenol or Ibuprofen as directed per package instructions Warm salt water gargles Humidifier Change toothbrush on day 3 of antibiotic (or after 6 doses)- Reviewed education materials and instructions with patient and answered all questions. Follow up with Rhianna Cowan MD if symptoms worsen or do not completely resolve. Seek emergency care if severe symptoms, such as high fever, difficulty swallowing, drooling, neck pain, mental status changes, or severe headache occur. Strep Throat ELECTRIC METER REPAIRER: Strep throat is a throat infection caused by bacteria. It is easily spread from person to person. Common symptoms include the following: ?? Sore, red, and swollen throat ?? Fever and headache ?? Upset stomach, abdominal pain, or vomiting ?? White or yellow patches or blisters in the back of your throat ?? Tender, swollen lumps on the sides of your neck or jaw ?? Throat pain when you swallow Call 911 for any of the following: ?? You have trouble breathing. Seek care immediately if: ?? You have new symptoms like a bad headache, stiff neck, chest pain, or vomiting. ?? You are drooling because you cannot swallow your spit. Contact your healthcare provider if: ?? You have a fever. ?? You have a rash or ear pain. ?? You have green, yellow-brown, or bloody mucus when you cough or blow your nose. ?? You are unable to drink anything. ?? You have questions or concerns about your condition or care. Treatment for strep throat may include antibiotic medicine to treat your strep throat. You should feel better within 2 to 3 days after you start antibiotics. You may return to work or school 24 hoursafter you start antibiotics. Manage strep throat: ?? Use lozenges, ice, soft foods, or popsicles to soothe your throat. ?? Drink juice, milk shakes, or soup if your throat is too sore to eat solid food. Drinking liquidscan also help prevent dehydration. ?? Gargle with salt water. Mix ?? teaspoon salt in a glass of warm water and gargle. This may help reduce swelling in your throat. ?? Do not smoke. Nicotine and other chemicals in cigarettes and cigars can cause lung damage and make your symptoms worse. Ask your healthcare provider for information if you currently smoke and needhelp to quit. E-cigarettes or smokeless tobacco still contain nicotine. Talk to your healthcare provider before you use these products. Prevent the spread of strep throat: ?? Wash your hands often. Use soap and water. Wash your hands after you use the bathroom, change a child's diapers, or sneeze. Wash your hands before you prepare or eat food. ?? Do not share food or drinks. Replace your toothbrush after you have taken antibiotics for 24 hours. Follow up with your healthcare provider as directed: Write down your questions so you remember to ask them during your visits. ?? 2017 [employer] Information is for End User's use only and may not be sold, redistributed or otherwise used for commercial purposes. All illustrations and images included in CareNotes?? are the copyrighted property of [employer] or [employer]. The above information is an legal aid only. It is not intended as medical advice for individual conditions or treatments. Talk to your doctor, nurse or pharmacist before following any medical regimen to see if it is safe and effective for you. Strep Throat ELECTRIC METER REPAIRER: Strep throat is a throat infection caused by bacteria. It is easily spread from person to person. Common symptoms include the following: ?? Sore, red, and swollen throat ?? Fever and headache ?? Upset stomach, abdominal pain, or vomiting ?? White or yellow patches or blisters in the back of your throat ?? Tender, swollen lumps on the sides of your neck or jaw ?? Throat pain when you swallow Call 911 for any of the following: ?? You have trouble breathing. Seek care immediately if: ?? You have new symptoms like a bad headache, stiff neck, chest pain, or vomiting. ?? You are drooling because you cannot swallow your spit. Contact your healthcare provider if: ?? You have a fever. ?? You have a rash or ear pain. ?? You have green, yellow-brown, or bloody mucus when you cough or blow your nose. ?? You are unable to drink anything. ?? You have questions or concerns about your condition or care. Treatment for strep throat may include antibiotic medicine to treat your strep throat. You should feel better within 2 to 3 days after you start antibiotics. You may return to work or school 24 hoursafter you start antibiotics. Manage strep throat: ?? Use lozenges, ice, soft foods, or popsicles to soothe your throat. ?? Drink juice, milk shakes, or soup if your throat is too sore to eat solid food. Drinking liquidscan also help prevent dehydration. ?? Gargle with salt water. Mix ?? teaspoon salt in a glass of warm water and gargle. This may help reduce swelling in your throat. ?? Do not smoke. Nicotine and other chemicals in cigarettes and cigars can cause lung damage and make your symptoms worse. Ask your healthcare provider for information if you currently smoke and needhelp to quit. E-cigarettes or smokeless tobacco still contain nicotine. Talk to your healthcare provider before you use these products. Prevent the spread of strep throat: ?? Wash your hands often. Use soap and water. Wash your hands after you use the bathroom, change a child's diapers, or sneeze. Wash your hands before you prepare or eat food. ?? Do not share food or drinks. Replace your toothbrush after you have taken antibiotics for 24 hours. Follow up with your healthcare provider as directed: Write down your questions so you remember to ask them during your visits. ?? 2017 [employer] Information is for End User's use only and may not be sold, redistributed or otherwise used for commercial purposes. All illustrations and images included in CareNotes?? are the copyrighted property of [employer] or [employer]. The above information is an legal aid only. It is not intended as medical advice for individual conditions or treatments. Talk to your doctor, nurse or pharmacist before following any medical regimen to see if it is safe and effective for you. Strep Throat ELECTRIC METER REPAIRER: Strep throat is a throat infection caused by bacteria. It is easily spread from person to person. Common symptoms include the following: ?? Sore, red, and swollen throat ?? Fever and headache ?? Upset stomach, abdominal pain, or vomiting ?? White or yellow patches or blisters in the back of your throat ?? Tender, swollen lumps on the sides of your neck or jaw ?? Throat pain when you swallow Call 911 for any of the following: ?? You have trouble breathing. Seek care immediately if: ?? You have new symptoms like a bad headache, stiff neck, chest pain, or vomiting. ?? You are drooling because you cannot swallow your spit. Contact your healthcare provider if: ?? You have a fever. ?? You have a rash or ear pain. ?? You have green, yellow-brown, or bloody mucus when you cough or blow your nose. ?? You are unable to drink anything. ?? You have questions or concerns about your condition or care. Treatment for strep throat may include antibiotic medicine to treat your strep throat. You should feel better within 2 to 3 days after you start antibiotics. You may return to work or school 24 hoursafter you start antibiotics. Manage strep throat: ?? Use lozenges, ice, soft foods, or popsicles to soothe your throat. ?? Drink juice, milk shakes, or soup if your throat is too sore to eat solid food. Drinking liquidscan also help prevent dehydration. ?? Gargle with salt water. Mix ?? teaspoon salt in a glass of warm water and gargle. This may help reduce swelling in your throat. ?? Do not smoke. Nicotine and other chemicals in cigarettes and cigars can cause lung damage and make your symptoms worse. Ask your healthcare provider for information if you currently smoke and needhelp to quit. E-cigarettes or smokeless tobacco still contain nicotine. Talk to your healthcare provider before you use these products. Prevent the spread of strep throat: ?? Wash your hands often. Use soap and water. Wash your hands after you use the bathroom, change a child's diapers, or sneeze. Wash your hands before you prepare or eat food. ?? Do not share food or drinks. Replace your toothbrush after you have taken antibiotics for 24 hours. Follow up with your healthcare provider as directed: Write down your questions so you remember to ask them during your visits. ?? 2017 [employer] Information is for End User's use only and may not be sold, redistributed or otherwise used for commercial purposes. All illustrations and images included in CareNotes?? are the copyrighted property of [employer]. or [employer]. The above information is an legal aid only. It is not intended as medical advice for individual conditions or treatments. Talk to your doctor, nurse or pharmacist before following any medical regimen to see if it is safe and effective for you. documented in this encounter Progress Notes * Yaneli Eden APRN-CNP - 12/15/2017 5:45 PM CDT History Nevin Deshpande is a 52 y.o. female who presents to the clinic with Chief Complaint Patient presents with ??? Sore Throat . Primary Care Physician is Rhinana Cowan MD. She reports the following symptoms: sinus and nasal congestion, sore throat, post nasal drip, headache, fever, chills and pain while swallowing. Onset was 2 days ago. The Clinical course has been gradually worsening. Patient is drinking plenty of fluids. Positive for sick contacts. OTC- none Past Medical History: Diagnosis Date ??? Environmental allergies ??? Hypertension No family history on file. Current Outpatient Prescriptions Medication Sig Dispense Refill ??? aspirin (ASPIRIN) 81 MG tablet Take 81 mg by mouth once daily ??? amoxicillin (AMOXIL) 500 MG capsule Take 1 capsule by mouth 2 times daily for 10 days Reasons: Throat Infection 20 capsule 0 ??? amLODIPine (NORVASC) 2.5 MG tablet Take 2.5 mg by mouth once daily ??? HYDROCHLOROTHIAZIDE PO No current facility-administered medications for this visit. No Known Allergies Social History Social History ??? Marital status: Social History Main Topics ??? Smoking status: Never Smoker ??? Smokeless tobacco: Never Used Social History Narrative Review of Systems Constitutional: Positive for fatigue, fevers Eyes: Negative Ears, nose, mouth, and throat: Positive for persistent sore throat Respiratory: Negative for acute cough Cardiovascular: Negative for chest pain Objective: BP 162/94 Pulse 84 Temp 97.7 ??F Resp 16 Ht 1.575 m (5' 2 ) Wt 104.3 kg (230 lb) SpO2 96% BMI 42.07kg/m2 General appearance: alert, cooperative, no distress, oriented to person, place, and time Head: normocephalic, without trauma Eyes: sclera and conjunctiva clear Ears: canals clear, tympanic membranes normal, hearing intact to voice Nose: nares open Throat: moderate oropharyngeal erythema, tonsillar hypertrophy 3+ Neck: supple Nodes: no cervical adenopathy Lungs: breath sounds normal and symmetric; no rales or wheezes Heart: regular rhythm, normal S1 and S2, without murmurs, gallops or rubs Assessment: Encounter Diagnosis Name Primary? Strep throat Yes Plan: Patient placed on antibiotics - see orders. Patient advised of the risk of peritonsillar abscess formation. Patient advised will be infectious for 24 hours after starting antibiotics. Educational materials given. Drink plenty of fluids May take Tylenol or Ibuprofen as directed per package instructions Warm salt water gargles Humidifier Change toothbrush on day 3 of antibiotic (or after 6 doses)- Reviewed education materials and instructions with patient and answered all questions. Nevin Deshpande verbalized understanding and agrees with plan. Follow up with Rhianna Cowan MD if symptoms worsen or do not completely resolve. SEEK EMERGENCY CARE IF SEVERE SYMPTOMS, SUCH HIGH FEVER, DIFFICULTY SWALLOWING SALIVA, DROOLING,NECK PAIN OR SWELLING, MENTAL STATUS CHANGES, OR SEVERE HEADACHE OCCUR. Orders Placed This Encounter ??? STREP A SCREEN ??? amoxicillin (AMOXIL) 500 MG capsule Sig: Take 1 capsule by mouth 2 times daily for 10 days Reasons: Throat Infection Dispense: 20 capsule Refill: 0 Recent Results (from the past 24 hour(s)) STREP A SCREEN Collection Time: 12/15/17 12:00 AM Result Value Ref Range Strep A Rapid Positive (Abnormal) Negative Strep A INTERNAL CONTROL Present Lot Number [id number] Expiration Date 06/26/19 Yaneli Eden APRN, FNP-BEL 12/15/2017 6:00 PM documented in this encounter Plan of Treatment Not on file documented as of this encounter Procedures Procedure Name Priority Date/Time Associated Diagnosis Comments STREP A SCREEN - POINT OF CARE (AMB) STL Routine 12/15/2017 Strep throat documented in this encounter Results * (ABNORMAL) STREP A SCREEN (12/15/2017) Strep A Rapid POCT Positive(A) Negative Strep A Internal Control Present Lot # [id number] Expiration Date 06/26/19 Throat ENTIRE THROAT (SURFACE REGION OF NECK) / Unknown 12/15/2017 Yaneli Eden WHITE GOODS APPLIANCE TECH-DIESEL PLANT OPERATOR LAB - POINT OF CA RE ORDERABLES documented in this encounter Visit Diagnoses Diagnosis Strep throat- Primary Streptococcal sore throat documented in this encounter Care Teams Health Information Administrator Relationship Specialty Start Date End Date Rhianna Cowan MD [address] [place] [address] PCP - General Internal Medicine 11/12/16 documented as of this encounter
--- OUTSIDE RECORDS SUMMARY | 2024-10-07 04:05 | XMS_ITS | Encounter Summary ---
Author Organization [facility] Address [address] [place] [address] Care Team Providers Care Adapted Physical Education Aide Name Role Phone Rhianna Cowan MD Primary Care Provider [phone] Reason for Visit * Reason Onset Date Comments Follow-up 03/25/2018 Encounter Details Date Type Department Care Team (Late Contact Info) Description 03/25/2018 Telephone [facility] [address] [address] Karin Robbins Follow-up Social History Tobacco Use Types Packs/Day Years [...] on filedocumented in this encounter Care Teams Adapted Physical Education Aide Relationship Specialty Start Date End Date Rhianna Cowan MD [address] [place] [phone] PCP - General Internal Medicine 11/12/16 documented as of this encounter
--- OUTSIDE RECORDS SUMMARY | 2024-10-07 04:05 | XMS_ITS | Encounter Summary ---
Author Organization [facility] Address [address] [place] [address] Care Team Providers Care Merchandise Presentation Manager Name Role Phone Rhianna Cowan MD Primary Care Provider Encounter Details Date Type Department Care Team (Late st Contact Info) Description 10/09/2020 Orders Only [facility] [address], [address] [place] [address] Roge Gipson, DO [address] [place] [address] Preop testing ; Screening for viral disease Social History Tobacco Use Types Packs/Day Years Used Date Smoking Tobacco: Never Smokeless Tobacco: Never Sex and Gender Information Value Date Recorded Sex Assigned at Not on file Gender Identity Not on file Sexual Orientation Not on file documented as of this encounter Plan of Treatment Not on file documented as of this encounter Visit Diagnoses Diagnosis Preop testing- Primary Preoperative examination, unspecified Screening for viral disease Special screening examination for unspecified viral disease documented in this encounter Care Teams Merchandise Presentation Manager Relationship Specialty Start Date End Date Rhianna Cowan MD [address] [place] [address] PCP - General Internal Medicine 11/12/16 documented as of this encounter
--- OUTSIDE RECORDS SUMMARY | 2024-10-07 04:05 | XMS_ITS | Encounter Summary ---
Author Organization [facility] Address [address] [place] [address] Care Team Providers Care Oil Burner Repairer Name Role Phone Rhianna Cowan MD Primary Care Provider [phone] Reason for Visit * Reason Onset Date Comments Scheduling 10/15/2020 Encounter Details Date Type Department Care Team (Late st Contact Info) Description 10/15/2020 Telephone [facility] [address] [place] [address] Roge Gipson, [address] [place] [address] Scheduling Social History Tobacco Use Types Packs/Day Years Used Date Smoking Tobacco: Never Smokeless Tobacco: Never Sex and Gender Information Value Date Recorded Sex Assigned at Not on file Gender Identity Not on file Sexual Orientation Not on file documented as of this encounter Miscellaneous Notes * Telephone Encounter - Jasmyne Henry RN - 10/15/2020 3:23 PM CST No COVID-19 test found for procedure on 10/16. Called phone number in [employer] and not able to leave voicemail, Sent email and mychart and called additional number of [phone] with no responses. At this time cancelling EGD. Dr. Gipson aware. [employer] documented in this encounter Plan of Treatment Not on file documented as of this encounter Visit Diagnoses Not on filedocumented in this encounter Care Teams Oil Burner Repairer Relationship Specialty Start Date End Date Rhianna Cowan MD [address] [facility] [address] [place] [address] PCP - General Internal Medicine 11/12/16 documented as of this encounter
--- OUTSIDE RECORDS SUMMARY | 2024-10-07 04:05 | XMS_ITS | Encounter Summary ---
Author Organization [facility] Address [address] [place] [address] Care Team Providers Care Pyrotechnic Mixer Name Role Phone Rhianna Cowan MD Primary Care Provider [phone] Encounter Details Date Type Department Care Team (Latest Contact Info) Description 02/13/2023 Travel Social History Tobacco Use Types Packs/Day [...] PM CDT documented as of this encounter Plan of Treatment Not on file documented as of this encounter Visit Diagnoses Not on filedocumented in this encounter Care Teams Pyrotechnic Mixer Relationship Specialty Start Date End Date Rhianna Cowan MD [address] [place] [address] PCP - General Internal Medicine 11/12/16 documented as of this encounter
--- OUTSIDE RECORDS SUMMARY | 2024-10-07 04:05 | XMS_ITS | Encounter Summary ---
Author Organization [facility] Address [address] [place] [address] Care Team Providers Care Search Marketing Specialist Name Role Phone Rhianna Cowan MD Primary Care Provider [phone] Reason for Visit * Reason Onset Date Comments Follow-up 08/04/2019 Encounter Details Date Type Department Care Team (Late Contact Info) Description 08/04/2019 Telephone [facility] [place] [id number] [place] [address] Provider, Maik Exp Nameoki Follow-up Social History Tobacco Use Types Packs/Day Years Used Date Smoking Tobacco: Never Smokeless Tobacco: Never Sex and Gender Information Value Date Recorded Sex Assigned at Not on file Gender Identity Not on file Sexual Orientation Not on file documented as of this encounter Miscellaneous Notes * Telephone Encounter - Karin Robbins - 08/04/2019 12:09 PM CDT Courtesy follow-up phone call made to patient. Message left advising patient to [facility] [phone] if they have any questions or concerns. Karin Robbins documented in this encounter Plan of Treatment Not on file documented as of this encounter Visit Diagnoses Not on filedocumented in this encounter Care Teams Search Marketing Specialist Relationship Specialty Start Date End Date Rhianna Cowan MD [address] [place] [address] [address] [place] [id number] PCP - General Internal Medicine 11/12/16 documented as of this encounter
--- OUTSIDE RECORDS SUMMARY | 2024-10-07 04:05 | XMS_ITS | Encounter Summary ---
Author Organization [facility] Address [address] [place] [address] Care Team Providers Care Asphalt Tar And Gravel Roofer Name Role Phone Rhianna Cowan MD Primary Care Provider [phone] Reason for Visit * Reason Comments Eye Problem Encounter Details Date Type Department Care Team (Latest Contact Info) Description 03/23/2018 2:40 PM CDT Office Visit [facility] AT [address] [address] [facility], [facility] Strep throat (Primary Dx); Bacterial conjunctivitis of left eye Social History Tobacco Use Types Packs/Day Years Used Date Smoking Tobacco: Never Smokeless Tobacco: Never Sex and Gender Information Value Date Recorded Sex Assigned at Not on file Gender Identity Not on file Sexual Orientation Not on file documented as of this encounter Last Filed Vital Signs Vital Sign Reading Time Taken Comments Blood Pressure - - Pulse 86 03/23/2018 2:50 PM CDT Temperature 36.6 ??C (97.9 ??F) 03/23/2018 2:50 PM CD T Respiratory Rate 17 03/23/2018 2:50 PM CDT Oxygen Saturation 97% 03/23/2018 2:50 PM CDT Inhaled Oxygen Concentration - - Weight 108.9 kg (240 lb) 03/23/2018 2:50 PM CDT Height 160 cm (5' 3 ) 03/23/2018 2:50 PM CDT Body Mass Index 42.51 03/23/2018 2:50 PM CDT documented in this encounter Patient Instructions * Patient Instructions* Yaneli Eden, ONLINE CONTENT DEVELOPER-CESSPOOL CLEANER - 03/23/2018 3:00 PM CDT Images from the original note were not included. Conjunctivitis BANDMILL OPERATOR: Conjunctivitis, or pink eye, is inflammation of [...] away mascara and other eye makeup. ?? 2017 [employer] Information is for End User's use only and may not be sold, redistributed or otherwise used for commercial purposes. All illustrations and images included in CareNotes?? are the copyrighted property of [employer] or [employer]. The above information is an kindergarten aide only. It is not intended as medical advice for individual conditions or treatments. Talk to your doctor, nurse or pharmacist before following any medical regimen to see if it is safe and effective for you. Strep Throat BANDMILL OPERATOR: Strep throat is a throat infection caused [...] ask them during your visits. ?? 2017 [employer] Information is for End User's use only and may not be sold, redistributed or otherwise used for commercial purposes. All illustrations and images included in CareNotes?? are the copyrighted property of [employer] or [employer]. The above information is an kindergarten aide only. It is not intended as medical advice for individual conditions or treatments. Talk to your doctor, nurse or pharmacist before following any medical regimen to see if it is safe and effective for you. documented in this encounter Progress Notes * Yaneli Eden APRN-CNP - 03/23/2018 2:55 PM CDT History Nevin Deshpande is a 52 y.o. female who presents to the clinic with Chief Complaint Patient presents with ??? Eye Problem . Primary Care Physician is Rhianna Cowan MD. She reports the following symptoms: sinus and nasal congestion, sneezing, sore throat, swollen glands, post nasal drip, headache, itching in eyes, fever and pain while swallowing. Onset was 3 days ago. The Clinical course has been gradually worsening. Patient is drinking plenty of fluids. OTC- None Past Medical History: Diagnosis Date ??? Environmental allergies ??? Hypertension No family history on file. Current Outpatient Prescriptions Medication Sig Dispense Refill ??? trimethoprim-polymyxin B (POLYTRIM) 70370-0.1 UNIT/ML-% ophthalmic solution Instill 1 drop intoleft eye every 3 hours for 7 days Reasons: Bacterial Conjunctivitis 10 mL 0 ??? amoxicillin (AMOXIL) 875 MG tablet Take 1 tablet by mouth 2 times daily for 10 days Reasons: Throat Infection 20 tablet 0 ??? aspirin (ASPIRIN) 81 MG tablet Take 81 mg by mouth once daily ??? amLODIPine (NORVASC) 2.5 MG tablet Take 2.5 mg by mouth once daily ??? HYDROCHLOROTHIAZIDE PO No current facility-administered medications for this visit. No Known Allergies Social History Social History ??? Marital status: Social History Main Topics ??? Smoking status: Never Smoker ??? Smokeless tobacco: Never Used Social History Narrative Review of Systems Constitutional: Positive for fatigue, fevers Eyes: Positive for redness on left, irritation on left Ears, nose, mouth, and throat: Positive for persistent sore throat, congestion Respiratory: Negative for shortness of breath Cardiovascular: Negative for chest pain Objective: Pulse 86 Temp 97.9 ??F (36.6 ??C) Resp 17 Ht 1.6 m (5' 3 ) Wt 108.9 kg (240 lb) SpO2 97% BMI 42.51kg/m2 General appearance: alert, cooperative, no distress, oriented to person, place, and time Head: normocephalic, without trauma Eyes: Right Eye - normal lid, conjunctivae, and cornea clear, pupil shape and reaction normal, LeftEye - erythema, drainage noted on eyelid, PERRLA Ears: canals clear, tympanic membranes normal, hearing intact to voice Nose: mucosa erythematous and swollen, clear rhinorrhea Throat: no mucous membrane abnormalities, moderate oropharyngeal erythema, tonsillar hypertrophy 3+ Neck: supple Nodes: submandibular adenopathy bilaterally Lungs: breath sounds normal and symmetric; no rales or wheezes Heart: regular rhythm, normal S1 and S2, without murmurs, gallops or rubs Assessment: Encounter Diagnoses Name Primary? Strep throat Yes ??? Bacterial conjunctivitis of left eye Plan: Patient placed on antibiotics - see [...] instructions with patient and answered all questions. Work note provided to patient Nevin Cherry Deshpande verbalized understanding and agrees with plan. Follow up with Rhianna Cowan MD if symptoms worsen or do not completely resolve. SEEK EMERGENCY CARE IF SEVERE SYMPTOMS, SUCH HIGH FEVER, DIFFICULTY SWALLOWING SALIVA, DROOLING,NECK PAIN OR SWELLING, MENTAL STATUS CHANGES, OR SEVERE HEADACHE OCCUR. Orders Placed This Encounter ??? STREP A SCREEN ??? trimethoprim-polymyxin B (POLYTRIM) 70196-4.1 UNIT/ML-% ophthalmic solution Sig: Instill 1 drop into left eye every 3 hours for 7 days Reasons: Bacterial Conjunctivitis Dispense: 10 mL Refill: 0 ??? amoxicillin (AMOXIL) 875 MG tablet Sig: Take 1 tablet by mouth 2 times daily for 10 days Reasons: Throat Infection Dispense: 20 tablet Refill: 0 Recent Results (from the past 24 hour(s)) STREP A SCREEN Collection Time: 03/23/18 12:00 AM Result Value Ref Range Strep A Rapid Positive (Abnormal) Negative Strep A INTERNAL CONTROL Present Lot Number [id number] Expiration Date 09/17/19 Yaneli Eden APRN, FNP-BC 03/23/2018 3:03 PM documented in this encounter Plan of Treatment Not on file documented as of this encounter Procedures Procedure Name Priority Date/Time Associated Diagnosis Comments STREP A SCREEN - POINT OF CARE (AMB) STL Routine 03/23/2018 Strep throat documented in this encounter Results * (ABNORMAL) STREP A SCREEN (03/23/2018) Strep A Rapid POCT Positive(A) Negative Strep A Internal Control Present Lot # [id number] Expiration Date 09/17/19 Throat ENTIRE THROAT (SURFACE REGION OF NECK) / Unknown 03/23/2018 [facility] - POINT OF CA RE ORDERABLES documented in this encounter Visit Diagnoses Diagnosis Strep throat- Primary Streptococcal sore throat Bacterial conjunctivitis of left eye documented in this encounter Care Teams Asphalt Tar And Gravel Roofer Relationship Specialty Start Date End Date Rhianna Cowan MD [address] [place] [address] PCP - General Internal Medicine 11/12/16 documented as of this encounter
--- OUTSIDE RECORDS SUMMARY | 2024-10-07 04:05 | XMS_ITS | Encounter Summary ---
Author Organization [facility] Address [address] [place] [address] Care Team Providers Care Concrete Boom Pump Operator Name Role Phone Rhianna Cowan MD Primary Care Provider [phone] Reason for Visit * Reason Onset Date Comments Follow-up 11/14/2016 Encounter Details Date Type Department Care Team (Late Contact Info) Description 11/14/2016 Telephone [facility] AT [address] [address] Karin Robbins Follow-up Social History [...] on filedocumented in this encounter Care Teams Concrete Boom Pump Operator Relationship Specialty Start Date End Date Rhianna Cowan MD [address] [facility] [address] [place] [address] PCP - General Internal Medicine 11/12/16 documented as of this encounter
--- OUTSIDE RECORDS SUMMARY | 2024-10-07 04:05 | XMS_ITS | Encounter Summary ---
Author Organization [facility] Address [address] [place] [address] Care Team Providers Care Utility Bill Complaints Investigator Name Role Phone Rhianna Cowan MD Primary Care Provider [phone] Reason for Referral * Radiology Services (Routine) - Closed Specialty Diagnoses / Procedures Referred By Contac t Referred To Contact Diagnoses Morbid obesity (HCC) Gastric band slippage [place] [id number] [facility] [address] [place] [address] Referral ID Status Reason Start Date Expiration Date Visits Re quested Visits Authorized [id number] Closed 02/13/2023 02/13/2024 1 1 Reason for Visit * Reason Comments Pre-op Consult Encounter Details Date Type Department Care Team (Late Contact Info) Description 02/13/2023 10:00 AM CDT Office Visit [facility] [address], [address] [place] [address] [place] [address] [facility] [address] [place] [address] Morbid obesity (HCC) (Primary Dx); Gastric band slippage Social History Tobacco Use Types Packs/Day Years [...] Sign Reading Time Taken Comments Blood Pressure 160/94 02/13/2023 11:12 AM CDT Pulse 90 02/13/2023 11:12 AM CDT Temperature 36.3 ??C (97.4 ??F) 02/13/2023 1 1:12 AM CDT Respiratory Rate - - Oxygen Saturation 96% 02/13/2023 11: 12 AM CDT Inhaled Oxygen Concentration - - Weight 120.9 kg (266 lb 9.6 oz) 023 11:12 AM CDT Height 157 cm (5' 1.81 ) 02/13/2023 11: 12 AM CDT Body Mass Index 49.06 02/13/2023 11:12 AM CDT documented in this encounter Progress Notes * Steffen Choi MD - 02/13/2023 12:23 PM CDT Band Adjustment Note TODAY'S DATE: 02/13/2023 PATIENT NAME: Nevin Deshpande DATE OF : 1965 Height: 157 cm (5' 1.81 ) Weight: 120.9 kg (266 lb 9.6 oz) BMI (Calculated): 49.06 Chief Complaint: Gastric prolapse / slip of LAGB GERD and regurgitation Subjective: HPI: Pt is a 57 yo F with a hx of LAGB years ago. [...] are meats and more solid dense foods. Pt continues to struggle with morbid obesity. Pt has attempted multiple weight loss regimens in the past including medical, exercise and dietary without watermelon harvesting supervisor success. Pt has developed multiple comorbid conditions that include Benign Essential Hypertension,Dyspnea on exertion, Multiple arthropathies and Morbid Obesity. These comorbid condition(s) have progressively worsened due to the patients morbid obesity and no other contributing factors. Pt has now attained a BMI (Calculated): 49.06 and has failed multiple non surgical weight loss regimens for >5yrs. Post Site Assessment: WNL Procedure Note: after appropriate preparation of the patient's skin using standard aseptic technique and infiltration of 1% Lidocaine at the area of the access port. A hueber needle was inserted through the skin andinto the port. The amount of fluid removed was Fluid Removed: all ml The needle was removed with no bleeding noted Dressing was applied to the site Patient tolerated the procedure well No Fill Plan: EGD UGI * Steffen Choi MD - 02/13/2023 12:00 PM CDT BARIATRIC EVALUATION HISTORY & PHYSICAL Height: 157 cm (5' 1.81 ) Weight: 120.9 kg (266 lb 9.6 oz) BMI (Calculated): 49.06 Chief Complaint: GERD, Dysphagia, LAGB complications, Morbid Obesity HPI: Pt is a 57 yo F with a hx of LAGB years ago. [...] are meats and more solid dense foods. Pt continues to struggle with morbid obesity. Pt has attempted multiple weight loss regimens in the past including medical, exercise and dietary without watermelon harvesting supervisor success. Pt has developed multiple comorbid conditions that include Benign Essential Hypertension,Dyspnea on exertion, Multiple arthropathies and Morbid Obesity. These comorbid condition(s) have progressively worsened due to the patients morbid obesity and no other contributing factors. Pt has now attained a BMI (Calculated): 49.06 and has failed multiple non surgical weight loss regimens for >5yrs. Past Medical History: Diagnosis Date ??? Anxiety and depression ??? Depression ??? Environmental allergies ??? GERD (gastroesophageal reflux disease) ??? Hypertension ??? Mild intermittent asthma, uncomplicated ??? Morbid obesity due to excess calories ([facility]/HCC) Past Surgical History: Procedure Laterality Date ??? ADJUSTABLE GASTRIC BAND, LAP PLACEMENT ??? Breast Reduction Bilateral ??? Section x3 ??? Cholecystectomy, Laparoscopic ??? Hysterectomy PATIENT MEDICAL HISTORY SCREENING: Diabetes............................................No Hypertension.....................................Yes Gastroesophageal reflux disease.....Yes Chest pain.........................................No Heart trouble......................................No Hypercholesterolemia.......................No Stress incontinence..........................No Dyspnea on exertion.........................Yes Multiple arthropathies........................Yes Depression........................................Yes Sleep apnea......................................No MVP...................................................No Morbid Obesity..................................Yes Blood clots........................................No Other................................................. FAMILY HISTORY SCREENING: Significant for obesity....................... Yes Diabetes........................................... No Heart disease................................... No Stroke............................................... No Cancer.............................................. No Hypertension..................................... Yes Blood clots........................................ No Other................................................. none Has the patient had a positive history of MRSA No. Current Outpatient Medications Medication ??? acetaminophen (Tylenol) 500 MG tablet ??? albuterol HFA (Proventil; Ventolin; Proair) 108 (90 Base) MCG/ACT inhaler ??? amLODIPine (NORVASC) 2.5 MG tablet ??? amLODIPine (Norvasc) 5 MG tablet ??? aspirin (ASPIRIN) 81 MG tablet ??? baclofen (Lioresal) 10 MG tablet ??? cetirizine (ZyrTEC) 10 MG tablet ??? clotrimazole-betamethasone (Lotrisone) 1-0.05 % cream ??? cyanocobalamin (Vitamin B-12) injection ??? doxazosin (Cardura) 2 MG tablet ??? DULoxetine (Cymbalta) 30 MG capsule ??? fluticasone propionate (Flonase) 50 MCG/ACT nasal spray ??? hydroCHLOROthiazide (Hydrodiuril) 12.5 MG ??? metoprolol succinate XL 24hr (Toprol XL) 25 MG tablet ??? mupirocin (Bactroban) 2 % ointment ??? omeprazole (PriLOSEC) 20 MG capsule ??? semaglutide (Ozempic, 0.25 or 0.5 MG/DOSE,) 2 MG/1.5ML pen ??? sertraline (ZOLOFT) 100 MG tablet ??? sodium chloride (Deep Sea Nasal [place]) 0.65 % nasal spray ??? topiramate (Topamax) 25 MG tablet No current facility-administered medications for [...] cough, hemoptysis. Oxygen dependent : No Gastrointestinal: Denies abdominal pain, no melena or hematemesis Genitourinary: denies hematuria, dysuria Musculoskeletal: denies muscle weakness Endocrine: Denies diabetes mellitus or thyroid issues Allergic / Immuno: Normal Neuro / Psych: denies depression, SI/SA Skin: denies open wounds, skin infections Functional Health Status prior to surgery : Independent- The patient does not require assistance from another person for any ADLs.. Physical Examination: BP 160/94 Pulse 90 Temp 97.4 ??F (36.3 ??C) (Temporal) Ht 1.57 m (5' 1.81 ) Wt 120.9 kg (266 lb 9.6 oz) SpO2 96% Constitutional: well-developed, well-nourished, and in no distress. [...] normal. Studies reviewed and discussed with patient: 2019 CBC with auto differential Component Ref Range & Units 3 yr ago WBC 3.8 - 9.9 X10 3/ul 8.2 RBC 3.9 - 5.2 x10 6/ul 3.72??Low?? Hemoglobin 11.9 - 15.5 g/dL 12.0 Hct 35.6 - 45.5 % 36.4 MCV 81.3 - 96.4 fl 97.8??High?? MCH 27.1 - 33.3 pg 32.3 MCHC 32.3 - 35.7 g/dl 33.0 RDW 11.1 - 14.9 % 13.3 Plt Count 150 - 400 x10 3/ul 230 MPV 9.1 - 12.3 fl 10.5 Comprehensive metabolic panel Component Ref Range & Units 3 yr ago Comments Sodium 135 - 145 mmol/L 138 Potassium 3.3 - 5.1 mmol/L 3.7 Chloride 96 - 108 mmol/L 106 Carbon Dioxide 22 - 32 mmol/L 24 Anion Gap 7 - 16 8 Glucose 70 - 100 mg/dL 93 BUN 8 - 25 mg/dL 8 Creatinine 0.5 - 1.1 mg/dL 0.8 NOTE: Estimated GFR (Cockroft-Gault) will NOT be calculated unless patient Height and Weight were entered. Also, Kidney Disease Stage (GFR) and Estimated GFR (Cockroft-Gault) will NOT be calculated if Creatinine result is <0.2. Kidney Disease Stage mL/MIN >90 NOTE; ??The GFR is an estimated value using the ??creatinine, sex, age, and race of the patient. ??THE Estimated Kidney Disease GFR is validated for AGES 18-70 YEARS STAGE ?mL/Min ?DESCRIPTION ?1 ?90 mL/min or??more ?Normal or elevated GFR ?2 ? 60-89 mL/min ?Mildly decreased GFR ?3 ? 30-59 mL/min ?Moderately decreased GFR ?4 ? 15-29 mL/min ?Severely decreased GFR ?5 ? <15 mL/min ? Kidney failure or on dialysis Est GFR (Cockcroft-G) ml/MIN 101 Estimated GFR(Cockroft-Gault)is used to calculate patient medication dosage Calcium 8.6 - 10.3 mg/dL 8.5??Low?? Total Protein 6.4 - 8.3 g/dL 6.2??Low?? Albumin 3.5 - 5 g/dL 3.3??Low?? Globulin 2.3 - 3.5 gm/dL 2.9 Albumin/Globulin Ratio 1.1 - 1.8 1.1 Total Bilirubin 0 - 1.2 mg/dL 0.7 AST 0 - 32 U/L 22 ALT 0 - 33 U/L 27 Alkaline Phosphatase 35 - 104 U/L 183??High?? Lipid panel Component Ref Range & Units 3 yr ago Comments Triglycerides 0 - 149 mg/dL 35 National Lipid Association/NCEP Guidelines: ? Normal ?< 150 mg/dL ? Borderline high ?? 150-199 mg/dL ? High ?200-499 mg/dL ? Very High ? >=500 mg/dL Cholesterol 0 - 199 mg/dL 126 National Lipid Association/NCEP Guidelines: ??Desirable ? < 200 mg/dL ??Borderline high: ??200-239 mg/dL ??High Risk: ?>=240 mg/dL HDL Cholesterol mg/dL 75 Reference Ranges: ? Males: >=40 mg/dL ? Females: >=50 mg/dL LDL Cholesterol, Calc 0 - 129 mg/dL 44 National Lipid Association/NCEP Guidelines: ?Optimal ? < 100 mg/dL ?Near Optimal ?100-129 mg/dL ?Borderline high 130-159 mg/dL ?High ?>=160 mg/dL Cholesterol/HDL Ratio 1.7 Risk / Benefits Risks and benefits were reviewed with patient including but not limited to , blood clots of the extremities or the lungs, enteral leaks, hemorrhage, damage to organs, infections,non guaranteed weight loss results among others. There are also risks of vitamin deficiencies that can generate vitamin deficiency symptoms. There are also risks of additional procedures or operations in the perioperative and watermelon harvesting supervisor periods. Questions were answered. Impression: Dysphagia, GERD, gastric band prolapse Plan: LAGB removal Liquid Protein Diet: YesNo Weeks Capacitor Pack Press Operator: Yes Additional Testing: Yes GI: - hx of GERD : cont ppi treatment - hx of LAGB: all fluid removed, reported gastric band prolapse - EGD ordered - UGI ordered - consider LRYGB CV: - Hx of HTN: cont with current medication management - EKG Pulmonary: - hx of asthma: cont current medical management Endocrine: - none Heme: - none Behavioral/Psych: - hx of depression: cont current management Pt has no history of drug use, alcohol use for greater then one year or treatment for alcohol or drug use for greater then one year Pt has no endocrine disorders that are related to obesity Pt has not smoked for at least 6 weeks Preoperative Labs: - CBC ordered - CMP ordered Preoperative weight loss: 2-5 lbs from by day of surgery and following preoperative liquid protein diet Comments: Line Welder visit: per insurance requirements Behavioral health visit: per insurance requirements Perioperative instructions: Hospitalist Consult: yes Limited incision, 2S, no [place], 2 day stay Steffen Choi MD 02/13/2023 documented in this encounter Plan of Treatment Not on file documented as of this encounter Results * FL UGI SERIES [...] Diagnosis Morbid obesity (HCC)- Primary Morbid obesity Gastric band slippage Morbid obesity (HCC) Morbid obesity Gastric band slippage documented in this encounter Care Teams Utility Bill Complaints Investigator Relationship Specialty Start Date End Date Rhianna Cowan MD [address] [place] [address] PCP - General Internal Medicine 11/12/16 documented as of this encounter
--- OUTSIDE RECORDS SUMMARY | 2024-10-07 04:05 | XMS_ITS | Encounter Summary ---
Author Organization [facility] Address [address] [facility] [address] [place] [address] Care Team Providers Care Local Coordinator Name Role Phone Rhianna Cowan MD Primary Care Provider Reason for Visit * Reason Onset Date Comments Appointment 07/31/2020 Encounter Details Date Type Department Care Team (Late st Contact Info) Description 07/31/2020 Telephone [facility] [address] [place] [address] Roge Gipson, DO [address] [address] Appointment Social History Tobacco Use Types Packs/Day Years Used Date Smoking Tobacco: Never Smokeless Tobacco: Never Sex and Gender Information Value Date Recorded Sex Assigned at Not on file Gender Identity Not on file Sexual Orientation Not on file documented as of this encounter Miscellaneous Notes * Telephone Encounter - Aguilar Alberto - 07/31/2020 9:34 AM CDT Left a voicemail to begin rooming documented in this encounter Plan of Treatment Not on file documented as of this encounter Visit Diagnoses Not on filedocumented in this encounter Care Teams Local Coordinator Relationship Specialty Start Date End Date Rhianna Cowan MD [address] [facility] [address] [place] [address] PCP - General Internal Medicine 11/12/16 documented as of this encounter
--- OUTSIDE RECORDS SUMMARY | 2024-10-07 04:06 | XMS_ITS ---
Author Organization [facility] [place] Address [address] [place] [address] Care Team Providers Care Ged Tutor Name Role Phone Melina Waggoner Unavailable [phone] Migration, Provider Unavailable Unavailable Allergies Allergen (clinical drug ingredient) Drug/Non Drug Allergy documented on EMR Reaction Allergy Type Onset Date Status sulfamethoxazole / trimethoprim Bactrim Unknown Drug Allergy 12/01/2023 Active lisinopril Lisinopril Unknown Drug Allergy 12/01/2023 Acti ve REASON FOR VISIT EMR-[facility] Medications Medication SIG (Take, Route, Frequency, Duration) Notes Start Date End Date Status Doxazosin Mesylate 2 MG Oral 12/01/2023 Active amLODIPine Besylate 5 MG Oral 12/01/2023 Active hydroCHLOROthiazide 12.5 MG Oral 12/01/2023 Active ASPERCREME (LIDOCAINE HCL) 4 % TOPICAL *[facility]* 12/01/2023 Active DULoxetine HCl 30 MG Oral 12/01/2023 Active Felodipine ER 5 mg Oral 12/01/2023 Active Meloxicam 7.5 MG Oral 12/01/2023 Ac tive Aspirin Adult Low Strength 81 MG Oral 12/01/2023 Active oxyBUTYnin Chloride ER 10 MG Oral 12/01/2023 Active DULoxetine HCl 60 MG Oral 12/01/2023 Active Azithromycin 250 MG Oral 12/01/2023 Active Proctozone-HC 2.5 % Rectal 12/01/2023 Active Belsomra 15 mg Oral 12/01/2023 Acti ve Valsartan 320 MG Oral 12/01/2023 Ac tive Fluticasone Propionate Diskus 50 MCG/ACT Inhalation *Reorder from [facility] for eRx and Interaction Alerts* 12/01/2023 Active Acetaminophen Extra Strength 500 MG Oral 12/01/2023 Active LUER-TIERNEY SYRINGE-NEEDLE 3 mL 25 gauge x 1 MISCELLANEOUS *Reorder from [facility] for eRx and Interaction Alerts* 12/01/2023 Active Naproxen 375 MG Oral 12/01/2023 Act vasiliy hydrALAZINE HCl 25 MG Oral 12/01/2023 Active Mucinex DM 30-600 MG Oral 12/01/2023 Active Cyanocobalamin 1000 MCG/ML Injection 12/01/2023 Active QUEtiapine Fumarate 50 MG Oral 12/01/2023 Active Clotrimazole-Betamethason e 1-0.05 % External 12/01/2023 Active Amoxicillin-Pot Clavulanate 250-62.5 MG/5ML Oral 12/01/2023 Active Gabapentin 100 MG Oral 12/01/2023 A ctive Valsartan-hydroCHLOROthia zide 160-12.5 MG Oral 12/01/2023 Active Ondansetron 4 MG Oral 12/01/2023 Ac tive Baclofen 10 MG Oral 12/01/2023 Acti ve Diclofenac Sodium 1% Transdermal 12/01/2023 Active Deep Sea Nasal Dexter 0.65 % Nasal 12/01/2023 Active ProAir HFA 108 (90 Base) MCG/ACT Inhalation 12/01/2023 Active Doxycycline Hyclate 100 MG Oral 12/01/2023 Active Doxepin HCl 6 MG Oral 12/01/2023 Ac tive Omeprazole 20 MG Oral 12/01/2023 Ac tive Fluconazole 100 MG Oral 12/01/2023 Active Cetirizine HCl 10 MG Oral 12/01/2023 Active Metoprolol Succinate ER 25 MG Oral 12/01/2023 Active SODIUM,POTASSIUM,MAG SULFATES 17.5 GRAM-3.13 GRAM-1.6 GRAM ORAL SOLN *Reorder from [facility] for eRx and Interaction Alerts* 12/01/2023 Active Losartan Potassium 100 MG Oral 12/01/2023 Active Topiramate 25 MG Oral 12/01/2023 Ac tive Mupirocin 2% External 12/01/2023 Active Social History Sex Assigned At : Social History Observation Description Sex Assigned At Female Encounters Encounter Location Date Provider Diagnosis [facility] [address] [address] 02/22/2024 Provider Migration Plan Of Treatment No Information Progress Notes * HOLDEN DORMANADOB:1965 (58 yo F)Acc No.[id number]:02/22/2024 Patient:?ANGEL DORMAN :1965???Age:58 Y???Sex:Female Address:[address] [place], [address] Subjective: * Chief Complaints: * ???EMR-Damian * Medical History:? * Room Manager History:?Migrated GYNHis tory?Migrated GYNHistory:: LMP: Definite Modified Date:12/01/2023, .? * Surgical History:? * Hospitalization/Major Diagno stic Procedure:? * Social History:?Migrated Social History:?Migrated Social History: Tobacco Years: Never smoker 12/01/2023. * Medications:?TakingAspirin A dult Low Strength 81 MG Tablet Delayed Release Oral ASPERCREME (LIDOCAINE HCL) 4 % TOPICAL , Notes to Pharmacist: *Reorder from [facility] for eRx and Interaction Alerts*ProAir HFA 108 (90 Base) MCG/ACT Aerosol Solution Inhalation DULoxetine HCl 60 MG Capsule Delayed Release Particles Oral oxyBUTYnin Chloride ER 10 MG Tablet Extended Release 24 Hour Oral Acetaminophen Extra Strength 500 MG Tablet Oral Proctozone-HC 2.5 % Cream Rectal Ondansetron 4 MG Tablet Disintegrating Oral Cetirizine HCl 10 MG Tablet Oral Doxepin HCl 6 MG Tablet Oral Fluconazole 100 MG Tablet Oral Omeprazole 20 MG Capsule Delayed Release Oral Azithromycin 250 MG Tablet Oral Valsartan 320 MG Tablet Oral Fluticasone Propionate Diskus 50 MCG/ACT Aerosol Powder Breath Activated Inhalation , Notes to Pharmacist: *Reorder from [facility] for eRx and Interaction Alerts*Losartan Potassium 100 MG Tablet Oral Topiramate 25 MG Tablet Oral Metoprolol Succinate ER 25 MG Tablet Extended Release 24 Hour Oral SODIUM,POTASSIUM,MAG SULFATES 17.5 GRAM-3.13 GRAM- 1.6 GRAM ORAL SOLN , Notes to Pharmacist: *Reorder from [facility] for eRx and Interaction Alerts*DULoxetine HCl 30 MG Capsule Delayed Release Particles Oral hydroCHLOROthiazide 12.5 MG Tablet Oral Gabapentin 100 MG Capsule Oral hydrALAZINE HCl 25 MG Tablet Oral Mucinex DM 30-600 MG Tablet Extended Release 12 Hour Oral LUER-TIERNEY SYRINGE-NEEDLE 3 mL 25 gauge x 1 SYRINGE, EMPTY DISPOSABLE MISCELLANEOUS , Notes to Pharmacist: *Reorder from [facility] for eRx and Interaction Alerts*Amoxicillin-Pot Clavulanate 250-62.5 MG/5ML Suspension Reconstituted Oral Clotrimazole-Betamethasone 1-0.05 % Cream External QUEtiapine Fumarate 50 MG Tablet Oral Meloxicam 7.5 MG Tablet Oral Felodipine ER 5 mg Tablet Extended Release 24 Hour Oral Deep Sea Nasal Dexter 0.65 % Solution Nasal Diclofenac Sodium 1% Gel Transdermal Belsomra 15 mg Tablet Oral Naproxen 375 MG Tablet Oral Baclofen 10 MG Tablet Oral Cyanocobalamin 1000 MCG/ML Solution Injection Doxycycline Hyclate 100 MG Capsule Oral Valsartan-hydroCHLOROthiazide 160-12.5 MG Tablet Oral amLODIPine Besylate 5 MG Tablet Oral Doxazosin Mesylate 2 MG Tablet Oral Mupirocin 2% Ointment External Taking Aspirin Adult Low Strength 81 MG Tablet Delayed Release Oral Taking ASPERCREME (LIDOCAINE HCL) 4 % TOPICAL , Notes to Pharmacist: *Reorder from [facility] for eRx and Interaction Alerts*Taking ProAir HFA 108 (90 Base) MCG/ACT Aerosol Solution Inhalation Taking DULoxetine HCl 60 MG Capsule Delayed Release Particles Oral Taking oxyBUTYnin Chloride ER 10 MG Tablet Extended Release 24 Hour Oral Taking Acetaminophen Extra Strength 500 MG Tablet Oral Taking Proctozone-HC 2.5 % Cream Rectal Taking Ondansetron 4 MG Tablet Disintegrating Oral Taking Cetirizine HCl 10 MG Tablet Oral Taking Doxepin HCl 6 MG Tablet Oral Taking Fluconazole 100 MG Tablet Oral Taking Omeprazole 20 MG Capsule Delayed Release Oral Taking Azithromycin 250 MG Tablet Oral Taking Valsartan 320 MG Tablet Oral Taking Fluticasone Propionate Diskus 50 MCG/ACT Aerosol Powder Breath Activated Inhalation , Notes to Pharmacist: *Reorder from [facility] for eRx and Interaction Alerts*Taking Losartan Potassium 100 MG Tablet Oral Taking Topiramate 25 MG Tablet Oral Taking Metoprolol Succinate ER 25 MG Tablet Extended Release 24 Hour Oral Taking SODIUM,POTASSIUM,MAG SULFATES 17.5 GRAM-3.13 GRAM-1.6 GRAM ORAL SOLN , Notes to Pharmacist: *Reorder from [facility] for eRx and Interaction Alerts*Taking DULoxetine HCl 30 MG Capsule Delayed Release Particles Oral Taking hydroCHLOROthiazide 12.5 MG Tablet Oral Taking Gabapentin 100 MG Capsule Oral Taking hydrALAZINE HCl 25 MG Tablet Oral Taking Mucinex DM 30- 600 MG Tablet Extended Release 12 Hour Oral Taking LUER-TIERNEY SYRINGE-NEEDLE 3 mL 25 gauge x 1 SYRINGE, EMPTY DISPOSABLE MISCELLANEOUS , Notes to Pharmacist: *Reorder from [facility] for eRx and Interaction Alerts*Taking Amoxicillin-Pot Clavulanate 250- 62.5 MG/5ML Suspension Reconstituted Oral Taking Clotrimazole-Betamethasone 1-0.05 % Cream External Taking QUEtiapine Fumarate 50 MG Tablet Oral Taking Meloxicam 7.5 MG Tablet Oral Taking Felodipine ER 5 mg Tablet Extended Release 24 Hour Oral Taking Deep Sea Nasal Dexter 0.65 % Solution Nasal Taking Diclofenac Sodium 1% Gel Transdermal Taking Belsomra 15 mg Tablet Oral Taking Naproxen 375 MG Tablet Oral Taking Baclofen 10 MG Tablet Oral Taking Cyanocobalamin 1000 MCG/ML Solution Injection Taking Doxycycline Hyclate 100 MG Capsule Oral Taking Valsartan-hydroCHLOROthiazide 160-12.5 MG Tablet Oral Taking amLODIPine Besylate 5 MG Tablet Oral Taking Doxazosin Mesylate 2 MG Tablet Oral Taking Mupirocin 2% Ointment External * Allergies:?Bactrim: Allergy - Onset Date 12/01/2023Lisinopril: Allergy - Onset Date 12/01/2023 Objective: * Vitals:? * Physical Examination:? Assessment: Plan: * Treatment: * Procedure Codes:? * true * Date:? Generated for Shayla wood/Bam/Joni on:?10/07/2024 04:06 AM [employer]GAR CONTR[employer]ER
--- OUTSIDE RECORDS SUMMARY | 2024-10-07 04:06 | XMS_ITS | CONTINUITY OF CARE DOCUMENT ---
Author Name natasha kaur Address Unknown Organization [facility] Address [address] [place] [address] Phone [phone] Care Team Providers Care Grain Handler Name Role Phone Boo BHATT, Dede Unavailable [phone] JOSE BONILLA MD Unavailable Jose BHATT, Marco Garcia Unavailable INSURANCE PROVIDERS Payer name Policy type / Coverage type Libby red republican ID [facility] [id number]
--- OUTSIDE RECORDS SUMMARY | 2024-10-07 04:06 | XMS_ITS | Data Portability ---
Author Organization [facility], [employer] Address [address] [address] Care Team Providers Care Psychiatric Social Worker Supervisor Name Role Phone NATHALIE RAMIREZ Research Greenhouse Supervisor RHIANNA COCHRAN Primary Care Provider Assessment Encounter Date Assessment Date Assessment LastModified by Organization Details LastModified Time 06/12/2023 06/12/2023 Patient presented for follow up. Studies ordered as below. Discussed plan with patient/careg iver, who expressed understanding . Follow up as noted below. Not available 06/12/2023 10:43:19 10/20/2023 10/20/2023 Patient presented for follow up. Studies ordered as below. Discussed plan with patient/careg iver, who expressed understanding . Follow up as noted below. Not available 10/20/2023 17:42:56 11/06/2023 11/06/2023 Patient presented for follow up. Studies ordered as below. Discussed plan with patient/careg iver, who expressed understanding . Follow up as noted below. Not available 11/06/2023 15:32:58 12/17/2023 12/17/2023 Patient presented for follow up. Studies ordered as below. Discussed plan with patient/careg iver, who expressed understanding . Follow up as noted below. Not available 12/17/2023 14:15:56 Plan of Treatment Reminders Order Date Submit Date Provider Last Modified By Organization Details Last Modified Time Details Appointments None recorded. Lab urinalysis , dipstick 2022 023 [facility] [employer], [address], [place], [address], 3 16:24:37 vitamin B12 + folate, serum or blood 2022 023 [facility], [address], [address], [place], [address], 3 10:42:54 TSH + free T4, serum 2022 023 JUANITA [employer] [facility], [address], [address], [place], [address], 3 11:34:31 HbA1c (hemoglobi n A1c), blood 2022 023 JUANITA [employer] [facility], [address], [address], [place], [address], 3 05:34:46 CBC w/ auto diff 2022 023 JUANITA [employer] [facility], [address], [address], [place], [address], 3 10:42:50 CMP, serum or plasma 2022 023 JUANITA [employer] [facility], [address], [address], [place], [address], 3 10:42:51 lipid panel, serum 2022 023 [facility], [address], [address], [place], [address], 3 05:35:04 TSH, serum or plasma 2022 023 [facility], [address], [address], [place], [address], 3 10:42:53 protein electropho resis panel, serum or plasma 2022 023 [facility], [address], [address], [place], [address], 3 05:35:00 protein electropho resis, urine 2022 023 [facility] [facility], [address], [address], [place], [address], 3 05:34:36 glucose tolerance test, post-75G, 3 specimens 2023 024 [facility] [facility], [address], [address], [place], [address], 4 09:51:01 CMP, serum or plasma 2023 024 [employer] [facility], [address], [address], [place], [address], 4 09:51:03 CBC w/ auto diff 2023 024 [facility], [address], [address], [place], [address], 4 09:51:04 vitamin B12 + folate, serum or blood 2023 024 [employer] [facility], [address], [address], [place], [address], 4 05:42:31 urinalysis , dipstick 2023 024 [facility] [employer], [facility], [address], [place], [address], 4 17:24:17 CMP, serum or plasma 2023 024 [facility], [address], [address], [place], [address], 4 04:14:43 CBC w/ auto diff 2023 024 [employer] [facility], [address], [place], [address], 4 05:42:31 HbA1c (hemoglobi n A1c), blood 2023 024 JUANITA [employer] [facility], [address], [address], [place], [address], 4 04:13:37 TSH + free T4, serum 2023 024 JUANITA [employer] [facility], [address], [address], [place], [address], 4 14:51:37 vitamin B12 + folate, serum or blood 2023 024 JUANITA [employer] [facility], [address], [address], [place], [address], 4 04:13:37 vitamin D, 25-hydroxy , total, serum 2023 024 [employer] [facility], [address], [address], [place], [address], 4 14:51:39 magnesium, serum or plasma 2023 024 [facility], [address], [address], [place], [address], 4 04:13:37 Referral urologist referral 2022 023 [place] [facility], [address], [place], [address], 3 05:38:25 optometris t referral 2022 023 [place] [facility], [address], [place], [address], 3 05:38:40 neurologis t referral 2022 023 JUANITA [place] MD, [address] [facility], [address], [place], [address], 4 04:01:[address] referral 2022 023 JUANITA Vallecillo [facility], [address] [facility], [place], [address], 4 04:01:27 neurologis t referral 2023 024 LESLEY [place] MD, [address] [facility], [address], [place], [address], 4 18:12:[address] referral 2023 024 [facility], [address] [facility], [place], [address], 4 04:02:31 counseling referral 2023 024 J[facility]ANITA [facility]se[facility], [address], [place], [address], 4 04:08:[address] referral 2023 024 JUANITA Wu MD, [address] [facility] [address], [address], [place], [address], 4 10:34:[address] referral 2023 024 [facility], [address] [facility], [place], [address], 4 04:06:16 Procedures None recorded. Surgeries None recorded. Imaging electrocar diogram 2022 023 [facility] [employer], [address], [place], [address], 3 17:30:39 home sleep study 2022 023 JUANITA Not available 3 05:34:24 XR, shoulder, 2 or more view 2022 023 [facility] Centralized Scheduling, [facility], [address] , [place], [address], 4 04:16:28 US, echocardio gram 2023 024 [place] [facility], [facility], [address], [place], [address], 4 18:04:39 home sleep study 2023 024 [facility], [address], [place], [address], 4 05:42:31 Medication Orders losartan 100 mg tablet 2022 023 [place] [facility][id number], [address], [place], [id number], 3 11:32:06 gabapentin 100 mg capsule 2022 023 [facility], [address], [place], [id number], 4 18:08:48 duloxetine 60 mg capsule,de layed release 2022 023 [place] [facility] #83979, [address], [place], [id number], 3 16:32:38 Voltaren Arthritis Pain 1 % topical gel 2022 023 [facility] #91665, [address], [place], [id number], 3 16:32:44 meloxicam 7.5 mg tablet 2022 023 [facility] #78375, [address], [place], [id number], 3 16:32:52 baclofen 10 mg tablet 2022 023 [facility] #31439, [address], [place], [id number], 3 16:32:46 gabapentin 100 mg capsule [address] [facility] #43070, [address], [place], [id number], 4 18:08:48 losartan 100 mg tablet 2023 024 [facility] #53896, [address], [place], [id number], 4 17:56:54 metoprolol succinate ER 25 mg tablet,ext ended release 24 hr 2023 024 [facility] #49112, [address], [place], [id number], 4 17:56:55 gabapentin 100 mg capsule 2023 024 [facility] #04526, [address], [place], [id number], 4 18:08:56 felodipine ER 5 mg tablet,ext ended release 24 hr 2023 024 J[facility]AN[facility] #45550, [address], [place], [id number], 16:25:11 doxepin 6 mg tablet 2023 024 jose auda [facility] #38730, [address], [place], [id number], 14:43:25 Patient TargetsNo targets recorded. Patient Instructions Encounter Date Encounter Id Patient Instructions Last Modified By Organization Details Last Modified Time 06/12/2023 [id number] mammogram: about this test mshenouda Not available 06/12/2023 11:31:56 blood in the urine: care instructions mshenouda Not available 06/12/2023 11:35:14 back care and preventing injuries: care instructions mshenouda Not available 06/12/2023 11:44:42 getting back to normal after low back pain: care instructions mshenouda Not available 06/12/2023 11:44:42 learning about relief for back pain mshenouda Not available 06/12/2023 11:44:42 Core Needle Breast Biopsy: About This Test mshenouda Not available 06/12/2023 11:31:55 body mass index: care instructions mshenouda Not available 06/12/2023 11:31:56 learning about healthy weight mshenouda Not available 06/12/2023 11:31:56 snoring: care instructions mshenouda Not available 06/12/2023 11:33:41 10/20/2023 [id number] mammogram: about this test mshenouda Not available 10/20/2023 17:56:47 learning about high blood sugar mshenouda Not available 10/20/2023 17:56:47 body mass index: care instructions mshenouda Not available 10/20/2023 17:56:46 learning about healthy weight mshenouda Not available 10/20/2023 17:56:47 11/06/2023 [id number] blood in the urine: care instructions mshenouda Not available 11/06/2023 16:25:05 body mass index: care instructions mshenouda Not available 11/06/2023 16:25:04 learning about healthy weight mshenouda Not available 11/06/2023 16:25:04 snoring: care instructions mshenouda Not available 11/06/2023 16:25:04 12/17/2023 [id number] mammogram: about this test mshenouda Not available 12/17/2023 14:50:40 body mass index: care instructions mshenouda Not available 12/17/2023 14:50:40 learning about healthy weight mshenouda Not available 12/17/2023 14:50:40 Reason for Referral National Business Director Referral for Syed ign hypertension Referring Physician: Rhianna Cochran [facility], Encounter Date: 06/12/2023 Urologist Referral for Micro scopic hematuria Referring Physician: Rhianna Cochran [facility], Encounter Date: 06/12/2023 Neurologist Referral for Num bness of foot Referring Physician: Rhianna Cochran [facility], Encounter Date: 09/03/2023 Psychologist Referral for Mi xed anxiety and depressive disorder Referring Physician: Rhianna Cochran [facility], Encounter Date: 09/03/2023 Neurologist Referral for Num bness of foot Referring Physician: Rhianna Cochran [facility], Encounter Date: 10/20/2023 Entry Level Chemist Referral for Sc reening for malignant neoplasm of cervix Referring Physician: Rhianna Cochran [facility], Encounter Date: 10/20/2023 Counseling Referral for Mixe d anxiety and depressive disorder Referring Physician: Rhianna Cochran [facility], Encounter Date: 11/06/2023 Psychiatrist Referral for Mi xed anxiety and depressive disorder Referring Physician: Rhianna Cochran [facility], Encounter Date: 11/06/2023 Entry Level Chemist Referral for Sc reening for malignant neoplasm of cervix Referring Physician: Rhianna Cochran [facility], Encounter Date: 12/17/2023 Results Created Date Observation Date Name Description Value Unit Range Abnormal Flag Note LastModifiedBy Organization Detail LastModifiedTime 06/12/2006/12/2023 HEMOG LOBIN A1C HGBA1C 5.1 % 4.0-6. 0 Not Available [facility] (Main Location) [address] ,, [place], [address], 06/18/2023 10:42:49 06/12/20 23 06/12/2023 COMPL ETE CBC W/AUT O DIFF WBC white blood cell count 7.4 thous and/u L 3.5-10 .0 Not Available [facility] (Main Location) [address] ,, [place], [address], 06/18/2023 10:42:50 06/12/20 23 06/12/2023 COMPL ETE CBC W/AUT O DIFF WBC red blood cell count 3.5 es on/uL 3.5-5. 5 Not Available [facility] (Main Location) [address] ,, [place], [address], 06/18/2023 10:42:50 06/12/20 23 06/12/2023 COMPL ETE CBC W/AUT O DIFF WBC hemoglobin 12.4 g/dL 11.5-1 6.5 Not Available [facility] (Main Location) [address] ,, [place], [address], 06/18/2023 10:42:50 06/12/20 23 06/12/2023 COMPL ETE CBC W/AUT O DIFF WBC hematocrit 39 % 35-55 Not Available [facility] (Main Location) [address] ,, [place], [address], 06/18/2023 10:42:50 06/12/20 23 06/12/2023 COMPL ETE CBC W/AUT O DIFF WBC MCH 36 pg 25-35 high Not Available [facility] (Main Location) [address] ,, [place], [address], 06/18/2023 10:42:50 06/12/20 23 06/12/2023 COMPL ETE CBC W/AUT O DIFF WBC MCHC 32 g/dL 31-38 Not Available [facility] [address] ,, [place], [address], 06/18/2023 10:42:50 06/12/20 23 06/12/2023 COMPL ETE CBC W/AUT O DIFF WBC MCV 113 fL 75-100 high Not Available [facility] [address] ,, [place], [address], 06/18/2023 10:42:50 06/12/20 23 06/12/2023 COMPL ETE CBC W/AUT O DIFF WBC RDW-CV 16 % 11-15 high Not Available [facility] [address] ,, [place], [address], 06/18/2023 10:42:50 06/12/20 23 06/12/2023 COMPL ETE CBC W/AUT O DIFF WBC neutrophils% 69.7 % Not Available [facility] [address] ,, [place], [address], 06/18/2023 10:42:50 06/12/20 23 06/12/2023 COMPL ETE CBC W/AUT O DIFF WBC lymphocytes% 22.4 % Not Available [facility] [address] ,, [place], [address], 06/18/2023 10:42:50 06/12/20 23 06/12/2023 COMPL ETE CBC W/AUT O DIFF WBC monocytes% 5.8 % Not Available [facility] (Main Location) [facility] [address] ,, [place], [address], 06/18/2023 10:42:50 06/12/20 23 06/12/2023 COMPL ETE CBC W/AUT O DIFF WBC eosinophil % 1.4 % 0.0-7. 0 Not Available [facility] (Main Location) [facility] [address] ,, [place], [address], 06/18/2023 10:42:50 06/12/20 23 06/12/2023 COMPL ETE CBC W/AUT O DIFF WBC basophil % 0.4 % 0.0-3. 0 Not Available [facility] [address] ,, [place], [address], 06/18/2023 10:42:50 06/12/20 23 06/12/2023 COMPL ETE CBC W/AUT O DIFF WBC absolute neutrophils 5.2 cells /uL 1.5-7. 8 Not Available [facility] [address] ,, [place], [address], 06/18/2023 10:42:50 06/12/20 23 06/12/2023 COMPL ETE CBC W/AUT O DIFF WBC absolute lymphocytes 1.65 cells /uL 0.85-3 .90 Not Available [facility] [address] ,, [place], [address], 06/18/2023 10:42:50 06/12/20 23 06/12/2023 COMPL ETE CBC W/AUT O DIFF WBC absolute monocytes 0.4 cells /uL 0.2-1. 0 Not Available [facility]Main Location[facility] [address] ,, [place], [address], 06/18/2023 10:42:50 06/12/20 23 06/12/2023 COMPL ETE CBC W/AUT O DIFF WBC absolute eosinophils 0.1 cells /uL 0.0-0. 5 Not Available [facility]Main Location[facility] [address] ,, [place], [address], 06/18/2023 10:42:50 06/12/20 23 06/12/2023 COMPL ETE CBC W/AUT O DIFF WBC absolute basophils 0.0 cells /uL 0.0-0. 2 Not Available [facility]Main Location[facility] [address] ,, [place], [address], 06/18/2023 10:42:50 06/12/20 23 06/12/2023 COMPL ETE CBC W/AUT O DIFF WBC platelet count 358 thous and/u L 100-40 0 Not Available [facility] (Main Location) [address] [place] [address]. [address] ,, [place], [address], 06/18/2023 10:42:50 06/12/20 23 06/12/2023 CMP (COMP REHEN SIVE METAB OLIC PANEL ) glucose 115 mg/dL 74-99 high Not Available [facility] (Main Location) [address] [place] [address]. [address] ,, [place], [address], 06/18/2023 10:42:51 06/12/20 23 06/12/2023 CMP (COMP REHEN SIVE METAB OLIC PANEL ) urea nitrogen, blood (BUN) 13 mg/dL 6-20 Not Available [facility] (Main Location) [address] [place] [address]. [address] ,, [place], [address], 06/18/2023 10:42:51 06/12/20 23 06/12/2023 CMP (COMP REHEN SIVE METAB OLIC PANEL ) total bilirubin 0.6 mg/dL 0.0-1. 2 Not Available [facility] (Main Location) [address] [place] [address]. [address] ,, [place], [address], 06/18/2023 10:42:51 06/12/20 23 06/12/2023 CMP (COMP REHEN SIVE METAB OLIC PANEL ) total protein 7.2 g/dL 6.6-8. 7 Not Available [facility] (Main Location) [address] [place] [address] Rd[address] ,, [place], [address], 06/18/2023 10:42:51 06/12/20 23 06/12/2023 CMP (COMP REHEN SIVE METAB OLIC PANEL ) alanine aminotransfe rase (ALT) 10 U/L 0-33 Not Available [facility] (Main Location) [address] [place] [address]. [address] ,, [place], [address], 06/18/2023 10:42:51 06/12/20 23 06/12/2023 CMP (COMP REHEN SIVE METAB OLIC PANEL ) alkaline phosphatase 171 U/L 40-130 high Not Available [facility] (Main Location) [facility] [address] ,, [place], [address], 06/18/2023 10:42:51 06/12/20 23 06/12/2023 CMP (COMP REHEN SIVE METAB OLIC PANEL ) aspartate aminotransfe rase (AST) 17 U/L 0-32 Not Available [facility] (Main Location) [address] [place], [place] [address] ,, [place], [address], 06/18/2023 10:42:51 06/12/20 23 06/12/2023 CMP (COMP REHEN SIVE METAB OLIC PANEL ) calcium 10.0 mg/dL 8.6-10 .2 Not Available [facility] (Main Location) [address] [place], [place] [address] ,, [place], [address], 06/18/2023 10:42:51 06/12/20 23 06/12/2023 CMP (COMP REHEN SIVE METAB OLIC PANEL ) albumin 4.3 g/dL 3.5-5. 2 Not Available [facility] (Main Location) [address] [place], [place] [address] ,, [place], [address], 06/18/2023 10:42:51 06/12/20 23 06/12/2023 CMP (COMP REHEN SIVE METAB OLIC PANEL ) CO2 28 mmol/ L 22-29 Not Available [facility] (Main Location) [address] [place], [place] [address] ,, [place], [address], 06/18/2023 10:42:51 06/12/20 23 06/12/2023 CMP (COMP REHEN SIVE METAB OLIC PANEL ) creatinine, serum 1.0 mg/dL 0.5-0. 9 high Not Available [facility] (Main Location) [address] [place], [place] [address] ,, [place], [address], 06/18/2023 10:42:51 06/12/20 23 06/12/2023 CMP (COMP REHEN SIVE METAB OLIC PANEL ) sodium, serum 142 mmol/ L 136-14 5 Not Available [facility] (Main Location) [address] ,, [place], [address], 06/18/2023 10:42:51 06/12/20 23 06/12/2023 CMP (COMP REHEN SIVE METAB OLIC PANEL ) potassium, serum 3.8 mmol/ L 3.5-5. 1 Not Available [facility] (Main Location) [address] ,, [place], [address], 06/18/2023 10:42:51 06/12/20 23 06/12/2023 CMP (COMP REHEN SIVE METAB OLIC PANEL ) chloride, serum 103 mmol/ L 98-107 Not Available [facility] (Main Location) [address] ,, [place], [address], 06/18/2023 10:42:51 06/12/20 23 06/12/2023 CMP (COMP REHEN SIVE METAB OLIC PANEL ) eGFR 84 >59 Persi stent reduc tion for 3 month s or more in an eGFR <60 mL/mi n/1.7 3 m2 defin es CKD. Patie nts with eGFR value s>/=6 0 mL/mi n/1.7 3 m2 may also have CKD if evide nce of persi stent protu nipeyman a is prese nt. Addit ional infor wayne gillis may be found at [email or web address] [email or web address] org. Not Available [facility] (Main Location) [address] ,, [place], [address], 06/18/2023 10:42:51 06/12/20 23 06/12/2023 FREE THYRO XINE (FT4) FT4 1.46 NG/dL 0.93-1 .70 Not Available [facility] (Main Location) [address] ,, [place], [address], 06/18/2023 10:42:52 06/12/20 23 06/12/2023 LIPID PANEL trigylceride s 77 mg/dL 0-150 Not Available [facility] (Main Location) [facility] ,, [place], [address], 06/18/2023 10:42:53 06/12/20 23 06/12/2023 LIPID PANEL cholesterol 156 mg/dL 0-200 Not Available [facility]Main Location) [facility] [address] ,, [place], [address], 06/18/2023 10:42:53 06/12/20 23 06/12/2023 LIPID PANEL uhdl 72 mg/dL 45-65 high Not Available [facility] (Main Location) [facility] ,, [place], [address], 06/18/2023 10:42:53 06/12/20 23 06/12/2023 LIPID PANEL LDL, calculated 69 mg/dL 0-100 Not Available [facility]Main Location[facility] [address] ,, [place], [address], 06/18/2023 10:42:53 06/12/20 23 06/12/2023 LIPID PANEL LDL/HDL ratio 1 mg/dL 0-5 Not Available [facility] (Main Location) [facility] ,, [place], [address], 06/18/2023 10:42:53 06/12/20 23 06/12/2023 LIPID PANEL VLDL 15.4 mg/dL 5.0-40 .0 Not Available [facility] (Main Location) [facility] ,, [place], [address], 06/18/2023 10:42:53 06/12/20 23 06/12/2023 LIPID PANEL cholesterol/ HDL ratio 2.17 0.00-5 .00 Not Available [facility] (Main Location) [facility] ,, [place], [address], 06/18/2023 10:42:53 06/12/20 23 06/12/2023 THYRO ID STIMU LATIN G HORMO NE (TSH) TSH 1.53 ?IU/m L 0.27-4 .20 Not Available [facility] (Main Location) [address] ,, [place], [address], 06/18/2023 10:42:53 06/12/20 23 06/12/2023 VITAM IN B12 AND FOLAT E folate 6.8 NG/mL 4.4-31 .0 Not Available [facility] (Main Location) [address] ,, [place], [address], 06/18/2023 10:42:54 06/12/20 23 06/12/2023 VITAM IN B12 AND FOLAT E vitamin B12 II 274 pg/mL 232-12 45 Not Available [facility] (Main Location) [address] ,, [place], [address], 06/18/2023 10:42:54 06/12/20 23 06/12/2023 PROTE IN ELECT ROPHO RESIS (SERU M) total protein: 7.3 g/dL 6.1-8. 3 Not Available [facility] (Main Location) [address] ,, [place], [address], 06/18/2023 10:42:55 06/12/20 23 06/12/2023 PROTE IN ELECT ROPHO RESIS (SERU M) albumin: 3.93 g/dL 2.80-4 .90 Not Available [facility] (Main Location) [address] ,, [place], [address], 06/18/2023 10:42:55 06/12/20 23 06/12/2023 PROTE IN ELECT ROPHO RESIS (SERU M) alpha-1: 0.31 g/dL 0.20-0 .50 Not Available [facility] (Main Location) [address] ,, [place], [address], 06/18/2023 10:42:55 06/12/20 23 06/12/2023 PROTE IN ELECT ROPHO RESIS (SERU M) alpha-2: 0.89 g/dL 0.50-1 .00 Not Available [facility] (Main Location) [address] ,, [place], [address], 06/18/2023 10:42:55 06/12/20 23 06/12/2023 PROTE IN ELECT ROPHO RESIS (SERU M) beta: 0.80 g/dL 0.50-1 .20 Not Available [facility] (Main Location) [address] ,, [place], [address], 06/18/2023 10:42:55 06/12/20 23 06/12/2023 PROTE IN ELECT ROPHO RESIS (SERU M) gamma: 1.36 g/dL 0.70-1 .50 Comme nt for PROT ELECT SERUM -SPEP Inter preta tion: Ewa l Prote in Elect ropho resis . Elect ronic ally Tessa d by Mallika hdz M.D. Ameri can [facility] Labor at[facility] es [address] [facility] [place] [address] Labor atory Direc tor: Angeline casarez M.D. CLIA# [id number] Not Available [facility] (Main Location) [address] ,, [place], [address], 06/18/2023 10:42:55 06/12/20 23 06/12/2023 PROTE IN ELECT ROPHO RESIS , URINE total volume NOT GIVEN mL Not Available [facility] (Main Location) [address] ,, [place], [address], 06/18/2023 10:42:55 06/12/20 23 06/12/2023 PROTE IN ELECT ROPHO RESIS , URINE protein urine 18 mg/dL Not Available [facility] (Main Location) [address] ,, [place], [address], 06/18/2023 10:42:55 06/12/20 23 06/12/2023 PROTE IN ELECT ROPHO RESIS , URINE protein, urine, 24HR (NOTE) mg/24 _HR 0-150 24 HOUR URINE VOLUM E IS NOT PROVI DED OR THE GIVEN SPECI MEN VOLUM E IS INCOM PATIB LE WITH A 24 HOUR COLLE CTION . THE SPECI MEN IS MOST CONSI STENT WITH A RANDO M URINE SAMPL E, AND 24 HOUR PROTE IN QUANT ITATI ON CANNO T BE CALCU LATED . PLEAS E REVIE W PATIE NT RECOR DS AND CONTA CT LABOR ATORY IF 24 HOUR VOLUM E CAN BE PROVI DED. Not Available [facility] (Main Location) [address] ,, [place], [address], 06/18/2023 10:42:55 06/12/20 23 06/12/2023 [facility] , [facility] % albumin: 24 % Not Available [facility] (Main Location) [facility] [address] ,, [place], [address], 06/18/2023 10:42:55 06/12/20 23 06/12/2023 [facility] , URINE % alpha-1: 33 % Not Available [facility] (Main Location) [address] ,, [place], [address], 06/18/2023 10:42:55 06/12/20 23 06/12/2023 [facility] , URINE % alpha-2: 20 % Not Available [facility] (Main Location) [facility] [address] ,, [place], [address], 06/18/2023 10:42:55 06/12/20 23 06/12/2023 PROTE IN ELECT ROPHO RESIS , URINE % beta: 14 % Not Available [facility] [address] ,, [place], [address], 06/18/2023 10:42:55 06/12/20 23 06/12/2023 PROTE IN ELECT ROPHO RESIS , URINE % gamma: 9 % Not Available [facility] (Main Location) [address] ,, [place], [address], 06/18/2023 10:42:55 06/12/20 23 06/12/2023 PROTE IN ELECT ROPHO RESIS , URINE interpretati on, upep: (NOTE) POSSI BLE MONOC LONAL PROTE IN IN THE GAMMA REGIO N. CONSI NIK IMMUN OTYPI NG ELECT ROPHO RESIS , SERUM OR IMMUN OTYPI NG ELECT ROPHO RESIS , URINE TO [facility] ER EVALU ATE, IF CLINI DAVY APPRO PRIAT E. MARIIA GODDARD M.D. UNLES S OTHER BISHOP INDIC ATED, ALL TESTI NG PERFO RMED AT [facility] [address] [place] [address] LABOR ATORY DIREC TOR: MARIIA GODDARD M.D. CLIA NUMBE [id number] [place]. [id number] [facility] [address] [place] [address] Medic al Direc tor: Panda field M.D. CLIA# [id number] Not Available [facility] (Main Location) [address] ,, [place], [address], 06/18/2023 10:42:55 06/12/20 23 06/12/2023 HEMOG LOBIN A1C HGBA1C 5.1 % 4.0-6. 0 Not Available [facility] (Main Location) [address] ,, [place], [address], 06/18/2023 10:43:00 06/12/20 23 06/12/2023 urina lysis , dipst ick Leukocytes Small Not Available [facility] [employer], [facility] [address], [place], [address], 06/12/2023 11:34:46 06/12/20 23 06/12/2023 urina lysis , dipst ick Nitrite negati ve Not Available [facility] [address], [place], [address], 06/12/2023 11:34:46 06/12/20 23 06/12/2023 urina lysis , dipst ick Urobilinogen .2 Not Available [facility] [address], [place], [address], 06/12/2023 11:34:46 06/12/20 23 06/12/2023 urina lysis , dipst ick Protein 30 Not Available [facility] [address], [place], [address], 06/12/2023 11:34:46 06/12/20 23 06/12/2023 urina lysis , dipst ick pH 5.0 Not Available [facility] [address], [place], [address], 06/12/2023 11:34:46 06/12/20 23 06/12/2023 urina lysis , dipst ick Blood Small Not Available [facility] [address], [place], [address], 06/12/2023 11:34:46 06/12/20 23 06/12/2023 urina lysis , dipst ick Specific [place] 1.030 Not Available [facility] [address], [place], [address], 06/12/2023 11:34:46 06/12/20 23 06/12/2023 urina lysis , dipst ick Ketone Modera te Not Available [facility] [address], [place], [address], 06/12/2023 11:34:46 06/12/20 23 06/12/2023 urina lysis , dipst ick Bilirubin Small Not Available [facility] [address], [place], [address], 06/12/2023 11:34:46 06/12/20 23 06/12/2023 urina lysis , dipst ick Glucose Negati ve Not Available [facility] [address], [place], [address], 06/12/2023 11:34:46 06/12/20 23 06/12/2023 urina lysis , dipst ick Appearance Cloudy Not Available [facility] [address] [facility] [address], [place], [address], 06/12/2023 11:34:46 06/12/20 23 06/12/2023 urina lysis , dipst ick Color Yellow Not Available [facility] [address] [facility] [facility] [address], [place], [address], 06/12/2023 11:34:46 11/06/19 24 11/06/2023 urina lysis , dipst ick Leukocytes Negati ve Not Available [facility] [address] [facility] [address], [place], [address], 11/06/2023 16:20:17 11/06/19 24 11/06/2023 urina lysis , dipst ick Nitrite negati ve Not Available [facility] [address] [facility] [facility] [address], [place], [address], 11/06/2023 16:20:17 11/06/19 24 11/06/2023 urina lysis , dipst ick Urobilinogen .2 Not Available [facility] [address], [place], [address], 11/06/2023 16:20:17 11/06/19 24 11/06/2023 urina lysis , dipst ick Protein 30 Not Available [facility] [address] [facility], [place], [address], 11/06/2023 16:20:17 11/06/19 24 11/06/2023 urina lysis , dipst ick pH 5.0 Not Available [facility] [address] [facility] [facility] [address], [place], [address], 11/06/2023 16:20:17 11/06/19 24 11/06/2023 urina lysis , dipst ick Blood Small Not Available [facility] [address] [facility], [place], [address], 11/06/2023 16:20:17 11/06/19 24 11/06/2023 urina lysis , dipst ick Specific [place] 1.025 Not Available [facility] [address] [facility] [facility] [address], [place], [address], 11/06/2023 16:20:17 11/06/19 24 11/06/2023 urina lysis , dipst ick Ketone Negati ve Not Available [facility] [address] [facility], [place], [address], 11/06/2023 16:20:17 11/06/19 24 11/06/2023 urina lysis , dipst ick Bilirubin Negati ve Not Available [facility] [address] [facility] [address], [place], [address], 11/06/2023 16:20:17 11/06/19 24 11/06/2023 urina lysis , dipst ick Glucose Negati ve Not Available [facility] [address] [facility] [facility] [address], [place], [address], 11/06/2023 16:20:17 11/06/19 24 11/06/2023 urina lysis , dipst ick Appearance Cloudy Not Available [facility] [address], [place], [address], 11/06/2023 16:20:17 11/06/19 24 11/06/2023 urina lysis , dipst ick Color Yellow Not Available [facility], [facility] [address], [place], [address], 11/06/2023 16:20:17 11/12/19 24 11/13/2023 GLUCO SE WILMAN ANCE TEST, 3 SPECI MENS, (75G) fasting specimen 93 mg/dL 65-99 normal Not Available [address], [address], 11/13/2023 09:51:01 11/12/19 24 11/13/2023 GLUCO SE WILMAN ANCE TEST, 3 SPECI MENS, (75G) 1 hour specimen 136 mg/dL normal Not Available [address], [address], 11/13/2023 09:51:01 11/12/19 24 11/13/2023 GLUCO SE WILMAN ANCE TEST, 3 SPECI MENS, (75G) 2 hour specimen 106 mg/dL <140 normal Not Available [address], [address], 11/13/2023 09:51:01 11/12/19 24 11/13/2023 GLUCO SE WILMAN ANCE TEST, 3 SPECI MENS, (75G) comment [facility] t[facility] Gluco se Value (mg/d L) Inter preta tion Fasti ng 1 Hr 2 Hr Wilman ance Wilman ance ----- ----- ---- ----- ---- ----- ---- ----- ---- Ewa l <1 00 Not Estab lishe d <140 Impai red Fasti ng 100-1 25 Impai red Wilman ance 140-1 99 Diabe tuan >OR=1 26* >OR=2 00* * Must be confi rmed by testi ng on a subse quent day. Not Available [address], [address], 11/13/2023 09:51:01 11/12/19 24 11/13/2023 COMPR EHENS KIM METAB OLIC PANEL glucose 90 mg/dL 65-99 normal Fasti ng refer ence inter lon Not Available [address], [address], 11/13/2023 09:51:03 11/12/19 24 11/13/2023 COMPR EHENS KIM METAB OLIC PANEL urea nitrogen (BUN) 15 mg/dL 7-25 normal Not Available [address], [address], 11/13/2023 09:51:03 11/12/19 24 11/13/2023 COMPR EHENS KIM METAB OLIC PANEL creatinine 1.01 mg/dL 0.50-1 .03 normal Not Available [address], [address], 11/13/2023 09:51:03 11/12/19 24 11/13/2023 COMPR EHENS KIM METAB OLIC PANEL eGFR 65 mL/mi n/1.7 3m2 > or = 60 normal Not Available [address], [address], 11/13/2023 09:51:03 11/12/19 24 11/13/2023 COMPR EHENS KIM METAB OLIC PANEL BUN/creatini ne ratio SEE NOTE: (calc ) 6-22 Not Repor jagdeep: BUN and Creat inine are withi n refer ence range . Not Available [address], [address], 11/13/2023 09:51:03 11/12/19 24 11/13/2023 COMPR EHENS KIM METAB OLIC PANEL sodium 140 mmol/ L 135-14 6 normal Not Available [address], [address], 11/13/2023 09:51:03 11/12/19 24 11/13/2023 COMPR EHENS KIM METAB OLIC PANEL potassium 4.1 mmol/ L 3.5-5. 3 normal Not Available [address], [address], 11/13/2023 09:51:03 11/12/19 24 11/13/2023 COMPR EHENS KIM METAB OLIC PANEL chloride 103 mmol/ L 98-110 normal Not Available [address], [address], 11/13/2023 09:51:03 11/12/19 24 11/13/2023 COMPR EHENS KIM METAB OLIC PANEL carbon dioxide 30 mmol/ L 20-32 normal Not Available [address], [address], 11/13/2023 09:51:03 11/12/19 24 11/13/2023 COMPR EHENS KIM METAB OLIC PANEL calcium 9.3 mg/dL 8.6-10 .4 normal Not Available [address], [address], 11/13/2023 09:51:03 11/12/19 24 11/13/2023 COMPR EHENS KIM METAB OLIC PANEL protein, total 6.8 g/dL 6.1-8. 1 normal Not Available [address], [address], 11/13/2023 09:51:03 11/12/19 24 11/13/2023 COMPR EHENS KIM METAB OLIC PANEL albumin 4.0 g/dL 3.6-5. 1 normal Not Available [address], [address], 11/13/2023 09:51:03 11/12/19 24 11/13/2023 COMPR EHENS KIM METAB OLIC PANEL globulin 2.8 g/dL_ (calc ) 1.9-3. 7 normal Not Available [address], [address], 11/13/2023 09:51:03 11/12/19 24 11/13/2023 COMPR EHENS KIM METAB OLIC PANEL albumin/glob ulin ratio 1.4 (calc ) 1.0-2. 5 normal Not Available [address], [address], 11/13/2023 09:51:03 11/12/19 24 11/13/2023 COMPR EHENS KIM METAB OLIC PANEL bilirubin, total 0.7 mg/dL 0.2-1. 2 normal Not Available [address], [address], 11/13/2023 09:51:03 11/12/19 24 11/13/2023 COMPR EHENS KIM METAB OLIC PANEL alkaline phosphatase 209 U/L 37-153 high Not Available [address], [address], 11/13/2023 09:51:03 11/12/19 24 11/13/2023 COMPR EHENS KIM METAB OLIC PANEL AST 22 U/L 10-35 normal Not Available [address], [address], 11/13/2023 09:51:03 11/12/19 24 11/13/2023 COMPR EHENS KIM METAB OLIC PANEL ALT 23 U/L 6-29 normal Not Available [address], [address], 11/13/2023 09:51:03 11/12/19 24 11/13/2023 CBC (INCL UDES DIFF/ PLT) white blood cell count 7.4 thous and/u L 3.8-10 .8 normal Not Available [address], [address], 11/13/2023 09:51:04 11/12/19 24 11/13/2023 CBC (INCL UDES DIFF/ PLT) red blood cell count 3.98 es on/uL 3.80-5 .10 normal Not Available [address], [address], 11/13/2023 09:51:04 11/12/19 24 11/13/2023 CBC (INCL UDES DIFF/ PLT) hemoglobin 12.8 g/dL 11.7-1 5.5 normal Not Available [address], [address], 11/13/2023 09:51:04 11/12/19 24 11/13/2023 CBC (INCL UDES DIFF/ PLT) hematocrit 38.9 % 35.0-4 5.0 normal Not Available [address], [address], 11/13/2023 09:51:04 11/12/19 24 11/13/2023 CBC (INCL UDES DIFF/ PLT) MCV 97.7 fL 80.0-1 00.0 normal Not Available [address], [address], 11/13/2023 09:51:04 11/12/19 24 11/13/2023 CBC (INCL UDES DIFF/ PLT) MCH 32.2 pg 27.0-3 3.0 normal Not Available [employer] [address], [address], 11/13/2023 09:51:04 11/12/19 24 11/13/2023 CBC (INCL UDES DIFF/ PLT) MCHC 32.9 g/dL 32.0-3 6.0 normal Not Available [address], [address], 11/13/2023 09:51:04 11/12/19 24 11/13/2023 CBC (INCL UDES DIFF/ PLT) RDW 14.9 % 11.0-1 5.0 normal Not Available [address], [address], 11/13/2023 09:51:04 11/12/19 24 11/13/2023 CBC (INCL UDES DIFF/ PLT) platelet count 240 thous and/u L 140-40 0 normal Not Available [address], [address], 11/13/2023 09:51:04 11/12/19 24 11/13/2023 CBC (INCL UDES DIFF/ PLT) MPV 11.4 fL 7.5-12 .5 normal Not Available [address], [address], 11/13/2023 09:51:04 11/12/19 24 11/13/2023 CBC (INCL UDES DIFF/ PLT) absolute neutrophils 4684 cells /uL 1500-7 800 normal Not Available [address], [address], 11/13/2023 09:51:04 11/12/19 24 11/13/2023 CBC (INCL UDES DIFF/ PLT) absolute lymphocytes 2057 cells /uL 850-39 00 normal Not Available [address], [address], 11/13/2023 09:51:04 11/12/19 24 11/13/2023 CBC (INCL UDES DIFF/ PLT) absolute monocytes 444 cells /uL 200-95 0 normal Not Available [address], [address], 11/13/2023 09:51:04 11/12/19 24 11/13/2023 CBC (INCL UDES DIFF/ PLT) absolute eosinophils 163 cells /uL 15-500 normal Not Available [address], [address], 11/13/2023 09:51:04 11/12/19 24 11/13/2023 CBC (INCL UDES DIFF/ PLT) absolute basophils 52 cells /uL 0-200 normal Not Available [facility] [address], [address], 11/13/2023 09:51:04 11/12/19 24 11/13/2023 CBC (INCL UDES DIFF/ PLT) neutrophils 63.3 % normal Not Available [address], [address], 11/13/2023 09:51:04 11/12/19 24 11/13/2023 CBC (INCL UDES DIFF/ PLT) lymphocytes 27.8 % normal Not Available [address], [address], 11/13/2023 09:51:04 11/12/19 24 11/13/2023 CBC (INCL UDES DIFF/ PLT) monocytes 6.0 % normal Not Available [facility] [address], [address], 11/13/2023 09:51:04 11/12/19 24 11/13/2023 CBC (INCL UDES DIFF/ PLT) eosinophils 2.2 % normal Not Available [facility] [address], [address], 11/13/2023 09:51:04 11/12/19 24 11/13/2023 CBC (INCL UDES DIFF/ PLT) basophils 0.7 % normal Not Available [facility] [address], [address], 11/13/2023 09:51:04 06/12/20 23 06/12/2023 elect rocar diogr am No observ ation record ed. [facility], [facility] [address], [place], [address], 09/03/2023 16:24:17 06/12/20 23 06/12/2023 elect rocar diogr am No observ ation record ed. [facility] [address], [place], [address], 09/03/2023 16:24:17 11/06/19 24 11/06/2023 US, echoc ardio gram No observ ation record ed. [facility] [address], [place], [address], 12/17/2023 14:47:05 12/31/19 24 12/17/2023 US, echoc ardio gram No observ ation record ed. [facility] [address], [place], [address], 01/15/2024 04:12:19 01/12/20 24 12/17/2023 US, echoc ardio gram No observ ation record ed. [facility] [address], [place], [address], 01/23/2024 10:21:19 Result Notes None recorded. Problems Name Problem SNOMED Code Status Onset Date Resolution Date Notes Provider Name and Address Organization Details Recorded Time Tiffanie becka andrade emely 06417337 Completed 201507/25/2020 Rhianna Cochran MD [address], [place], [address] , [place] - [facility] 0 16:51:14 [facility] 067931581 Active 2015 Not Available [facility] 3 08:58:10 History of laparosc opic adjustab le gastric banding 101607239 Active 2015 Not Available [facility] 3 08:58:10 Family history of cancer of colon 416128018 Active 2016 mother Not Available [facility] 3 08:58:10 Waylon casarez 415379966 Active 2017 Not Available [facility] 3 08:58:10 Reactive depressi on (situati onal) 87139391 Active 2017 Not Available [facility] 3 08:58:10 Insomnia 942652777 Active 2017 Not Available [facility] 3 08:58:10 Tattoo of skin 37394182708 2 Active 2017 Not Available [facility] 3 08:58:10 Benign hyperten emely 12755528 Active 2018 Not Available [facility] 3 08:58:10 Mixed anxiety and depressi ve disorder 355752361 Active 2019 Not Available [facility] 3 08:58:10 Body mass index 40+ - severely obese 844951338 Active 2019 Not Available [facility] 3 08:58:10 Urgent desire to urinate 61604494 Active 2019 Not Available [facility] 3 08:58:10 Noncompl iance with medicati on regimen 811024785 Active 2019 Not Available [facility] 3 08:58:10 Microsco pic hematuri a 016843879 Active 2019 Not Available [facility] 3 08:58:10 Neck pain 17556750 Active 2019 Not Available [facility] 3 08:58:10 Allergic rhinitis caused by pollen 14059423 Active 2021 Not Available [facility] 3 08:58:10 Hypokale yina 98122755 Active 2021 Not Available [facility] 3 08:58:10 Macrocyt osis 761789244 Active 2021 Not Available [facility] 3 08:58:10 Serum total protein outside referenc e range 801080553 Active 2021 Not Available [facility] 3 08:58:10 Mammogra phy abnormal 000983875 Active 2021 Not Available [facility] 3 08:58:10 Persiste nt insomnia 215719856 Active 2022 Not Available [facility] 3 08:58:10 Cardiome mara 0607249 Active 2022 Not Available [facility] 3 08:58:10 Low back pain 073067774 Active 2022 Not Available [facility] 3 08:58:10 Snoring 58184285 Active 2023 Rhianna Cochran MD [address], [place], [address] , [facility] 4 16:23:47 Problem Notes None recorded. Procedures Surgical History Date Name Laterality Status Provider Name and Address Organization Details Recorded Time 03/17/20 23 Colonoscopy completed Rhianna Cochran MD [address], [place], [address], [facility] 03/17/2023 15:13:41 01/05/20 17 Date of Last Pap Smear completed Benita Jacobo [facility] 04/23/2018 12:12:22 Cholecystectomy completed Rhianna Cochran MD [address], [place], [address], [facility] 08/24/2018 17:42:46 delivery completed Cara Mo [facility] 07/04/2016 08:37:01 Partial Hysterectomy completed Rhianna Cochran MD [address], [place], [address], [facility] 07/04/2016 12:49:24 Breast Surgery completed Rhianna Cochran MD [address], [place], [address], [facility] 07/04/2016 12:49:51 Carpal tunnel surgery completed Rhianna Cochran MD [address], [place], [address], [place] [facility] 07/04/2016 12:50:38 Imaging Results Imaging Date Name Status LastModified by Organization Details LastModified Time 06/12/2023 [facility] [address], [place], [address], 09/03/2023 16:24:17 06/12/2023 [facility] [address], [place], [address], 09/03/2023 16:24:17 11/06/2023 US[facility] [address], [place], [address], 12/17/2023 14:47:05 12/17/2023 [facility] [address], [place], [address], 01/15/2024 04:12:19 12/17/2023 US, [facility] [address], [place], [address], 01/23/2024 10:21:19 Procedure Notes None recorded. Medical Equipment None Reported. Allergies Allergen ID Allergen Name Allergen Category Reaction Reaction Severity Criticality Documentation Date Start Date Code Code System Note Provider Name and Address Organization Details Recorded Time 7626 lisinopri l medicatio n cough Not available Not available 09/01/2018 21212 RxNorm Rhianna Cochran MD [address], [place], [address], [place] [facility] 8 12:15:04 7961 Bactrim medicatio n angioedem a moderate Not available 01/06/2019 34855 9 RxNorm NAY LOZANO APN [address], [place], [address], [place] [facility] 9 15:09:42 Medications Name Sig Start Date Stop Date Status Note LastModified by Organization Details LastModified Time celecoxib 200 mg capsule TAKE 1 CAPSULE BY MOUTH EVERY DAY 08/16 completed Not Available Not Available Not Available amoxicillin 500 mg capsule 12/31 completed Not Available Not Available Not Available fluconazole 100 mg tablet TAKE 1 TABLET BY MOUTH ONCE DAILY active Not Available Not Available No t Available doxycycline hyclate 100 mg capsule TAKE 1 CAPSULE BY MOUTH TWICE DAILY 12/16 completed Not Available Not Available Not Available naproxen 375 mg tablet TAKE 1 TABLET BY MOUTH TWICE DAILY active Not Available Not Available No t Available clindamycin HCl 300 mg capsule Take 1 capsule every 8 hours by oral route. 10/20 completed Not Available Not Available Not Available trazodone 50 mg tablet Take 1 tablet every day by oral route at bedtime. 12/31 completed Not Available Not Available Not Available cetirizine 10 mg tablet TAKE 1 TABLET BY MOUTH EVERY NIGHT AT BEDTIME NEEDED active Not Available Not Available No t Available oxybutynin chloride ER 10 mg tablet,exte nded release 24 hr TAKE 1 TABLET BY MOUTH EVERY DAY IN THE MORNING active Not Available Not Available No t Available azithromyci n 250 mg tablet FOLLOW PACKAGE DIRECTION S active Not Available Not Available No t Available fluconazole 150 mg tablet 01/19 completed Not Available Not Available Not Available amoxicillin 250 mg-potassiu m clavulanate 62.5 mg/5 mL oral suspension SHAKE LIQUID AND TAKE 17.5 ML BY MOUTH TWICE DAILY WITH THE MORNING AND EVENING MEAL FOR 10 DAYS. DISCARD REMAINDER 05/24 completed Not Available Not Available Not Available promethazin e 12.5 mg tablet Take 1 tablet 4 times a day by oral route as needed. 07/29 completed Not Available Not Available Not Available ondansetron HCl 4 mg tablet 08/05 completed Not Available Not Available Not Available felodipine ER 5 mg tablet,exte nded release 24 hr Take 1 tablet every day by oral route in the morning. active Not Available Not Available No t Available valsartan 160 mg-hydrochl orothiazide 12.5 mg tablet TAKE 1 TABLET BY MOUTH EVERY DAY active Not Available Not Available No t Available sertraline 100 mg tablet Take 1 tablet every day by oral route. 06/12 completed Not Available Not Available Not Available oxycodone 5 mg/5 mL oral solution 06/12 completed Not Available Not Available Not Available topiramate 25 mg tablet TAKE 1 TABLET BY MOUTH AT BEDTIME 12/16 completed Not Available Not Available Not Available hydralazine 25 mg tablet TAKE 1 TABLET BY MOUTH TWICE DAILY active Not Available Not Available No t Available amlodipine 2.5 mg tablet Take 1 tablet every day by oral route. 10/20 completed Not Available Not Available Not Available metronidazo le 500 mg tablet 10/20 completed Not Available Not Available Not Available phentermine 37.5 mg tablet TAKE 1 TABLET BY MOUTH EVERY DAY 09/25 completed Not Available Not Available Not Available amlodipine 5 mg tablet TAKE 1 TABLET BY MOUTH EVERY MORNING 10/20 completed Not Available Not Available Not Available sulfamethox azole 800 mg-trimetho prim 160 mg tablet Take 1 tablet every 12 hours by oral route for 4 days. 01/11 completed Not Available Not Available Not Available aspirin 81 mg tablet,elsi yed release Take 1 tablet(s) every day by oral route. active Not Available Not Available No t Available tramadol 50 mg tablet Take 1 tablet every 8 hours by oral route as needed. 11/10 completed Not Available Not Available Not Available acetaminoph en 500 mg tablet TAKE 1 TABLET BY MOUTH EVERY 8 HOURS 2023 active Not Available Not Available Not Avai lable ketorolac 30 mg/mL (1 mL) injection solution Inject 1 mL every 6 hours by intramusc ular route. 09/07 completed Not Available Not Available Not Available oxycodone 15 mg tablet TAKE 1 TABLET BY MOUTH TWICE DAILY NEEDED active Not Available Not Available No t Available meloxicam 7.5 mg tablet TAKE 1 TABLET BY MOUTH EVERY DAY NEEDED active Not Available Not Available No t Available amoxicillin 875 mg tablet 04/23 completed Not Available Not Available Not Available Deep Sea Nasal 0.65 % spray aerosol SPRAY 2 SPRAYS FIVE TIMES DAILY INTO EACH NOSTRIL 09/25 completed Not Available Not Available Not Available prednisolon e acetate 1 % eye drops,suspe nsion 06/12 completed Not Available Not Available Not Available potassium chloride ER 8 mEq tablet,exte nded release Take 1 tablet every day by oral route. 12/26 completed Not Available Not Available Not Available oxycodone-a cetaminophe n 10 mg-325 mg tablet 12/31 completed Not Available Not Available Not Available trazodone 100 mg tablet TAKE 1 TABLET BY MOUTH EVERY DAY AT BEDTIME 07/25 completed Not Available Not Available Not Available ciprofloxac in 0.3 % eye drops 01/19 completed Not Available Not Available Not Available Proctozone- HC 2.5 % topical cream perineal applicator APPLY A THIN LAYER TOPICALLY TO THE AFFECTED AREA(S) TWO TO FOUR TIMES DAILY active Not Available Not Available No t Available baclofen 10 mg tablet TAKE 1 TABLET BY MOUTH TWICE DAILY NEEDED active Not Available Not Available No t Available amlodipine 10 mg tablet 01/19 completed Not Available Not Available Not Available Questran 4 gram oral powder Take 1 scoop every day by oral route as needed. 07/29 completed Not Available Not Available Not Available cephalexin 500 mg capsule 05/28 completed Not Available Not Available Not Available erythromyci n 5 mg/gram (0.5 %) eye ointment APPLY 1 CENTIMETE R TO LEFT EAR FOUR TIMES DAILY FOR 7 DAYS active Not Available Not Available No t Available cyanocobala min (vit B-12) 1,000 mcg/mL injection solution INJECT 1 ML INTO THE MUSCLE EVERY WEEK active Not Available Not Available No t Available Cipro 500 mg tablet Take 1 tablet every 12 hours by oral route. 07/20 completed Not Available Not Available Not Available buspirone 10 mg tablet Take 1 tablet 3 times a day by oral route. 08/18 completed Not Available Not Available Not Available clotrimazol e-betametha sone 1 %-0.05 % topical cream APPLY TOPICALLY TO THE AFFECTED AREA TWICE DAILY FOR 2 WEEKS active Not Available Not Available No t Available lisinopril 10 mg tablet Take 1 tablet every day by oral route. 09/01 completed Not Available Not Available Not Available polymyxin B sulfate 10,000 unit-trimet hoprim 1 mg/mL eye drops 04/23 completed Not Available Not Available Not Available valsartan 320 mg tablet TAKE 1 TABLET BY MOUTH EVERY MORNING 06/12 completed Not Available Not Available Not Available losartan 25 mg tablet Take 1 tablet every day by oral route. 10/20 completed Not Available Not Available Not Available BD Luer-Nimco Syringe 3 mL 25 gauge x 1 USE TO INJECT B12 active Not Available Not Available No t Available telmisartan 80 mg-hydrochl orothiazide 12.5 mg tablet Take 1 tablet every day by oral route. 01/19 completed Not Available Not Available Not Available gabapentin 300 mg capsule TAKE 1 CAPSULE BY MOUTH EVERY MORNING AND 1 CAPSULE EVERY NIGHT AT BEDTIME active Not Available Not Available No t Available omeprazole 20 mg capsule,del ayed release TAKE 1 CAPSULE BY MOUTH EVERY DAY active need F/U miquel with Dr Not Available Not Available Not Available montelukast 10 mg tablet TAKE 1 TABLET BY MOUTH EVERY DAY 08/05 completed Not Available Not Available Not Available hydroxyzine HCl 25 mg tablet Take 1 tablet every day by oral route at bedtime. 08/05 completed Not Available Not Available Not Available hydrochloro thiazide 25 mg tablet TAKE 1 TABLET EVERY MORNING 01/19 completed Not Available Not Available Not Available mupirocin 2 % topical ointment APPLY SMALL AMOUNT TOPICALLY IN EACH NOSTRIL EVERY NIGHT AT BEDTIME 06/12 completed Not Available Not Available Not Available gabapentin 100 mg capsule 1 AM and Noon then 3 QHS active Not Available Not Available No t Available metoprolol succinate ER 25 mg tablet,exte nded release 24 hr Take 1 tablet every day by oral route in the morning. active Not Available Not Available No t Available ibuprofen 600 mg tablet 12/31 completed Not Available Not Available Not Available oxycodone-a cetaminophe n 7.5 mg-325 mg tablet 09/04 completed Not Available Not Available Not Available methylpredn isolone 4 mg tablets in a dose pack FOLLOW PACKAGE DIRECTION S active Not Available Not Available No t Available albuterol sulfate HFA 90 mcg/actuati on aerosol inhaler INHALE 2 PUFFS BY MOUTH THREE TIMES DAILY NEEDED active Not Available Not Available No t Available losartan 50 mg-hydrochl orothiazide 12.5 mg tablet Take 1 tablet every day by oral route in the morning. 11/30 completed Not Available Not Available Not Available Cipro 250 mg tablet Take 1 tablet every 12 hours by oral route for 4 days. 01/11 completed Not Available Not Available Not Available hydroxyzine HCl 10 mg tablet TAKE 1 TABLET BY MOUTH EVERY NIGHT AT BEDTIME FOR 3 DAYS active Not Available Not Available No t Available lisinopril 40 mg tablet 1 PO QAM 08/05 completed Not Available Not Available Not Available ondansetron 4 mg disintegrat ing tablet DISSOLVE 1 TABLET UNDER THE TONGUE EVERY 6 HOURS NEEDED FOR NAUSEA 06/12 completed Not Available Not Available Not Available losartan 100 mg tablet TAKE 1 TABLET BY MOUTH EVERY DAY IN THE MORNING active Not Available Not Available No t Available fluticasone propionate 50 mcg/actuati on nasal spray,suspe nsion [place] 1 spray every day by intranasa l route. active Not Available Not Available No t Available sertraline 50 mg tablet Take 1 tablet every day by oral route at bedtime. 01/19 completed Not Available Not Available Not Available doxazosin 2 mg tablet TAKE 1 TABLET BY MOUTH EVERY DAY AT BEDTIME 12/16 completed Not Available Not Available Not Available amoxicillin 875 mg-potassiu m clavulanate 125 mg tablet Take 1 tablet every 12 hours by oral route. 12/16 completed Not Available Not Available Not Available valsartan 160 mg tablet TAKE 1 TABLET BY MOUTH EVERY DAY IN THE MORNING 06/17 completed Not Available Not Available Not Available bupropion HCl XL 150 mg 24 hr tablet, extended release Take 1 tablet every day by oral route. 01/19 completed Not Available Not Available Not Available escitalopra m 5 mg tablet 03/19 completed Not Available Not Available Not Available nitrofurant oin monohydrate /macrocryst als 100 mg capsule Take 1 capsule every 12 hours by oral route for 5 days. 01/19 completed Not Available Not Available Not Available duloxetine 30 mg capsule,del ayed release TAKE 1 CAPSULE BY MOUTH EVERY DAY active Not Available Not Available No t Available duloxetine 60 mg capsule,del ayed release TAKE 1 CAPSULE BY MOUTH DAILY active Not Available Not Available No t Available Mucinex DM 30 mg-600 mg tablet,exte nded release 12 hr Take 1 tablet every 12 hours by oral route. 2023 active Not Available Not Available Not Avai lable valsartan 320 mg-hydrochl orothiazide 12.5 mg tablet Take 1 tablet every day by oral route. 03/19 completed Not Available Not Available Not Available BD Integra Syringe 3 mL 25 gauge x 1 USE TO INJECT B12 12/26 completed Not Available Not Available Not Available quetiapine 50 mg tablet TAKE 2 TABLETS BY MOUTH EVERY DAY AT BEDTIME active Not Available Not Available No t Available hydrochloro thiazide 12.5 mg tablet TAKE 1 TABLET BY MOUTH EVERY MORNING active Not Available Not Available No t Available oxycodone 10 mg tablet TAKE 1 TABLET BY MOUTH TWICE DAILY NEEDED active Not Available Not Available No t Available diclofenac 1 % topical gel APPLY 2 GRAMS TOPICALLY TO THE AFFECTED AREA FOUR TIMES DAILY active Not Available Not Available No t Available Zyrtec 10 mg capsule Take 1 capsule every day by oral route at bedtime. 03/19 completed Not Available Not Available Not Available doxepin 3 mg tablet TAKE 1 TABLET BY MOUTH EVERY DAY AT BEDTIME 12/16 completed Not Available Not Available Not Available doxepin 6 mg tablet TAKE 1 TABLET BY MOUTH EVERY DAY AT BEDTIME 12/16 completed Not Available Not Available Not Available sodium,pota ssium,mag sulfates 17.5 gram-3.13 gram-1.6 gram oral soln MIX AND DRINK DIRECTED 06/12 completed Not Available Not Available Not Available Belsomra 15 mg tablet active Not Available Not Available No t Available Belsomra 10 mg tablet TAKE 1 TABLET BY MOUTH EVERY DAY 08/05 completed Not Available Not Available Not Available Aspercreme (lidocaine HCl) 4 % topical Apply 1 applicati on twice a day by topical route. 2021 active Not Available Not Available Not Avai lable Ozempic 0.25 mg or 0.5 mg (2 mg/1.5 mL) subcutaneou s pen injector Inject 0.25 mg every week by subcutane ous route. 01/28 completed Not Available Not Available Not Available ID NOW COVID-19 Test Kit TEST DIRECTED TODAY 06/17 completed Not Available Not Available Not Available Paxlovid 300 mg (150 mg x 2)-100 mg tablets in a dose pack Take 1 dose pk twice a day by oral route as directed. 12/17 completed Not Available Not Available Not Available Vitals Date Recorded Body height Body mass index (BMI) Body weight Body temperature Respiratory rate Heart rate Systolic blood pressure Diastolic blood pressure Provider Name and Address Organization Details Last Updated DateTime 3 160.02 cm 43.8 kg/m2 996224. 32 g 98.2 [degF] 18 /min 93 /min 168 mm[Hg] 84 mm[Hg] Hope Ankur [facility] 3 10:44:55 Date Recorded Body height Provider Name an d Address Organization Details Last Updated DateTime 09/03/2023 160.02 cm Hope Ankur [facility] 09/03/2023 16:01:51 Date Recorded Systolic blood pressure Diastolic blood pressure Provider Name and Address Organization Details Last Updated DateTime 09/03/2023 142 mm[Hg] 78 mm[Hg] Rhianna Cochran MD [address], [place], [address] 09/03/2023 16:23:39 Date Recorded Body height Respiratory rate Body mass index (BMI) Body weight Body temperature Heart rate Provider Name and Address Organization Details Last Updated DateTime 4 160.02 cm 16 /min 45.3 kg/m2 308603. 65 g 98.1 [degF] 82 /[facility] 17:[facility] Date Recorded Systolic blood pressure Diastolic blood pressure Provider Name and Address Organization Details Last Updated DateTime 10/20/2023 160 mm[Hg] 86 mm[Hg] Rhianna Cochran MD [address], [place], [address] 10/20/2023 17:55:59 Date Recorded Body height Body mass index (BMI) Body weight Body temperature Respiratory rate Heart rate Systolic blood pressure Diastolic blood pressure Provider Name and Address Organization Details Last Updated DateTime 4 160.02 cm 46.4 kg/m2 750229. 2 g 98.2 [degF] 16 /min 74 /min 191 mm[Hg] 93 mm[Hg] Hope Ankur [facility] 4 15:44:39 Date Recorded Body height Body temperature Respiratory rate Body mass index (BMI) Body weight Heart rate Provider Name and Address Organization Details Last Updated DateTime 4 160.02 cm 97.8 [degF] 16 /min 43.9 kg/m2 558081. 91 g 66 /min Hope Ankur [facility] 4 14:19:04 Date Recorded Systolic blood pressure Diastolic blood pressure Provider Name and Address Organization Details Last Updated DateTime 12/17/2023 124 mm[Hg] 80 mm[Hg] Rhianna Cochran MD [address], [place], [address], [facility] 12/17/2023 14:47:04 Social History Question Answer Notes LastModified by Organizat ion Details LastModified Time Tobacco Smoking Status Never Smoker Cara garcia, [facility] 07/04/2016 08:36:46 Do You Have An Advance Directive? No [email or web address] Information not available 02/27/2018 What Is Your Level Of Alcohol Consumption? 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 No Information not available 11/10/2020 In The 14 Days Before Symptom Onset, Have You Had Close Contact With A Person Who Is Under Investigation For COVID-19 While That Person Was Ill? No Information not available 11/10/2020 Have You Been To An Area Known To Be High Risk For COVID-19? No Information not available 11/10/2020 Are You Currently Employed? Yes Information not available 07/04/2016 Which Illicit Or Recreational Drugs Have You Used? No Information not available 07/04/2016 Have You Directly Handled Bats, Rodents, Or Primates From Ebola Endemic Areas? No Information not available 11/10/2020 Have You Processed Blood Or Body Fluids From An Ebola Virus Disease Patient Without Appropriate PPE? No Information not available 11/10/2020 Have You Had Household Contact With An Ebola Virus Disease Patient? No Information not available 11/10/2020 Have You Had Direct Contact With A Body In An Ebola-affected Area Without Appropriate PPE? No Information not available 11/10/2020 Have You Had Percutaneous (e.g. Needle Stick) Or Mucous Membrane Exposure To Blood Or Body Fluids From An Ebola Virus Disease Patient? No Information not available 11/10/2020 Have You Had Other Close Contact With An Ebola Virus Disease Patient In Health Care Facilities Or Community Settings? No Information not available 11/10/2020 Do You Reside In Or Have You Traveled To An Area Where Ebola Virus Transmission Is Active? No Information not available 11/10/2020 What Is Your Occupation? [employer] Information not available 07/04/2016 Are There Any Guns Present In Your Home? No Information not available 11/10/2020 High Number Of Sexual Partners No Information not available 11/10/2020 History Of Inconsistent/no Condom Use No Information not available 11/10/2020 Live Alone Or With Others? With Others [facility] Information not available 07/04/2016 Marital Status [facility] Informatio n not available 07/04/2016 What Was The Date Of Your Most Recent Tobacco Screening? 01/28/2022 Information not available 01/28/2022 Mother With HIV? No Informat ion not available 11/10/2020 How Many Children Do You Have? 3 Information not available 07/04/2016 Performs Monthly Self-breast Exam? No Information no t available 11/10/2020 Seat Belts Used Routinely Yes Information not available 11/10/2020 Sexual Partner Has HIV? No Information not available 11/10/2020 Sexual Partner Uses IV Drugs? No Information not available 11/10/2020 Smoke Alarm In Home Yes Information not available 11/10/2020 Do You Use Sunscreen Routinely? No Information not available 11/10/2020 Have You Used IV Drugs? No Information not available 11/10/2020 Sex: Unknown Functional Status Question Answer Note LastModified by Organization D etails LastModified Time Are you able to care for yourself? Yes Information n ot available 07/04/2016 Mental Status None recorded. Family History Relationship Description Onset Age of this Age Resolved Age Notes LastModified by Organization Details LastModified Time Mother Essential hypertension [email or web address] Not available 08:37:17 Mother Malignant tumor of colon 74 [email or web address] Not available 2016 16:01:13 Sister Essential hypertension [email or web address] Not available 08:37:17 Medical History Condition Response Coronary Artery Disease N Other N Gout N Blood Diseases N Kidney Stones N Hyperthyroidism N Blood Transfusion N Breast Cancer N Lung Disease N Hypothyroidism N Depression N COPD N Defects or Inherited Disease N Developmental or Behavioral Disorders N Breast Problem N Difficulty Swallowing N Anesthesia Complications N Anxiety Disorder N Meniere's disease N Muscle, Joint, or Bone Problems N Obesity N Vision or Eye Problems N Arthritis N Infertility N Polyps N Mental Disorder N Cancer N Varicosities N Stroke N Endometriosis N Bladder or Kidney Problems N High Cholesterol N Liver Disease N Headaches N Fibromyalgia N Kidney Disease N Allergies/Hayfever N Heart Problems N Ear or Hearing Problems N Hospitalizations N Thyroid Problems N GI Problems N ADD/ADHD N Eating Disorder N Skin Problems N Anemia N MRSA exposure N Constipation N Mental Illness N Diabetes N Ovarian Cancer N Bedwetting N Seizures/Epilepsy N Tuberculosis N AIDS/HIV N Congestive Heart Failure (CHF) N Eczema N Abuse/Domestic Violence N Diverticulitis N Asthma N Reflux/GERD N Hepatitis N Heart Disease N Pulmonary Embolism N Chronic Ear Infections N Pre-Eclampsia N Hypertension N Chicken Pox N Autism Spectrum Disorder (ASD) N Osteoporosis N Thrombophilias N Gynecological History Statement/Question Response Date of Last Pap Smear 01/04/2017 Date of Last Mammogram Obstetrics History GPAL:G 0 P 0 0 0 0 Immunizations Vaccine Type Date Status Note Provider Name and Address Organization Details Recorded Time Influenza, split virus, quadrivalent, preservative 08/01/20 16 completed Not Available [facility] 10/03/2023 08:58:11 zoster recombinant 01/20/20 20 cancelled patient objection Rhianna Cochran MD [address], [place], [address], [facility] 01/20/2020 11:51:51 Influenza, MDCK, quadrivalent, PF 01/20/20 20 cancelled patient objection Rhianna Cochran MD [address], [place], [address], [facility] 01/20/2020 11:51:51 Tdap 01/20/20 20 cancelled patient objection [facility]ianna Cochran MD [address] [place], [address], [facility] 01/20/2020 11:51:51 Past Encounters Encounter ID Performer Location Encounter Start Date Encounter Closed Date Diagnosis/Indication Diagnosis SNOMED-CT Code Diagnosis ICD10 Code [id number] Rhianna Cochran MD [facility], [facility] [address] [place] [address] 07/04/2016 12:38:35 07/04/2016 13:12:18 Renewal of prescription 874353619 Z76.0 Essential hypertension 75954508 I10 Overweight 896269673 E66 .3 Fatigue 25222392 R53.83 Screening for malignant neoplasm of cervix 229414590 Z12.4 Screening mammography 24 992942 Z12.31 Nausea 886563663 R11.0 Incontinence of feces 72 284500 R15.9 Active or passive immunization 537073793 Z23 Thyroid nodule 075197695 E04.1 Tattoo of skin 490743411 1 02 L81.8 [id number] Rhianna Cochran MD [facility], [facility] [address] [place] [address] 08/02/2016 09:51:12 08/02/2016 10:53:05 Low blood pressure 79518528 I95.9 Upper resp iratory infection 44224187 J06.9 Tachypnea 946283425 R06. 82 [id number] Rhianna Cochran MD [facility], [facility] [address] [place] [address] 08/12/2016 14:13:42 08/12/2016 14:43:40 Benign hypertension 78200504 I10 Overweight 857343541 E66 .3 [id number] Veronica Cedillo, [facility], [facility] [address] [place] [address] 12/25/2016 13:22:34 12/25/2016 14:44:08 Reactive depression (situational) 62145786 F32.9 Family his tory of cancer of colon 609160782 Z80.0 Insomnia 730435848 G47.0 0 [id number] Rhianna Cochran MD [facility], [facility] [address] [place] [address] 08/05/2017 15:40:19 08/05/2017 16:25:53 Essential hypertension 73435210 I10 Reactive d epression (situational) 17295540 F32.9 History of laparoscopic adjustable gastric banding 873207773 Z98.84 Overweight 595106770 E66 .3 Family his tory of cancer of colon 080339738 Z80.0 Screening mammography 24 599343 Z12.31 Screening for malignant neoplasm of cervix 341249984 Z12.4 Active or passive immunization 038810971 Z23 Thyroid nodule 856081014 E04.1 Tattoo of skin 473512045 1 02 L81.8 [id number] NAY LOZANO APN [facility], [facility] [address] [place] [address] 12/31/2017 12:15:34 12/31/2017 13:13:23 Essential hypertension 15729054 I10 Reactive d epression (situational) 93065974 F32.9 History of laparoscopic adjustable gastric banding 520067742 Z98.84 Overweight 186620617 E66 .3 Family his tory of cancer of colon 229175518 Z80.0 Screening mammography 24 497809 Z12.31 Screening for malignant neoplasm of cervix 888845215 Z12.4 Active or passive immunization 016545493 Z23 Thyroid nodule 157441255 E04.1 Tattoo of skin 373049269 1 02 L81.8 Insomnia 136231208 G47.0 0 [id number] Rhianna Cochran MD [facility], [facility] [address] [place] [address] 02/04/2018 14:32:31 02/04/2018 15:18:28 Mixed anxiety and depressive disorder 616983426 F41.8 Essential hypertension 50239204 I10 History of laparoscopic adjustable gastric banding 277854476 Z98.84 Family his tory of cancer of colon 599819236 Z80.0 Screening mammography 24 265933 Z12.31 Screening for malignant neoplasm of cervix 904148777 Z12.4 Acanthosis nigricans 402 843321 L83 Cholesterol screening 27 8933342 Z13.220 [id number] Rhianna Cochran MD [facility], [facility] [address] [place] [address] 02/27/2018 11:07:38 02/27/2018 11:49:07 Insomnia 563856698 G47.00 Low back pain 572816646 M54.5 Acanthosis nigricans 402 619416 L83 [id number] NAY LOZANO APN [facility], [facility] [address] [place] [address] 04/23/2018 12:04:47 04/23/2018 13:14:51 Follow-up visit 302603807 Z09 Colitis 08867473 K52.9 Salmonella infection 302 636539 A02.9 Acute jasiel l impairment 785979879 N28.9 Mass of pancreas 3526269 00 K86.89 Essential hypertension 98842435 I10 [id number] Rhianna Cochran MD [facility], [facility] [address] [place] [address] 05/07/2018 14:50:29 05/07/2018 15:17:58 Adult health examination 073159204 Z00.01 Colitis 26260364 K52.9 Acute jasiel l impairment 378968755 N28.9 Gallstone 832491382 K80. 20 History of laparoscopic adjustable gastric banding 559199486 Z98.84 Overweight 582927214 E66 .3 Essential hypertension 60933439 I10 Reactive d epression (situational) 95694749 F32.9 Insomnia 256489872 G47.0 0 Tattoo of skin 437581967 1 02 L81.8 Screening mammography 24 460214 Z12.31 Screening for malignant neoplasm of cervix 938730871 Z12.4 Screening for malignant neoplasm of colon 478657924 Z12.11 Thyroid nodule 548975964 E04.1 Active or passive immunization 500842307 Z23 [id number] Rhianna Cochran MD [facility], [facility] [address] [place] [address] 06/01/2018 14:19:15 06/01/2018 15:21:28 Hypokalemia 13214845 E87.6 Serum crea tinine above reference range 907110595 R79.89 Leukocytosis 755183040 D 72.829 Essential hypertension 27157714 I10 Body mass index 40+ - severely obese 667739162 Z68.42 Hemorrhoids 12870361 K64 .9 Screening for malignant neoplasm of colon 813100913 Z12.11 Screening for malignant neoplasm of cervix 074496838 Z12.4 Screening mammography 24 383376 Z12.31 Active or passive immunization 537102314 Z23 Eruption 184201782 R21 [id number] NYA LOZANO APN [facility], [facility] [address] [place] [address] 08/18/2018 11:04:32 08/18/2018 12:15:41 Follow-up visit 286313040 Z09 Leukocytosis 399932978 D 72.829 Acute cholecystitis 6527 5009 K81.0 Essential hypertension 82188650 I10 Hyperlipid emia screening 554585709 Z13.220 Diarrhea 56366961 R19.7 [id number] Rhianna Cochran MD [facility], [facility] [address] [place] [address] 08/24/2018 16:51:28 08/24/2018 17:49:45 Upper abdominal pain 02930972 R10.10 Low back pain 298660894 M54.5 History of cholecystectomy 772856549 Z90.49 [id number] Rh[facility] Center, [facility] [address] [place] [address] 10/20/2018 12:54:00 10/20/2018 13:32:30 Benign hypertension 91602409 I10 Goiter 7640578 E04.9 Edema of l ower extremity 741038475 R60.0 Snoring 58992520 R06.83 Persistent insomnia 1919 82886 G47.09 Screening mammography 24 436877 Z12.31 Screening for malignant neoplasm of cervix 509498217 Z12.4 Screening for malignant neoplasm of colon 075609851 Z12.11 Active or passive immunization 368479549 Z23 [id number] NAY LOZANO APN [facility], [facility] [address] [place] [address] 11/23/2018 11:43:03 11/23/2018 12:13:21 Essential hypertension 30896276 I10 Headache 80869372 R51 [id number] NAY LOZANO APN [facility], [facility] [address] [facility] [address] [place] [address] 11/30/2018 11:48:37 11/30/2018 12:41:58 Essential hypertension 31640097 I10 Headache 51603633 R51 Daytime somnolence 33135 96761 00 R40.0 Mixed anxi ety and depressive disorder 246398662 F41.8 Insomnia 619375411 G47.0 0 Microscopic hematuria 19 6303183 R31.21 Dysuria 27566163 R30.0 [id number] NAY LOZANO APN [facility], [facility] [address] [address] 01/06/2019 14:32:05 01/06/2019 15:43:56 Acute urinary tract infection 266268325 N39.0 Microscopic hematuria 19 9678582 R31.21 Low back pain 565289717 M54.5 Proteinuria 16967684 R80 .9 Benign hypertension 1072 5009 I10 Alkaline p hosphatase above reference range 304870014 R74.8 Macrocytosis 105321031 D 75.89 Hyperlipid emia screening 204216626 Z13.220 Cholelithi asis without obstruction 89994745 K80.20 [id number] Rhianna Cochran MD [facility], [facility] [address] [facility] [address] [place] [address] 01/19/2019 12:21:39 01/19/2019 13:53:16 Low back pain 970896554 M54.5 Acute urin beata tract infection 349804809 N39.0 Microscopic hematuria 19 5238262 R31.21 Proteinuria 86263991 R80 .9 Benign hypertension 1072 5009 I10 Alkaline p hosphatase above reference range 632386796 R74.8 Cholelithi asis without obstruction 45492867 K80.20 Macrocytosis 767237007 D 75.89 Hyperlipid emia screening 209622873 Z13.220 Screening mammography 24 545537 Z12.31 Screening for malignant neoplasm of cervix 475863582 Z12.4 Reactive d epression (situational) 33610790 F32.9 [id number] NAY LOZANO APN [facility], [facility] [address] [place] [address] 02/23/2019 12:52:56 02/23/2019 13:46:50 Dysuria 60362744 R30.0 Benign hypertension 1072 5009 I10 Mixed anxi ety and depressive disorder 453451742 F41.8 Cholelithi asis without obstruction 24747645 K80.20 Acute urin beata tract infection 994486275 N39.0 851949 NAY LOZANO APN [facility], [facility] [address] [place] [address] 03/19/2019 12:16:30 03/19/2019 13:13:13 Acute urinary tract infection 190450476 N39.0 Benign hypertension 1072 5009 I10 Mixed anxi ety and depressive disorder 681122282 F41.8 Cholelithi asis without obstruction 85092722 K80.20 [id number] Rhianna Cochran MD [facility], [facility] [address] [place] [address] 01/20/2020 11:25:55 01/20/2020 11:57:06 Benign hypertension 62687907 I10 Tattoo of skin 494227915 1 02 L81.8 History of laparoscopic adjustable gastric banding 644546236 Z98.84 Gallstone 764289162 K80. 20 Dysuria 05965742 R30.0 Mixed anxi ety and depressive disorder 085790321 F41.8 Screening mammography 24 666005 Z12.31 Screening for malignant neoplasm of cervix 500975516 Z12.4 Screening for malignant neoplasm of colon 102857182 Z12.11 Active or passive immunization 994738516 Z23 Eruption 789217337 R21 [id number] Rhianna Cochran MD [facility], [employer] [address] [place] [address] 07/25/2020 16:39:27 07/25/2020 17:16:50 Adult health examination 476231150 Z00.01 Benign hypertension 1072 5009 I10 History of laparoscopic adjustable gastric banding 961737248 Z98.84 Mixed anxi ety and depressive disorder 376822415 F41.8 Insomnia 636670421 G47.0 0 Tattoo of skin 051520906 1 02 L81.8 Family his tory of cancer of colon 181931920 Z80.0 Body mass index 40+ - severely obese 810605497 Z68.42 Neck pain 40559436 M54.2 Noncomplia nce with medication regimen 645497367 Z91.14 Screening mammography 24 607700 Z12.31 Screening for malignant neoplasm of cervix 097184587 Z12.4 Screening for malignant neoplasm of colon 653576143 Z12.11 Active or passive immunization 112666794 Z23 COVID-19 796236058 U07.1 Urgent edgar igor to urinate 71795223 R39.15 [id number] Rhianna Cochran MD [facility], [employer] [address] [place] [address] 08/30/2020 18:54:35 08/30/2020 19:16:47 Neck pain 04184236 M54.2 Benign hypertension 1072 5009 I10 Mixed anxi ety and depressive disorder 233864875 F41.8 Active or passive immunization 082926254 Z23 [id number] Rhianna Cochran MD [employer], [facility] [address] [place] [address] 11/10/2020 11:49:56 11/10/2020 12:36:02 Benign hypertension 65373125 I10 Body mass index 40+ - severely obese 552932206 Z68.42 Neck pain 61198678 M54.2 Mixed anxi ety and depressive disorder 589370890 F41.8 Screening mammography 24 591324 Z12.31 Screening for malignant neoplasm of cervix 036323348 Z12.4 Screening for malignant neoplasm of colon 781556128 Z12.11 Active or passive immunization 026759547 Z23 Cholesterol screening 27 1518785 Z13.220 History of laparoscopic adjustable gastric banding 316681578 Z98.84 [id number] Rhianna Cochran MD [employer], [facility] [address] [place] [address] 12/12/2021 11:59:38 12/12/2021 12:48:53 Adult health examination 663479650 Z00.01 Benign hypertension 1072 5009 I10 Body mass index 40+ - severely obese 124612270 Z68.42 Family his tory of cancer of colon 050882744 Z80.0 Gallstone 648498206 K80. 20 History of laparoscopic adjustable gastric banding 058732838 Z98.84 Insomnia 994004906 G47.0 0 Microscopic hematuria 19 1426554 R31.21 Mixed anxi ety and depressive disorder 017525855 F41.8 Noncomplia nce with medication regimen 630774271 Z91.14 Tattoo of skin 055148326 1 02 L81.8 Neck pain 96586160 M54.2 Pain of le ft shoulder joint 3397137406 5732285 M25.512 Allergic r hinitis caused by pollen 07667916 J30.1 Screening mammography 24 277799 Z12.31 Screening for malignant neoplasm of cervix 956790502 Z12.4 Screening for malignant neoplasm of colon 046677043 Z12.11 Active or passive immunization 951422595 Z23 Localized eruption of skin 419993066 R21 [id number] Rhianna Cochran MD [employer], [employer] [address] [place] [address] 01/28/2022 15:01:25 01/28/2022 15:57:15 Benign hypertension 69741403 I10 Body mass index 40+ - severely obese 287169891 Z68.42 Microscopic hematuria 19 4970528 R31.21 Neck pain 93460172 M54.2 Pain of le ft shoulder joint 0899099666 1182061 M25.512 Serum tota l protein outside reference range 646399388 R79.89 Macrocytosis 571245951 D 75.89 Screening mammography 24 879566 Z12.31 Screening for malignant neoplasm of cervix 794639318 Z12.4 Screening for malignant neoplasm of colon 779789009 Z12.11 Active or passive immunization 443781112 Z23 [id number] Rhianna Cochran MD [employer], [employer] [address] [place] [address] 06/17/2022 09:42:05 06/17/2022 10:27:03 Benign hypertension 11119431 I10 Body mass index 40+ - severely obese 980645956 Z68.42 Localized eruption of skin 947110954 R21 Mammography abnormal 168 914427 R92.8 Microscopic hematuria 19 4311271 R31.21 Mixed anxi ety and depressive disorder 660806147 F41.8 Noncomplia nce with medication regimen 660788915 Z91.14 Serum tota l protein outside reference range 562890591 R79.89 Macrocytosis 918678877 D 75.89 Screening mammography 24 260582 Z12.31 Screening for malignant neoplasm of cervix 656835854 Z12.4 Screening for malignant neoplasm of colon 052067083 Z12.11 Active or passive immunization 130739108 Z23 Low back pain 384055949 M54.50 Pain of le ft shoulder joint 9742160689 5803280 M25.512 [id number] Rhianna Cochran MD [facility], [employer] [address] [place] [address] 08/16/2022 09:45:12 08/16/2022 10:36:08 Low back pain 608736129 M54.50 Mixed anxi ety and depressive disorder 520964817 F41.8 Benign hypertension 1072 5009 I10 Body mass index 40+ - severely obese 242329953 Z68.42 Family his tory of cancer of colon 758532155 Z80.0 Screening mammography 24 849997 Z12.31 Screening for malignant neoplasm of cervix 984925188 Z12.4 Active or passive immunization 360392046 Z23 [id number] Rhianna Cochran MD [facility], [facility] [address] [place] [address] 12/26/2022 13:31:31 12/26/2022 14:43:50 Adult health examination 886325396 Z00.01 Benign hypertension 1072 5009 I10 Body mass index 40+ - severely obese 874498152 Z68.42 Family his tory of cancer of colon 867855609 Z80.0 Gallstone 623788910 K80. 20 History of laparoscopic adjustable gastric banding 776663363 Z98.84 Hypokalemia 15982402 E87 .6 Insomnia 965541773 G47.0 0 Macrocytosis 335376887 D 75.89 Mammography abnormal 168 220182 R92.8 Microscopic hematuria 19 7655544 R31.21 Mixed anxi ety and depressive disorder 614072142 F41.8 Neck pain 30747066 M54.2 Noncomplia nce with medication regimen 564554935 Z91.14 Reactive d epression (situational) 24417378 F32.9 Serum tota l protein outside reference range 776920341 R79.89 Tattoo of skin 147823402 1 02 L81.8 Urgent edgar igor to urinate 74768279 R39.15 Anterior epistaxis 96837 4002 R04.0 Screening mammography 24 021288 Z12.31 Screening for malignant neoplasm of cervix 460983986 Z12.4 Screening for malignant neoplasm of colon 634862503 Z12.11 Active or passive immunization 867024065 Z23 Dyspnea 127360151 R06.00 Allergic r hinitis caused by pollen 88999092 J30.1 [id number] Rhianna Cochran MD [facility], [employer] [address] [place] [address] 06/12/2023 10:25:31 06/12/2023 11:42:39 Benign hypertension 21897648 I10 Body mass index 40+ - severely obese 968974912 Z68.42 History of laparoscopic adjustable gastric banding 008058261 Z98.84 Mammography abnormal 168 294746 R92.8 Mixed anxi ety and depressive disorder 134480311 F41.8 Serum tota l protein outside reference range 639845873 R79.89 Cholesterol screening 27 6015496 Z13.220 Screening mammography 24 601306 Z12.31 Screening for malignant neoplasm of cervix 944615008 Z12.4 Screening for malignant neoplasm of colon 385402993 Z12.11 Active or passive immunization 120670571 Z23 Snoring 98410206 R06.83 Fatigue 37424177 R53.83 Microscopic hematuria 19 3881567 R31.21 Low back pain 044575965 M54.50 [id number] Rhianna Cochran MD [employer], [employer] [address] [place] [address] 09/03/2023 15:24:10 09/03/2023 16:51:50 Pain of right shoulder joint 3646676271 3435955 M25.511 Benign hypertension 1072 5009 I10 Numbness of foot 9544327 00 R20.0 Active or passive immunization 961209503 Z23 Mixed anxi ety and depressive disorder 673614057 F41.8 [id number] Rhianna Cochran MD [facility], [facility] [address] [place] [address] 10/20/2023 17:15:10 10/20/2023 17:59:33 Benign hypertension 47931743 I10 Body mass index 40+ - severely obese 902311717 Z68.42 Numbness of foot 4535591 00 R20.0 Hyperglycemia 75694447 R 73.9 Screening mammography 24 327923 Z12.31 Screening for malignant neoplasm of cervix 639651706 Z12.4 Screening for malignant neoplasm of colon 462858829 Z12.11 Active or passive immunization 201207673 Z23 [id number] Rhianna Cochran MD [facility] [employer] [address] [place] [address] 11/06/2023 15:25:54 11/06/2023 16:41:55 Benign hypertension 52498374 I10 Body mass index 40+ - severely obese 428894935 Z68.42 Cardiomegaly 2143841 I51 .7 Macrocytosis 720904657 D 75.89 Microscopic hematuria 19 2995367 R31.21 Persistent insomnia 1919 77225 G47.09 Numbness of foot 5933548 00 R20.0 Mixed anxi ety and depressive disorder 125750153 F41.8 Snoring 88680742 R06.83 Active or passive immunization 286130171 Z23 [id number] Rhianna Cochran MD [facility] [address] [place] [address] 12/17/2023 14:11:29 12/17/2023 14:57:48 Accidental fall 296150723 W19.XXXA Benign hypertension 1072 5009 I10 Body mass index 40+ - severely obese 411129225 Z68.42 History of laparoscopic adjustable gastric banding 380186188 Z98.84 Mixed anxi ety and depressive disorder 572435524 F41.8 Screening mammography 24 634145 Z12.31 Screening for malignant neoplasm of cervix 177309840 Z12.4 Screening for malignant neoplasm of colon 455527856 Z12.11 Active or passive immunization 076138936 Z23 Health Concerns Section Related Observation LastModified by Organization Detai ls LastModified Time None Recorded Concern Status LastModified by Organization Details LastModified Time None Recorded Advance Directives Directive N: Payers Encounter Date Sequence Insurance Name Policy Number Policy Collins Covered Member ID Collins Member ID Guarantor Name 06/12/2023 1 [facility] [id number] Nevin Germainey [id number] 1 Nevin Germainey 09/03/2023 1 [facility] [id number] Nevin Germainey [id number] 1 Nevin Deshpande 10/20/2023 1 [facility] [id number] Nevin Germainey [id number] 1 Nevin Cherry Deshpande 11/06/2023 1 [facility] [id number] Nevin Germainey [id number] 1 Nevin Germainey 12/17/2023 1 [facility] [id number] Nevin Germainey [id number] 1 Nevin Deshpande Notes Date Note Type Note Provider Name and Address Organization Details Recorded Time 06/12/2023 text/html Hypertension F/UReported bypatient.Medications: taking medications as directed; no side effects from medication Lifestyle:regular exercise; limiting/avoiding salt; compliant with low salt diet Associated Symptoms:no dizziness; no lightheadedness; no chest pain; no shortness of breath; no palpitations; no edema; no calf pain with exertion; no headache not taking valsartansnoring and fatigue Rhianna Cochran MD [address] [address], [place], [address], [facility] 06/12/2023 11:44:51 09/03/2023 text/html Hypertension F/UReported bypatient.Medications: taking medications as directed; no side effects from medication Lifestyle:regular exercise; limiting/avoiding salt; compliant with low salt diet Associated Symptoms:no dizziness; no lightheadedness; no chest pain; no shortness of breath; no palpitations; no edema; no calf pain with exertion; no headache Rt shoulder pain , no injury , weeks Rhianna Cochran MD [address] [facility] [address], [place], [address], [facility] 09/03/2023 16:32:34 10/20/2023 text/html Hypertension F/UReported bypatient.Medications: taking medications as directed; no side effects from medication Lifestyle:regular exercise; limiting/avoiding salt; compliant with low salt diet Associated Symptoms:no dizziness; no lightheadedness; no chest pain; no shortness of breath; no palpitations; no edema; no calf pain with exertion; no headache had URI symptoms , better with Abx Rhianna Cochran MD [address] [facility] [address], [place], [address], [facility] 10/20/2023 17:57:01 11/06/2023 text/html Hypertension F/UReported bypatient.Medications: taking medications as directed; no side effects from medication Lifestyle:regular exercise; limiting/avoiding salt; compliant with low salt diet Associated Symptoms:no dizziness; no lightheadedness; no chest pain; no shortness of breath; no palpitations; no edema; no calf pain with exertion; no headache Rhianna Cochran MD [address] [facility] [address], [place], [address], [facility] 11/06/2023 16:26:06 12/17/2023 text/html Hypertension F/UReported bypatient.Medications: taking medications as directed; no side effects from medication Lifestyle:regular exercise; limiting/avoiding salt; compliant with low salt diet Associated Symptoms:no dizziness; no lightheadedness; no chest pain; no shortness of breath; no palpitations; no edema; no calf pain with exertion; no headache 2 falls one out of bed and one lost her balanceseen psych , stopped doxepin and started quetiapine Rhianna Cochran MD [address] [facility] [address], [place], [address], [facility] 12/17/2023 14:51:01 OBGyn Episode No OBEpisode recorded.
--- OUTSIDE RECORDS SUMMARY | 2024-10-07 04:07 | XMS_ITS ---
Author Organization [facility] [employer] Address [address] [place] [address] Care Team Providers Care Clamp Forklift Operator Name Role Phone Melina Waggoner [phone] Migration, Provider Unavailable Unavailable REASON FOR VISIT EMR-Damian Social History Sex Assigned At : Social History Observation Description Sex Assigned At Female Encounters Encounter Location Date Provider Diagnosis [facility] [address] [place] [address] 02/21/2024 Provider Migration Plan Of Treatment No Information Progress Notes * DORMANHOLDEN HOLCOMBJUAN MANUELB:1965 (58 yo F)Acc No.[id number]:02/21/2024 Patient:?ANGEL DORMAN :1965???Age:58 Y???Sex:Female Address:[address] [place], [address] Subjective: * Chief Complaints: * ???EMR-Damian * Medical History:? * Surgical History:? * Hospitalization/Major Diagno stic Procedure:? * Medications:? Objective: * Vitals:? * Physical Examination:? Assessment: Plan: * Treatment: * Procedure Codes:? * true * Date:? Generated for Shayla wood/Shadeg/eTransmitting on:?10/07/2024 04:06 AM MASTER RIGGER
--- OUTSIDE RECORDS SUMMARY | 2024-10-07 04:07 | XMS_ITS ---
Author Organization [facility] [employer] Address [address] [place] [address] Care Team Providers Care Credit Risk Specialist Name Role Phone Melina Waggoner [phone] Migration, Provider Unavailable Unavailable REASON FOR VISIT TelEnc Social History Sex Assigned At : Social History Observation Description Sex Assigned At Female Encounters Encounter Location Date Provider Diagnosis [facility] [employer] [facility] [address] [place] [address] 02/20/2024 Provider Migration Plan Of Treatment No Information Progress Notes * DORMANHOLDEN HOLCOMBJUAN MANUELB:1965 (58 yo F)Acc No.[id number]:02/20/2024 Patient:?ANGEL DORMAN :1965???Age:58 Y???Sex:Female Address:[address] [place], [address] Subjective: * Chief Complaints: * ???TelEnc * Medical History:? * Surgical History:? * Hospitalization/Major Diagno stic Procedure:? * Medications:? Objective: * Vitals:? * Physical Examination:? Assessment: Plan: * Treatment: * Procedure Codes:? * true * Date:? Generated for Shayla wood/Bam/eTransmitting on:?10/07/2024 04:06 AM BUILDING EQUIPMENT OPERATOR
--- OUTSIDE RECORDS SUMMARY | 2024-10-07 04:07 | XMS_ITS | Continuity of Care Document ---
Author Organization [facility] Address [address] [place] [address] Phone Care Team Providers Care Clearing Tub Worker Name Role Phone Unavailable Unavailable Unavailable Allergies, Adverse Reactions, Alerts Substance Reaction Status Criticality No Known Allergies Active No Inform ation Medications Medication Instructions Dosage Effective Dates (start - stop) Status Comments amlodipine 10 mg tablet take 1 tablet by oral route every day 10 MG - Active hydrochlorothiazide 25 mg tablet take 1 tablet by oral route every day 25 MG - Active sertraline 50 mg tablet take 1 tablet by oral route every day 50 MG - Active valsartan 320 mg tablet take 1 tablet by oral route every day 320 MG - Active Procedures Procedure Date Urinalysis, Auto, w/o Scope HEMOGLOBIN; GLYCOSYLATED (A1C) GLUCOSE; QUANTITATIVE, BLOOD (EXCEPT EDELMIRA GENT STRIP) OFFICE/OUTPATIENT VISIT, NEW Advance Directives Directive Yes / No Effective Date File Name No Information Encounters Encounter Description Practice Location Reason(s) For Visit Diagnoses Date Provider Providers Copied on Encounter [facility], [address], [place], [place], [id number] , [place] tel: [phone] [facility] [place] No Information 0 No Information OFFICE/OUTPA TIENT VISIT, NEW [facility], [address], [place], [place], [id number] , [place] tel:[phone] [facility] establish care (chief complaint) Body mass index (BMI) 45.0-49.9, adultEncounter for adult annual physical exam w/ abnormal findingEssential (primary) hypertensionObes ity, unspecifiedLow back painAnxiety depression 201 9 No Information Family History Family Member Type Diagnosis Age At Onset No Information Payers Payer name Insurance type Covered constitution party ID Authoriza tion(s) No Information Social History Type Description Quantity Date Captured Comments Alcohol Use Details Unknown Caffeine Use Details Unknown Tobacco Use Status No Information Smoking Status No Information Sex Female Sexual Orientation Straight or heterosexual May Gender Identity Female Chief Complaint And Reason For Visit No Information Reason For Referral Reason For Referral No Information History Of Present Illness Encounter Date Complaint History Of Prese nt Illness establish care Patient presents to establish care . Patient has a history of HTN and depression. Patient passed 1 year ago and currently is being seen by Dr. Camryn Marsh [place]. Patient brought [facility] paperwork to be completed. Patient says her blood pressure had been uncontrolled and wanted to transfer care to a different provider.PHQ-9 (12)Patient start an antidepressant less than 1 month ago Functional Status Date Functional Assessmen t No Information Instructions Date Instruction Additional Infor mation Follow up in 6 weeks for B/P check and depression screening Related to Encounter for adult annual physical exam w/ abnormal finding Increased sertraline PHQ ( (12) Related to Anxiety depression Eat a low fat low ca piat diet with plenty of fruit and vegetables.Monitor portion sizesExercise 30 minutes or more most days of the week Related to Obesity, unspecified Increased amlodipine Related to Essential (primary) hypertension Giving encouragement to exercise Related to Body mass index (BMI) 45.0-49.9, adult Dietary needs education Related to Body mass index (BMI) 45.0-49.9, adult Assessments Type Assessment Date No Information Patient Care Teams Name Effective Dates (start - stop) Status Members No Information
--- OUTSIDE RECORDS SUMMARY | 2024-10-07 04:07 | XMS_ITS | Continuity of Care Document ---
Author Organization [facility] Address [address] [place] [address] [address] [place] [address] Phone Care Team Providers Care Dethistler Operator Name Role Phone Magaly Christopher Unavailable Unavailable Procedures Procedure Date Remove Eyelid Lesion Office Consultation Advance Directives Directive Yes / No Effective Date File Name No Information Encounters Encounter Description Practice Location Reason(s) For Visit Diagnoses Date Provider Providers Copied on Encounter [facility], [address] [place] [address] [address], [place], [place], [id number], tel:[phone] SEC [facility] No Information [address] [facility] [address] [facility] , [address], [place], [place], [facility] [place]note 2], [place]. tel:[phone] Office Consultation [facility], [address] [place] [address] [address], [place], [place], [id number], tel:[phone] SEC [facility] No Information [address] [facility] [address] , [address], [place], [address], [place]. tel:[phone] Referring Provider: Nathan Rothman, [address] [facility], [place], [address]. tel:[phone] Family History Family Member Type Diagnosis Age At Onset No Information Payers Payer name Insurance type Covered democrat ID Authoriza tion(s) No Information Social History Type Description Quantity Date Captured Comments Sex Female Smoking Status No Information Chief Complaint And Reason For Visit No Information Reason For Referral Reason For Referral No Information History Of Present Illness Encounter Date Complaint History Of Prese nt Illness No Information Functional Status Date Functional Assessmen t No Information Instructions Date Instruction Additional Infor mation No Information Assessments Type Assessment Date No Information Patient Care Teams Name Effective Dates (start - stop) Status Members No Information
--- OUTSIDE RECORDS SUMMARY | 2024-10-07 06:43 | XMS_ITS | Encounter Summary ---
Author Organization [facility] Address [address] [place] [address] Care Team Providers Care Forming Machine Adjuster Name Role Phone Rhianna Cowan MD Primary Care Provider [phone] Encounter Details Date Type Department Care Team (Late Contact Info) Description 04/24/2023 Home Care Visit [facility] Home Health [address] [facility] , [address] [place] [address] Michelle Washington, RN TELEPHONE ENCOUNTER [...] medical care, and heating? Somewhat hard 04/14/2023 [facility] [place] of Occupat ional Health - Occupational Stress [...] place to sleep or slept in a usp (including now)? No 04/14/2023 Sex and Gender [...] on filedocumented in this encounter Care Teams Forming Machine Adjuster Relationship Specialty Start Date End Date Rhianna Cowan MD [address] [facility] [address] [place] [address] PCP - General Internal Medicine 11/12/16 documented as of this encounter
--- OUTSIDE RECORDS SUMMARY | 2024-10-07 06:43 | XMS_ITS | Encounter Summary ---
Author Organization [facility] Health Address [address] [place] [address] Care Team Providers Care Particle Board Supervisor Name Role Phone Rhianna Cowan MD Primary Care Provider [phone] Encounter Details Date Type Department Care Team (Late Contact Info) Description 04/25/2023 Home Care Visit [facility] Home Health [address] [facility] , [address] [place] [address] Michelle Washington, RN TELEPHONE ENCOUNTER [...] medical care, and heating? Somewhat hard 04/14/2023 [facility] [place] of Occupat ional Health - Occupational Stress [...] place to sleep or slept in a jail (including now)? No 04/14/2023 Sex and Gender [...] on filedocumented in this encounter Care Teams Particle Board Supervisor Relationship Specialty Start Date End Date Rhianna Cowan MD [address] [facility] [address] [place] [address] PCP - General Internal Medicine 11/12/16 documented as of this encounter
--- OUTSIDE RECORDS SUMMARY | 2024-10-07 06:43 | XMS_ITS | Encounter Summary ---
Author Organization [facility] Health Address [address] [place] [address] Care Team Providers Care Distributed Energy Systems Consultant Name Role Phone Rhianna Cowan MD Primary Care Provider [phone] Encounter Details Date Type Department Care Team (Late st Contact Info) Description 04/21/2023 Orders Only [facility] Weight Management Services [address] [facility] [address] [place] [address] Marybel Kent, SHAREPOINT ADMIN-IMAGING TECH [address] [facility] [address] [place] [address] Bariatric surgery status Social History [...] medical care, and heating? Somewhat hard 04/14/2023 [facility] [place] of Occupat ional Health - Occupational Stress [...] place to sleep or slept in a [place] [facility] [place] (including now)? No 04/14/2023 Sex and Gender [...] Primary documented in this encounter Care Teams Distributed Energy Systems Consultant Relationship Specialty Start Date End Date Rhianna Cowan MD [address] [facility] [address] [place] [address] PCP - General Internal Medicine 11/12/16 documented as of this encounter
--- OUTSIDE RECORDS SUMMARY | 2024-10-07 06:43 | XMS_ITS | CONTINUITY OF CARE DOCUMENT ---
Author Name natasha kaur Address Unknown Organization [facility] Address [address] [facility] [address] [place] [address] Phone [phone] Care Team Providers Care Manager Inside Name Role Phone Boo BHATT, Dede Unavailable JOSE BONILLA MD Unavailable Jose BHATT, Marco Garcia Unavailable [phone] INSURANCE PROVIDERS Payer name Policy type / Coverage type Libby red democrat ID [facility] [id number]
--- OUTSIDE RECORDS SUMMARY | 2024-10-07 06:43 | XMS_ITS | Referral Summary ---
Author Organization [facility] Address [address] [place] [address] Care Team Providers Care Management Development Specialist Name Role Phone Rhianna Cowan MD Primary Care Provider [phone] Source Comments [facility],non-owned Affiliates and Associated Physician Practices is amultiple site organization consisting of ambulatory clinics and hospital sitesin [place], [place], [place] and [place]. This disclosure is being madepursuant to the Care Everywhere program and may not contain all information available regarding this patient. Last updated 18.[facility] Allergies Active Allergy Reactions Criticality Noted Date [...] fluticasone propionate (Flonase) 50 MCG/ACT nasal spray [place] 2 (two) sprays into each nostril once [...] Heartburn Active sodium chloride (Deep Sea Nasal [place]) 0.65 % nasal spray [place] 2 (two) sprays into each nostril as [...] medical care, and heating? Somewhat hard 04/14/2023 [facility] [place] of Occupat ional Health - Occupational Stress [...] PANEL (CALCIUM TOTAL) (04/21/2023 9:24 AM CDT) [facility] Glucose 99 70 - 105 mg/dL 04/21/2023 [...] mL/min/1.7 3 m2 04/21/2023 9:51 AM CDT [facility] Blood BLOOD SPECIMEN / Unknown Venipuncture / Unknown 04/21/2023 9:24 AM CDT 04/21/2023 9:34 AM CDT Marybel Grider Donte NURSE SPECIALIST-RETAIL WAREHOUSE ASSOCIATE LAB - MANFRED GEIMNI ORDERABLES [facility] [address] [place] [address] from Last 3 Months or Most Recently Relevant to Health Maintenance Care Teams Management Development Specialist Relationship Specialty Start Date End Date Rhianna Cowan MD [address] [facility] [address] [place] [address] PCP - General Internal Medicine 11/12/16
--- OUTSIDE RECORDS SUMMARY | 2024-10-07 06:43 | XMS_ITS | Encounter Summary ---
Author Organization [facility] Address [address] [place] [address] Care Team Providers Care Private Duty Nurse Name Role Phone Rhianna Cowan MD Primary Care Provider [phone] Reason for Visit * Auth/Cert (Routine) Specialty Diagnoses / Procedures Referred By Cydney scott Referred To Contact Procedures ESOPHAGOGASTRODUODENOSCOPY (EGD) DIAGNOSTIC Referral ID Status Reason Start Date Expiration Date Visits Re quested Visits Authorized [id number] 1 1 Encounter Details Date Type Department Care Team (Late st Contact Info) Description 04/16/2023 1:49 PM CDT Anesthesia Event [facility] - Perioperative Surgery [address] [place] [address] Kristopher Araujo MD [address] [place] [address] Kirk Torres APRN-BARAK [address] [place] [address] Anesthesia Record Procedure Summary Procedure Name Responsible [...] medical care, and heating? Somewhat hard 04/14/2023 [facility] [place] of Occupat ional Health - Occupational Stress [...] to sleep or slept in a senior living (including now)? No 04/14/2023 Sex and Gender [...] procedural Anesthetic Plan was discussed with the RD MANAGER. BMI, Height, Weight Tobacco History Estimated body [...] mouth once daily 04/13/2023 ??? fluticasone propionate [place] 2 (two) sprays into each nostril once daily as needed (allergies) Past Week ??? hydroCHLOROthiazide Take 1 (one) tablet by mouth once daily 04/13/2023 ??? metoprolol succinate XL 24hr Take 1 (one) tablet by mouth once daily 04/13/2023 ??? omeprazole Take 1 (one) capsule by mouth once daily as needed for Heartburn 04/13/2023 ??? sodium chloride [place] 2 (two) sprays into each nostril as [...] ??? Morbid obesity due to excess calories ([facility]/HCC) Surgical History: Past Surgical History: Procedure Laterality Date ??? ADJUSTABLE GASTRIC BAND, LAP PLACEMENT ??? Breast Reduction Bilateral ??? Section x3 ??? Cholecystectomy, Laparoscopic ??? ENDOSCOPY, UPPER N/A 04/14/2023 N/A; ESOPHAGOGASTRODUODENOSCOPY (EGD) DIAGNOSTIC ??? Hysterectomy SPICE MIXER Status: No LMP recorded. Patient has had [...] Event Date/Time: 04/16/2023 2:03 PM Procedure: intubation (34438). Procedure Section: Sedation: under general anesthesia. Indications for Airway Management: anesthesia Procedure pretreatments used? Nursing documentation on the [facility] Procedure Pretreatments (manual): 100% O2 [...] Anesthesia Transfer of Care - Ajay Nowak CASTING DIRECTOR-RD MANAGER - 04/16/2023 3:50 PM CDT ANESTHESIA TRANSFER [...] 04/16/23; Time: 1402; Placed By: Kirk Torres APRN-RD MANAGER; Vent: easy with oral airway mask; Induction: [...] Event Date/Time: ??04/16/2023 2:03 PM Procedure: intubation (40763). Procedure Section: ?? Sedation: under general anesthesia. [...] to 3 most recent administrations Medication Order [facility] Action Action Date Dose Rate [...] mg documented in this encounter Care Teams Private Duty Nurse Relationship Specialty Start Date End Date Rhianna Cowan MD [address] [facility] [address] [place] [address] PCP - General Internal Medicine 11/12/16 documented as of this encounter
--- OUTSIDE RECORDS SUMMARY | 2024-10-07 06:43 | XMS_ITS | Encounter Summary ---
Author Organization [facility] Health Address [address] [place] [address] Care Team Providers Care Well Site Drilling Engineer Name Role Phone Rhianna Cowan MD Primary Care Provider [phone] Encounter Details Date Type Department Care Team (Late Contact Info) Description 04/23/2023 Home Care Visit [facility] Home Health [address] [facility] , [address] [place] [address] Michelle Washington, RN TELEPHONE ENCOUNTER [...] medical care, and heating? Somewhat hard 04/14/2023 [facility] [place] of Occupat ional Health - Occupational Stress [...] on filedocumented in this encounter Care Teams Well Site Drilling Engineer Relationship Specialty Start Date End Date Rhianna Cowan MD [address] [facility] [address] [place] [address] PCP - General Internal Medicine 11/12/16 documented as of this encounter
--- OUTSIDE RECORDS SUMMARY | 2024-10-07 06:43 | XMS_ITS | Clinical Summary ---
Author Organization [facility] Address [address] [place] [address] Care Team Providers Care Cigarette Machine Filler Name Role Phone Rhianna Cowan MD Primary Care Provider [phone] Source Comments [facility],non-owned Affiliates and Associated Physician Practices is amultiple site organization consisting of ambulatory clinics and hospital sitesin [place], [place], [place] and [place]. This disclosure is being madepursuant to the Care Everywhere program and may not contain all information available regarding this patient. Last updated 18.[facility] Allergies Active Allergy Reactions Criticality Noted Date [...] fluticasone propionate (Flonase) 50 MCG/ACT nasal spray [place] 2 (two) sprays into each nostril once [...] Heartburn Active sodium chloride (Deep Sea Nasal [place]) 0.65 % nasal spray [place] 2 (two) sprays into each nostril as [...] hard 04/14/2023 [facility] [place] of Occupat ional Health - Occupational Stress [...] (CALCIUM TOTAL) (04/21/2023 9:24 AM CDT) Pathologist [facility] Glucose 99 70 - 105 mg/dL 04/21/2023 9:51 AM CDT [facility] Sodium 139 136 - 145 mmol/L 04/21/2023 9:51 AM CDT [facility] Potassium 3.6 3.5 - 5.1 mmol/L 04/21/2023 9:51 AM CDT [facility] Chloride 105 98 - 107 mmol/L 04/21/2023 9:51 AM CDT [facility] CO2 24 23 - 31 mmol/L 04/21/2023 9:51 AM CDT [facility] Calcium 9.0 8.4 - 10.4 mg/dL 04/21/2023 9:51 AM CDT [facility] Anion Gap 10 8 - 18 mmol/L 04/21/2023 9:51 AM CDT [facility] BUN 4(L) 9.8 - 20.1 mg/dL 04/21/2023 9:51 AM CDT [facility] Creatinine 0.85 0.57 - 1.11 mg/dL 04/21/2023 9:51 AM CDT [facility] eGFR by CKD-EPI 81(L) >=90 mL/min/1.7 3 m2 04/21/2023 9:51 AM CDT [facility] Blood BLOOD SPECIMEN / Unknown Venipuncture / Unknown 04/21/2023 9:24 AM CDT 04/21/2023 9:34 AM CDT Marybel Kent OXYGEN THERAPY TECHNICIAN-COUTURE DRESSMAKER LAB - MANFRED GEMINI ORDERABLES [facility] [address] [place] [address] from Last 3 Months or Most Recently Relevant to Health Maintenance Care Teams Cigarette Machine Filler Relationship Specialty Start Date End Date Rhianna Cowan MD [address] [facility] [address] [place] [address] PCP - General Internal Medicine 11/12/16
--- OUTSIDE RECORDS SUMMARY | 2024-10-07 06:43 | XMS_ITS | Encounter Summary ---
Author Organization [facility] Address [address] [place] [address] Care Team Providers Care Harbor Tug Captain Name Role Phone Rhianna Cowan MD Primary Care Provider [phone] Reason for Visit * Reason Comments Follow-up Encounter Details Date Type Department Care Team (Late Contact Info) Description 05/16/2023 10:30 AM CDT Office Visit [facility] Weight Management Services [address] [facility] [address] [place] [address] Micki Bolden, STAIN DIPPER-CHIEF POWER DISPATCHER [address] [facility] [address] [place] [address] Morbid obesity (HCC) (Primary Dx); [...] medical care, and heating? Somewhat hard 04/14/2023 [facility] [place] of Occupat ional Health - Occupational Stress [...] this encounter Progress Notes * Micki Bolden, STAIN DIPPER-CHIEF POWER DISPATCHER - 05/16/2023 10:30 AM CDT Bariatric Surgery [...] capsule ??? sodium chloride (Deep Sea Nasal [place]) 0.65 % nasal spray No current facility-administered [...] status documented in this encounter Care Teams Harbor Tug Captain Relationship Specialty Start Date End Date Rhianna Cowan MD [address] [place] [address] [address] [place] [address] PCP - General Internal Medicine 11/12/16 documented as of this encounter
--- OUTSIDE RECORDS SUMMARY | 2024-10-07 06:43 | XMS_ITS | Encounter Summary ---
Author Organization [facility] Address [address] [address] Care Team Providers Care Regulatory Affairs Coordinator Name Role Phone Rhianna Cowan MD Primary Care Provider [phone] Reason for Referral * Home Connections (Routine) - Closed Specialty Diagnoses / Procedures Referred By Cydney scott Referred To Contact Home Health Services Diagnoses G[place] [address] [place] [address] [facility] Scheduling [address] [place] [address] Referral ID Status Reason Start Date Expiration Date V isits Requested Visits Authorized [id number] Closed Specialty Services Required 04/22/2023 04/21/2024 999 999 Reason for Visit * Auth/Cert (Routine) Specialty Diagnoses / Procedures Referred By Cydney t Referred To Contact Procedures ESOPHAGOGASTRODUODENOSCOPY (EGD) DIAGNOSTIC Referral ID Status Reason Start Date Expiration Date Visits Re quested Visits Authorized [id number] 1 1 Encounter Details Date Type Department Care Team (Latest Contact Info) Description 04/14/2023 7:34 AM CDT - 04/22/2023 3:03 PM CDT Hospital Encounter [facility] 2S SURG/BARIATRIC [address] [place] [address] [place] [address] [place] [address] Surgery General Discharge Disposition: Home [...] medical care, and heating? Somewhat hard 04/14/2023 [facility] - Occupational Stress [...] Weight: 109.8 kg (242 lb) (04/14/23811) 04/22/2023 [id number] Admitting Diagnosis Clinically Severe Obesity with multiple co-morbidities Body mass index is 44.26 kg/m??. Past Medical History: Diagnosis Date ??? Anxiety and depression ??? Depression ??? Environmental allergies ??? GERD (gastroesophageal reflux disease) ??? Hypertension ??? Mild intermittent asthma, uncomplicated ??? Morbid obesity due to excess calories ([facility]) Discharge Diagnosis: Same Consults : Hospitalist Diagnostic Studies None Principal Procedures Performed: Laparoscopic removal of adjustable gastric band and port??(56285) 2.??Laparoscopic??Repair of gastric perforation??([place] [address]) 3. Omental isabel patch (73931) 3. Esophagogastroduodenoscopy Hospital Course The patient underwent [...] evening meal for 10 days Marybel Kent APRN-ROIHNI magnesium hydroxide 400 MG/5ML suspension Commonly known [...] muscle every 30 days Deep Sea Nasal [place] 0.65 % nasal spray Generic drug: sodium chloride [place] 2 (two) sprays into each nostril as [...] MCG/ACT nasal spray Commonly known as: Flonase [place] 2 (two) sprays into each nostril once [...] of removal of laparoscopic gastric banding device [4026718] Activity as tolerated -- Walk at least [...] fluticasone propionate (Flonase) 50 MCG/ACT nasal spray [place] 2 (two) sprays into each nostril once [...] for Heartburn sodium chloride (Deep Sea Nasal [place]) 0.65 % nasal spray [place] 2 (two) sprays into each nostril as [...] Information Primary Emergency Contact: Yuliana Shepherd Address: [address] [place] [address] [place] [address] [facility] [place] Relation: Daughter Patient [...] Medications: Transportation: Name: Teagan Villarreal RN Phone: [phone] * Kary De Leon RN - 04/22/2023 [...] sleep pattern. Outcome: Progressing * Marybel Kent APRN-HITCH TECHNICIAN - 04/22/2023 8:09 AM CDT Bariatric Surgery [...] Laparoscopic removal of adjustable gastric band and port??(10528) 2.??Laparoscopic??Repair of gastric perforation??([place] to [address]) 3. Omental isabel patch (40004) 3. Esophagogastroduodenoscopy POD #6 Overnight Events: None [...] tablet ??? sodium chloride (Deep Sea Nasal [place]) 0.65 % nasal spray Recent Labs Component [...] Laparoscopic removal of adjustable gastric band and port??(65528) 2.??Laparoscopic??Repair of gastric perforation??([place] similar to [address]1718) 3. Omental isabel patch (49563) 3. esophagogastroduodenoscopy POD #6 Neuro: ??PO pain [...] for Augmentin x 10 days Marybel Kent, COMMAND CENTER OFFICER-HITCH TECHNICIAN * Enrique Tapia - 04/21/2023 9:56 PM [...] Information Primary Emergency Contact: Yuliana Shepherd Address: [address] [place] [address] [place] Relation: Daughter [...] Medications: Transportation: Name: Teagan Villarreal RN Phone: [phone] * Guerline Melgar MD - 04/21/2023 9:40 [...] IV Left;Posterior Hand (Active) Placement Date/Time: 04/21/23 0270 Orientation: Left;Posterior Location: Hand Name/Credentials of person who placed: james banks IV Catheter Size: 22 Gauge Number of start attempts: 1 Local Anesthetic Used?: None Procedure Tolerance: Well Number of days: 0 Procedural Site (Incision) Abdomen (Active) Date: 04/16/23 Location: Abdomen Multiple Sites: Laparoscopic Number of days: 5 READMISSION RISK SCORE is 8 at 9:40 AM 04/21/2023. * Marybel Kent, COMMAND CENTER OFFICER-HITCH TECHNICIAN - 04/21/2023 7:49 AM CDT Bariatric Surgery [...] Laparoscopic removal of adjustable gastric band and port??(00045) 2.??Laparoscopic??Repair of gastric perforation??([place] similar to 05[address]) 3. Omental isabel patch (85044) 3. esophagogastroduodenoscopy POD#5 Overnight Events: None Subjective: [...] Laparoscopic removal of adjustable gastric band and port??(96322) 2.??Laparoscopic??Repair of gastric perforation??(most similar to 05403) 3. Omental isabel patch (42573) 3. esophagogastroduodenoscopy POD #5 Neuro: ??PO pain [...] for Augmentin x 10 days Marybel Kent APRN-HITCH TECHNICIAN * Cinda Corley RN - 04/21/2023 7:23 [...] - will plan for omnicef, flagyl at [place] for 7 days - L LL haziness [...] Length: 2.5 IV Catheter Size: 20 Gauge Paper Bag Making Machinist/Model : [email or web address] introcan Technique: An... Number of [...] - will plan for omnicef, flagyl at [place] for 7 days - L LL haziness [...] Length: 2.5 IV Catheter Size: 20 Gauge Paper Bag Making Machinist/Model : [email or web address] introcan Technique: An... Number of [...] pt up to chair, voiding/passing gas/ BMx1, [id number] pain, denies nausea, tolerating phase 1 diet, [...] 40 mg, Intravenous, QDAY ?? [COMPLETED] HYDROcodone-acetaminophen ([place]) 5-325 MG tablet 1 tablet, Oral, Once [...] Length: 2.5 IV Catheter Size: 20 Gauge Paper Bag Making Machinist/Model : [email or web address] Transmetricscan Technique: An... Number of days: 3 Procedural [...] - Dr. beckwith to see Micki Bolden APRN-HITCH TECHNICIAN * Haley Boykin RN - 04/17/2023 9:53 [...] Contact Information Primary Emergency Contact: PrasanthfannieYuliana Address: [address] [place] [address] [place] [id number] [facility] Relation: Daughter Patient is [...] Medications: Transportation: Name: Teagan Villarreal RN Phone: [phone] * Guerline Melgar MD - 04/17/2023 12:02 [...] Length: 2.5 IV Catheter Size: 20 Gauge Paper Bag Making Machinist/Model : [email or web address] introcan Technique: An... Number of [...] flowsheet documentation) Outcome: Progressing * Micki Bolden APRN-HITCH TECHNICIAN - 04/17/2023 6:05 AM CDT Bariatric Surgery [...] intake - discharge instructions reviewed. Micki Bolden, AMRITA-HITCH TECHNICIAN * Haley Boykin RN - 04/17/2023 5:55 [...] Length: 2.5 IV Catheter Size: 20 Gauge Paper Bag Making Machinist/Model : [email or web address] introcan Technique: An... Number of [...] None Requires Assistance With: None [facility]erred [facility]: [id number] [address] [facility] [address] [employer] [place] [place] [employer] [address] [facility] [address] Advance Directive: No Advance Directive Information Given: Refused Information Would you like assistance on completing and executing or revising an Advance Directive?: No READMISSION RISK SCORE is 9 at 3:01 PM 04/16/2023. Met with chart reviewed Family Support (name and phone): Extended Emergency Contact Information Primary Emergency Contact: CoraYuliana Address: [address] [place] [id number] [place] Relation: Daughter Patient or construction representative requests care coordination reach out to [...] pt. requires but does not have.: None Manager Music Referral: No Will continue to follow. For any questions or needs please contact: Property Adjuster Name/Phone number: Teagan Villarreal RN [phone] * Kary De Leon RN - 04/16/2023 [...] None Requires Assistance With: None Preferred Pharmacy: [facility] #[id number] - [address] [address] [employer] [address] [facility] [address] Advance Directive: No Advance Directive Information Given: Refused Information Would you like assistance on completing and executing or revising an Advance Directive?: No READMISSION RISK SCORE is 8 at 9:42 AM 04/15/2023. Met with: chart reviewed Family Support (name and phone): Extended Emergency Contact Information Primary Emergency Contact: Sara Shepherdney Address: [address] [place] [address] [facility] [place] Relation: Daughter Patient or construction representative requests care coordination reach out to [...] pt. requires but does not have.: None Manager Music Referral: No Will continue to follow. For any questions or needs please contact: Property Adjuster Name/Phone number: Teagan Villarreal RN [phone] * Jenise Santillan RN - 04/15/2023 6:32 [...] Torres PharmD - 04/14/2023 2:[address] [facility] Pharmacy Services Admission Medication Review Nevin Deshpande [...] ??? Morbid obesity due to excess calories ([facility]) No Known Allergies No medications prior to [...] daily ??? sodium chloride (Deep Sea Nasal [place]) 0.65 % nasal spray Deep Sea Nasal [...] fluticasone propionate (Flonase) 50 MCG/ACT nasal spray [place] 2 (two) sprays into each nostril once [...] Heartburn ??? sodium chloride (Deep Sea Nasal [place]) 0.65 % nasal spray [place] 2 (two) sprays into each nostril as [...] No Stress: No Stress Concern Present (04/14/2023) [facility] - Occupational Stress Questionnaire [...] Beckwith MD - 04/16/2023 9:58 PM CDT [facility] Operative Report OPERATIVE REPORT PATIENT:Nevin Deshpande [...] removal of adjustable gastric band and port (84188) 2. Laparoscopic Repair of gastric perforation ([place] [address]) 3. Omental isabel patch (09835) 3. esophagogastroduodenoscopy SURGEON: Steffen Beckwith MD PACKERHEAD MACHINE OPERATOR: Aramis DAIGLE ANESTHESIA: General endotracheal. PROCEDURE: [...] with a 0 Vicryl suture in a [id number] fashion.. The remaining incisions were closed with [...] Role: * Steffen Beckwith MD - Primary Aviation Project Engineer(s): Blanche DAIGLE Anesthesia Type: general ETT Complications: [...] STAT 04/14/2023 9:08 AM CDT Diagnosis unknown CO ED EGD FLEX TRANSORAL DX 04/14/2023 8:20 [...] - 18 mmol/L 04/21/2023 9:51 AM CDT [facility] BUN 4(L) 9.8 - 20.1 mg/dL 04/21/2023 9:51 AM CDT [facility] Creatinine 0.85 0.57 - 1.11 mg/dL 04/21/2023 9:51 AM CDT [facility] eGFR by CKD-EPI 81(L) >=90 mL/min/1.7 3 m2 04/21/2023 9:51 AM CDT [facility] Blood BLOOD SPECIMEN / Unknown Venipuncture / Unknown 04/21/2023 9:24 AM CDT 04/21/2023 9:34 AM CDT Marybel Grider Donte COMMAND CENTER OFFICER-HITCH TECHNICIAN LAB - MANFRED GEMINI ORDERABLES Performing Organization Address City/State/[facility] Co de Phone Number [facility] [address] [place] [address] * (ABNORMAL) CBC W/O DIFFERENTIAL (04/21/2023 9:24 AM CDT) WBC 8.2 4.4 - 10.7 x10E9/L 04/21/2023 9:37 AM CDT [facility] RBC 3.05(L) 3.80 - 5.20 x10E12/L 04/21/2023 9:37 AM CDT [facility] Hemoglobin 10.9(L) 12.0 - 15.6 gm/dL 04/21/2023 9:37 AM CDT [facility] Hematocrit 33.8(L) 35.9 - 45.5 % 04/21/2023 9:37 AM CDT [facility] MCV 110.8(H) 80.7 - 98.3 fl 04/21/2023 9:37 AM CDT [facility] MCH 35.7(H) 26.7 - 34.0 pg 04/21/2023 9:37 AM CDT [facility] MCHC 32.2 30.8 - 35.9 gm/dL 04/21/2023 9:37 AM CDT [facility] Platelet Count 254 153 - 416 x10E9/L 04/21/2023 9:37 AM CDT [facility] RDW-CV 14.6 12.1 - 14.9 % 04/21/2023 9:37 AM CDT [facility] MPV 10.8 9.4 - 12.9 fl 04/21/2023 9:37 AM CDT [facility] Blood BLOOD SPECIMEN / Unknown Venipuncture / Unknown 04/21/2023 9:24 AM CDT 04/21/2023 9:34 AM CDT Marybel Grider Donte COMMAND CENTER OFFICER-HITCH TECHNICIAN LAB - HEM ATOLOGY ORDERABLES [facility] [address] [place] [address] * (ABNORMAL) BASIC METABOLIC PANEL (CALCIUM TOTAL) (04/20/2023 10:21 AM CDT) Glucose 116(H) 70 - 105 mg/dL 04/20/2023 10:45 AM CDT [facility] Sodium 140 136 - 145 mmol/L 04/20/2023 10:45 AM CDT [facility] Potassium 3.9 3.5 - 5.1 mmol/L 04/20/2023 10:45 AM CDT [facility] Chloride 106 98 - 107 mmol/L 04/20/2023 10:45 AM CDT [facility] CO2 27 23 - 31 mmol/L 04/20/2023 10:45 AM CDT [facility] Calcium 9.1 8.4 - 10.4 mg/dL 04/20/2023 10:45 AM T [facility] Anion Gap 7(L) 8 - 18 mmol/L 04/20/2023 10:45 AM CDT [facility] BUN 4(L) 9.8 - 20.1 mg/dL 04/20/2023 10:45 AM CDT [facility] Creatinine 0.83 0.57 - 1.11 mg/dL 04/20/2023 10:45 AM CDT [facility] eGFR by CKD-EPI 83(L) >=90 mL/min/1.7 3 m2 04/20/2023 10:45 AM CDT [facility] Blood BLOOD SPECIMEN / Unknown Venipuncture / Unknown 04/20/2023 10:21 AM CDT 04/20/2023 10:27 AM CDT Guerline Melgar MD LAB - CHEMISTRY INGRID CORRALES [facility] [address] [place] [address] * CT CHEST PE (04/19/2023 [...] to the lung bases were obtained following [id number], 80 cc intravenous contrast administration. Multiplanar maximum [...] Melgar MD LAB - CHEMISTRY INGRID CORRALES [facility] Organization Address City/State/ZIP Co de Phone Number [facility] [address] [place] [address] * (ABNORMAL) CBC W AUTO DIFFERENTIAL (04/19/2023 4:14 AM CDT) WBC 11.9(H) 4.4 - 10.7 x10E9/L 04/19/2023 4:22 AM CDT [facility] WBC Corrected 04/19/2023 4:22 AM CDT [facility] RBC 3.07(L) 3.80 - 5.20 x10E12/L 04/19/2023 4:22 AM CDT [facility] Hemoglobin 11.2(L) 12.0 - 15.6 gm/dL 04/19/2023 4:22 AM CDT [facility] Hematocrit 34.2(L) 35.9 - 45.5 % 04/19/2023 4:22 AM CDT [facility] MCV 111.4(H) 80.7 - 98.3 fl 04/19/2023 4:22 AM CDT [facility] MCH 36.5(H) 26.7 - 34.0 pg 04/19/2023 4:22 AM CDT [facility] MCHC 32.7 30.8 - 35.9 gm/dL 04/19/2023 4:22 AM CDT [facility] Platelet Count 211 153 - 416 x10E9/L 04/19/2023 4:22 AM CDT [facility] RDW-CV 14.8 12.1 - 14.9 % 04/19/2023 4:22 AM CDT [facility] MPV 11.1 9.4 - 12.9 fl 04/19/2023 4:22 AM CDT [facility] Neutrophils % 79.3(H) 44.0 - 73.0 % 04/19/2023 4:22 AM CDT [facility] Lymphocytes % 9.2(L) 20.0 - 43.0 % 04/19/2023 4:22 AM CDT [facility] Monocytes % 6.7 5.0 - 13.0 % 04/19/2023 4:22 AM CDT [facility] Eosinophils % 3.3 0.0 - 6.0 % 04/19/2023 4:22 AM CDT [facility] Basophils % 0.4 0.0 - 2.0 % 04/19/2023 4:22 AM CDT [facility] Immature Granulocytes 1.1(H) 0 - 1 % 04/19/2023 4:22 AM CDT [facility] Neutrophil Absolute 9.47(H) 2.01 - 7.14 x10E9/L 04/19/2023 4:22 AM CDT [facility] Lymphocytes Absolute 1.10 1.07 - 3.94 x10E9/L 04/19/2023 4:22 AM CDT [facility] Monocytes Absolute 0.80 0.26 - 1.07 x10E9/L 04/19/2023 4:22 AM CDT [facility] Eosinophils Absolute 0.39 0 - 0.47 x10E9/L 04/19/2023 4:22 AM CDT [facility] Basophils Absolute 0.05 0 - 0.08 x10E9/L 04/19/2023 4:22 AM CDT [facility] Immature Granulocytes Absolute 0.13(H) 0.00 - 0.06 x10E9/L 04/19/2023 4:22 AM CDT [facility] nRBC Auto 0 /100 WBC 04/19/2023 4:22 AM CDT [facility] Blood BLOOD SPECIMEN / Unknown Venipuncture / Unknown 04/19/2023 4:14 AM CDT 04/19/2023 4:18 AM CDT Guerline Melgar MD LAB - HEMATOLOGY ORD ERABLES [facility] [address] [place] [address] * (ABNORMAL) CBC W AUTO DIFFERENTIAL (04/18/2023 3:57 AM CDT) WBC 16.1(H) 4.4 - 10.7 x10E9/L 04/18/2023 4:08 AM CDT [facility] WBC Corrected 04/18/2023 4:08 [...] - 12.9 fl 04/18/2023 4:08 AM CDT [facility] Neutrophils % 85.1(H) 44.0 [...] - 3.94 x10E9/L 04/18/2023 4:08 AM CDT [facility] Monocytes Absolute 1.08(H) 0.26 - 1.07 x10E9/L 04/18/2023 4:08 AM CDT [facility] Eosinophils Absolute 0.12 0 - 0.47 x10E9/L 04/18/2023 4:08 AM CDT [facility] Basophils Absolute 0.05 0 - 0.08 x10E9/L 04/18/2023 4:08 AM CDT [facility] Immature Granulocytes Absolute 0.11(H) 0.00 - 0.06 x10E9/L 04/18/2023 4:08 AM CDT [facility] nRBC Auto 0 /100 WBC 04/18/2023 4:08 AM CDT [facility] Blood BLOOD SPECIMEN / Unknown Venipuncture / Unknown 04/18/2023 3:57 AM CDT 04/18/2023 4:00 AM CDT Steffen Beckwith MD LAB - HEMATOLOGY ORD ERABLES [facility] [address] [place] [address] * (ABNORMAL) BASIC METABOLIC PANEL (CALCIUM TOTAL) (04/18/2023 3:57 AM CDT) Glucose 118(H) 70 - 105 mg/dL 04/18/2023 4:27 AM CDT [facility] Sodium 139 136 - 145 mmol/L 04/18/2023 4:27 AM CDT [facility] Potassium 4.2 3.5 - 5.1 mmol/L 04/18/2023 4:27 AM CDT [facility] Chloride 107 98 - 107 mmol/L 04/18/2023 4:27 AM CDT [facility] CO2 23 23 - 31 mmol/L 04/18/2023 4:27 AM CDT [facility] Calcium 8.8 8.4 - 10.4 mg/dL 04/18/2023 4:27 AM CDT [facility] Anion Gap 9 8 - 18 mmol/L 04/18/2023 4:27 AM CDT [facility] BUN 9(L) 9.8 - 20.1 mg/dL 04/18/2023 4:27 AM CDT [facility] Creatinine 0.89 0.57 - 1.11 mg/dL 04/18/2023 4:27 AM CDT [facility] eGFR by CKD-EPI 77(L) >=90 mL/min/1.7 3 m2 04/18/2023 4:27 AM CDT [facility] Blood BLOOD SPECIMEN / Unknown Venipuncture / Unknown 04/18/2023 3:57 AM CDT 04/18/2023 4:00 AM CDT Micki Bolden COMMAND CENTER OFFICER-HITCH TECHNICIAN LAB - CHEMIS TRY ORDERABLES [facility] [address] [place] [address] * FL UGI SERIES (04/17/2023 12:25 PM [...] mL/min/1.7 3 m2 04/17/2023 7:36 AM CDT [facility] Blood BLOOD SPECIMEN / Unknown Venipuncture / Unknown 04/17/2023 6:33 AM CDT 04/17/2023 6:37 AM CDT Micki Stephan Kimi COMMAND CENTER OFFICER-HITCH TECHNICIAN LAB - CHEMIS TRY ORDERABLES [facility] [address] [place] [address] * (ABNORMAL) CBC W/O DIFFERENTIAL (04/17/2023 6:33 AM CDT) WBC 18.9(H) 4.4 - 10.7 x10E9/L 04/17/2023 6:45 AM CDT [facility] RBC 3.62(L) 3.80 - 5.20 x10E12/L 04/17/2023 6:45 AM CDT [facility] Hemoglobin 12.8 12.0 - 15.6 gm/dL 04/17/2023 6:45 AM CDT [facility] Hematocrit 39.5 35.9 - 45.5 % 04/17/2023 6:45 AM CDT [facility] MCV 109.1(H) 80.7 - 98.3 fl 04/17/2023 6:45 AM CDT [facility] MCH 35.4(H) 26.7 - 34.0 pg 04/17/2023 6:45 AM CDT [facility] MCHC 32.4 30.8 - 35.9 gm/dL 04/17/2023 6:45 AM CDT [facility] Platelet Count 271 153 - 416 x10E9/L 04/17/2023 6:45 AM CDT [facility] RDW-CV 14.6 12.1 - 14.9 % 04/17/2023 6:45 AM CDT [facility] MPV 11.2 9.4 - 12.9 fl 04/17/2023 6:45 AM CDT [facility] Blood BLOOD SPECIMEN / Unknown Venipuncture / Unknown 04/17/2023 6:33 AM CDT 04/17/2023 6:37 AM CDT Micki Bolden COMMAND CENTER OFFICER-HITCH TECHNICIAN LAB - HEMATO LOGY ORDERABLES [facility] [address] [place] [address] * XR CHEST 1VW PORTABLE (04/16/2023 7:30 [...] - 105 mg/dL 04/16/2023 5:16 AM CDT [facility] Sodium 140 136 - 145 mmol/L 04/16/2023 5:16 AM CDT [facility] Potassium 4.0 3.5 - 5.1 mmol/L 04/16/2023 5:16 AM CDT [facility] Chloride 109(H) 98 - 107 mmol/L 04/16/2023 5:16 AM CDT [facility] CO2 24 23 - 31 mmol/L 04/16/2023 5:16 AM CDT [facility] Calcium 9.1 8.4 - 10.4 mg/dL 04/16/2023 5:16 AM CDT [facility] Anion Gap 7(L) 8 - 18 mmol/L 04/16/2023 5:16 AM CDT [facility] BUN 6(L) 9.8 - 20.1 mg/dL 04/16/2023 5:16 AM CDT [facility] Creatinine 0.89 0.57 - 1.11 mg/dL 04/16/2023 5:16 AM CDT [facility] eGFR by CKD-EPI 77(L) >=90 mL/min/1.7 3 m2 04/16/2023 5:16 AM CDT [facility] Blood BLOOD SPECIMEN / Unknown Venipuncture / Unknown 04/16/2023 4:34 AM CDT 04/16/2023 4:39 AM CDT Steffen Beckwith MD LAB - CHEMISTRY INGRID CORRALES [facility] Organization Address City/State/ZIP Co de Phone Number [facility] [address] [place] [address] * (ABNORMAL) COMPREHENSIVE METABOLIC PANEL (04/15/2023 4:04 AM CDT) [facility] Glucose 107(H) 70 - 105 mg/dL 04/15/2023 5:26 AM CDT [facility] Sodium 141 136 - 145 mmol/L 04/15/2023 5:26 AM CDT [facility] Potassium 3.3(L) 3.5 - 5.1 mmol/L 04/15/2023 5:26 AM CDT [facility] Chloride 108(H) 98 - 107 mmol/L 04/15/2023 5:26 AM CDT [facility] CO2 25 23 - 31 mmol/L 04/15/2023 5:26 AM CDT [facility] Calcium 9.4 8.4 - 10.4 mg/dL 04/15/2023 5:26 AM CDT [facility] Anion Gap 8 8 - 18 mmol/L 04/15/2023 5:26 AM CDT [facility] BUN 10 9.8 - 20.1 mg/dL 04/15/2023 5:26 AM CDT [facility] Creatinine 1.05 0.57 - 1.11 mg/dL 04/15/2023 5:26 AM CDT [facility] Alkaline Phosphatase 151(H) 40 - 150 U/L 04/15/2023 5:26 AM CDT [facility] ALT 13 0 - 61 U/L 04/15/2023 5:26 AM CDT [facility] AST 23 5 - 34 U/L 04/15/2023 5:26 AM CDT [facility] Protein Total 6.4 6.4 - 8.3 gm/dL 04/15/2023 5:26 AM CDT [facility] Albumin 3.5 3.5 - 5.2 gm/dL 04/15/2023 5:26 AM CDT [facility] Bilirubin Total 0.7 0.2 - 1.2 mg/dL 04/15/2023 5:26 AM CDT [facility] eGFR by CKD-EPI 63(L) >=90 mL/min/1.7 3 m2 04/15/2023 5:26 AM CDT [facility] Blood BLOOD SPECIMEN / Unknown Venipuncture / Unknown 04/15/2023 4:04 AM CDT 04/15/2023 4:38 AM CDT [facility] Beckwith MD LAB - CHEMISTRY INGRID CORRALES [facility] [address] [place] [address] * (ABNORMAL) CBC W AUTO DIFFERENTIAL (04/15/2023 4:04 AM CDT) WBC 6.1 4.4 - 10.7 x10E9/L 04/15/2023 5:02 AM CDT [facility] WBC Corrected 04/15/2023 5:02 AM CDT [facility] RBC 3.32(L) 3.80 - [...] - 1.07 x10E9/L 04/15/2023 5:02 AM CDT [facility] Eosinophils Absolute 0.08 0 - 0.47 x10E9/L 04/15/2023 5:02 AM CDT [facility] Basophils Absolute 0.04 0 - 0.08 x10E9/L 04/15/2023 5:02 AM CDT [facility] Immature Granulocytes Absolute 0.03 0.00 - 0.06 x10E9/L 04/15/2023 5:02 AM CDT [facility] nRBC Auto 0 /100 WBC 04/15/2023 5:02 AM CDT [facility] Blood BLOOD SPECIMEN / Unknown Venipuncture / Unknown 04/15/2023 4:04 AM CDT 04/15/2023 4:38 AM CDT Steffen Beckwith MD LAB - HEMATOLOGY ORD ERABLES Performing Organization Address [facility] de Phone Number [facility] [address] [place] [id number] * HELICOBACTER PYLORI UREASE (STL) (04/14/2023 9:08 AM CDT) Helicobacter pylori Urease Initial Negative Negative 04/15/2023 9:14 AM CDT [facility] Helicobacter pylori Urease Final Negative Negative 04/15/2023 9:14 AM CDT [facility] Comment:This is an appended report. These results have been appended to a previously preliminary verified report. Microbiology GASTRIC ANTRAL BIOPSY SPECIMEN / Unknown 04/14/2023 9:08 AM CDT 04/14/2023 2:44 PM CDT Steffen Beckwith MD LAB - MICROBIOLOGY O RDERABLES Performing Organization Address [facility] Co de Phone Number [facility] [id number] [place] [address] [phone] * EGD (04/14/2023 8:15 AM CDT) Report [...] Procedure Code(s): ? --- Professional --- ? 24979, Esophagogastroduo denoscopy, flexible, transoral; with biopsy, ? single or multiple ? --- Technical --- ? 79094, Esophagogastroduo denoscopy, flexible, transoral; with biopsy, ? [...] other than malignant neoplasm CPT copyright 2020 [employer]. All rights reserved. The codes documented in this report are preliminary and upon medical insurance clerk review may be revised to meet current compliance requirements. __ Steffen Beckwith MD 04/14/2023 9:09:18 AM Number of Addenda: 0 Note Initiated On: 04/14/2023 8:15 AM [facility] 04/14/2023 8:15 AM CDT Narrative Procedure Note Steffen Beckwith MD - 04/14/2023 9:09 AM CDT PLAN: 1. Admit 2. Laparoscopic removal of gastric band and port Steffen Beckwith MD GI PROCEDURE ORDERAB LES [facility] [place] [address] documented in this encounter Visit Diagnoses Diagnosis [...] 04/22/2023 12:03 PM CDT 12.5 mg HYDROcodone-acetaminophen ([place]) 5-325 MG tablet 1 tablet 1 tablet, [...] Mann RN)[phone] ($ Given - Provider: Marybel Mann, SAQIB)[phone] ($ Given - Provider: Marybel [...] RN) documented in this encounter Care Teams Regulatory Affairs Coordinator Relationship Specialty Start Date End Date Rhianna Cowan MD [address] [facility] [address] [place] [address] PCP - General Internal Medicine 11/12/16 documented as of this encounter
--- OUTSIDE RECORDS SUMMARY | 2024-10-07 06:43 | XMS_ITS | Encounter Summary ---
Author Organization [facility] Address [address] [place] [address] Care Team Providers Care News Commentator Name Role Phone Rhianna Cowan MD Primary Care Provider [phone] Reason for Visit * Auth/Cert (Routine) Specialty Diagnoses / Procedures Referred By Cydney t Referred To Contact Procedures ESOPHAGOGASTRODUODENOSCOPY (EGD) DIAGNOSTIC Referral ID Status Reason Start Date Expiration Date Visits Re quested Visits Authorized [id number] 1 1 Encounter Details Date Type Department Care Team (Late st Contact Info) Description 04/16/2023 12:05 PM CDT - 04/16/2023 1:37 PM CDT Surgery [facility] - Perioperative Surgery [address] [place], [place] [id number] [place] [address] [address] [facility] [address] [place] [address] LAPAROSCOPIC REMOVAL GASTRIC BAND & [...] medical care, and heating? Somewhat hard 04/14/2023 [facility] - Occupational Stress [...] place to sleep or slept in a custodial (including now)? No 04/14/2023 Sex and Gender [...] Physician: Steffen Beckwith MD Attending Physician: Steffen Beckiwth MD Discharge Provider : CARLENE Bryan Admission weight: Weight: 109.8 kg (242 lb) (04/14/23811) Most recent weight: Weight: 109.8 kg (242 lb) (04/14/23811) 04/22/2023 [id number] Admitting Diagnosis Clinically Severe Obesity with multiple co-morbidities Body mass index is 44.26 kg/m??. Past Medical History: Diagnosis Date ??? Anxiety and depression ??? Depression ??? Environmental allergies ??? GERD (gastroesophageal reflux disease) ??? Hypertension ??? Mild intermittent asthma, uncomplicated ??? Morbid obesity due to excess calories ([facility] [place]) Discharge Diagnosis: Same Consults : Hospitalist Diagnostic Studies None Principal Procedures Performed: Laparoscopic removal of adjustable gastric band and port??(05517) 2.??Laparoscopic??Repair of gastric perforation??([place] [address]) 3. Omental isabel patch (95972) 3. Esophagogastroduodenoscopy Hospital Course The patient underwent [...] 2 times daily as needed for Constipation CRALENE Bryan simethicone 80 MG chew tablet Commonly [...] muscle every 30 days Deep Sea Nasal [place] 0.65 % nasal spray Generic drug: sodium chloride [place] 2 (two) sprays into each nostril as [...] MCG/ACT nasal spray Commonly known as: Flonase [place] 2 (two) sprays into each nostril once [...] of removal of laparoscopic gastric banding device [[id number]] Activity as tolerated -- Walk at least [...] fluticasone propionate (Flonase) 50 MCG/ACT nasal spray [place] 2 (two) sprays into each nostril once [...] for Heartburn sodium chloride (Deep Sea Nasal [place]) 0.65 % nasal spray [place] 2 (two) sprays into each nostril as [...] Information Primary Emergency Contact: Yuliana Shepherd Address: [address] [place] [address] Mobile Relation: Daughter Patient is alert [...] Medications: Transportation: Name: Teagan Villarreal RN Phone: [phone] * Kary De Leon RN - 04/22/2023 [...] Laparoscopic removal of adjustable gastric band and port??(84406) 2.??Laparoscopic??Repair of gastric perforation??([place] to [address]) 3. Omental isabel patch (12073) 3. Esophagogastroduodenoscopy POD #6 Overnight Events: None [...] tablet ??? sodium chloride (Deep Sea Nasal [place]) 0.65 % nasal spray Recent Labs Component [...] Laparoscopic removal of adjustable gastric band and port??(02581) 2.??Laparoscopic??Repair of gastric perforation??([place] similar to [address]) 3. Omental isabel patch (66893) 3. esophagogastroduodenoscopy POD #6 Neuro: ??PO pain [...] for Augmentin x 10 days Marybel Kent, PHARMACY TEACHER-EMERGENCY RESPONSE COORDINATOR * Enrique Tapia - 04/21/2023 9:56 PM [...] Information Primary Emergency Contact: Yuliana Shepherd Address: [address] [place] [address] Mobile Relation: Daughter Patient is alert [...] Medications: Transportation: Name: Teagan Villarreal RN Phone: [phone] * Guerline Melgar MD - 04/21/2023 9:40 [...] at 9:40 AM 04/21/2023. * Marybel Kent, PHARMACY TEACHER-EMERGENCY RESPONSE COORDINATOR - 04/21/2023 7:49 AM CDT Bariatric Surgery [...] Laparoscopic removal of adjustable gastric band and port??(09949) 2.??Laparoscopic??Repair of gastric perforation??([place] similar to [address]) 3. Omental isabel patch (35544) 3. esophagogastroduodenoscopy POD#5 Overnight Events: None Subjective: [...] Laparoscopic removal of adjustable gastric band and port??(64227) 2.??Laparoscopic??Repair of gastric perforation??([place] to [address]) 3. Omental isabel patch (08968) 3. esophagogastroduodenoscopy POD #5 Neuro: ??PO pain [...] for Augmentin x 10 days Marybel Kent APRN-EMERGENCY RESPONSE COORDINATOR * Cinda Corley RN - 04/21/2023 7:23 [...] Length: 2.5 IV Catheter Size: 20 Gauge Senior Financial Consultant/Model : [email or web address] introcan Technique: An... Number of [...] - will plan for omnicef, flagyl at [place] for 7 days - L LL haziness [...] Length: 2.5 IV Catheter Size: 20 Gauge Senior Financial Consultant/Model : [email or web address] introcan Technique: An... Number of [...] pt up to chair, voiding/passing gas/ BMx1, hxojr2run pain, denies nausea, tolerating phase 1 diet, [...] 40 mg, Intravenous, QDAY ?? [COMPLETED] HYDROcodone-acetaminophen ([place]) 5-325 MG tablet 1 tablet, Oral, Once [...] Length: 2.5 IV Catheter Size: 20 Gauge Senior Financial Consultant/Model : [email or web address] introcan Technique: An... Number of [...] - Dr. beckwith to see Micki Bolden APRN-EMERGENCY RESPONSE COORDINATOR * Haley Boykin, SAQIB - 04/17/2023 9:53 [...] Contact Information Primary Emergency Contact: PrasanthfannieYuliana Address: [address] [place] [address] [facility] Mobile Relation: Daughter Patient is [...] Medications: Transportation: Name: Teagan Villarreal RN Phone: [phone] * Guerline Melgar MD - 04/17/2023 12:02 [...] Length: 2.5 IV Catheter Size: 20 Gauge Senior Financial Consultant/Model : [email or web address] introcan Technique: An... Number of [...] intake - discharge instructions reviewed. Micki Bolden APRN-EMERGENCY RESPONSE COORDINATOR * Haley Boykin RN - 04/17/2023 5:55 [...] Length: 2.5 IV Catheter Size: 20 Gauge Senior Financial Consultant/Model : [email or web address] introcan Technique: An... Number of [...] None Requires Assistance With: None Preferred Pharmacy: [id number] - [id number] [facility] [phone] [facility] [address] [facility] [address] [facility] [id number] Advance Directive: No Advance Directive Information Given: Refused Information Would you like assistance on completing and executing or revising an Advance Directive?: No READMISSION RISK SCORE is 9 at 3:01 PM 04/16/2023. Met with chart reviewed Family Support (name and phone): Extended Emergency Contact Information Primary Emergency Contact: Yuliana Shepherd Address: [address] [place] [address] Mobile Relation: Daughter Patient or sales development representative requests care coordination reach out to [...] pt. requires but does not have.: None Toddler Caregiver Referral: No Will continue to follow. For any questions or needs please contact: Bicycle Repairman Name/Phone number: Teagan Villarreal RN [phone] * Kary De Leon RN - 04/16/2023 [...] None Requires Assistance With: None Preferred Pharmacy: [facility] #[id number] - [id number] [facility] [phone] [address] [facility] [id number] Advance Directive: No Advance Directive Information Given: Refused Information Would you like assistance on completing and executing or revising an Advance Directive?: No READMISSION RISK SCORE is 8 at 9:42 AM 04/15/2023. Met with: chart reviewed Family Support (name and phone): Extended Emergency Contact Information Primary Emergency Contact: Yuliana Shepherd Address: [address] [place] [address] [facility] Mobile Relation: Daughter Patient or sales development representative requests care coordination reach out to [...] pt. requires but does not have.: None Toddler Caregiver Referral: No Will continue to follow. For any questions or needs please contact: Bicycle Repairman Name/Phone number: Teagan Villarreal RN [phone] * Jenise Santillan RN - 04/15/2023 6:32 [...] Torres PharmD - 04/14/2023 2:59 PM CDT [facility] Pharmacy Services Admission Medication Review Nevin [...] ??? Morbid obesity due to excess calories ([facility]) No Known Allergies No medications prior to [...] daily ??? sodium chloride (Deep Sea Nasal [place]) 0.65 % nasal spray Deep Sea Nasal [...] fluticasone propionate (Flonase) 50 MCG/ACT nasal spray [place] 2 (two) sprays into each nostril once [...] Heartburn ??? sodium chloride (Deep Sea Nasal [place]) 0.65 % nasal spray [place] 2 (two) sprays into each nostril as [...] No Stress: No Stress Concern Present (04/14/2023) [facility] - Occupational Stress Questionnaire [...] Beckwith MD - 04/16/2023 9:58 PM CDT [facility] Operative Report OPERATIVE REPORT PATIENT:Nevin Deshpande [...] ??? Morbid obesity due to excess calories ([facility]) POSTOPERATIVE DIAGNOSES: SAME and gastric band erosion and gastric perforation PROCEDURES PERFORMED: 1. Laparoscopic removal of adjustable gastric band and port (44313) 2. Laparoscopic Repair of gastric perfor[place] [address]) 3. Omental isabel patch (26848) 3. esophagogastroduodenoscopy SURGEON: Steffen Beckwith MD INSURANCE BUSINESS ANALYST: Aramis DAIGLE ANESTHESIA: General endotracheal. PROCEDURE: The [...] with a 0 Vicryl suture in a [id number] fashion.. The remaining incisions were closed with [...] Role: * Steffen Beckwith MD - Primary Gallery Or Museum Curator(s): Blanche DAIGLE Anesthesia Type: general ETT Complications: [...] - 1.11 mg/dL 04/21/2023 9:51 AM CDT [facility] eGFR by CKD-EPI 81(L) >=90 mL/min/1.7 3 m2 04/21/2023 9:51 AM CDT [facility] Blood BLOOD SPECIMEN / Unknown Venipuncture / Unknown 04/21/2023 9:24 AM CDT 04/21/2023 9:34 AM CDT Marybelrach Grider Donte PHARMACY TEACHER-EMERGENCY RESPONSE COORDINATOR LAB - MANFRED GEMINI ORDERABLES [facility] [address] [place] [address] * (ABNORMAL) CBC W/O DIFFERENTIAL (04/21/2023 9:24 AM CDT) WBC 8.2 4.4 - 10.7 x10E9/L 04/21/2023 9:37 AM CDT [facility] RBC 3.05(L) 3.80 - 5.20 x10E12/L 04/21/2023 9:37 AM CDT [facility] Hemoglobin 10.9(L) 12.0 - 15.6 gm/dL 04/21/2023 9:37 AM CDT [facility] Hematocrit 33.8(L) 35.9 - 45.5 % 04/21/2023 9:37 AM CDT [facility] MCV 110.8(H) 80.7 - 98.3 fl 04/21/2023 9:37 AM CDT [facility] MCH 35.7(H) 26.7 - 34.0 pg 04/21/2023 9:37 AM CDT [facility] MCHC 32.2 30.8 - 35.9 gm/dL 04/21/2023 9:37 AM CDT [facility] Platelet Count 254 153 - 416 x10E9/L 04/21/2023 9:37 AM CDT [facility] RDW-CV 14.6 12.1 - 14.9 % 04/21/2023 9:37 AM CDT [facility] MPV 10.8 9.4 - 12.9 fl 04/21/2023 9:37 AM CDT [facility] Blood BLOOD SPECIMEN / Unknown Venipuncture / Unknown 04/21/2023 9:24 AM CDT 04/21/2023 9:34 AM CDT Marybel Coxlion PHARMACY TEACHER-EMERGENCY RESPONSE COORDINATOR LAB - HEM ATOLOGY ORDERABLES Performing Organization Address City/[facility]/ZIP Co de Phone Number [facility] [address] [place] [address] * (ABNORMAL) BASIC METABOLIC PANEL (CALCIUM TOTAL) (04/20/2023 10:21 AM CDT) Glucose 116(H) 70 - 105 mg/dL 04/20/2023 10:45 AM CDT [facility] Sodium 140 136 - 145 mmol/L 04/20/2023 10:45 AM CDT [facility] Potassium 3.9 3.5 - 5.1 mmol/L 04/20/2023 10:45 AM CDT [facility] Chloride 106 98 - 107 mmol/L 04/20/2023 10:45 AM CDT [facility] CO2 27 23 - 31 mmol/L 04/20/2023 10:45 AM CDT [facility] Calcium 9.1 8.4 - 10.4 mg/dL 04/20/2023 10:45 AM CDT [facility] Anion Gap 7(L) 8 - 18 mmol/L 04/20/2023 10:45 AM CDT [facility] BUN 4(L) 9.8 - 20.1 mg/dL 04/20/2023 10:45 AM CDT [facility] Creatinine 0.83 0.57 - 1.11 mg/dL 04/20/2023 10:45 AM CDT [facility] eGFR by CKD-EPI 83(L) >=90 mL/min/1.7 3 m2 04/20/2023 10:45 AM CDT [facility] Blood BLOOD SPECIMEN / Unknown Venipuncture / Unknown 04/20/2023 10:21 AM CDT 04/20/2023 10:27 AM CDT Guerline Melgar MD LAB - CHEMISTRY INGRID CORRALES [facility] [address] [place] [address] * CT CHEST PE (04/19/2023 2:24 PM [...] to the lung bases were obtained following [id number], 80 cc intravenous contrast administration. Multiplanar maximum [...] - 105 mg/dL 04/19/2023 4:48 AM CDT [facility] Sodium 140 136 - 145 mmol/L 04/19/2023 4:48 AM CDT [facility] Potassium 4.1 3.5 - 5.1 mmol/L 04/19/2023 4:48 AM CDT [facility] Chloride 108(H) 98 - 107 mmol/L 04/19/2023 4:48 AM CDT [facility] CO2 22(L) 23 - 31 mmol/L 04/19/2023 4:48 AM CDT [facility] Calcium 9.1 8.4 - 10.4 mg/dL 04/19/2023 4:48 AM CDT [facility] Anion Gap 10 8 - 18 mmol/L 04/19/2023 4:48 AM CDT [facility] BUN 7(L) 9.8 - 20.1 mg/dL 04/19/2023 4:48 AM CDT [facility] Creatinine 0.84 0.57 - 1.11 mg/dL 04/19/2023 4:48 AM CDT [facility] eGFR by CKD-EPI 82(L) >=90 mL/min/1.7 3 m2 04/19/2023 4:48 AM CDT [facility] Blood BLOOD SPECIMEN / Unknown Venipuncture / Unknown 04/19/2023 4:14 AM CDT 04/19/2023 4:18 AM CDT Guerline Melgar MD LAB - CHEMISTRY INGRID CORRALES [facility] Organization Address City/State/ZIP Co de Phone Number [facility] [address] [place] [address] * (ABNORMAL) CBC W AUTO [...] - 1 % 04/19/2023 4:22 AM CDT [facility] Neutrophil Absolute 9.47(H) 2.01 - 7.14 x10E9/L 04/19/2023 4:22 AM CDT [facility] Lymphocytes Absolute 1.10 1.07 - 3.94 x10E9/L 04/19/2023 4:22 AM CDT [facility] Monocytes Absolute 0.80 0.26 - 1.07 x10E9/L 04/19/2023 4:22 AM CDT [facility] Eosinophils Absolute 0.39 0 - 0.47 x10E9/L 04/19/2023 4:22 AM CDT [facility] Basophils Absolute 0.05 0 - 0.08 x10E9/L 04/19/2023 4:22 AM CDT [facility] Immature Granulocytes Absolute 0.13(H) 0.00 - 0.06 x10E9/L 04/19/2023 4:22 AM CDT [facility] nRBC Auto 0 /100 WBC 04/19/2023 4:22 AM CDT [facility] Blood BLOOD SPECIMEN / Unknown Venipuncture / Unknown 04/19/2023 4:14 AM CDT 04/19/2023 4:18 AM CDT Guerline Melgar MD LAB - HEMATOLOGY ORD ERABLES [facility] [address] [place] [address] * (ABNORMAL) CBC W AUTO DIFFERENTIAL (04/18/2023 3:57 AM CDT) WBC 16.1(H) 4.4 - 10.7 x10E9/L 04/18/2023 4:08 AM CDT [facility] WBC Corrected 04/18/2023 4:08 AM CDT [facility] RBC 3.26(L) 3.80 - 5.20 x10E12/L 04/18/2023 4:08 AM CDT [facility] Hemoglobin 11.6(L) 12.0 - [...] - 416 x10E9/L 04/18/2023 4:08 AM CDT [facility] RDW-CV 14.9 12.1 - 14.9 % 04/18/2023 4:08 AM CDT [facility] MPV 10.9 9.4 - 12.9 fl 04/18/2023 4:08 AM T [facility] Neutrophils % 85.1(H) 44.0 - 73.0 % 04/18/2023 4:08 AM CDT [facility] Lymphocytes % 6.5(L) 20.0 - 43.0 % 04/18/2023 4:08 AM CDT [facility] Monocytes % 6.7 5.0 - 13.0 % 04/18/2023 4:08 AM CDT [facility] Eosinophils % 0.7 0.0 - 6.0 % 04/18/2023 4:08 AM T [facility] Basophils % 0.3 0.0 - 2.0 % 04/18/2023 4:08 AM CDT [facility] Immature Granulocytes 0.7 0 - 1 % 04/18/2023 4:08 AM CDT [facility] Neutrophil Absolute 13.67(H) 2.01 - 7.14 x10E9/L 04/18/2023 4:08 AM CDT [facility] Lymphocytes Absolute 1.04(L) 1.07 - 3.94 x10E9/L 04/18/2023 4:08 AM CDT [facility] Monocytes Absolute 1.08(H) 0.26 - 1.07 x10E9/L 04/18/2023 4:08 AM CDT [facility] Eosinophils Absolute 0.12 0 - 0.47 x10E9/L 04/18/2023 4:08 AM CDT [facility] Basophils Absolute 0.05 0 - 0.08 x10E9/L 04/18/2023 4:08 AM CDT [facility] Immature Granulocytes Absolute 0.11(H) 0.00 - 0.06 x10E9/L 04/18/2023 4:08 AM CDT [facility] nRBC Auto 0 /100 WBC 04/18/2023 4:08 AM CDT [facility] Blood BLOOD SPECIMEN / Unknown Venipuncture / Unknown 04/18/2023 3:57 AM CDT 04/18/2023 4:00 AM CDT Steffen Beckwith MD LAB - HEMATOLOGY ORD ERABLES [facility] [address] [place] [address] * (ABNORMAL) BASIC METABOLIC PANEL (CALCIUM TOTAL) (04/18/2023 3:57 AM CDT) Glucose 118(H) 70 - 105 mg/dL 04/18/2023 4:27 AM CDT [facility] Sodium 139 136 - 145 mmol/L 04/18/2023 4:27 AM CDT [facility] Potassium 4.2 3.5 - 5.1 mmol/L 04/18/2023 4:27 AM CDT [facility] Chloride 107 98 - 107 mmol/L 04/18/2023 4:27 AM CDT [facility] CO2 23 23 - 31 mmol/L 04/18/2023 4:27 AM CDT [facility] Calcium 8.8 8.4 - 10.4 mg/dL 04/18/2023 4:27 AM CDT [facility] Anion Gap 9 8 - 18 mmol/L 04/18/2023 4:27 AM CDT [facility] BUN 9(L) 9.8 - 20.1 mg/dL 04/18/2023 4:27 AM CDT [facility] Creatinine 0.89 0.57 - 1.11 mg/dL 04/18/2023 4:27 AM CDT [facility] eGFR by CKD-EPI 77(L) >=90 mL/min/1.7 3 m2 04/18/2023 4:27 AM CDT [facility] Blood BLOOD SPECIMEN / Unknown Venipuncture / Unknown 04/18/2023 3:57 AM CDT 04/18/2023 4:00 AM CDT Micki Bolden PHARMACY TEACHER-EMERGENCY RESPONSE COORDINATOR LAB - CHEMIS TRY ORDERABLES [facility] [address] [place] [address] * FL UGI SERIES (04/17/2023 [...] CDT 04/17/2023 6:37 AM CDT Micki Bolden APRN-[facility] LAB - CHEMIS TRY ORDERABLES Performing Organization Address City/[facility]/ZIP Co de Phone Number [facility] [address] [place] [address] * (ABNORMAL) CBC W/O DIFFERENTIAL (04/17/2023 6:33 AM CDT) WBC 18.9(H) 4.4 - 10.7 x10E9/L 04/17/2023 6:45 AM CDT [facility] RBC 3.62(L) 3.80 - 5.20 x10E12/L 04/17/2023 6:45 AM CDT [facility] Hemoglobin 12.8 12.0 - 15.6 gm/dL 04/17/2023 6:45 AM CDT [facility] Hematocrit 39.5 35.9 - 45.5 % 04/17/2023 6:45 AM CDT [facility] MCV 109.1(H) 80.7 - 98.3 fl 04/17/2023 6:45 AM CDT [facility] MCH 35.4(H) 26.7 - 34.0 pg 04/17/2023 6:45 AM CDT [facility] MCHC 32.4 30.8 - 35.9 gm/dL 04/17/2023 6:45 AM CDT [facility] Platelet Count 271 153 - 416 x10E9/L 04/17/2023 6:45 AM CDT [facility] RDW-CV 14.6 12.1 - 14.9 % 04/17/2023 6:45 AM CDT [facility] MPV 11.2 9.4 - 12.9 fl 04/17/2023 6:45 AM CDT [facility] Blood BLOOD SPECIMEN / Unknown Venipuncture / Unknown 04/17/2023 6:33 AM CDT 04/17/2023 6:37 AM CDT Micki Bolden APRN-EMERGENCY RESPONSE COORDINATOR LAB - HEMATO LOGY ORDERABLES [facility] [address] [place] [address] * XR CHEST 1VW PORTABLE [...] - 31 mmol/L 04/16/2023 5:16 AM CDT [facility] Calcium 9.1 8.4 - 10.4 mg/dL 04/16/2023 5:16 AM CDT [facility] Anion Gap 7(L) 8 - 18 mmol/L 04/16/2023 5:16 AM CDT [facility] BUN 6(L) 9.8 - 20.1 mg/dL 04/16/2023 5:16 AM CDT [facility] Creatinine 0.89 0.57 - 1.11 mg/dL 04/16/2023 5:16 AM CDT [facility] eGFR by CKD-EPI 77(L) >=90 mL/min/1.7 3 m2 04/16/2023 5:16 AM CDT [facility] Blood BLOOD SPECIMEN / Unknown Venipuncture / Unknown 04/16/2023 4:34 AM CDT 04/16/2023 4:39 AM CDT Steffen Beckwith MD LAB - CHEMISTRY INGRID CORRALES [facility] Organization Address City/State/ZIP Co de Phone Number [facility] [address] [place] [address] * (ABNORMAL) COMPREHENSIVE METABOLIC PANEL (04/15/2023 4:04 AM CDT) Glucose 107(H) 70 - 105 mg/dL 04/15/2023 5:26 AM CDT [facility] Sodium 141 136 - 145 mmol/L 04/15/2023 5:26 AM CDT [facility] Potassium 3.3(L) 3.5 - 5.1 mmol/L 04/15/2023 5:26 AM CDT [facility] Chloride 108(H) 98 - 107 mmol/L 04/15/2023 5:26 AM CDT [facility] CO2 25 23 - 31 mmol/L 04/15/2023 5:26 AM CDT [facility] Calcium 9.4 8.4 - 10.4 mg/dL 04/15/2023 5:26 AM CDT [facility] Anion Gap 8 8 - 18 mmol/L 04/15/2023 5:26 AM CDT [facility] BUN 10 9.8 - 20.1 mg/dL 04/15/2023 5:26 AM CDT [facility] Creatinine 1.05 0.57 - 1.11 mg/dL 04/15/2023 5:26 AM CDT [facility] Alkaline Phosphatase 151(H) 40 - 150 U/L 04/15/2023 5:26 AM CDT [facility] ALT 13 0 - 61 U/L 04/15/2023 5:26 AM CDT [facility] AST 23 5 - 34 U/L 04/15/2023 5:26 AM CDT [facility] Protein Total 6.4 6.4 - 8.3 gm/dL 04/15/2023 5:26 AM CDT [facility] Albumin 3.5 3.5 - 5.2 gm/dL 04/15/2023 5:26 AM CDT [facility] Bilirubin Total 0.7 0.2 - 1.2 mg/dL 04/15/2023 5:26 AM CDT [facility] eGFR by CKD-EPI 63(L) >=90 mL/min/1.7 3 m2 04/15/2023 5:26 AM CDT [facility] Blood BLOOD SPECIMEN / Unknown Venipuncture / Unknown 04/15/2023 4:04 AM CDT 04/15/2023 4:38 AM CDT Steffen Beckwith MD [facility] Organization Address City/State/ZIP Co de Phone Number [facility] [address] [place] [address] * (ABNORMAL) CBC W AUTO DIFFERENTIAL (04/15/2023 4:04 AM CDT) [facility] WBC 6.1 4.4 - 10.7 x10E9/L 04/15/2023 5:02 AM CDT [facility] WBC Corrected 04/15/2023 5:02 AM CDT [facility] RBC 3.32(L) 3.80 - 5.20 x10E12/L 04/15/2023 5:02 AM CDT [facility] Hemoglobin 11.9(L) 12.0 - 15.6 gm/dL 04/15/2023 5:02 AM CDT [facility] Hematocrit 36.8 35.9 - [...] - 0.08 x10E9/L 04/15/2023 5:02 AM CDT [facility] Immature Granulocytes Absolute 0.03 0.00 - 0.06 x10E9/L 04/15/2023 5:02 AM CDT [facility] nRBC Auto 0 /100 WBC 04/15/2023 5:02 AM CDT [facility] Blood BLOOD SPECIMEN / Unknown Venipuncture / Unknown 04/15/2023 4:04 AM CDT 04/15/2023 4:38 AM CDT Steffen Beckwith MD LAB - HEMATOLOGY ORD ERABLES Performing Organization Address [facility] Co de Phone Number [facility] [address] [place], [place] [id number] * HELICOBACTER PYLORI UREASE (STL) (04/14/2023 9:08 AM CDT) Helicobacter pylori Urease Initial Negative Negative 04/15/2023 9:14 AM CDT [facility] Helicobacter pylori Urease Final Negative Negative 04/15/2023 9:14 AM CDT [facility] Comment:This is an appended report. These results have been appended to a previously preliminary verified report. Microbiology GASTRIC ANTRAL BIOPSY SPECIMEN / Unknown 04/14/2023 9:08 AM CDT 04/14/2023 2:44 PM CDT Steffen Beckwith MD LAB - MICROBIOLOGY O RDERABLES Performing Organization Address [facility] Co de Phone Number [facility] [address] [place] [id number] * EGD (04/14/2023 8:15 AM CDT) [...] Procedure Code(s): ? --- Professional --- ? 20327, Esophagogastroduo denoscopy, flexible, transoral; with biopsy, ? single or multiple ? --- Technical --- ? 40920, Esophagogastroduo denoscopy, flexible, transoral; with biopsy, ? [...] other than malignant neoplasm CPT copyright 2020 [employer]. All rights reserved. The codes documented in this report are preliminary and upon surgical coder review may be revised to meet current compliance requirements. __ Steffen Beckwith MD 04/14/2023 9:09:18 AM Number of Addenda: 0 Note Initiated On: 04/14/2023 8:15 AM [facility] 04/14/2023 8:15 AM CDT Narrative Procedure Note Steffen Beckwith MD - 04/14/2023 9:09 AM CDT PLAN: 1. Admit 2. Laparoscopic removal of gastric band and port Steffen Beckwith MD GI PROCEDURE ORDERAB LES [facility] [place] [address] documented in this encounter Visit Diagnoses Not [...] RN) documented in this encounter Care Teams News Commentator Relationship Specialty Start Date End Date Rhianna Cowan MD [address] [place] [address] [address] [place] [address] PCP - General Internal Medicine 11/12/16 documented as of this encounter
--- OUTSIDE RECORDS SUMMARY | 2024-10-07 06:43 | XMS_ITS | Encounter Summary ---
Author Organization [facility] Address [address] [place] [address] Care Team Providers Care Dancing Instructor Name Role Phone Rhianna Cowan MD Primary Care Provider [phone] Reason for Visit * Auth/Cert (Routine) Specialty Diagnoses / Procedures Referred By Cydney scott Referred To Contact Procedures ESOPHAGOGASTRODUODENOSCOPY (EGD) DIAGNOSTIC Referral ID Status Reason Start Date Expiration Date Visits Re quested Visits Authorized [id number] 1 1 Encounter Details Date Type Department Care Team (Late st Contact Info) Description 04/14/2023 8:55 AM CDT Anesthesia Event [facility] [address] [place] [address] Ronnie Langley MD [address] [facility] [place] [address] Jc Olson, OUTSIDE MAINTENANCE WORKER-SEMICONDUCTOR PACKAGES LEAK TESTER [address] [place] [id number] Anesthesia Record Procedure Summary Procedure Name Responsible [...] and heating? Somewhat hard 04/14/2023 [facility] of Occupat ional Health - Occupational Stress [...] this encounter Progress Notes * Jc Olson, OUTSIDE MAINTENANCE WORKER-SEMICONDUCTOR PACKAGES LEAK TESTER - 04/14/2023 9:12 AM CDT ANESTHESIA POSTOP [...] No notable events documented. * Jc Olson APRN-SEMICONDUCTOR PACKAGES LEAK TESTER - 04/14/2023 8:55 AM CDT ANESTHESIA PREOPERATIVE [...] ??? Morbid obesity due to excess calories ([facility]/HCC) Surgical History: Past Surgical History: Procedure Laterality Date ??? ADJUSTABLE GASTRIC BAND, LAP PLACEMENT ??? Breast Reduction Bilateral ??? Section x3 ??? Cholecystectomy, Laparoscopic ??? 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 Patient has had a hysterectomy. Hysterectomy OB History No obstetric history on file. Covid Vaccine: Lab Results: No results found for requested labs within last 120 days. No results found for requested labs within last 120 days. documented in this encounter Miscellaneous Notes * Anesthesia Transfer of Care - Jc Olson, OUTSIDE MAINTENANCE WORKER-SEMICONDUCTOR PACKAGES LEAK TESTER - 04/14/2023 9:11 AM CDT ANESTHESIA TRANSFER [...] CDT documented in this encounter Care Teams Dancing Instructor Relationship Specialty Start Date End Date Rhianna Cowan MD [address] [place] [address] PCP - General Internal Medicine 11/12/16 documented as of this encounter
--- OUTSIDE RECORDS SUMMARY | 2024-10-07 06:43 | XMS_ITS | Patient Health Summary ---
Author Organization [facility] Address [address] [place] [address] Care Team Providers Care Internal Sales Engineer Name Role Phone Rhianna Cowan MD Primary Care Provider [phone] [facility],non-owned Affiliates and Associated Physician Practices is amultiple site organization consisting of ambulatory clinics and hospital sitesin [place], [place], [place] and [place]. This disclosure is being madepursuant to the Care Everywhere program and may not contain all information available regarding this patient. Last updated 18.[facility] Allergies * Lisinopril(Cough) * Sulfamethoxazole W-Trimethoprim(Angioedema) -High [...] propionate (Flonase) 50 MCG/ACT nasal spray(Started 12/12/2021) [place] 2 (two) sprays into each nostril once [...] Heartburn * sodium chloride (Deep Sea Nasal [place]) 0.65 % nasal spray(Started 12/26/2022) [place] 2 (two) sprays into each nostril as [...] medical care, and heating? Somewhat hard 04/14/2023 [facility] of Occupat ional Health - Occupational Stress [...] (STL)(Performed 04/14/2023) Performed for Diagnosis unknown * [place] EGD FLEX TRANSORAL DX(Performed 04/14/2023) * [...] resultswithin the time period is included. Pathologist [facility] WBC 8.2 4.4 - 10.7 x10E9/L 04/21/2023 9:37 AM CDT [facility] RBC 3.05(L) 3.80 - 5.20 x10E12/L 04/21/2023 9:37 AM CDT [facility] Hemoglobin 10.9(L) 12.0 - 15.6 gm/dL 04/21/2023 9:37 AM CDT [facility] Hematocrit 33.8(L) 35.9 - 45.5 % 04/21/2023 9:37 AM CDT [facility] MCV 110.8(H) 80.7 - 98.3 fl 04/21/2023 9:37 AM CDT [facility] MCH 35.7(H) 26.7 - 34.0 pg 04/21/2023 9:37 AM CDT [facility] MCHC 32.2 30.8 - 35.9 gm/dL 04/21/2023 9:37 AM CDT [facility] Platelet Count 254 153 - 416 x10E9/L 04/21/2023 9:37 AM CDT [facility] RDW-CV 14.6 12.1 - 14.9 % 04/21/2023 9:37 AM CDT [facility] MPV 10.8 9.4 - 12.9 fl 04/21/2023 9:37 AM CDT [facility] Blood BLOOD SPECIMEN / Unknown Venipuncture / Unknown 04/21/2023 9:24 AM CDT 04/21/2023 9:34 AM CDT Marybel Kent HYDROLOGY TEACHER-WOODWORKING [facility] LAB - HEM ATOLOGY ORDERABLES [facility] [address] [place] [address] * (ABNORMAL) BASIC METABOLIC PANEL (CALCIUM TOTAL) (04/21/2023 9:24 AM CDT) Only the most recent of6 resultswithin the time period is included. Pathologist [facility] Glucose 99 70 - 105 mg/dL 04/21/2023 9:51 AM CDT [facility] Sodium 139 136 - 145 mmol/L 04/21/2023 9:51 AM CDT [facility] Potassium 3.6 3.5 - 5.1 mmol/L 04/21/2023 9:51 AM CDT [facility] Chloride 105 98 - 107 mmol/L 04/21/2023 9:51 AM CDT [facility] CO2 24 23 - 31 mmol/L 04/21/2023 9:51 AM CDT [facility] Calcium 9.0 8.4 - 10.4 mg/dL 04/21/2023 9:51 AM CDT [facility] Anion Gap 10 8 - 18 mmol/L 04/21/2023 9:51 AM CDT [facility] BUN 4(L) 9.8 - 20.1 mg/dL 04/21/2023 9:51 AM CDT [facility] Creatinine 0.85 0.57 - 1.11 mg/dL 04/21/2023 9:51 AM CDT [facility] eGFR by CKD-EPI 81(L) >=90 mL/min/1.7 3 m2 04/21/2023 9:51 AM CDT [facility] Blood BLOOD SPECIMEN / Unknown Venipuncture / Unknown 04/21/2023 9:24 AM CDT 04/21/2023 9:34 AM CDT Marybel Grider Donte HYDROLOGY TEACHER-WOODWORKING [facility] - MANFRED GEMINI ORDERABLES Performing Organization Address City/State/[facility] Co de Phone Number [facility] [address] [place] [address] * CT CHEST PE (04/19/2023 [...] to the lung bases were obtained following [id number], 80 cc intravenous contrast administration. Multiplanar maximum [...] - 3.94 x10E9/L 04/19/2023 4:22 AM CDT [facility] Monocytes Absolute 0.80 0.26 - 1.07 x10E9/L 04/19/2023 4:22 AM CDT [facility] Eosinophils Absolute 0.39 0 - 0.47 x10E9/L 04/19/2023 4:22 AM CDT [facility] Basophils Absolute 0.05 0 - 0.08 x10E9/L 04/19/2023 4:22 AM CDT [facility] Immature Granulocytes Absolute 0.13(H) 0.00 - 0.06 x10E9/L 04/19/2023 4:22 AM CDT [facility] nRBC Auto 0 /100 WBC 04/19/2023 4:22 AM CDT [facility] Blood BLOOD SPECIMEN / Unknown Venipuncture / Unknown 04/19/2023 4:14 AM CDT 04/19/2023 4:18 AM CDT Guerline Melgar MD LAB - HEMATOLOGY ORD ERABLES [facility] [address] [place] [id number] * FL UGI SERIES (04/17/2023 12:25 PM [...] Event Date/Time: ??04/16/2023 2:03 PM Procedure: intubation (65977). Procedure Section: ?? Sedation: under general anesthesia. [...] - CHEMISTRY INGRID CORRALES Performing Organization Address [facility] de Phone Number [facility] [address] [place] [address] * HELICOBACTER PYLORI UREASE (STL) (04/14/2023 9:08 AM CDT) Helicobacter pylori Urease Initial Negative Negative 04/15/2023 9:14 AM CDT [facility] Helicobacter pylori Urease Final Negative Negative 04/15/2023 9:14 AM CDT [facility] Comment:This is an appended report. These results have been appended to a previously preliminary verified report. Microbiology GASTRIC ANTRAL BIOPSY SPECIMEN / Unknown 04/14/2023 9:08 AM CDT 04/14/2023 2:44 PM CDT Steffen Choi MD LAB - MICROBIOLOGY O RDERABLES Performing Organization Address [facility] de Phone Number [facility] [address] [place] [address] * EGD (04/14/2023 8:15 AM CDT) Report [...] Procedure Code(s): ? --- Professional --- ? 44437, Esophagogastroduo denoscopy, flexible, transoral; with biopsy, ? single or multiple ? --- Technical --- ? 88606, Esophagogastroduo denoscopy, flexible, transoral; with biopsy, ? [...] other than malignant neoplasm CPT copyright 2020 [employer]. All rights reserved. The codes documented in this report are preliminary and upon construction stonemason review may be revised to meet current compliance requirements. __ Steffen Choi MD 04/14/2023 9:09:18 AM Number of Addenda: 0 Note Initiated On: 04/14/2023 8:15 AM [facility] 04/14/2023 8:15 AM CDT Narrative Procedure Note Steffen Choi MD - 04/14/2023 9:09 AM CDT PLAN: 1. Admit 2. Laparoscopic removal of gastric band and port Steffen Choi MD GI PROCEDURE ORDERAB LES [facility] [place] [address] * (ABNORMAL) STREP A SCREEN (03/23/2018) Only the most recent of2 resultswithin the time period is included. Strep A Rapid POCT Positive(A) Negative Strep A Internal Control Present Lot # [id number] Expiration Date 09/17/19 Throat ENTIRE THROAT (SURFACE REGION OF NECK) / Unknown 03/23/2018 Yaneli Eden HYDROLOGY TEACHER-WOODWORKING [facility] LAB - POINT OF CA RE ORDERABLES Care Teams Internal Sales Engineer Relationship Specialty Start Date End Date Rhianna Cowan MD [address] [place] [address] PCP - General Internal Medicine 11/12/16
--- OUTSIDE RECORDS SUMMARY | 2024-10-07 06:44 | XMS_ITS | Encounter Summary ---
Author Organization [facility] Address [address] [place] [address] Care Team Providers Care Underground Conduit Installer Name Role Phone Rhianna Cowan MD Primary Care Provider [phone] Reason for Visit * Auth/Cert (Routine) Specialty Diagnoses / Procedures Referred By Cydney t Referred To Contact Procedures ESOPHAGOGASTRODUODENOSCOPY (EGD) DIAGNOSTIC Referral ID Status Reason Start Date Expiration Date Visits Re quested Visits Authorized [id number] 1 1 Encounter Details Date Type Department Care Team (Latest Contact Info) Description 04/14/2023 8:20 AM CDT - 04/14/2023 8:40 AM CDT Surgery [facility] - Endoscopy Services [address] [place] [address] [place] [address] [place] [address] ESOPHAGOGASTRODUODENOSCOPY (EGD) DIAGNOSTIC Surgery Details [...] medical care, and heating? Somewhat hard 04/14/2023 [place] [facility] - Occupational [...] Beckwith MD Discharge Provider : Marybel Kent [facility] Nevin Deshpande Admission weight: Weight: 109.8 kg (242 lb) (04/14/23811) Most recent weight: Weight: 109.8 kg (242 lb) (04/14/23811) 04/22/2023 [id number] Admitting Diagnosis Clinically Severe Obesity with multiple co-morbidities Body mass index is 44.26 kg/m??. Past Medical History: Diagnosis Date ??? Anxiety and depression ??? Depression ??? Environmental allergies ??? GERD (gastroesophageal reflux disease) ??? Hypertension ??? Mild intermittent asthma, uncomplicated ??? Morbid obesity due to excess calories ([facility]) Discharge Diagnosis: Same Consults : Hospitalist Diagnostic Studies None Principal Procedures Performed: Laparoscopic removal of adjustable gastric band and port??(48685) 2.??Laparoscopic??Repair of gastric perforation??([place] to [address]) 3. Omental isabel patch (29392) 3. Esophagogastroduodenoscopy Hospital Course The patient underwent [...] muscle every 30 days Deep Sea Nasal Graham 0.65 % nasal spray Generic drug: sodium chloride Graham 2 (two) sprays into each nostril as [...] MCG/ACT nasal spray Commonly known as: Flonase Graham 2 (two) sprays into each nostril once [...] of removal of laparoscopic gastric banding device [[id number]] Activity as tolerated -- Walk at least [...] fluticasone propionate (Flonase) 50 MCG/ACT nasal spray Graham 2 (two) sprays into each nostril once [...] for Heartburn sodium chloride (Deep Sea Nasal Graham) 0.65 % nasal spray Graham 2 (two) sprays into each nostril as [...] Information Primary Emergency Contact: Yuliana Shepherd Address: [address] [place] [id number] [facility] Mobile Relation: Daughter Patient is alert & [...] Medications: Transportation: Name: Teagan Villarreal RN Phone: [phone] * Kary De Leon RN - 04/22/2023 [...] sleep pattern. Outcome: Progressing * Marybel Kent APRN-COMPUTATIONAL CHEMIST - 04/22/2023 8:09 AM CDT Bariatric Surgery [...] Laparoscopic removal of adjustable gastric band and port??(13264) 2.??Laparoscopic??Repair of gastric perforation??([place] to [address]) 3. Omental isabel patch (75478) 3. Esophagogastroduodenoscopy POD #6 Overnight Events: None [...] tablet ??? sodium chloride (Deep Sea Nasal Graham) 0.65 % nasal spray Recent Labs Component [...] Laparoscopic removal of adjustable gastric band and port??(06103) 2.??Laparoscopic??Repair of gastric perforation??([place] similar to [address]1488) 3. Omental isabel patch (43236) 3. esophagogastroduodenoscopy POD #6 Neuro: ??PO pain [...] for Augmentin x 10 days Marybel Kent, CRANE ASSEMBLER-COMPUTATIONAL CHEMIST * Enrique Tapia - 04/21/2023 9:56 PM [...] Contact Information Primary Emergency Contact: CoraYuliana Address: [address] [place] [address] Mobile Relation: Daughter Patient is alert [...] Medications: Transportation: Name: Teagan Villarreal RN Phone: [phone] * Guerline Melgar MD - 04/21/2023 9:40 [...] 9:40 AM 04/21/2023. * Donte Marybel Marni, CRANE ASSEMBLER-COMPUTATIONAL CHEMIST - 04/21/2023 7:49 AM CDT Bariatric Surgery [...] Laparoscopic removal of adjustable gastric band and port??(54094) 2.??Laparoscopic??Repair of gastric perforation??([place] to [address]) 3. Omental isabel patch (50728) 3. esophagogastroduodenoscopy POD#5 Overnight Events: None Subjective: [...] Laparoscopic removal of adjustable gastric band and port??(64102) 2.??Laparoscopic??Repair of gastric perforation??([place] similar to [address]) 3. Omental isabel patch (00130) 3. esophagogastroduodenoscopy POD #5 Neuro: ??PO pain [...] for Augmentin x 10 days Marybel Kent APRN-COMPUTATIONAL CHEMIST * Cinda Corley RN - 04/21/2023 7:23 [...] - will plan for omnicef, flagyl at [place] for 7 days - L LL haziness [...] Length: 2.5 IV Catheter Size: 20 Gauge [employer] Flatbed Truck Driver/Model : [email or web address] introcan Technique: An... Number of [...] - will plan for omnicef, flagyl at [place] for 7 days - L LL haziness [...] Length: 2.5 IV Catheter Size: 20 Gauge [employer] Flatbed Truck Driver/Model : [email or web address] introcan Technique: An... Number of [...] pt up to chair, voiding/passing gas/ BMx1, [id number] pain, denies nausea, tolerating phase 1 diet, [...] 40 mg, Intravenous, QDAY ?? [COMPLETED] HYDROcodone-acetaminophen ([place]) 5-325 MG tablet 1 tablet, Oral, Once [...] Length: 2.5 IV Catheter Size: 20 Gauge [employer] Flatbed Truck Driver/Model : [email or web address] introcan Technique: An... Number of [...] - Dr. beckwith to see Micki Bolden APRN-COMPUTATIONAL CHEMIST * Haley Boykin RN - 04/17/2023 9:53 [...] Information Primary Emergency Contact: Sara Shepherdney Address: [address] [place] [address] [facility] Mobile Relation: Daughter Patient is alert & [...] Medications: Transportation: Name: Teagan Villarreal RN Phone: [phone] * Guerline Melgar MD - 04/17/2023 12:02 [...] Length: 2.5 IV Catheter Size: 20 Gauge [employer] Flatbed Truck Driver/Model : [email or web address] introcan Technique: An... Number of [...] intake - discharge instructions reviewed. Micki Bolden APRN-COMPUTATIONAL CHEMIST * Haley Boykin RN - 04/17/2023 5:55 [...] Length: 2.5 IV Catheter Size: 20 Gauge [employer] Flatbed Truck Driver/Model : [email or web address] introcan Technique: An... Number of [...] None Requires Assistance With: None Preferred Pharmacy: [facility] #[id number] - [phone] [facility] [id number] [facility] [id number] [facility] [id number] Advance Directive: No Advance Directive Information Given: Refused Information Would you like assistance on completing and executing or revising an Advance Directive?: No READMISSION RISK SCORE is 9 at 3:01 PM 04/16/2023. Met with chart reviewed Family Support (name and phone): Extended Emergency Contact Information Primary Emergency Contact: PrasanthfannieYuliana Address: [address] [place] [address] of [facility] Mobile Relation: Daughter Patient or patient services representative requests care coordination reach out to [...] pt. requires but does not have.: None Senior Technical Trainer Referral: No Will continue to follow. For any questions or needs please contact: Catering Attendant Name/Phone number: Teagan Villarreal RN [phone] * Kary De Leon RN - 04/16/2023 [...] None Requires Assistance With: None Preferred Pharmacy: [id number] - [phone] [facility] [phone] [place] [facility] [phone] Advance Directive: No Advance Directive Information Given: Refused Information Would you like assistance on completing and executing or revising an Advance Directive?: No READMISSION RISK SCORE is 8 at 9:42 AM 04/15/2023. Met with: chart reviewed Family Support (name and phone): Extended Emergency Contact Information Primary Emergency Contact: Yuliana Shepherd Address: [address] [place] [address] [facility] Mobile Relation: Daughter Patient or patient services representative requests care coordination reach out to [...] pt. requires but does not have.: None Senior Technical Trainer Referral: No Will continue to follow. For any questions or needs please contact: Catering Attendant Name/Phone number: Teagan Villarreal RN [phone] * Jenise Santillan RN - 04/15/2023 6:32 [...] Torres PharmD - 04/14/2023 2:59 PM CDT [facility] Pharmacy Services Admission Medication Review Nevin Deshpande [...] ??? Morbid obesity due to excess calories ([facility]) No Known Allergies No medications prior to [...] daily ??? sodium chloride (Deep Sea Nasal Graham) 0.65 % nasal spray Deep Sea Nasal [...] fluticasone propionate (Flonase) 50 MCG/ACT nasal spray Graham 2 (two) sprays into each nostril once [...] Heartburn ??? sodium chloride (Deep Sea Nasal Graham) 0.65 % nasal spray Graham 2 (two) sprays into each nostril as [...] No Stress: No Stress Concern Present (04/14/2023) [place] [facility] - Occupational Stress Questionnaire [...] Beckwith MD - 04/16/2023 9:58 PM CDT [facility] Operative Report OPERATIVE REPORT PATIENT:Nevin Deshpande MR#: [...] ??? Morbid obesity due to excess calories ([facility]) POSTOPERATIVE DIAGNOSES: SAME and gastric band erosion and gastric perforation PROCEDURES PERFORMED: 1. Laparoscopic removal of adjustable gastric band and port (74197) 2. Laparoscopic Repair of gastric perforation ([place] to [address]) 3. Omental isabel patch (15768) 3. esophagogastroduodenoscopy SURGEON: Steffen Beckwith MD FRICTION WELDING MACHINE OPERATOR: Aramis DAIGLE ANESTHESIA: General endotracheal. [...] with a 0 Vicryl suture in a [id number] fashion.. The remaining incisions were closed with [...] Role: * Steffen Beckwith MD - Primary Reconnaissance Crewmember(s): Blanche DAIGLE Anesthesia Type: general ETT Complications: [...] STAT 04/14/2023 9:08 AM CDT Diagnosis unknown [place] ED EGD FLEX TRANSORAL DX 04/14/2023 8:20 [...] - 1.11 mg/dL 04/21/2023 9:51 AM CDT [facility] eGFR by CKD-EPI 81(L) >=90 mL/min/1.7 3 m2 04/21/2023 9:51 AM CDT [facility] Blood BLOOD SPECIMEN / Unknown Venipuncture / Unknown 04/21/2023 9:24 AM CDT 04/21/2023 9:34 AM CDT Marybelrach Grider Donte CRANE ASSEMBLER-COMPUTATIONAL CHEMIST LAB - MANFRED GEMINI ORDERABLES [facility] [address] [place] [address] * (ABNORMAL) CBC W/O DIFFERENTIAL (04/21/2023 9:24 AM CDT) WBC 8.2 4.4 - 10.7 x10E9/L 04/21/2023 9:37 AM CDT [facility] RBC 3.05(L) 3.80 - 5.20 x10E12/L 04/21/2023 9:37 AM CDT [facility] Hemoglobin 10.9(L) 12.0 - 15.6 gm/dL 04/21/2023 9:37 AM CDT [facility] Hematocrit 33.8(L) 35.9 - 45.5 % 04/21/2023 9:37 AM CDT [facility] MCV 110.8(H) 80.7 - 98.3 fl 04/21/2023 9:37 AM CDT [facility] MCH 35.7(H) 26.7 - 34.0 pg 04/21/2023 9:37 AM CDT [facility] MCHC 32.2 30.8 - 35.9 gm/dL 04/21/2023 9:37 AM CDT [facility] Platelet Count 254 153 - 416 x10E9/L 04/21/2023 9:37 AM CDT [facility] RDW-CV 14.6 12.1 - 14.9 % 04/21/2023 9:37 AM CDT [facility] MPV 10.8 9.4 - 12.9 fl 04/21/2023 9:37 AM CDT [facility] Blood BLOOD SPECIMEN / Unknown Venipuncture / Unknown 04/21/2023 9:24 AM CDT 04/21/2023 9:34 AM CDT Marybel Grider Donte CRANE ASSEMBLER-COMPUTATIONAL CHEMIST LAB - HEM ATOLOGY ORDERABLES [facility] [address] [place] [id number] * (ABNORMAL) BASIC METABOLIC PANEL (CALCIUM TOTAL) (04/20/2023 10:21 AM CDT) Glucose 116(H) 70 - 105 mg/dL 04/20/2023 10:45 AM CDT [facility] Sodium 140 136 - 145 mmol/L 04/20/2023 10:45 AM CDT [facility] Potassium 3.9 3.5 - 5.1 mmol/L 04/20/2023 10:45 AM CDT [facility] Chloride 106 98 - 107 mmol/L 04/20/2023 10:45 AM CDT [facility] CO2 27 23 - 31 mmol/L 04/20/2023 10:45 AM CDT [facility] Calcium 9.1 8.4 - 10.4 mg/dL 04/20/2023 10:45 AM CDT [facility] Anion Gap 7(L) 8 - 18 mmol/L 04/20/2023 10:45 AM CDT [facility] BUN 4(L) 9.8 - 20.1 mg/dL 04/20/2023 10:45 AM CDT [facility] Creatinine 0.83 0.57 - 1.11 mg/dL 04/20/2023 10:45 AM CDT [facility] eGFR by CKD-EPI 83(L) >=90 mL/min/1.7 3 m2 04/20/2023 10:45 AM CDT [facility] Blood BLOOD SPECIMEN / Unknown Venipuncture / Unknown 04/20/2023 10:21 AM CDT 04/20/2023 10:27 AM CDT Guerline Melgar MD LAB - CHEMISTRY INGRID CORRALES [facility] [address] [place] [address] * CT CHEST PE (04/19/2023 2:24 PM [...] to the lung bases were obtained following Cxeoms213, 80 cc intravenous contrast administration. Multiplanar maximum [...] - 105 mg/dL 04/19/2023 4:48 AM CDT [facility] Sodium 140 136 - 145 mmol/L 04/19/2023 4:48 AM CDT [facility] Potassium 4.1 3.5 - 5.1 mmol/L 04/19/2023 4:48 AM CDT [facility] Chloride 108(H) 98 - 107 mmol/L 04/19/2023 4:48 AM CDT [facility] CO2 22(L) 23 - 31 mmol/L 04/19/2023 4:48 AM CDT [facility] Calcium 9.1 8.4 - 10.4 mg/dL 04/19/2023 4:48 AM CDT [facility] Anion Gap 10 8 - 18 mmol/L 04/19/2023 4:48 AM CDT [facility] BUN 7(L) 9.8 - 20.1 mg/dL 04/19/2023 4:48 AM CDT [facility] Creatinine 0.84 0.57 - 1.11 mg/dL 04/19/2023 4:48 AM CDT [facility] eGFR by CKD-EPI 82(L) >=90 mL/min/1.7 3 m2 04/19/2023 4:48 AM CDT [facility] Blood BLOOD SPECIMEN / Unknown Venipuncture / Unknown 04/19/2023 4:14 AM CDT 04/19/2023 4:18 AM CDT Guerline Melgar MD LAB - CHEMISTRY INGRID CORRALES [facility] [address] [place] [address] * (ABNORMAL) CBC W AUTO [...] - 1 % 04/19/2023 4:22 AM CDT [facility] Neutrophil Absolute 9.47(H) 2.01 - 7.14 x10E9/L 04/19/2023 4:22 AM CDT [facility] Lymphocytes Absolute 1.10 1.07 - 3.94 x10E9/L 04/19/2023 4:22 AM CDT [facility] Monocytes Absolute 0.80 0.26 - 1.07 x10E9/L 04/19/2023 4:22 AM CDT [facility] Eosinophils Absolute 0.39 0 - 0.47 x10E9/L 04/19/2023 4:22 AM CDT [facility] Basophils Absolute 0.05 0 - 0.08 x10E9/L 04/19/2023 4:22 AM CDT [facility] Immature Granulocytes Absolute 0.13(H) 0.00 - 0.06 x10E9/L 04/19/2023 4:22 AM CDT [facility] nRBC Auto 0 /100 WBC 04/19/2023 4:22 AM CDT [facility] Blood BLOOD SPECIMEN / Unknown Venipuncture / Unknown 04/19/2023 4:14 AM CDT 04/19/2023 4:18 AM CDT Guerline Melgar MD LAB - HEMATOLOGY ORD ERABLES [facility] [address] [place] [address] * (ABNORMAL) CBC W AUTO DIFFERENTIAL (04/18/2023 3:57 AM CDT) WBC 16.1(H) 4.4 - 10.7 x10E9/L 04/18/2023 4:08 AM CDT [facility] WBC Corrected 04/18/2023 4:08 AM CDT [facility] RBC 3.26(L) 3.80 - 5.20 x10E12/L 04/18/2023 4:08 AM CDT [facility] Hemoglobin 11.6(L) 12.0 - 15.6 gm/dL 04/18/2023 4:08 AM CDT [facility] Hematocrit 35.6(L) 35.9 - 45.5 % [...] - 12.9 fl 04/18/2023 4:08 AM CDT [facility] Neutrophils % 85.1(H) 44.0 - 73.0 % 04/18/2023 4:08 AM CDT [facility] Lymphocytes % 6.5(L) 20.0 - 43.0 % 04/18/2023 4:08 AM CDT [facility] Monocytes % 6.7 5.0 - 13.0 % 04/18/2023 4:08 AM CDT [facility] Eosinophils % 0.7 0.0 - 6.0 % 04/18/2023 4:08 AM CDT [facility] Basophils % 0.3 0.0 - 2.0 % 04/18/2023 4:08 AM CDT [facility] Immature Granulocytes 0.7 0 - [...] - 0.47 x10E9/L 04/18/2023 4:08 AM CDT [facility] Basophils Absolute 0.05 0 - 0.08 x10E9/L 04/18/2023 4:08 AM CDT [facility] Immature Granulocytes Absolute 0.11(H) 0.00 - 0.06 x10E9/L 04/18/2023 4:08 AM CDT [facility] nRBC Auto 0 /100 WBC 04/18/2023 4:08 AM CDT [facility] Blood BLOOD SPECIMEN / Unknown Venipuncture / Unknown 04/18/2023 3:57 AM CDT 04/18/2023 4:00 AM CDT Steffen Beckwith MD LAB - HEMATOLOGY ORD ERABLES [facility] [address] [place] [address] * (ABNORMAL) BASIC METABOLIC PANEL (CALCIUM TOTAL) (04/18/2023 3:57 AM CDT) Glucose 118(H) 70 - 105 mg/dL 04/18/2023 4:27 AM CDT [facility] Sodium 139 136 - 145 mmol/L 04/18/2023 4:27 AM CDT [facility] Potassium 4.2 3.5 - 5.1 mmol/L 04/18/2023 4:27 AM CDT [facility] Chloride 107 98 - 107 mmol/L 04/18/2023 4:27 AM CDT [facility] CO2 23 23 - 31 mmol/L 04/18/2023 4:27 AM CDT [facility] Calcium 8.8 8.4 - 10.4 mg/dL 04/18/2023 4:27 AM CDT [facility] Anion Gap 9 8 - 18 mmol/L 04/18/2023 4:27 AM CDT [facility] BUN 9(L) 9.8 - 20.1 mg/dL 04/18/2023 4:27 AM CDT [facility] Creatinine 0.89 0.57 - 1.11 mg/dL 04/18/2023 4:27 AM CDT [facility] eGFR by CKD-EPI 77(L) >=90 mL/min/1.7 3 m2 04/18/2023 4:27 AM CDT [facility] Blood BLOOD SPECIMEN / Unknown Venipuncture / Unknown 04/18/2023 3:57 AM CDT 04/18/2023 4:00 AM CDT Micki Bolden CRANE ASSEMBLER-COMPUTATIONAL CHEMIST LAB - CHEMIS TRY ORDERABLES [facility] [address] [place] [address] * FL UGI SERIES (04/17/2023 12:25 PM [...] CDT 04/17/2023 6:37 AM CDT Micki Bolden APRN-COMPUTATIONAL CHEMIST LAB - CHEMIS TRY ORDERABLES Performing Organization Address City/[facility]/ZIP Co de Phone Number [facility] [address] [place] [address] * (ABNORMAL) CBC W/O DIFFERENTIAL (04/17/2023 6:33 AM CDT) WBC 18.9(H) 4.4 - 10.7 x10E9/L 04/17/2023 6:45 AM CDT [facility] RBC 3.62(L) 3.80 - 5.20 x10E12/L 04/17/2023 6:45 AM CDT [facility] Hemoglobin 12.8 12.0 - 15.6 gm/dL 04/17/2023 6:45 AM CDT [facility] Hematocrit 39.5 35.9 - 45.5 % 04/17/2023 6:45 AM CDT [facility] MCV 109.1(H) 80.7 - 98.3 fl 04/17/2023 6:45 AM CDT [facility] MCH 35.4(H) 26.7 - 34.0 pg 04/17/2023 6:45 AM CDT [facility] MCHC 32.4 30.8 - 35.9 gm/dL 04/17/2023 6:45 AM CDT [facility] Platelet Count 271 153 - 416 x10E9/L 04/17/2023 6:45 AM CDT [facility] RDW-CV 14.6 12.1 - 14.9 % 04/17/2023 6:45 AM CDT [facility] MPV 11.2 9.4 - 12.9 fl 04/17/2023 6:45 AM CDT [facility] Blood BLOOD SPECIMEN / Unknown Venipuncture / Unknown 04/17/2023 6:33 AM CDT 04/17/2023 6:37 AM CDT Micki Bolden [facility]ST. [facility] LAB - HEMATO LOGY ORDERABLES Performing Organization Address City/[facility]/ZIP Co de Phone Number [facility] [address] [place] [address] * XR CHEST 1VW PORTABLE (04/16/2023 7:30 [...] - 31 mmol/L 04/16/2023 5:16 AM CDT [facility] Calcium 9.1 8.4 - 10.4 mg/dL 04/16/2023 5:16 AM CDT [facility] Anion Gap 7(L) 8 - 18 mmol/L 04/16/2023 5:16 AM CDT [facility] BUN 6(L) 9.8 - 20.1 mg/dL 04/16/2023 5:16 AM CDT [facility] Creatinine 0.89 0.57 - 1.11 mg/dL 04/16/2023 5:16 AM CDT [facility] eGFR by CKD-EPI 77(L) >=90 mL/min/1.7 3 m2 04/16/2023 5:16 AM CDT [facility] Blood BLOOD SPECIMEN / Unknown Venipuncture / Unknown 04/16/2023 4:34 AM CDT 04/16/2023 4:39 AM CDT Steffen Beckwith MD LAB [facility] Organization Address City/State/ZIP Co de Phone Number [facility] [address] [place] [address] * (ABNORMAL) COMPREHENSIVE METABOLIC PANEL (04/15/2023 4:04 AM CDT) Glucose 107(H) 70 - 105 mg/dL 04/15/2023 5:26 AM CDT [facility] Sodium 141 136 - 145 mmol/L 04/15/2023 5:26 AM CDT [facility] Potassium 3.3(L) 3.5 - 5.1 mmol/L 04/15/2023 5:26 AM CDT [facility] Chloride 108(H) 98 - 107 mmol/L 04/15/2023 5:26 AM CDT [facility] CO2 25 23 - 31 mmol/L 04/15/2023 5:26 AM CDT [facility] Calcium 9.4 8.4 - 10.4 mg/dL 04/15/2023 5:26 AM CDT [facility] Anion Gap 8 8 - 18 mmol/L 04/15/2023 5:26 AM CDT [facility] BUN 10 9.8 - 20.1 mg/dL 04/15/2023 5:26 AM CDT [facility] Creatinine 1.05 0.57 - 1.11 mg/dL 04/15/2023 5:26 AM CDT [facility] Alkaline Phosphatase 151(H) 40 - 150 U/L 04/15/2023 5:26 AM CDT [facility] ALT 13 0 - 61 U/L 04/15/2023 5:26 AM CDT [facility] AST 23 5 - 34 U/L 04/15/2023 5:26 AM CDT [facility] Protein Total 6.4 6.4 - 8.3 gm/dL 04/15/2023 5:26 AM CDT [facility] Albumin 3.5 3.5 - 5.2 gm/dL 04/15/2023 5:26 AM CDT [facility] Bilirubin Total 0.7 0.2 - 1.2 mg/dL 04/15/2023 5:26 AM CDT [facility] eGFR by CKD-EPI 63(L) >=90 mL/min/1.7 3 m2 04/15/2023 5:26 AM CDT [facility] Blood BLOOD SPECIMEN / Unknown Venipuncture / Unknown 04/15/2023 4:04 AM CDT 04/15/2023 4:38 AM CDT Steffen Beckwith MD LAB - CHEMISTRY INGRID CORRALES [facility] Address City/State/ZIP Co de Phone Number [facility] [id number] [place] [address] * (ABNORMAL) CBC W AUTO DIFFERENTIAL (04/15/2023 4:04 AM CDT) WBC 6.1 4.4 - 10.7 x10E9/L 04/15/2023 5:02 AM CDT [facility] WBC Corrected 04/15/2023 5:02 AM CDT [facility] RBC 3.32(L) 3.80 - 5.20 x10E12/L 04/15/2023 5:02 AM CDT [facility] Hemoglobin 11.9(L) 12.0 - 15.6 gm/dL 04/15/2023 5:02 AM CDT [facility] Hematocrit 36.8 35.9 - 45.5 [...] - 0.08 x10E9/L 04/15/2023 5:02 AM CDT [facility] Immature Granulocytes Absolute 0.03 0.00 - 0.06 x10E9/L 04/15/2023 5:02 AM CDT [facility] nRBC Auto 0 /100 WBC 04/15/2023 5:02 AM CDT [facility] Blood BLOOD SPECIMEN / Unknown Venipuncture / Unknown 04/15/2023 4:04 AM CDT 04/15/2023 4:38 AM CDT Steffen Beckwith MD LAB - HEMATOLOGY ORD ERABLES Performing Organization Address [facility] de Phone Number [facility] [address] [place] [address] * HELICOBACTER PYLORI UREASE (STL) (04/14/2023 9:08 AM CDT) Helicobacter pylori Urease Initial Negative Negative 04/15/2023 9:14 AM CDT [facility] Helicobacter pylori Urease Final Negative Negative 04/15/2023 9:14 AM CDT [facility] Comment:This is an appended report. These results have been appended to a previously preliminary verified report. Microbiology GASTRIC ANTRAL BIOPSY SPECIMEN / Unknown 04/14/2023 9:08 AM CDT 04/14/2023 2:44 PM CDT Steffen Beckwith MD LAB - MICROBIOLOGY O RDERABLES Performing Organization Address [facility] de Phone Number [facility] [address] [place] [address] * EGD (04/14/2023 8:15 AM CDT) Report [...] Procedure Code(s): ? --- Professional --- ? 43053, Esophagogastroduo denoscopy, flexible, transoral; with biopsy, ? single or multiple ? --- Technical --- ? 14958, Esophagogastroduo denoscopy, flexible, transoral; with biopsy, ? [...] other than malignant neoplasm CPT copyright 2020 [employer]. All rights reserved. The codes documented in this report are preliminary and upon web master review may be revised to meet current compliance requirements. __ Steffen Beckwith MD 04/14/2023 9:09:18 AM Number of Addenda: 0 Note Initiated On: 04/14/2023 8:15 AM [facility] 04/14/2023 8:15 AM CDT Narrative Procedure Note Steffen Beckwith MD - 04/14/2023 9:09 AM CDT PLAN: 1. Admit 2. Laparoscopic removal of gastric band and port Steffen Bcekwith MD GI PROCEDURE ORDERAB LES [facility] [place] [address] documented in this encounter Visit Diagnoses Not [...] Reason: Refused-Patient) 2205 ($ Given - Provider: Ernique Tapia) DULoxetine (Cymbalta) capsule 60 mg 60 [...] Tapia) 0833 ($ Given - Provider: Kary DeL eon RN - Comment: pt request to take [...] RN) documented in this encounter Care Teams Underground Conduit Installer Relationship Specialty Start Date End Date Rhianna Cowan MD [address] [place] [address] [address] [place] [address] PCP - General Internal Medicine 11/12/16 documented as of this encounter
--- OUTSIDE RECORDS SUMMARY | 2024-10-07 06:44 | XMS_ITS | Encounter Summary ---
Author Organization [facility] Address [address] [place] [address] Care Team Providers Care Statistics Professor Name Role Phone Rhianna Cowan MD Primary Care Provider [phone] Encounter Details Date Type Department Care Team (Late Contact Info) Description 07/31/2020 10:00 AM CDT Video Visit [facility] Weight Management Services [address], [address] [place] [address] Roge Gipson DO [address] [place] [address] H/O laparoscopic adjustable gastric banding [...] Lap band placed 5 years ago at [facility]. Unsure about how much fluid is in [...] CO2, BUN, CREATININE, GLUCOSE, CALCIUM in thelast 17502 hours. No results for input(s): WBC, HGB, HCT, PLTCOUNT in the last 84835 hours. Risk / Benefits: Risks and benefits [...] procedures or operations in the perioperative and assisted periods. Questions were answered. Covid Discussion: Because [...] or network. The patient will experience successfuland assisted weight loss when these components along with bariatric surgery are followed. The patient has had or will have the above discussions with multiple program team members includingsurgeon, light out examiner, bariatric nurse and mental health casting and pasting supervisor. Impression: Morbid obesity with above listed comorbidities. Multiple failed diet attempts and s/p lap band placement. Plan: Based on discussion with the patient and consideration of the patients medical history and diagnosis of morbid obesity the patient is an appropriate candidate for bariatric surgery. Recommendation isfor: Laparoscopic removal of lap band and all components Pre-op Plan: Liquid Protein Diet: No for No Weeks Cable Rigger: Yes Additional Testing: Yes GI: hx of [...] Comments: Hospitalist Consult: Yes Schedule: anytime Location: [facility] Robotic: No Standard incision, surgical unit, no cam[place], observational stay Roge Gipson DO [facility] Weight Management Services General and Bariatric Surgery Office: [phone] Exchange: [phone] 07/31/2020 10:15 AM documented in this encounter Plan of Treatment Not on file documented as of this encounter Visit Diagnoses Diagnosis H/O laparoscopic adjustable gastric banding- Primary Bariatric surgery status Morbid obesity (HCC) Morbid obesity Preop examination Preoperative examination, unspecified documented in this encounter Care Teams Statistics Professor Relationship Specialty Start Date End Date Rhianna Cowan MD [address] [facility] [address] [facility] [address] [place] [address] PCP - General Internal Medicine 11/12/16 documented as of this encounter
--- OUTSIDE RECORDS SUMMARY | 2024-10-07 06:44 | XMS_ITS | Encounter Summary ---
Author Organization [facility] Address [address] [place] [address] Care Team Providers Care Managed Services Sales Consultant Name Role Phone Rhianna Cowan MD Primary Care Provider [phone] Reason for Referral * Radiology Services (Routine) - Closed Specialty Diagnoses / Procedures Referred By Contac t Referred To Contact Diagnoses Morbid obesity (HCC) Gastric band slippage [place] [address] [address] [facility] [address] [place] [address] Referral ID Status Reason Start Date Expiration Date Visits Re quested Visits Authorized [id number] Closed 02/13/2023 02/13/2024 1 1 Reason for Visit * Radiology Services (Routine) - Closed Specialty Diagnoses / Procedures Referred By Contgrazyna scott Referred To Contact Diagnoses Morbid obesity (HCC) Gastric band slippage Procedures [place] [address] [facility] [address] [facility] [address] [place] [address] Referral ID Status Reason Start Date Expiration Date Visits Re quested Visits Authorized [id number] Closed 02/13/2023 02/13/2024 1 1 Encounter Details Date Type Department Care Team (Latest Contact Info) Description 03/10/2023 11:00 AM CDT - 03/10/2023 11:59 PM CDT Hospital Encounter [facility] Imaging Services - Radiology [address] [place] [address] [place] [address] [facility] [address] [facility] [address] [place] [address] Discharge Disposition: Home or Self [...] fluticasone propionate (Flonase) 50 MCG/ACT nasal spray Melrose 2 (two) sprays into each nostril once [...] for Heartburn sodium chloride (Deep Sea Nasal Melrose) 0.65 % nasal spray Melrose 2 (two) sprays into each nostril as [...] 03/10/2023 1:00 PM > Interpreting Provider: Alton aHger MD on 03/10/2023 1:14 PM Narrative 03/10/2023 [...] slippage documented in this encounter Care Teams Managed Services Sales Consultant Relationship Specialty Start Date End Date Rhianna Cowan MD [address] [facility] [address] [place] [address] PCP - General Internal Medicine 11/12/16 documented as of this encounter
--- OUTSIDE RECORDS SUMMARY | 2024-10-07 06:44 | XMS_ITS | Encounter Summary ---
Author Organization [facility] Address [address] [place] [address] Care Team Providers Care Electric Fork Operator Name Role Phone Rhianna Cowan MD Primary Care Provider [phone] Reason for Visit * Reason Comments Eye Problem Encounter Details Date Type Department Care Team (Latest Contact Info) Description 03/23/2018 2:40 PM CDT Office Visit [facility] AT [address] [address] [facility] Strep throat (Primary Dx); Bacterial conjunctivitis [...] Patient Instructions * Patient Instructions* Yaneli Eden, MANAGER RECOVERY-AUTOMOTIVE STARTER REPAIRER - 03/23/2018 3:00 PM CDT Images from the original note were not included. Conjunctivitis GROUP CHIEF OPERATOR: Conjunctivitis, or pink eye, is inflammation [...] mascara and other eye makeup. ?? 2017 [employer] Information is for End User's use only and may not be sold, redistributed or otherwise used for commercial purposes. All illustrations and images included in CareNotes?? are the copyrighted property of [employer] Inc[employer] or [employer]. The above information is an president educational institution only. It is not intended as medical advice for individual conditions or treatments. Talk to your doctor, nurse or pharmacist before following any medical regimen to see if it is safe and effective for you. Strep Throat GROUP CHIEF OPERATOR: Strep throat is a throat infection [...] ask them during your visits. ?? 2017 [employer] Information is for End User's use only and may not be sold, redistributed or otherwise used for commercial purposes. All illustrations and images included in CareNotes?? are the copyrighted property of [employer] or [employer]. The above information is an president educational institution only. It is not intended as medical [...] Sig Dispense Refill ??? trimethoprim-polymyxin B (POLYTRIM) 00556-7.1 UNIT/ML-% ophthalmic solution Instill 1 drop intoleft [...] STREP A SCREEN ??? trimethoprim-polymyxin B (POLYTRIM) 85025-5.1 UNIT/ML-% ophthalmic solution Sig: Instill 1 drop [...] Strep A INTERNAL CONTROL Present Lot Number [id number] Expiration Date 09/17/19 Yaneli Eden APRN, FNP-BC [...] Strep A Internal Control Present Lot # [id number] Expiration Date 09/17/19 Throat ENTIRE THROAT (SURFACE REGION OF NECK) / Unknown 03/23/2018 [facility] POINT OF [place] RE ORDERABLES documented in this encounter Visit Diagnoses Diagnosis Strep throat- Primary Streptococcal sore throat Bacterial conjunctivitis of left eye documented in this encounter Care Teams Electric Fork Operator Relationship Specialty Start Date End Date Rhianna Cowan MD [address] [facility] [address] [place] [address] PCP - General Internal Medicine 11/12/16 documented as of this encounter
--- OUTSIDE RECORDS SUMMARY | 2024-10-07 06:44 | XMS_ITS | Encounter Summary ---
Author Organization [facility] Address [address] [place] [address] Care Team Providers Care Log Scaler Name Role Phone Rhianna Cowan MD Primary Care Provider [phone] Encounter Details Date Type Department Care Team [...] on filedocumented in this encounter Care Teams Log Scaler Relationship Specialty Start Date End Date Rhianna Cowan MD [address] [facility] [address] [place] [address] PCP - General Internal Medicine 11/12/16 documented as of this encounter
--- OUTSIDE RECORDS SUMMARY | 2024-10-07 06:44 | XMS_ITS | Encounter Summary ---
Author Organization [facility] Address [address] [place] [address] Care Team Providers Care Dry Room Operator Name Role Phone Rhianna Cowan MD Primary Care Provider [phone] Reason for Visit * Reason Comments Refill Request Encounter Details Date Type Department Care Team (Late Contact Info) Description 11/01/2018 Refill [facility] [address] [place] [address] Yaneli Eden, EMERGENCY PLANNER-EXTRACTOR OPERATOR [address] [place] [address] Refill Request Social History Tobacco [...] on filedocumented in this encounter Care Teams Dry Room Operator Relationship Specialty Start Date End Date Rhianna Cowan MD [address] [facility] [address] [place] [address] PCP - General Internal Medicine 11/12/16 documented as of this encounter
--- OUTSIDE RECORDS SUMMARY | 2024-10-07 06:44 | XMS_ITS | Encounter Summary ---
Author Organization [facility] Address [address] [place] [address] Care Team Providers Care Trial Lawyer Name Role Phone Rhianna Cowan MD Primary Care Provider [phone] Reason for Visit * Reason Onset Date Comments Procedure 03/11/2023 Band removal EGD Encounter Details Date Type Department Care Team (Late st Contact Info) Description 03/11/2023 Telephone [facility] [address], [address] [place] [address] [place] [address] [address] [address] [place] [address] Procedure (Band removal EGD) Social [...] on filedocumented in this encounter Care Teams Trial Lawyer Relationship Specialty Start Date End Date Rhianna Cowan MD [address] [facility] [address] [place] [address] PCP - General Internal Medicine 11/12/16 documented as of this encounter
--- OUTSIDE RECORDS SUMMARY | 2024-10-07 06:44 | XMS_ITS | Patient Health Record ---
Author Organization [facility] [employer] Address [address] [place] [address] Care Team Providers Care Injection Press Operator Name Role Phone Melina Waggoner Unavailable [phone] Migration, Provider Unavailable Unavailable Reason For Referral No Information Medications Medication SIG (Take, Route, Frequency, Duration) Notes Start Date End Date Status Felodipine ER 5 mg Oral 12/01/2023 Active Meloxicam 7.5 MG Oral 12/01/2023 Ac tive Clotrimazole-Betamethason e 1-0.05 % External 12/01/2023 Active amLODIPine Besylate 5 MG Oral 12/01/2023 Active Amoxicillin-Pot Clavulanate 250-62.5 MG/5ML Oral 12/01/2023 Active Belsomra 15 mg Oral 12/01/2023 Acti ve Doxazosin Mesylate 2 MG Oral 12/01/2023 Active Omeprazole 20 MG Oral 12/01/2023 Ac tive Fluconazole 100 MG Oral 12/01/2023 Active Azithromycin 250 MG Oral 12/01/2023 Active Valsartan 320 MG Oral 12/01/2023 Ac tive Fluticasone Propionate Diskus 50 MCG/ACT Inhalation *Reorder from [employer] for eRx and Interaction Alerts* 12/01/2023 Active Cyanocobalamin 1000 MCG/ML Injection 12/01/2023 Active Baclofen 10 MG Oral 12/01/2023 Acti ve Doxepin HCl 6 MG Oral 12/01/2023 Ac tive Cetirizine HCl 10 MG Oral 12/01/2023 Active Mupirocin 2% External 12/01/2023 Active oxyBUTYnin Chloride ER 10 MG Oral 12/01/2023 Active DULoxetine HCl 60 MG Oral 12/01/2023 Active Naproxen 375 MG Oral 12/01/2023 Act vasiliy QUEtiapine Fumarate 50 MG 1-2 tablets Or al nightly as needed for sleep for 90 days Active ProAir HFA 108 (90 Base) MCG/ACT Inhalation 12/01/2023 Active Valsartan-hydroCHLOROthia zide 160-12.5 MG Oral 12/01/2023 Active Doxycycline Hyclate 100 MG Oral 12/01/2023 Active Ondansetron 4 MG Oral 12/01/2023 Ac tive Aspirin Adult Low Strength 81 MG Oral 12/01/2023 Active Metoprolol Succinate ER 25 MG Oral 12/01/2023 Active Acetaminophen Extra Strength 500 MG Oral 12/01/2023 Active SODIUM,POTASSIUM,MAG SULFATES 17.5 GRAM-3.13 GRAM-1.6 GRAM ORAL SOLN *Reorder from [employer] for eRx and Interaction Alerts* 12/01/2023 Active Gabapentin 100 MG Oral 12/01/2023 A ctive Proctozone-HC 2.5 % Rectal 12/01/2023 Active Losartan Potassium 100 MG Oral 12/01/2023 Active Topiramate 25 MG Oral 12/01/2023 Ac tive hydroCHLOROthiazide 12.5 MG Oral 12/01/2023 Active LUER-TIERNEY SYRINGE-NEEDLE 3 mL 25 gauge x 1 MISCELLANEOUS *Reorder from [employer] for eRx and Interaction Alerts* 12/01/2023 Active Diclofenac Sodium 1% Transdermal 12/01/2023 Active Deep Sea Nasal Winston 0.65 % Nasal 12/01/2023 Active hydrALAZINE HCl 25 MG Oral 12/01/2023 Active ASPERCREME (LIDOCAINE HCL) 4 % TOPICAL *Reorder from [employer] for eRx and Interaction Alerts* 12/01/2023 Active DULoxetine HCl 30 MG Oral 12/01/2023 Active Mucinex DM 30-600 MG Oral 12/01/2023 Active Immunizations Vaccine Route Administration Date Status Comme nts Influenza virus vaccine, quadrivalent (IIV4), split virus, 0.25 mL dosage Unknown 08/01/2016 Administered Social History Sex Assigned At : Social History Observation Description Sex Assigned At Female Vital Signs Heart Rate 68 /min 12/01/2023 Height-cm 157.48 cm 12/01/2023 Blood pressure diastolic 77 mm Hg 12/01/2023 Height 62.00 in 12/01/2023 Blood pressure systolic 125 mm Hg 12/01/2023 Encounters Encounter Location Date Provider Diagnosis [facility] [address] [facility] [address] [place] [address] 12/01/2023 Melinabrittni Cainag Generalized anxiety disorder F41.1 ; Major depressive disorder, recurrent, moderate F33.1 and Primary insomnia F51.01 [facility] [address] [facility] [address] [place] [address] 12/25/2023 Provider Migration Major depressive disorder, recurrent, moderate F33.1 ; Generalized anxiety disorder F41.1 ; Other insomnia G47.09 and Primary insomnia F51.01 [facility] [employer] [facility] [address] [address] 11/04/2023 Provider Migration [facility] [address] [facility] [address] [place] [address] 11/07/[address] [facility], [facility] [address] [address] 12/01/[address] [facility], [facility] [address] [address] 12/20/2023 Provider Migration [facility] [address] [address] 01/16/[address] [facility], [facility] [address] [address] 01/24/[address] [facility], [facility] [address] [address] 02/20/[address] [facility], [facility] [address] [address] 02/21/[address] [facility], [facility] [address] [address] 02/22/2024 Provider Migration Assessments Encounter Date Diagnosis (ICD Code) Assessment Notes Treatment Notes Treatment Clinical Notes Section Notes 12/01/2023 Major depressive disorder, recurrent, moderate (ICD-10 - F33.1) 12/01/2023 Generalized anxiety disorder (ICD-10 - F41.1) 12/01/2023 Primary insomnia (ICD-10 - F51.01) 12/25/2023 Major depressive disorder, recurrent, moderate (ICD-10 - F33.1) 12/25/2023 Generalized anxiety disorder (ICD-10 - F41.1) 12/25/2023 Primary insomnia (ICD-10 - F51.01) 12/25/2023 Other insomnia (ICD-10 - G47.09) Plan Of Treatment No Information Insurance Providers Payer Name Payer Address Payer Phone Subscriber Number Group Number Insured Name Patient Relationship to Insured Coverage Start Date [facility]age End Date [facility] [address] [place], [place] [address] [phone] [id number] ANGEL DORMAN Self - patient is the insured
--- OUTSIDE RECORDS SUMMARY | 2024-10-07 06:44 | XMS_ITS | Encounter Summary ---
Author Organization [facility] Address [address] [place] [address] Care Team Providers Care Forensic Structural Engineer Name Role Phone Rhianna Cowan MD Primary Care Provider [phone] Reason for Visit * Reason Onset Date Comments Follow-up 03/25/2018 Encounter Details Date Type Department Care Team (Late Contact Info) Description 03/25/2018 Telephone [facility] [address] [address] Karin Robbins Follow-up Social History [...] on filedocumented in this encounter Care Teams Forensic Structural Engineer Relationship Specialty Start Date End Date Rhianna Cowan MD [address] [facility] [address] [place] [address] PCP - General Internal Medicine 11/12/16 documented as of this encounter
--- OUTSIDE RECORDS SUMMARY | 2024-10-07 06:44 | XMS_ITS | Encounter Summary ---
Author Organization [facility] Address [address] [place] [address] Care Team Providers Care Senior Physician Name Role Phone Rhianna Cowan MD Primary Care Provider [phone] Reason for Visit * Reason Comments Sinusitis Encounter Details Date Type Department Care Team (Late Contact Info) Description 11/12/2016 7:00 PM ON SITE CONSTRUCTION SUPERINTENDENT Office Visit [facility] AT [address] [address] Provider, Maik Exp Nameoki Acute [...] Comments Blood Pressure 116/84 11/12/2016 7:09 PM ON SITE CONSTRUCTION SUPERINTENDENT Pulse 99 11/12/2016 7:09 PM ON SITE CONSTRUCTION SUPERINTENDENT Temperature 36.6 ??C (97.8 ??F) 11/12/2016 7:09 PM CS T Respiratory Rate 18 11/12/2016 7:09 PM ON SITE CONSTRUCTION SUPERINTENDENT Oxygen Saturation - - Inhaled Oxygen Concentration - - Weight 102.5 kg (226 lb) 11/12/2016 7:09 PM ON SITE CONSTRUCTION SUPERINTENDENT Height 157.5 cm (5' 2 ) 11/12/2016 7:09 PM ON SITE CONSTRUCTION SUPERINTENDENT Body Mass Index 41.34 11/12/2016 7:09 PM ON SITE CONSTRUCTION SUPERINTENDENT documented in this encounter Patient Instructions * Patient Instructions* Spring Amaral, AMRITA-SUPERVISOR GRIPS - 11/12/2016 7:17 PM ON SITE CONSTRUCTION SUPERINTENDENT Use Flonase per package instructions, Saline nasal mist to prevent nasal drying Tylenol or Motrin as needed Claritin or Zyrtec per package instructions Cool Mist humidifier as needed If no improvement in 48-72 hours follow up with PCP or return to clinic Sinusitis PALEOLOGY TEACHER: Sinusitis is inflammation or infection of your [...] ask them during your visits. ?? 2016 [employer]. Information is for End User's use only and may not be sold, redistributed or otherwise used for commercial purposes. All illustrations and images included in CareNotes?? are the copyrighted property of [employer]. or [employer] by [employer]. The above information is an diet aid only. It is not intended as medical advice for individual conditions or treatments. Talk to your doctor, nurse or pharmacist before following any medical regimen to see if it is safe and effective for you. SITE CONSTRUCTION SUPERINTENDENT documented in this encounter Progress Notes * Spring Amaral APRN-CNP - 11/12/2016 7:09 PM CST [facility] Chief Complaint Patient presents with [...] up with PCP or return to clinic SITE CONSTRUCTION SUPERINTENDENT documented in this encounter Plan of Treatment Not on file documented as of this encounter Visit Diagnoses Diagnosis Acute maxillary sinusitis, recurrence not specified- Primary documented in this encounter Care Teams Senior Physician Relationship Specialty Start Date End Date Rhianna Cowan MD [address] [address] PCP - General Internal Medicine 11/12/16 documented as of this encounter
--- OUTSIDE RECORDS SUMMARY | 2024-10-07 06:44 | XMS_ITS | Encounter Summary ---
Author Organization [facility] Address [address] [place] [address] Care Team Providers Care Manager Utility Name Role Phone Rhianna Cowan MD Primary Care Provider [phone] Encounter Details Date Type Department Care Team [...] on filedocumented in this encounter Care Teams Manager Utility Relationship Specialty Start Date End Date Rhianna Cowan MD [address] [facility] [address] [place] [address] PCP - General Internal Medicine 11/12/16 documented as of this encounter
--- OUTSIDE RECORDS SUMMARY | 2024-10-07 06:44 | XMS_ITS | Encounter Summary ---
Author Organization [facility] Address [address] [place] [address] Care Team Providers Care Validation Consultant Name Role Phone Rhianna Cowan MD Primary Care Provider [phone] Reason for Visit * Reason Onset Date Comments Appointment 07/31/2020 Encounter Details Date Type Department Care Team (Late st Contact Info) Description 07/31/2020 Telephone [facility] [employer] [facility] [address] [facility], [address] [place] [address] Roge Gipson, DO [address] [address] Appointment Social History Tobacco Use [...] on filedocumented in this encounter Care Teams Validation Consultant Relationship Specialty Start Date End Date Rhianna Cowan MD [address] [facility] [address] [place] [address] PCP - General Internal Medicine 11/12/16 documented as of this encounter
--- OUTSIDE RECORDS SUMMARY | 2024-10-07 06:44 | XMS_ITS | Encounter Summary ---
Author Organization [facility] Address [address] [place] [address] Care Team Providers Care Manager Motor Name Role Phone Rhianna Cowan MD Primary Care Provider [phone] Reason for Visit * Reason Onset Date Comments Scheduling 10/15/2020 Encounter Details Date Type Department Care Team (Late st Contact Info) Description 10/15/2020 Telephone [facility] [facility] [address], [address] [place] [address] Roge Gipson, [address] [place] [address] Scheduling Social History Tobacco Use [...] procedure on 10/16. Called phone number in [employer] x[employer] and not able to leave voicemail, Sent email and mychart and called additional number of [phone] with no responses. At this time cancelling EGD. Dr. Gipson aware. CIAL REGISTRAR documented in this encounter Plan of Treatment Not on file documented as of this encounter Visit Diagnoses Not on filedocumented in this encounter Care Teams Manager Motor Relationship Specialty Start Date End Date Rhianna Cowan MD [address] [facility] [address] [place] [address] PCP - General Internal Medicine 11/12/16 documented as of this encounter
--- OUTSIDE RECORDS SUMMARY | 2024-10-07 06:44 | XMS_ITS | Encounter Summary ---
Author Organization [facility] Address [address] [place] [address] Care Team Providers Care Chief Telephone Operator Name Role Phone Rhianna Cowan MD Primary Care Provider Reason for Visit * Reason Onset Date Comments Follow-up 08/04/2019 Encounter Details Date Type Department Care Team (Late Contact Info) Description 08/04/2019 Telephone [facility] [place] [address] [place] [address] Provider, Maik Exp Nameoki Follow-up [...] Message left advising patient to call service [facility] [phone] if they have any questions or concerns. Karin Robbins documented in this encounter Plan of Treatment Not on file documented as of this encounter Visit Diagnoses Not on filedocumented in this encounter Care Teams Chief Telephone Operator Relationship Specialty Start Date End Date Rhianna Cowan MD [address] [place] [address] [address] [place] [address] PCP - General Internal Medicine 11/12/16 documented as of this encounter
--- OUTSIDE RECORDS SUMMARY | 2024-10-07 06:44 | XMS_ITS | Encounter Summary ---
Author Organization [facility] Address [address] [place] [address] Care Team Providers Care Mobile Application Tester Name Role Phone Rhianna Cowan MD Primary Care Provider [phone] Reason for Visit * Reason Comments Congestion Encounter Details Date Type Department Care Team (Latest Contact Info) Description 08/02/2019 10:40 AM CDT Office Visit [facility] [address] [address] Provider, Maik Exp Namemni Acute bacterial conjunctivitis of both eyes (Primary [...] Patient Instructions * Patient Instructions* Hope Ghosh, CORRECTIONAL CLASSIFICATION COUNSELOR-SPECIAL SERVICES SUPERVISOR - 08/02/2019 11:02 AM CDT -Keep hands [...] resolve Seek immediate treatment from ER or resident athletic trainer if any vision changes occur, including, but notlimited to, pain, spots before eyes, decreased visual acuity, sensitivity to light, or any other visual changes. Patient Education Conjunctivitis BIOLOGICAL CHEMIST: Conjunctivitis, or pink eye, is inflammation of [...] mascara and other eye makeup. ?? Copyright [employer] 2018 Information is for End User's use only and may not be sold, redistributed or otherwise used for commercial purposes. All illustrations and images included in CareNotes?? are the copyrighted property of [employer]. or [employer] The above information is an coffee shop aide only. It is not intended as [...] file Gets together: Not on file Attends moravian service: Not on file Active member of [...] resolve Seek immediate treatment from ER or resident athletic trainer if any vision changes occur, including, but [...] Primary documented in this encounter Care Teams Mobile Application Tester Relationship Specialty Start Date End Date Rhianna Cowan MD [address] [place] [address] [place] [address] PCP - General Internal Medicine 11/12/16 documented as of this encounter
--- OUTSIDE RECORDS SUMMARY | 2024-10-07 06:44 | XMS_ITS | Continuity of Care Document ---
Author Organization [facility] Address [address] [place] [address] [address] [place] [address] Phone Care Team Providers Care Corporate Controller Name Role Phone Magaly Christopher Unavailable Unavailable Procedures Procedure Date Remove Eyelid Lesion Office Consultation Advance Directives Directive Yes / No Effective Date File Name No Information Encounters Encounter Description Practice Location Reason(s) For Visit Diagnoses Date Provider Providers Copied on Encounter [facility], [address] [place] [address] [address], [place], [place], [id number], tel:[phone] [facility] No Information 8 Candi Mckenzie. [address] [facility] , [address], [place], [place], [facility], [place]. tel:[phone] Office Consultation [facility], [address] [place] [address] [address], [place], [place], [id number], tel:[phone] [facility] No Information 8 Candi Mckenzie. [address] [facility] , [address], [place], [address], [place]. tel:[phone] Referring Provider: Nathan Rothman, [address] [facility], [place], [address]. tel:[phone] Family History Family Member Type Diagnosis Age At Onset No Information Payers Payer name Insurance type Covered alliance party ID Authoriza tion(s) No Information Social [...]
--- OUTSIDE RECORDS SUMMARY | 2024-10-07 06:44 | XMS_ITS | Encounter Summary ---
Author Organization [facility] Address [address] [place] [address] Care Team Providers Care Elevator Troubleshooter Name Role Phone Rhianna Cowan MD Primary Care Provider [phone] Reason for Visit * Reason Onset Date Comments Follow-up 11/14/2016 Encounter Details Date Type Department Care Team (Late Contact Info) Description 11/14/2016 Telephone [facility] [address] [address] Karin Robbins Follow-up Social History [...] on filedocumented in this encounter Care Teams Elevator Troubleshooter Relationship Specialty Start Date End Date Rhianna Cowan MD [address] [facility] [address] [place] [address] PCP - General Internal Medicine 11/12/16 documented as of this encounter
--- OUTSIDE RECORDS SUMMARY | 2024-10-07 06:44 | XMS_ITS | Encounter Summary ---
Author Organization [facility] Address [address] [place] [address] Care Team Providers Care Airport Ramp Agent Name Role Phone Rhianna Cowan MD Primary Care Provider [phone] Reason for Visit * Reason Comments Sore Throat Encounter Details Date Type Department Care Team (Late Contact Info) Description 12/15/2017 5:20 PM CDT Office Visit [facility] [address] [address] Provider, Maik Exp Nameoki Strep [...] Patient Instructions * Patient Instructions* Yaneli Eden, HEALTH POLICY ANALYST-TREE AND SHRUB TECHNICIAN - 12/15/2017 5:57 PM CDT Images from [...] changes, or severe headache occur. Strep Throat GRAPHICS SPECIALIST: Strep throat is a throat infection caused [...] ask them during your visits. ?? 2017 [employer] Information is for End User's use only and may not be sold, redistributed or otherwise used for commercial purposes. All illustrations and images included in CareNotes?? are the copyrighted property of [employer] or [employer]. The above information is an utility aide only. It is not intended as medical advice for individual conditions or treatments. Talk to your doctor, nurse or pharmacist before following any medical regimen to see if it is safe and effective for you. Strep Throat GRAPHICS SPECIALIST: Strep throat is a throat infection caused [...] ask them during your visits. ?? 2017 [employer] Information is for End User's use only and may not be sold, redistributed or otherwise used for commercial purposes. All illustrations and images included in CareNotes?? are the copyrighted property of [employer] or [employer]. The above information is an utility aide only. It is not intended as medical advice for individual conditions or treatments. Talk to your doctor, nurse or pharmacist before following any medical regimen to see if it is safe and effective for you. Strep Throat GRAPHICS SPECIALIST: Strep throat is a throat infection caused [...] ask them during your visits. ?? 2017 [employer] Information is for End User's use only and may not be sold, redistributed or otherwise used for commercial purposes. All illustrations and images included in CareNotes?? are the copyrighted property of A.[employer].A.M., Inc. or [employer]. The above information is an utility aide only. It is not intended as [...] Sore Throat . Primary Care Physician is Rhianna Cowan [...] Strep A INTERNAL CONTROL Present Lot Number [id number] Expiration Date 06/26/19 Yaneli Eden APRN, FNP-BEL [...] Strep A Internal Control Present Lot # [id number] Expiration Date 06/26/19 Throat ENTIRE THROAT (SURFACE REGION OF NECK) / Unknown 12/15/2017 Yaneli Eden HEALTH POLICY ANALYST-TREE AND SHRUB TECHNICIAN LAB - POINT OF CA RE ORDERABLES documented in this encounter Visit Diagnoses Diagnosis Strep throat- Primary Streptococcal sore throat documented in this encounter Care Teams Airport Ramp Agent Relationship Specialty Start Date End Date Rhianna Cowan MD [address] [facility] [address] [place] [address] PCP - General Internal Medicine 11/12/16 documented as of this encounter
--- OUTSIDE RECORDS SUMMARY | 2024-10-07 06:44 | XMS_ITS | Encounter Summary ---
Author Organization [facility] Address [address] [facility] [place] [address] Care Team Providers Care Solar Sales Associate Name Role Phone Rhianna Cowan MD Primary Care Provider [phone] Reason for Visit * Reason Onset Date Comments Appointment 07/31/2020 Encounter Details Date Type Department Care Team (Late st Contact Info) Description 07/31/[address] [facility] [address] [facility], [address] [place] [address] Roge Gipson, DO [address] [address] Appointment Social History Tobacco Use [...] on filedocumented in this encounter Care Teams Solar Sales Associate Relationship Specialty Start Date End Date Rhianna Cowan MD [address] [place] [address] [address] [place] [address] PCP - General Internal Medicine 11/12/16 documented as of this encounter
--- OUTSIDE RECORDS SUMMARY | 2024-10-07 06:44 | XMS_ITS | Encounter Summary ---
Author Organization [facility] [employer] Address [address] [place] [address] Care Team Providers Care Aircraft Powertrain Repairer Name Role Phone Rhianna Cowan MD Primary Care Provider [phone] Reason for Visit * Reason Onset Date Comments Medication Issue 03/26/2018 Encounter Details Date Type Department Care Team (Late st Contact Info) Description 03/26/2018 Telephone [facility] [address] [place] [address] Provider, Maik Exp Nameoki Medication [...] on filedocumented in this encounter Care Teams Aircraft Powertrain Repairer Relationship Specialty Start Date End Date Rhianna Cowan MD [address] [place] [address] [address] [place] [address] PCP - General Internal Medicine 11/12/16 documented as of this encounter
--- OUTSIDE RECORDS SUMMARY | 2024-10-07 06:44 | XMS_ITS | Encounter Summary ---
Author Organization [facility] Health Address [address] [facility] [place] [address] Care Team Providers Care Rug Sizer Name Role Phone Rhianna Cowan MD Primary Care Provider [phone] Encounter Details Date Type Department Care Team (Late st Contact Info) Description 10/09/2020 Orders Only [facility] [address] [facility], [address] [place] [address] Roge Gipson, DO [address] [facility] [address] [place] [address] Preop testing ; Screening for [...] disease documented in this encounter Care Teams Rug Sizer Relationship Specialty Start Date End Date Rhianna Cowan MD [address] [facility] [address] [place] [address] PCP - General Internal Medicine 11/12/16 documented as of this encounter
--- OUTSIDE RECORDS SUMMARY | 2024-10-07 06:44 | XMS_ITS | Continuity of Care Document ---
Author Organization [facility] Address [address] [place] [address] Phone Care Team Providers Care Caretaker Grounds Name Role Phone Unavailable Unavailable Unavailable Allergies, [...] Diagnoses Date Provider Providers Copied on Encounter [facility], [address], [place], [place], [id number] , [place] tel: [phone] [facility] No Information 0 No Information OFFICE/OUTPA TIENT VISIT, NEW [facility], [address], [place], [place], [id number] , [place] tel:[phone] [facility] establish care (chief complaint) [...] is being seen by Dr. Camryn Marsh [place]. Patient brought [facility] paperwork to be completed. Patient says her [...] depression Eat a low fat low ca pita diet with plenty of fruit and vegetables.Monitor [...]
--- OUTSIDE RECORDS SUMMARY | 2024-10-07 06:44 | XMS_ITS | Encounter Summary ---
Author Organization [facility] Address [address] [facility] [place] [address] Care Team Providers Care Voice Studies Director Name Role Phone Rhianna Cowan MD Primary Care Provider [phone] Reason for Referral * Radiology Services (Routine) - Closed Specialty Diagnoses / Procedures Referred By Contac t Referred To Contact Diagnoses Morbid obesity (HCC) Gastric band slippage Procedures [place] [address] [facility] [address] [place] [address] Referral ID Status Reason Start Date Expiration Date Visits Re quested Visits Authorized [id number] Closed 02/13/2023 02/13/2024 1 1 Reason for Visit * Reason Comments Pre-op Consult Encounter Details Date Type Department Care Team (Late Contact Info) Description 02/13/2023 10:00 AM CDT Office Visit [facility] [facility] [address] [facility], [address] [place] [address] [place] [address] [facility] [address] [place] [address] Morbid obesity (HCC) (Primary Dx); [...] past including medical, exercise and dietary without laborer marine terminal success. Pt has developed multiple comorbid conditions [...] past including medical, exercise and dietary without laborer marine terminal success. Pt has developed multiple comorbid conditions [...] to excess calories ([facility]/HCC) Past Surgical History: Procedure Laterality Date ??? [...] tablet ??? sodium chloride ([place] Nasal [place]) 0.65 % nasal spray ??? topiramate (Topamax) [...] procedures or operations in the perioperative and laborer marine terminal periods. Questions were answered. Impression: Dysphagia, GERD, gastric band prolapse Plan: LAGB removal Liquid Protein Diet: YesNo Weeks Dividing Machine Operator: Yes Additional Testing: Yes GI: - [...] and following preoperative liquid protein diet Comments: Air Export Operations Agent visit: per insurance requirements Behavioral health visit: [...] slippage documented in this encounter Care Teams Voice Studies Director Relationship Specialty Start Date End Date Rhianna Cowan MD [address] [facility] [address] [place] [address] PCP - General Internal Medicine 11/12/16 documented as of this encounter
--- OUTSIDE RECORDS SUMMARY | 2024-10-07 06:44 | XMS_ITS | Encounter Summary ---
Author Organization [facility] Address [address] [place] [address] Care Team Providers Care Medical Education Specialist Name Role Phone Rhianna Cowan MD Primary Care Provider [phone] Reason for Visit * Reason Onset Date Comments Surgery Scheduling 09/04/2020 EGD Encounter Details Date Type Department Care Team (Late st Contact Info) Description 09/04/2020 Telephone [facility] [address] [facility], [address] [place] [address] Kaitlynn Jasso Surgery Scheduling (EGD) Social History [...] and proceeding with Lap Gastric Band Removal. [employer] message and email via [email or web address] sent. PLASTIC SURGERY * Telephone Encounter - Kaitlynn Jasso MA - 09/05/2020 9:30 AM CST 2nd attempt to schedule EGD Left message for patient to return my call to schedule EGD with Dr. Gipson. [employer] message and email sent via [employer]. PLASTIC SURGERY * Telephone Encounter - Kaitlynn Jasso MA - 09/04/2020 11:46 AM CST Tried to call patient to schedule EGD with . Per automated system patient is not accepting calls at this time,unable to leave voicemail. [employer] message sent requesting patient to return my call. PLASTIC SURGERY documented in this encounter Plan of Treatment Not on file documented as of this encounter Visit Diagnoses Not on filedocumented in this encounter Care Teams Medical Education Specialist Relationship Specialty Start Date End Date Rhianna Cowan MD [address] [facility] [address] [place] [address] PCP - General Internal Medicine 11/12/16 documented as of this encounter
--- OUTSIDE RECORDS SUMMARY | 2024-10-07 06:44 | XMS_ITS | Encounter Summary ---
Author Organization [facility] Address [address] [place] [address] Care Team Providers Care Supervisor Plasma Name Role Phone Rhianna Cowan MD Primary Care Provider [phone] Encounter Details Date Type Department Care Team (Late st Contact Info) Description 02/13/2023 Orders Only [facility] [address] [facility], [address] [place] [address] [place] [address] [facility] [address] [place] [address] Encounter for adjustment of gastric [...] medical care, and heating? Somewhat hard 04/14/2023 [facility] Occupat ional [facility] - Occupational Stress [...] place to sleep or slept in a fdc (including now)? No 04/14/2023 Sex and Gender [...] band documented in this encounter Care Teams Supervisor Plasma Relationship Specialty Start Date End Date Rhianna Cowan MD [address] [facility] [address] [place] [address] PCP - General Internal Medicine 11/12/16 documented as of this encounter
--- OUTSIDE RECORDS SUMMARY | 2024-10-07 06:44 | XMS_ITS | Encounter Summary ---
Author Organization [facility] Health Address [address] [place] [address] Care Team Providers Care Freezer Machine Operator Name Role Phone Unknown, Provider Primary Care Provider Francisca schmidt Encounter Details Date Type Department Care Team (Latest Contact Info) Description 08/29/2008 12:01 AM ADMINISTRATIVE LIAISON - 08/29/2008 11:59 PM ADMINISTRATIVE LIAISON Hospital Encounter [facility] Default [address] [place] [address] [place] [address] [place] [address] Diagnostic Discharge Disposition: Home or Self Care [...] on filedocumented in this encounter Care Teams Freezer Machine Operator Relationship Specialty Start Date End Date Unknown, Provider PCP - General 08/28/08 02/22/14 documented as of this encounter
== END 2024-09-30 06:17 | disposition home or self-care (01) ==
LOC: ANHED 06:11
PROVIDERS: Emergency Provider Emergency Medicine; PCP Internal Medicine
DX: J06.9 Acute upper respiratory infection, unspecified (principal); J40 Bronchitis, not specified as acute or chronic; Z20.822 Contact with and (suspected) exposure to COVID-19; K21.9 Gastro-esophageal reflux disease without esophagitis; I10 Essential (primary) hypertension
CPT/HCPCS: 71046; 87637; 94640; 99283; A9270; J7512

== ENCOUNTER 2025-01-20 08:21 | Outpatient (CLI) | payer OTHER, MEDICAID, SELFPAY ==
--- NOTE | ~2025-01-20 | MR_ITS ---
MRI of the lumbar spine Clinical History: Back pain Technique: Axial T2-weighted images, and sagittal T1-weighted, T2-weighted, and T2 fat-sat images wer e acquired. Findings: There is no fracture or subluxation of the lumbar spine. Vertebral bodies maintain normal h eight and alignment. No suspicious bone marrow signal abnormality seen. At L1-L2, L2-L3, L3-L4, there is no significant disc bulge or herniation. There are moderate facet valarie int degenerative changes at these levels. No spinal canal stenosis or neural foraminal narrowing at t hese levels. At L4-L5, there is minimal disc bulge and severe facet arthropathy. No central canal stenosis or neur al foraminal narrowing. At L5-S1, there is mild disc bulge and severe facet arthropathy. No central canal stenosis. There is moderate to advanced bilateral neural foraminal narrowing. Paravertebral soft tissues are unremarkable. Impression: Bilateral neural foraminal narrowing at L5-S1. Facet arthropathy, as above. Reviewed, dictated and finalized at [facility]. Impression: Bilateral neural foraminal narrowing at L5-S1. Facet arthropathy, as above.
== END 2025-01-20 08:22 | disposition home or self-care (01) ==
LOC: MICIMG 08:25
PROVIDERS: PCP Internal Medicine; Visit Provider Nurse Practitioner Family
DX: M54.59 Other low back pain (principal)
CPT/HCPCS: 72148

== ENCOUNTER 2025-03-19 17:08 | Emergency (ER) | payer OTHER, MEDICAID, SELFPAY ==
--- NOTE | ~2025-03-19 | CT_ITS ---
History: PROCEDURE: CT head without contrast. COMPARISON: None TECHNIQUE: Axial imaging of the head performed from the skull base to the vertex without IV contrast. Sagittal a nd coronal reformations obtained. DLP: 605 mGy-cm FINDINGS: The ventricles are normal in size, shape and position. There is no mass, mass effect or midline shift. There is no abnormal extra-axial fluid collection or intracranial hemorrhage. Visualized paranasal sinuses are clear. The mastoid air cells are well aerated. No acute displaced fractures within the overlying cranium. Impression: No acute intracranial hemorrhage or suspicious mass effect. Reviewed, dictated and finalized at location A. Impression: No acute intracranial hemorrhage or suspicious mass effect.
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
[2025-03-19 17:10] VITALS: BP 185/74; PULSE 96; RESP 18; TEMP 36.6; O2SAT 98
--- OUTSIDE RECORDS SUMMARY | 2025-03-19 17:12 | XMS_ITS | Patient Health Record ---
Author Organization [facility] As [place] Address [address] [place] [address] Care Team Providers Care Etcher Electrolytic Name Role Phone Melina Gonsales [phone] Reason For Referral No Information Medications Medication [...] Propionate Diskus 50 MCG/ACT Inhalation *Reorder from [employer] for eRx and Interaction Alerts* 12/01/2023 Active [...] GRAM-3.13 GRAM-1.6 GRAM ORAL SOLN *Reorder from [employer] for eRx and Interaction Alerts* 12/01/2023 Active Gabapentin 100 MG Oral 12/01/2023 A ctive Proctozone-HC 2.5 % Rectal 12/01/2023 Active Losartan Potassium 100 MG Oral 12/01/2023 Active Topiramate 25 MG Oral 12/01/2023 Ac tive hydroCHLOROthiazide 12.5 MG Oral 12/01/2023 Active LUER-TIERNEY SYRINGE-NEEDLE 3 mL 25 gauge x 1 MISCELLANEOUS *Reorder from [employer] for eRx and Interaction Alerts* 12/01/2023 Active Diclofenac Sodium 1% Transdermal 12/01/2023 Active Deep Sea Nasal [place] 0.65 % Nasal 12/01/2023 Active hydrALAZINE HCl 25 MG Oral 12/01/2023 Active ASPERCREME (LIDOCAINE HCL) 4 % TOPICAL *Reorder from [employer] for eRx and Interaction Alerts* 12/01/2023 Active DULoxetine HCl 30 MG Oral 12/01/2023 Active Mucinex DM 30-600 MG Oral 12/01/2023 Active Immunizations Vaccine Route Administration Date Status Comme nts Influenza virus vaccine, quadrivalent (IIV4), split virus, 0.25 mL dosage Unknown 08/01/2016 Administered Social History Sex Assigned At : Social History Observation Description Sex Assigned At Female Plan Of Treatment No Information Insurance Providers Payer Name Payer Address Payer Phone Subscriber Number Group Number Insured Name Patient Relationship to Insured Coverage Start Date Coverage End Date [facility] [address] [place] [phone] [id number] ANGEL DORMAN Self - patient is the insured
--- OUTSIDE RECORDS SUMMARY | 2025-03-19 17:12 | XMS_ITS | Clinical Summary ---
Author Organization [facility] Address [address] [place] [address] [place] [address] Care Team Providers Care Barrel Turner Name Role Phone Rhianna Cowan MD Primary Care Provider [phone] Source Comments [facility],non-owned Affiliates and Associated Physician Practices is amultiple site organization consisting of ambulatory clinics and hospital sitesin [place], [place], [place] and [place]. This disclosure is being madepursuant to the Care Everywhere program and may not contain all information available regarding this patient. Last updated 18.[facility] Smart Patients Allergies Active Allergy Reactions Criticality Noted Date Comments Lisinopril Cough 04/16/2023 Sulfamethoxazole W-Trimethoprim Angioedema High 04/05 Medications * Be aware that medications may not be up to date on this document. Alwaysverify current medications with the patient. acetaminophen (Tylenol) 500 MG tablet Take 1 (one) tablet by mouth every 8 hours as needed for Pain or Fever 2 Active albuterol HFA (Proventil; Ventolin; Proair) 108 (90 Base) MCG/ACT inhaler Inhale 2 (two) puffs by mouth every 6 hours as needed for Shortness of Breath or Wheezing 2 Active amLODIPine (Norvasc) 5 MG tablet Take 1 (one) tablet by mouth once daily 2 Active baclofen (Lioresal) 10 MG tablet Take 1 (one) tablet by mouth 2 times daily as needed for Muscle Spasms 2 Active cetirizine (ZyrTEC) 10 MG tablet Take 1 (one) tablet by mouth once daily as needed for Allergies 3 Active clotrimazole-be tamethasone (Lotrisone) 1-0.05 % cream Apply to affected area 2 times daily as needed (rash) 2 Active cyanocobalamin (Vitamin B-12) injection Inject 1,000 (one thousand) mcg into muscle every 30 days Active doxazosin (Cardura) 2 MG tablet Take 1 (one) tablet by mouth at bedtime 3 Active DULoxetine (Cymbalta) 60 MG capsule Take 1 (one) capsule by mouth once daily Active fluticasone propionate (Flonase) 50 MCG/ACT nasal spray [place] 2 (two) sprays into each nostril once daily as needed (allergies) 2 Active hydroCHLOROthia zide (Hydrodiuril) 12.5 MG Take 1 (one) tablet by mouth once daily 2 Active metoprolol succinate XL 24hr (Toprol XL) 25 MG tablet Take 1 (one) tablet by mouth once daily 2 Active mupirocin (Bactroban) 2 % ointment Apply to affected area 2 times daily APPLY SMALL AMOUNT TOPICALLY IN EACH NOSTRIL EVERY NIGHT AT BEDTIME 3 Active omeprazole (PriLOSEC) 20 MG capsule Take 1 (one) capsule by mouth once daily as needed for Heartburn Active sodium chloride (Deep Sea Nasal [place]) 0.65 % nasal spray [place] 2 (two) sprays into each nostril as needed for Dry Nose 3 Active doxepin (Silenor) 3 MG tablet Take 1 (one) tablet by mouth at bedtime 3 Active Active Problems Problem Noted Date Diagnosed [...] medical care, and heating? Somewhat hard 04/14/2023 [facility] of Occupat ional Health - Occupational Stress [...] place to sleep or slept in a nursing home (including now)? 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 Gender Identity Not on file Sexual Orientation Not on file Last Filed Vital Signs Vital Sign Reading Time Taken Comments Blood Pressure 138/88 05/16/2023 10:41 AM CDT Pulse 91 05/16/2023 10:41 AM CDT Temperature 36.6 C (97.9 F) 05/16/2023 10:41 AM CDT Respiratory Rate 18 04/22/2023 7:35 AM CDT Oxygen Saturation 95% 05/16/2023 10: 41 AM CDT Inhaled Oxygen Concentration - - Weight 114.9 kg (253 lb 3.2 oz) 023 10:41 AM CDT Height 157.5 cm (5' 2) 05/16/2023 10:4 1 AM CDT Body Mass [...] of 3 - 19+ 3-dose series) 1986 PNEUMOCOCCAL VACCINE 50+ (1 of 1 - PCV) 2017 ZOSTER VACCINE (1 of 2) 2017 COVID-19 VACCINE (1 - season) 2024 DEPRESSION SCREENING 10/06/2024 INFLUENZA VACCINE (Season Ended) 2025 07/25/2020, 08/05/2017, 08/01/2016 SCREENING FOR DIABETES 04/21/2026 3, 04/20/2023, 04/19/2023, Additional history exists HIB VACCINE Aged Out No longer eligi ble based on patient's age to complete this topic HPV VACCINE Aged Out No longer eligi ble based on patient's age to complete this topic MENINGOCOCCAL (Group B) VACCINE SHARED DECISION-MAKING Aged Out No longer eligible based on patient's age to complete this topic MENINGOCOCCAL GROUPS A/C/Y/W VACCINE Aged Out No longer eligible based on patient's age to complete this topic Procedures Procedure Name Priority Date/Time Associated Diagnosis Comments BASIC METABOLIC PANEL (CALCIUM TOTAL) VINICIUS 04/21/2023 9:24 AM CDT from Last 3 Months or Most Recently Relevant to Health Maintenance Results * (ABNORMAL) BASIC METABOLIC PANEL (CALCIUM TOTAL) (04/21/2023 9:24 AM CDT) Pathologist [facility] Glucose 99 70 - 105 mg/dL 04/21/2023 9:51 AM CDT [facility] Sodium 139 136 - 145 mmol/L 04/21/2023 9:51 AM CDT [facility] Potassium 3.6 3.5 - 5.1 mmol/L 04/21/2023 9:51 AM CDT [facility] Chloride 105 98 - 107 mmol/L 04/21/2023 9:51 AM CDT [facility] CO2 24 23 - 31 mmol/L 04/21/2023 9:51 AM CDT [facility] Calcium 9.0 8.4 - 10.4 mg/dL 04/21/2023 9:51 AM CDT [facility] Anion Gap 10 8 - 18 mmol/L 04/21/2023 9:51 AM CDT [facility] BUN 4(L) 9.8 - 20.1 mg/dL 04/21/2023 9:51 AM CDT [facility] Creatinine 0.85 0.57 - 1.11 mg/dL 04/21/2023 9:51 AM CDT [facility] eGFR by CKD-EPI 81(L) >=90 mL/min/1.7 3 m2 04/21/2023 9:51 AM CDT [facility] Blood BLOOD SPECIMEN / Unknown Venipuncture / Unknown 04/21/2023 9:24 AM CDT 04/21/2023 9:34 AM CDT Marybel Kent MENTAL HEALTH CLINICIAN-OUTSIDE COLLECTOR LAB - CHEMISTRY O RDERABLES Final Result [facility] [address] [place] [address] from Last 3 Months or Most Recently Relevant to Health Maintenance Insurance [employer] Care Teams Barrel Turner Relationship Specialty Start Date End Date Rhianna Cowan MD [address] [place] [address] PCP - General Internal Medicine 11/12/16
--- OUTSIDE RECORDS SUMMARY | 2025-03-19 17:12 | XMS_ITS | Continuity of Care Document ---
Author Organization [facility] Address [address] [place] [address] Phone Care Team Providers Care Communications Technologist Name Role Phone Unavailable Unavailable Unavailable Allergies, [...] Urinalysis, Auto, w/o Scope HEMOGLOBIN; GLYCOSYLATED (A1C) 19 GLUCOSE; QUANTITATIVE, BLOOD (EXCEPT EDELMIRA GENT STRIP) OFFICE/OUTPATIENT VISIT, NEW Advance Directives Directive Yes / No Effective Date File Name No Information Encounters Encounter Description Practice Location Reason(s) For Visit Diagnoses Date Provider Providers Copied on Encounter [facility], [address], [place], [place], [id number] , [place] tel: [phone] [facility] [place] No Information 0 No Information OFFICE/OUTPA TIENT VISIT, NEW [facility], [address], [place], [place], [id number] , tel: [phone] [facility] establish care (chief complaint) Body mass index (BMI) 45.0-49.9, adultEncounter for adult annual physical exam w/ abnormal findingEssential (primary) hypertensionObes ity, unspecifiedLow back painAnxiety depression 201 9 No Information Family History Family Member Type Diagnosis Age At Onset No Information Payers Payer name Insurance type Covered democrat ID Authorabebea tieva(s) No Information Social History Type Description Quantity [...] nt Illness establish care Patient presents to [facility] care . Patient has a history of HTN and depression. Patient passed 1 year ago and currently is being seen by Dr. Camryn Marsh [place]. Patient brought [facility] paperwork to be completed. Patient says her [...]
--- OUTSIDE RECORDS SUMMARY | 2025-03-19 17:12 | XMS_ITS | CONTINUITY OF CARE DOCUMENT ---
Author Name natasha kaur Address Unknown Organization [facility] Address [address] [place] [address] Phone [phone] Care Team Providers Care Leadership Coach Name Role Phone Boo BHATT, Dede Unavailable JOSE BONILLA MD Unavailable Jose BHATT, Marco Garcia Unavailable [phone] INSURANCE PROVIDERS Payer name Policy type / Coverage type [employer]by red alliance party ID [facility] [id number]
--- OUTSIDE RECORDS SUMMARY | 2025-03-19 17:12 | XMS_ITS | Data Portability ---
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 Lab HbA1c (hemoglobi n A1c), blood 2023 024 [email or web address] [facility], [address], [place], [address], 5 11:18:17 TSH + free T4, serum 2023 024 JMII [employer] [facility], [address], [address], [place], [address], 4 14:51:37 vitamin B12 + folate, serum or blood 2023 024 [email or web address] [facility], [address], [address], [place], [address], 5 11:18:17 vitamin D, 25-hydroxy , total, serum 2023 024 [employer]I [employer] [facility], [address], [address], [place], [address], 4 14:51:39 magnesium, serum or plasma 2023 024 [email or web address] [facility], [address], [address], [place], [address], 5 11:18:17 vitamin B12 + folate, serum or blood 2023 024 [email or web address] [facility], [address], [address], [place], [address], 5 11:18:16 urinalysis , dipstick 2023 024 [facility] [employer], [facility], [address], [place], [address], 4 17:24:17 CMP, serum or plasma 2023 024 [employer] [facility], [address], [place], [address], 5 11:18:16 CBC w/ auto diff 2023 024 [email or web address] [employer] [facility], [address], [place], [address], 5 11:18:17 glucose tolerance test, post-75G, 3 specimens 2023 024 JIMI [employer] [facility], [address], [address], [place], [address], 4 09:51:01 CMP, serum or plasma 2023 024 [employer] [facility], [address], [place], [address], 4 09:51:03 CBC w/ auto diff 2023 024 [employer] [facility], [address], [place], [address], 4 09:51:04 urinalysis , dipstick 2022 023 [facility], [facility], [address], [place], [address], 3 16:24:37 vitamin B12 + folate, serum or blood 2022 023 [employer] [facility], [address], [address], [place], [address], 3 10:42:54 TSH + free T4, serum 2022 023 [employer] [facility], [address], [place], [address], 3 11:34:31 HbA1c (hemoglobi n A1c), blood 2022 023 [email or web address] [employer] [facility], [address], [place], [address], 5 11:18:14 CBC w/ auto diff 2022 023 [facility], [address], [place], [address], 3 10:42:50 CMP, serum or plasma 2022 023 [facility], [address], [place], [address], 3 10:42:51 lipid panel, serum 2022 023 [email or web address] [address] [employer] [facility], [address], [place], [address], 5 11:18:14 TSH, serum or plasma 2022 023 [facility], [address], [place], [address], 3 10:42:53 protein electropho resis panel, serum or plasma [address], [address], [place], [address], 5 11:18:14 protein electropho resis, urine 2022 023 [place] [address] [employer] [facility], [address], [place], [address], 5 11:18:[address] referral [address], [address] [place], [address], 5 11:18:42 counseling referral 2023 024 [email or web address] Dioni Osei [facility], [address], [place], [address], 5 11:18:[address] referral 2023 024 [email or web address] Hipolito Wu MD, [address], [address], [place], [address], 5 11:18:42 neurologis t referral 2023 024 [email or web address] Meño Austin MD, [address] [facility], [address], [place], [address], 5 11:18:[address] referral 2023 024 [email or web address] [facility], [address] [facility], [place], [address], 5 11:18:41 neurologis t referral 2022 023 [email or web address] Meño Austin MD, [address] [facility], [address], [place], [address], 5 11:18:[address] referral 2022 023 Teagan Vallecillo [facility], [address], [place], [address], 5 11:18:40 urologist referral 2022 023 [email or web address] [facility], [address] [place] [address], [place], [address], 5 11:18:39 optometris t referral 2022 023 [email or web address] [employer], [address] , [place], [address], 5 11:18:38 Procedures None recorded. Surgeries None recorded. Imaging US, echocardio gram 2023 024 [facility], [facility], [address], [place], [address], 4 18:04:39 home sleep study 2023 024 [facility], [address], [place], [address], 5 11:18:16 XR, shoulder, 2 or more view 2022 023 [email or web address] [facility] Patient Access Centralized Scheduling, Centralized Scheduling, [address] [facility] , [place], [address], 5 11:17:38 electrocar diogram 2022 023 [employer], [facility], [address], [place], [address], 3 17:30:39 home sleep study 2022 023 [email or web address] Not available 5 11:18:14 Medication Orders gabapentin 100 mg capsule 2023 024 [facility]87299, [address] [place], [place], [id number], 4 18:08:56 felodipine ER 5 mg tablet,ext ended release 24 hr 2023 024 [facility]12582, [address] [place], [place], [id number], 4 16:25:11 doxepin 6 mg tablet 2023 024 [facility] #34598, [address] [place], [place], [id number], 4 14:43:25 gabapentin 100 mg capsule 2023 024 [facility] #49232, [address] [place], [place], [id number], 4 18:08:48 losartan 100 mg tablet 2023 024 [facility]67660, [address] [place], [place], [id number], 4 17:56:54 metoprolol succinate ER 25 mg tablet,ext ended release 24 hr 2023 024 [facility] #85729, [address] [place], [place], [id number], 4 17:56:55 gabapentin 100 mg capsule 2022 023 [facility] #21149, [address] [place], [place], [id number], 4 18:08:48 duloxetine 60 mg capsule,de layed release 2022 023 [facility] #41995, [address] [place], [place], [id number], 3 16:32:38 Voltaren Arthritis Pain 1 % topical gel 2022 023 [facility] #61872, [address] [place], [place], [id number], 3 16:32:44 meloxicam 7.5 mg tablet 2022 023 [facility] #66966, [address] [place], [place], [id number], 16:32:52 baclofen 10 mg tablet 2022 023 [facility] #32027, [address] [place], [place], [id number], 16:32:46 losartan 100 mg tablet 2022 023 [facility] #49192, [address] [place], [place], [id number], 11:32:06 Patient TargetsNo targets recorded. Patient Instructions Encounter Date Encounter Id Patient Instructions Last Modified By Organization Details Last Modified Time 06/12/2023 [id number] mammogram: about this test mshenouda Not available [...] instructions mshenouda Not available 06/12/2023 11:33:41 10/20/2023 [id number] mammogram: about this test mshenouda Not available 10/20/2023 17:56:47 learning about high blood sugar mshenouda Not available 10/20/2023 17:56:47 body mass index: care instructions mshenouda Not available 10/20/2023 17:56:46 learning about healthy weight mshenouda Not available 10/20/2023 17:56:47 11/06/2023 [id number] blood in the urine: care instructions mshenouda Not available 11/06/2023 16:25:05 body mass index: care instructions mshenouda Not available 11/06/2023 16:25:04 learning about healthy weight mshenouda Not available 11/06/2023 16:25:04 snoring: care instructions mshenouda Not available 11/06/2023 16:25:04 12/17/2023 [id number] mammogram: about this test mshenouda Not available 12/17/2023 14:50:40 body mass index: care instructions mshenouda Not available 12/17/2023 14:50:40 learning about healthy weight mshenouda Not available 12/17/2023 14:50:40 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 Referral for Syed ign hypertension Referring Physician: [...] Rhianna Cochran Internal Medicine, Encounter Date: 10/20/2023 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 Referral for Sc reening for malignant neoplasm of cervix Referring Physician: Rhianna Cochran Internal [facility], Encounter Date: 10/20/2023 Counseling Referral for Mixe d anxiety and depressive disorder Referring Physician: Rhianna Cochran Internal [facility], Encounter Date: 11/06/2023 Psychiatrist Referral for Mi xed anxiety and depressive disorder Referring Physician: Rhianna Cochran Internal Medicine, Encounter Date: 11/06/2023 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 Referral for Sc reening for malignant neoplasm of cervix Referring Physician: Mounir Camryn, Internal Medicine, Encounter Date: 12/17/2023 Results Created Date Observation Date Name Description Value Unit Range Abnormal Flag Note LastModifiedBy Organization Detail LastModifiedTime 06/12/2006/12/2023 HEMOG LOBIN A1C HGBA1C 5.1 % 4.0-6. 0 Not Available [facility] (Main Location) [address] ,, [place], [address], 06/18/2023 10:42:49 06/12/20 23 06/12/2023 COMPL ETE CBC W/AUT O DIFF WBC white blood cell count 7.4 thous and/u L 3.5-10 .0 Not Available [facility] (Main Location) [address] ,, [place], [address], 06/18/2023 10:42:50 06/12/20 23 06/12/2023 COMPL ETE CBC W/AUT O DIFF WBC red blood cell count 3.5 es on/uL 3.5-5. 5 Not Available [facility] (Main Location) [address] ,, [place], [address], 06/18/2023 10:42:50 06/12/20 23 06/12/2023 COMPL ETE CBC W/AUT O DIFF WBC hemoglobin 12.4 g/dL 11.5-1 6.5 Not Available [facility] (Main Location) [address] ,, [place], [address], 06/18/2023 10:42:50 06/12/20 23 06/12/2023 COMPL ETE CBC W/AUT O DIFF WBC hematocrit 39 % 35-55 Not Available [facility] (Main Location) [address] ,, [place], [address], 06/18/2023 10:42:50 06/12/20 23 06/12/2023 COMPL ETE CBC W/AUT O DIFF WBC MCH 36 pg 25-35 high Not Available [facility] (Main Location) [address] ,, [place], [address], 06/18/2023 10:42:50 06/12/20 23 06/12/2023 COMPL ETE CBC W/AUT O DIFF WBC MCHC 32 g/dL 31-38 Not Available [facility] (Main Location) [facility] [address] ,, [place], [address], 06/18/2023 10:42:50 06/12/20 23 06/12/2023 COMPL ETE CBC W/AUT O DIFF WBC MCV 113 fL 75-100 high Not Available [facility] (Main Location) [facility] [address] ,, [place], [address], 06/18/2023 10:42:50 06/12/20 23 06/12/2023 COMPL ETE CBC W/AUT O DIFF WBC RDW-CV 16 % 11-15 high Not Available [facility] (Main Location) [facility] [address] ,, [place], [address], 06/18/2023 10:42:50 06/12/20 23 06/12/2023 COMPL ETE CBC W/AUT O DIFF WBC neutrophils% 69.7 % Not Available [facility] (Main Location) [facility] [address] ,, [place], [address], 06/18/2023 10:42:50 06/12/20 23 06/12/2023 COMPL ETE CBC W/AUT O DIFF WBC lymphocytes% 22.4 % Not Available [facility] (Main Location) [facility] [address] ,, [place], [address], 06/18/2023 10:42:50 06/12/20 23 06/12/2023 COMPL ETE CBC W/AUT O DIFF WBC monocytes% 5.8 % Not Available [facility] (Main Location) [facility] [address] ,, [place], [address], 06/18/2023 10:42:50 06/12/20 23 06/12/2023 COMPL ETE CBC W/AUT O DIFF WBC eosinophil % 1.4 % 0.0-7. 0 Not Available [facility] (Main Location) [address] ,, [place], [address], 06/18/2023 10:42:50 06/12/20 23 06/12/2023 COMPL ETE CBC W/AUT O DIFF WBC basophil % 0.4 % 0.0-3. 0 Not Available [facility] (Main Location) [address] ,, [place], [address], 06/18/2023 10:42:50 06/12/20 23 06/12/2023 COMPL ETE CBC W/AUT O DIFF WBC absolute neutrophils 5.2 cells /uL 1.5-7. 8 Not Available [facility] (Main Location) [address] ,, [place], [address], 06/18/2023 10:42:50 06/12/20 23 06/12/2023 COMPL ETE CBC W/AUT O DIFF WBC absolute lymphocytes 1.65 cells /uL 0.85-3 .90 Not Available [facility] (Main Location) [address] ,, [place], [address], 06/18/2023 10:42:50 06/12/20 23 06/12/2023 COMPL ETE CBC W/AUT O DIFF WBC absolute monocytes 0.4 cells /uL 0.2-1. 0 Not Available [facility] (Main Location) [address] ,, [place], [address], 06/18/2023 10:42:50 06/12/20 23 06/12/2023 COMPL ETE CBC W/AUT O DIFF WBC absolute eosinophils 0.1 cells /uL 0.0-0. 5 Not Available [facility] (Main Location) [address] ,, [place], [address], 06/18/2023 10:42:50 06/12/20 23 06/12/2023 COMPL ETE CBC W/AUT O DIFF WBC absolute basophils 0.0 cells /uL 0.0-0. 2 Not Available [facility] (Main Location) [address] [place], [place] [address] ,, [place], [address], 06/18/2023 10:42:50 06/12/20 23 06/12/2023 COMPL ETE CBC W/AUT O DIFF WBC platelet count 358 thous and/u L 100-40 0 Not Available [facility] (Main Location) [address] [place] [address]. [address] ,, [place], [address], 06/18/2023 10:42:50 06/12/20 23 06/12/2023 CMP (COMP REHEN SIVE METAB OLIC PANEL ) glucose 115 mg/dL 74-99 high Not Available [facility] (Main Location) [address] [place], [place] [address] ,, [place], [address], 06/18/2023 10:42:51 06/12/20 23 06/12/2023 CMP (COMP REHEN SIVE METAB OLIC PANEL ) urea nitrogen, blood (BUN) 13 mg/dL 6-20 Not Available [facility] (Main Location) [address] [place] [address]. [address] ,, [place], [address], 06/18/2023 10:42:51 06/12/20 23 06/12/2023 CMP (COMP REHEN SIVE METAB OLIC PANEL ) total bilirubin 0.6 mg/dL 0.0-1. 2 Not Available [facility] (Main Location) [address] [place] [address]. [address] ,, [place], [address], 06/18/2023 10:42:51 06/12/20 23 06/12/2023 CMP (COMP REHEN SIVE METAB OLIC PANEL ) total protein 7.2 g/dL 6.6-8. 7 Not Available [facility] (Main Location) [address] [place] [address]. [address] ,, [place], [address], 06/18/2023 10:42:51 06/12/20 23 06/12/2023 CMP (COMP REHEN SIVE METAB OLIC PANEL ) alanine aminotransfe rase (ALT) 10 U/L 0-33 Not Available [facility] (Main Location) [address] [place] [address]. [address] ,, [place], [address], 06/18/2023 10:42:51 06/12/20 23 06/12/2023 CMP (COMP REHEN SIVE METAB OLIC PANEL ) alkaline phosphatase 171 U/L 40-130 high Not Available [facility] (Main Location) [address] [place] [address]. [address] ,, [place], [address], 06/18/2023 10:42:51 06/12/20 23 06/12/2023 CMP (COMP REHEN SIVE METAB OLIC PANEL ) aspartate aminotransfe rase (AST) 17 U/L 0-32 Not Available [facility] (Main Location) [address] [place] [address]. [address] ,, [place], [address], 06/18/2023 10:42:51 06/12/20 23 06/12/2023 CMP (COMP REHEN SIVE METAB OLIC PANEL ) calcium 10.0 mg/dL 8.6-10 .2 Not Available [facility] (Main Location) [address] [place] [address]. [address] ,, [place], [address], 06/18/2023 10:42:51 06/12/20 23 06/12/2023 CMP (COMP REHEN SIVE METAB OLIC PANEL ) albumin 4.3 g/dL 3.5-5. 2 Not Available [facility] (Main Location) [address] [place] [address]. [address] ,, [place], [address], 06/18/2023 10:42:51 06/12/20 23 06/12/2023 CMP (COMP REHEN SIVE METAB OLIC PANEL ) CO2 28 mmol/ L 22-29 Not Available [facility] (Main Location) [address] [place], [place] [address] ,, [place], [address], 06/18/2023 10:42:51 06/12/20 23 06/12/2023 CMP (COMP REHEN SIVE METAB OLIC PANEL ) creatinine, serum 1.0 mg/dL 0.5-0. 9 high Not Available [facility] (Main Location) [address] ,, [place], [address], 06/18/2023 10:42:51 06/12/20 23 06/12/2023 CMP (COMP REHEN SIVE METAB OLIC PANEL ) sodium, serum 142 mmol/ L 136-14 5 Not Available [facility] (Main Location) [address] ,, [place], [address], 06/18/2023 10:42:51 06/12/20 23 06/12/2023 CMP (COMP REHEN SIVE METAB OLIC PANEL ) potassium, serum 3.8 mmol/ L 3.5-5. 1 Not Available [facility] (Main Location) [address] [place] [address] Rd[address] ,, [place], [address], 06/18/2023 10:42:51 06/12/20 23 06/12/2023 CMP (COMP REHEN SIVE METAB OLIC PANEL ) chloride, serum 103 mmol/ L 98-107 Not Available [facility] (Main Location) [address] [place] [address] Rd[address] ,, [place], [address], 06/18/2023 10:42:51 06/12/20 23 06/12/2023 CMP (COMP REHEN SIVE METAB OLIC PANEL ) eGFR 84 >59 Persi stent reduc tion for 3 month s or more in an eGFR <60 mL/mi n/1.7 3 m2 defin es CKD. Patie nts with eGFR value s>/=6 0 mL/mi n/1.7 3 m2 may also have CKD if evide nce of persi stent protu niuri a is prese nt. Addit ional infor wayne gillis may be found at [email or web address] org. Not Available [facility] (Main Location) [address] ,, [place], [address], 06/18/2023 10:42:51 06/12/20 23 06/12/2023 FREE THYRO XINE (FT4) FT4 1.46 NG/dL 0.93-1 .70 Not Available [facility] Location[facility] [address] ,, [place], [address], 06/18/2023 10:42:52 06/12/20 23 06/12/2023 LIPID PANEL trigylceride s 77 mg/dL 0-150 Not Available [facility] (Main Location) [facility] [address] ,, [place], [address], 06/18/2023 10:42:53 06/12/20 23 06/12/2023 LIPID PANEL cholesterol 156 mg/dL 0-200 Not Available [facility] (Main Location[facility] [address] ,, [place], [address], 06/18/2023 10:42:53 06/12/20 23 06/12/2023 LIPID PANEL uhdl 72 mg/dL 45-65 high Not Available [facility] (Main Location[facility] [address] ,, [place], [address], 06/18/2023 10:42:53 06/12/20 23 06/12/2023 LIPID PANEL LDL, calculated 69 mg/dL 0-100 Not Available [facility] (Main Location[facility] [address] ,, [place], [address], 06/18/2023 10:42:53 06/12/20 23 06/12/2023 LIPID PANEL LDL/HDL ratio 1 mg/dL 0-5 Not Available [facility] (Main Location[facility] [address] ,, [place], [address], 06/18/2023 10:42:53 06/12/20 23 06/12/2023 LIPID PANEL VLDL 15.4 mg/dL 5.0-40 .0 Not Available [facility] (Main Location[facility] [address] ,, [place], [address], 06/18/2023 10:42:53 06/12/20 23 06/12/2023 LIPID PANEL cholesterol/ HDL ratio 2.17 0.00-5 .00 Not Available [facility] (Main Location) [address] ,, [place], [address], 06/18/2023 10:42:53 06/12/20 23 06/12/2023 THYRO ID STIMU LATIN G HORMO NE (TSH) TSH 1.53 ?IU/m L 0.27-4 .20 Not Available [facility] (Main Location) [address] ,, [place], [address], 06/18/2023 10:42:53 06/12/20 23 06/12/2023 VITAM IN B12 AND FOLAT E folate 6.8 NG/mL 4.4-31 .0 Not Available [facility] (Main Location) [address] ,, [place], [address], 06/18/2023 10:42:54 06/12/20 23 06/12/2023 VITAM IN B12 AND FOLAT E vitamin B12 II 274 pg/mL 232-12 45 Not Available [facility] (Main Location) [address] ,, [place], [address], 06/18/2023 10:42:54 06/12/20 23 06/12/2023 PROTE IN ELECT ROPHO RESIS (SERU M) total protein: 7.3 g/dL 6.1-8. 3 Not Available [facility] (Main Location) [address] ,, [place], [address], 06/18/2023 10:42:55 06/12/20 23 06/12/2023 PROTE IN ELECT ROPHO RESIS (SERU M) albumin: 3.93 g/dL 2.80-4 .90 Not Available [facility] (Main Location) [address] ,, [place], [address], 06/18/2023 10:42:55 06/12/20 23 06/12/2023 PROTE IN ELECT ROPHO RESIS (SERU M) alpha-1: 0.31 g/dL 0.20-0 .50 Not Available [facility] (Main Location) [address] ,, [place], [address], 06/18/2023 10:42:55 06/12/20 23 06/12/2023 PROTE IN ELECT ROPHO RESIS (SERU M) alpha-2: 0.89 g/dL 0.50-1 .00 Not Available [facility] (Main Location) [address] ,, [place], [address], 06/18/2023 10:42:55 06/12/20 23 06/12/2023 PROTE IN ELECT ROPHO RESIS (SERU M) beta: 0.80 g/dL 0.50-1 .20 Not Available [facility] (Main Location) [address] ,, [place], [address], 06/18/2023 10:42:55 06/12/20 23 06/12/2023 PROTE IN ELECT ROPHO RESIS (SERU M) gamma: 1.36 g/dL 0.70-1 .50 Comme nt for PROT ELECT SERUM -SPEP Inter preta tion: Ewa l Prote in Elect ropho resis . Elect naina Zarate d by Dillon Patino can Esote [facility] Labor atori es [address] [place] [address] Labor atory Direc tor: Angeline casarez M.D. [facility]# [id number] Not Available [facility] (Main Location) [address] ,, [place], [address], 06/18/2023 10:42:55 06/12/20 23 06/12/2023 PROTE IN ELECT ROPHO RESIS , URINE total volume NOT GIVEN mL Not Available [facility] (Main Location) [address] ,, [place], [address], 06/18/2023 10:42:55 06/12/20 23 06/12/2023 PROTE IN ELECT ROPHO RESIS , URINE protein urine 18 mg/dL Not Available [facility] (Main Location) [address] ,, [place], [address], 06/18/2023 10:42:55 06/12/20 23 06/12/2023 PROTE IN [...] Location) [address] ,, [place], [address], 06/18/2023 10:42:55 06/12/20 23 06/12/2023 PROTE IN ELECT ROPHO RESIS , URINE % albumin: 24 % Not Available [facility] (Main Location) [address] ,, [place], [address], 06/18/2023 10:42:55 06/12/20 23 06/12/2023 PROTE IN ELECT ROPHO RESIS , URINE % alpha-1: 33 % Not Available [facility] (Main Location) [address] ,, [place], [address], 06/18/2023 10:42:55 06/12/20 23 06/12/2023 PROTE IN ELECT ROPHO RESIS , URINE % alpha-2: 20 % Not Available [facility] (Main Location) [address] ,, [place], [address], 06/18/2023 10:42:55 06/12/20 23 06/12/2023 PROTE IN ELECT ROPHO RESIS , URINE % beta: 14 % Not Available [facility] (Main Location) [address] ,, [place], [address], 06/18/2023 10:42:55 06/12/20 23 06/12/2023 PROTE IN ELECT ROPHO RESIS , URINE % gamma: 9 % Not Available [facility] (Main Location) [address] ,, [place], [address], 06/18/2023 10:42:55 06/12/20 23 06/12/2023 PROTE IN ELECT ROPHO RESIS , URINE interpretati on, upep: (NOTE) POSSI BLE MONOC LONAL PROTE IN IN THE GAMMA REGIO N. CONSI NIK IMMUN OTYPI NG ELECT ROPHO RESIS , SERUM OR IMMUN OTYPI NG ELECT ROPHO RESIS , URINE TO [facility] EVALU ATE, IF CLINI DAVY APPRO PRIAT E. MARIIA GODDARD M.D. UNLES S OTHER BISHOP INDIC ATED, ALL TESTI NG PERFO RMED AT [facility] [address] [place] [address] LABOR ATORY DIREC TOR: MARIIA GODDARD M.D. CLIA NUMBRaj R [id number] [place] [id number] [facility] [address] [place] [address] Medic al Direc tor: Panda field M.D. CLIA# [id number] Not Available [facility] (Main Location) [address] ,, [place], [address], 06/18/2023 10:42:55 06/12/20 23 06/12/2023 HEMOG LOBIN A1C HGBA1C 5.1 % 4.0-6. 0 Not Available [facility] (Main Location) [address] ,, [place], [address], 06/18/2023 10:43:00 06/12/20 23 06/12/2023 urina lysis , dipst ick Leukocytes Small Not Available [facility] [employer] [facility], [facility] [address], [place], [address], 06/12/2023 11:34:46 06/12/20 23 06/12/2023 urina lysis , dipst ick Nitrite negati ve Not Available [facility] [address], [place], [address], 06/12/2023 11:34:46 06/12/20 23 06/12/2023 urina lysis , dipst ick Urobilinogen .2 Not Available [facility] [address], [place], [address], 06/12/2023 11:34:46 06/12/2006/12/2023 urina lysis , dipst ick Protein 30 Not Available [facility] [address], [place], [address], 06/12/2023 11:34:46 06/12/2006/12/2023 urina lysis , dipst ick pH 5.0 Not Available [facility] [address], [place], [address], 06/12/2023 11:34:46 06/12/20 23 06/12/2023 urina lysis , dipst ick Blood Small Not Available [facility] [address], [place], [address], 06/12/2023 11:34:46 06/12/20 23 06/12/2023 urina lysis , dipst ick Specific [place] 1.030 Not Available [facility] [address], [place], [address], 06/12/2023 11:34:46 06/12/20 23 06/12/2023 urina lysis , dipst ick Ketone Modera te Not Available [facility] [address], [place], [address], 06/12/2023 11:34:46 06/12/20 23 06/12/2023 urina lysis , dipst ick Bilirubin Small Not Available [facility] [address], [place], [address], 06/12/2023 11:34:46 06/12/20 23 06/12/2023 urina lysis , dipst ick Glucose Negati ve Not Available [facility] [address], [place], [address], 06/12/2023 11:34:46 06/12/20 23 06/12/2023 urina lysis , dipst ick Appearance Cloudy Not Available [facility] [address], [place], [address], 06/12/2023 11:34:46 06/12/20 23 06/12/2023 urina lysis , dipst ick Color Yellow Not Available [facility] [address] [facility] [address], [place], [address], 06/12/2023 11:34:46 11/06/19 24 11/06/2023 urina lysis , dipst ick Leukocytes Negati ve Not Available [facility] [address] [facility] [address], [place], [address], 11/06/2023 16:20:17 11/06/19 24 11/06/2023 urina lysis , dipst ick Nitrite negati ve Not Available [facility] [address] [facility] [address], [place], [address], 11/06/2023 16:20:17 11/06/19 24 11/06/2023 urina lysis , dipst ick Urobilinogen .2 Not Available [facility] [address], [place], [address], 11/06/2023 16:20:17 11/06/19 24 11/06/2023 urina lysis , dipst ick Protein 30 Not Available [facility] [address], [place], [address], 11/06/2023 16:20:17 11/06/19 24 11/06/2023 urina lysis , dipst ick pH 5.0 Not Available [facility] [address], [place], [address], 11/06/2023 16:20:17 11/06/19 24 11/06/2023 urina lysis , dipst ick Blood Small Not Available [facility] [address], [place], [address], 11/06/2023 16:20:17 11/06/19 24 11/06/2023 urina lysis , dipst ick Specific [place] 1.025 Not Available [facility] [address], [place], [address], 11/06/2023 16:20:17 11/06/19 24 11/06/2023 urina lysis , dipst ick Ketone Negati ve Not Available [facility] [address], [place], [address], 11/06/2023 16:20:17 11/06/19 24 11/06/2023 urina lysis , dipst ick Bilirubin Negati ve Not Available [facility] [address], [place], [address], 11/06/2023 16:20:17 11/06/19 24 11/06/2023 urina lysis , dipst ick Glucose Negati ve Not Available [facility] [address], [place], [address], 11/06/2023 16:20:17 11/06/19 24 11/06/2023 urina lysis , dipst ick Appearance Cloudy Not Available [facility], [facility] [address] [facility] [address], [place], [address], 11/06/2023 16:20:17 11/06/19 24 11/06/2023 urina lysis , dipst ick Color Yellow Not Available [facility], [facility] [address] [facility] [address], [place], [address], 11/06/2023 16:20:17 11/12/19 24 11/13/2023 GLUCO SE WILMAN ANCE TEST, 3 SPECI MENS, (75G) fasting specimen 93 mg/dL 65-99 normal Not Available [address], [address], 11/13/2023 09:51:01 11/12/19 24 11/13/2023 GLUCO SE WILMAN ANCE TEST, 3 SPECI MENS, (75G) 1 hour specimen 136 mg/dL normal Not Available [address], [address], 11/13/2023 09:51:01 11/12/19 24 11/13/2023 GLUCO SE WILMAN ANCE TEST, 3 SPECI MENS, (75G) 2 hour specimen 106 mg/dL <140 normal Not Available [address], [address], 11/13/2023 09:51:01 11/12/19 24 11/13/2023 GLUCO SE [...] on a subse quent day. Not Available [address] [address] [place], [address], 11/13/2023 09:51:01 11/12/19 24 11/13/2023 COMPR EHENS KIM METAB OLIC PANEL glucose 90 mg/dL 65-99 normal Fasti ng refer ence inter lon Not Available [address], [address], 11/13/2023 09:51:03 11/12/19 24 11/13/2023 COMPR EHENS KIM METAB OLIC PANEL urea nitrogen (BUN) 15 mg/dL 7-25 normal Not Available [address], [address], 11/13/2023 09:51:03 11/12/19 24 11/13/2023 COMPR EHENS KIM METAB OLIC PANEL creatinine 1.01 mg/dL 0.50-1 .03 normal Not Available [address] [address] [place], [address], 11/13/2023 09:51:03 11/12/19 24 11/13/2023 COMPR EHENS KIM METAB OLIC PANEL eGFR 65 mL/mi n/1.7 3m2 > or = 60 normal Not Available [address], [address], 11/13/2023 09:51:03 11/12/19 24 11/13/2023 COMPR EHENS KIM METAB OLIC PANEL BUN/creatini ne ratio SEE NOTE: (calc ) 6-22 Not Repor jagdeep: BUN and Creat inine are withi n refer ence range . Not Available [facility] [address], [address], 11/13/2023 09:51:03 11/12/19 24 11/13/2023 COMPR EHENS KIM METAB OLIC PANEL sodium 140 mmol/ L 135-14 6 normal Not Available [address], [address], 11/13/2023 09:51:03 11/12/19 24 11/13/2023 COMPR EHENS KIM METAB OLIC PANEL potassium 4.1 mmol/ L 3.5-5. 3 normal Not Available [address], [address], 11/13/2023 09:51:03 11/12/19 24 11/13/2023 COMPR EHENS KIM METAB OLIC PANEL chloride 103 mmol/ L 98-110 normal Not Available [address], [address], 11/13/2023 09:51:03 11/12/19 24 11/13/2023 COMPR EHENS KIM METAB OLIC PANEL carbon dioxide 30 mmol/ L 20-32 normal Not Available [address], [address], 11/13/2023 09:51:03 11/12/19 24 11/13/2023 COMPR EHENS KIM METAB OLIC PANEL calcium 9.3 mg/dL 8.6-10 .4 normal Not Available [address], [address], 11/13/2023 09:51:03 11/12/19 24 11/13/2023 COMPR EHENS KIM METAB OLIC PANEL protein, total 6.8 g/dL 6.1-8. 1 normal Not Available [address], [address], 11/13/2023 09:51:03 11/12/19 24 11/13/2023 COMPR EHENS KIM METAB OLIC PANEL albumin 4.0 g/dL 3.6-5. 1 normal Not Available [address], [address], 11/13/2023 09:51:03 11/12/19 24 11/13/2023 COMPR EHENS KIM METAB OLIC PANEL globulin 2.8 g/dL_ (calc ) 1.9-3. 7 normal Not Available [address], [address], 11/13/2023 09:51:03 11/12/19 24 11/13/2023 COMPR EHENS KIM METAB OLIC PANEL albumin/glob ulin ratio 1.4 (calc ) 1.0-2. 5 normal Not Available [address], [address], 11/13/2023 09:51:03 11/12/19 24 11/13/2023 COMPR EHENS KIM METAB OLIC PANEL bilirubin, total 0.7 mg/dL 0.2-1. 2 normal Not Available [address], [address], 11/13/2023 09:51:03 11/12/19 24 11/13/2023 COMPR EHENS KIM METAB OLIC PANEL alkaline phosphatase 209 U/L 37-153 high Not Available [address], [address], 11/13/2023 09:51:03 11/12/19 24 11/13/2023 COMPR EHENS KIM METAB OLIC PANEL AST 22 U/L 10-35 normal Not Available [address], [address], 11/13/2023 09:51:03 11/12/19 24 11/13/2023 COMPR EHENS KIM METAB OLIC PANEL ALT 23 U/L 6-29 normal Not Available [address], [address], 11/13/2023 09:51:03 11/12/19 24 11/13/2023 CBC (INCL UDES DIFF/ PLT) white blood cell count 7.4 thous and/u L 3.8-10 .8 normal Not Available [address], [address], 11/13/2023 09:51:04 11/12/19 24 11/13/2023 CBC (INCL UDES DIFF/ PLT) red blood cell count 3.98 es on/uL 3.80-5 .10 normal Not Available [address], [address], 11/13/2023 09:51:04 11/12/19 24 11/13/2023 CBC (INCL UDES DIFF/ PLT) hemoglobin 12.8 g/dL 11.7-1 5.5 normal Not Available [address], [address], 11/13/2023 09:51:04 11/12/19 24 11/13/2023 CBC (INCL UDES DIFF/ PLT) hematocrit 38.9 % 35.0-4 5.0 normal Not Available [address], [address], 11/13/2023 09:51:04 11/12/19 24 11/13/2023 CBC (INCL UDES DIFF/ PLT) MCV 97.7 fL 80.0-1 00.0 normal Not Available [facility] [address], [address], 11/13/2023 09:51:04 11/12/19 24 11/13/2023 CBC (INCL UDES DIFF/ PLT) MCH 32.2 pg 27.0-3 3.0 normal Not Available [facility] [address], [address], 11/13/2023 09:51:04 02/07/20 24 11/13/2023 CBC (INCL UDES DIFF/ PLT) MCHC 32.9 g/dL 32.0-3 6.0 normal Not Available [address], [address], 11/13/2023 09:51:04 11/12/19 24 11/13/2023 CBC (INCL UDES DIFF/ PLT) RDW 14.9 % 11.0-1 5.0 normal Not Available [address], [address], 11/13/2023 09:51:04 11/12/19 24 11/13/2023 CBC (INCL UDES DIFF/ PLT) platelet count 240 thous and/u L 140-40 0 normal Not Available [address], [address], 11/13/2023 09:51:04 11/12/19 24 11/13/2023 CBC (INCL UDES DIFF/ PLT) MPV 11.4 fL 7.5-12 .5 normal Not Available [address], [address], 11/13/2023 09:51:04 11/12/19 24 11/13/2023 CBC (INCL UDES DIFF/ PLT) absolute neutrophils 4684 cells /uL 1500-7 800 normal Not Available [address], [address], 11/13/2023 09:51:04 11/12/19 24 11/13/2023 CBC (INCL UDES DIFF/ PLT) absolute lymphocytes 2057 cells /uL 850-39 00 normal Not Available [address], [address], 11/13/2023 09:51:04 11/12/19 24 11/13/2023 CBC (INCL UDES DIFF/ PLT) absolute monocytes 444 cells /uL 200-95 0 normal Not Available [facility] [address], [address], 11/13/2023 09:51:04 11/12/19 24 11/13/2023 CBC (INCL UDES DIFF/ PLT) absolute eosinophils 163 cells /uL 15-500 normal Not Available [facility] [address], [address], 11/13/2023 09:51:04 11/12/19 24 11/13/2023 CBC (INCL UDES DIFF/ PLT) absolute basophils 52 cells /uL 0-200 normal Not Available [facility] [address], [address], 11/13/2023 09:51:04 11/12/19 24 11/13/2023 CBC (INCL UDES DIFF/ PLT) neutrophils 63.3 % normal Not Available [facility] [address], [address], 11/13/2023 09:51:04 11/12/19 24 11/13/2023 CBC (INCL UDES DIFF/ PLT) lymphocytes 27.8 % normal Not Available [facility] [address], [address], 11/13/2023 09:51:04 11/12/19 24 11/13/2023 CBC (INCL UDES DIFF/ PLT) monocytes 6.0 % normal Not Available [facility] [address], [address], 11/13/2023 09:51:04 11/12/19 24 11/13/2023 CBC (INCL UDES DIFF/ PLT) eosinophils 2.2 % normal Not Available [facility] [address], [address], 11/13/2023 09:51:04 11/12/19 24 11/13/2023 CBC (INCL UDES DIFF/ PLT) basophils 0.7 % normal Not Available [facility] [address] [place], [address], 11/13/2023 09:51:04 06/12/20 23 06/12/2023 elect rocar diogr am No observ ation record ed. [facility] [address], [place], [address], 09/03/2023 16:24:17 06/12/20 23 06/12/2023 elect rocar diogr am No observ ation record ed. [facility] [address], [place], [address], 09/03/2023 16:24:17 11/06/19 24 11/06/2023 US, echoc ardio gram No observ ation record ed. [facility] [address], [place], [address], 12/17/2023 14:47:05 12/31/19 24 12/17/2023 US, echoc ardio gram No observ ation record ed. [email or web address] [facility] [address], [place], [address], 02/01/2025 16:49:13 01/12/20 24 12/17/2023 US, echoc ardio gram No observ ation record ed. JIMI [facility] [address], [place], [address], 01/23/2024 10:21:19 01/21/20 25 01/20/2025 MRI, lumba r spine , w/o contr ast No observ ation record ed. [email or web address] [address], [place], [address], 01/21/2025 08:37:32 02/19/20 25 02/18/2025 XR, forea rm No observ ation record ed. [facility] [address], [place], [address], 02/18/2025 09:20:23 02/19/20 25 02/18/2025 CT, head + brain , w/o contr ast No observ ation record ed. [facility] [address], [place], [address], 02/18/2025 11:04:59 Result Notes None recorded. Problems Name Problem SNOMED Code Status Onset Date Resolution Date Notes Provider Name and Address Organization Details Recorded Time Esslakia l hyperten emely 81982787 Completed 201507/25/2020 Rhianna Cochran MD [address] [place] [address] [address], [place], [address] , [facility] 0 16:51:14 Overweig ht 414953425 Active 2015 Not Available [facility] 3 08:58:10 History of laparosc opic adjustab le gastric banding 098596866 Active 2015 Not Available [facility] 3 08:58:10 Family history of cancer of colon 122475587 Active 2016 mother Not Available [facility] 3 08:58:10 Waylon casarez 651950970 Active 2017 Not Available [facility] 3 08:58:10 Reactive depressi on (situati onal) 68137064 Active 2017 Not Available [facility] 3 08:58:10 Insomnia 666253913 Active 2017 Not Available [facility] 3 08:58:10 Tattoo of skin 12008710714 2 Active 2017 Not Available [facility] 3 08:58:10 Benign hyperten emely 89916907 Active 2018 Not Available [facility] 3 08:58:10 Mixed anxiety and depressi ve disorder 359158978 Active 2019 Not Available [facility] 3 08:58:10 Body mass index 40+ - severely obese 030601045 Active 2019 Not Available [facility] 3 08:58:10 Urgent desire to urinate 73231397 Active 2019 Not Available [facility] 3 08:58:10 Noncompl iance with medicati on regimen 768119042 Active 2019 Not Available [facility] 3 08:58:10 Microsco pic hematuri a 835824466 Active 2019 Not Available [facility] 3 08:58:10 Neck pain 18702981 Active 2019 Not Available [facility] 3 08:58:10 Allergic rhinitis caused by pollen 82195295 Active 2021 Not Available [facility] 3 08:58:10 Hypokale yina 60107941 Active 2021 Not Available [facility] 3 08:58:10 Macrocyt osis 839788742 Active 2021 Not Available [facility] 3 08:58:10 Serum total protein outside referenc e range 342289208 Active 2021 Not Available [facility] 3 08:58:10 Mammogra phy abnormal 441107862 Active 2021 Not Available [facility] 3 08:58:10 Persiste nt insomnia 675876259 Active 2022 Not Available [facility] 3 08:58:10 Cardiome mara 9731395 Active 2022 Not Available [facility] 3 08:58:10 Low back pain 586978687 Active 2022 Not Available [facility] 3 08:58:10 Snoring 15015858 Active 2023 MD [address], [place], [address] , [facility] 4 16:23:47 Problem Notes None recorded. Procedures Surgical History Date Name Laterality Status Provider Name and Address Organization Details Recorded Time 03/17/20 23 Colonoscopy completed MD [address], [place], [address], [facility] 03/17/2023 15:13:41 01/05/20 17 Date of Last Pap Smear completed Benita Jacobo [facility] 04/23/2018 12:12:22 Cholecystectomy completed Rhianna Cochran MD [address], [place], [address], [facility] 08/24/2018 17:42:46 delivery completed Cara Dastephan [facility] 07/04/2016 08:37:01 Partial Hysterectomy completed Rhianna Cochran MD [address], [place], [address], [facility] 07/04/2016 12:49:24 Breast Surgery completed Rhianna Cochran MD [address], [place], [address], [facility] 07/04/2016 12:49:51 Carpal tunnel surgery completed Rhianna Cochran MD [address], [place], [address], [facility] 07/04/2016 12:50:38 Imaging Results None recorded. Procedure Notes None recorded. Medical Equipment None Reported. Allergies Allergen ID Allergen Name Allergen Category Reaction Reaction Severity Criticality Documentation Date Start Date Code Code System Note Provider Name and Address Organization Details Recorded Time 33642 sulfameth oxazole / trimethop rim medicatio n angioedem a Not available high 01/21/20252022 37384 RxNorm Not Available jimi - External Data Service - prod 5 08:09:19 7626 lisinopri l medicatio n cough Not available Not available 09/01/2018 17748 RxNorm Rhianna Cochran MD [address], [place], [address], [facility] 8 12:15:04 7961 Bactrim medicatio n angioedem a moderate Not available 01/06/2019 94098 9 RxNorm NAY LOZANO APN [address], [place], [address], [facility] 9 15:09:42 Medications Name Sig Start Date [...] completed Not Available Not Available Not Available albuterol sulfate 2.5 mg/3 mL (0.083 %) solution for nebulizatio n USE 1 VIAL VIA NEBULIZER EVERY 4 TO 6 HOURS NEEDED active Not Available Not Available No t Available trazodone 50 mg tablet Take 1 [...] No t Available fluconazole 150 mg tablet active Not Available Not Available Not Available benzonatate 200 mg capsule TAKE 1 CAPSULE BY MOUTH THREE TIMES DAILY NEEDED active Not Available Not Available No t Available amoxicillin 250 mg-shaylee amos clavulanate 62.5 mg/5 mL oral suspension SHAKE [...] completed Not Available Not Available Not Available prednisone 20 mg tablet TAKE 2 TABLETS BY MOUTH DAILY FOR 5 DAYS active Not Available Not Available No t Available felodipine ER 5 mg tablet,exte nded [...] Not Available Not Available aspirin 81 mg tablet,lesi yed release Take 1 tablet(s) every day by oral route. active Not Available Not Available No t Available tramadol 50 mg tablet Take 1 tablet every 8 hours by oral route as needed. 11/10 completed Not Available Not Available Not Available acetaminoph en 500 mg tablet TAKE 1 TABLET BY MOUTH EVERY 8 HOURS active Not Available Not Available No t Available ketorolac 30 mg/mL (1 mL) injection solution Inject 1 mL every 6 hours by intramusc ular route. 09/07 completed Not Available Not Available Not Available oxycodone 15 mg tablet TAKE 1 TABLET BY MOUTH THREE TIMES DAILY active Not Available Not Available [...] min (vit B-12) 1,000 mcg/mL injection solution ADMINISTE R 1 ML IN THE MUSCLE EVERY WEEK active Not Available [...] 25 mg tablet,exte nded release 24 hr TAKE 1 TABLET BY MOUTH EVERY DAY IN THE MORNING 2024 active Not Available Not Available Not Avai lable ibuprofen 600 mg tablet 12/31 completed Not [...] mg tablet TAKE 1 TABLET BY MOUTH DAILY AT BEDTIME FOR 3 DAYS active Not [...] propionate 50 mcg/actuati on nasal spray,suspe nsion [place] 1 spray every day by intranasa l route. active Not Available Not Available No t Available sertraline 50 mg tablet Take 1 tablet every day by oral route at bedtime. 01/19 completed Not Available Not Available Not Available doxycycline hyclate 100 mg tablet TAKE 1 TABLET BY MOUTH TWICE DAILY active Not Available Not Available No t Available doxazosin 2 mg tablet TAKE 1 [...] completed Not Available Not Available Not Available neomycin 3.5 mg/g-polymy monika B 10,000 unit/g-dexa meth 0.1 % eye oint active Not Available Not Available Not Available bupropion [...] Available Not Available doxepin 3 mg tablet active Not Available Not Available No t Available doxepin 6 mg tablet TAKE 1 TABLET BY MOUTH EVERY DAY AT BEDTIME 12/16 completed Not Available Not Available Not Available sodium,pota ssium,mag sulfates 17.5 gram-3.13 gram-1.6 gram oral soln MIX AND DRINK DIRECTED 06/12 completed Not Available Not Available Not Available Vios Aerosol Delivery System USE DIRECTED active Not Available Not Available No t Available Belsomra 15 mg tablet active Not [...] Not Available Not Available Vitals Date Recorded Systolic blood pressure Diastolic blood pressure Provider Name and Address Organization Details Last Updated DateTime 10/20/2023 160 mm[Hg] 86 mm[Hg] Rhianna Cochran MD [address], [place], [address] 10/20/2023 17:55:59 Date Recorded Body height Respiratory rate Body mass index (BMI) Body weight Body temperature Heart rate Provider Name and Address Organization Details Last Updated DateTime 4 160.02 cm 16 /min 45.3 kg/m2 353164. 65 g 98.1 [degF] 82 /min Hope Pascual [facility] 17:42:50 Date Recorded Body height Body mass index (BMI) Body weight Body temperature Respiratory rate Heart rate Systolic blood pressure Diastolic blood pressure Provider Name and Address Organization Details Last Updated DateTime 4 160.02 cm 46.4 kg/m2 187511. 2 g 98.2 [degF] 16 /min 74 /min 191 mm[Hg] 93 mm[Hg] Hope Pascual [facility] 15:44:39 Date Recorded Systolic blood pressure Diastolic blood pressure Provider Name and Address Organization Details Last Updated DateTime 12/17/2023 124 mm[Hg] 80 mm[Hg] Rhianna Cochran MD [address], [place], [address], [facility] 12/17/2023 14:47:04 Date Recorded Body height Body temperature Respiratory rate Body mass index (BMI) Body weight Heart rate Provider Name and Address Organization Details Last Updated DateTime 4 160.02 cm 97.8 [degF] 16 /min 43.9 kg/m2 765057. 91 g 66 /min Hope Hinojosaaly [facility] 4 14:19:04 Date Recorded Body height Body mass index (BMI) Body weight Body temperature Respiratory rate Heart rate Systolic blood pressure Diastolic blood pressure Provider Name and Address Organization Details Last Updated DateTime 3 160.02 cm 43.8 kg/m2 059520. 32 g 98.2 [degF] 18 /min 93 /min 168 mm[Hg] 84 mm[Hg] Hope Ankur [facility] 3 10:44:55 Date Recorded Systolic blood pressure Diastolic blood pressure Provider Name and Address Organization Details Last Updated DateTime 09/03/2023 142 mm[Hg] 78 mm[Hg] Rhianna Cochran MD [address] [facility] [address], [place], [address], [facility] 09/03/2023 16:23:39 Date Recorded Body height Provider Name an d Address Organization Details Last Updated DateTime 09/03/2023 160.02 cm Hope Ankur [facility] 09/03/2023 16:01:51 Social History Question Answer Notes LastModified by Organizat ion Details LastModified Time Tobacco Smoking Status Never Smoker Cara garcia, [facility] 07/04/2016 08:36:46 Do You Have An Advance Directive? 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 No Information n ot available 11/10/2020 In The 14 Days Before Symptom Onset, Have You Had Close Contact With A Person Who Is Under Investigation For COVID-19 While That Person Was Ill? No Information not available 11/10/2020 Have You Been To An Area Known To Be High Risk For COVID-19? No Information not available 11/10/2020 Which Illicit Or Recreational Drugs Have You [...] Is Active? No Information not available 11/10/2020 Are There Any Guns Present In Your Home? No Information not available 11/10/2020 High Number Of Sexual Partners No Information not available 11/10/2020 History Of Inconsistent/no Condom Use No Information not available 11/10/2020 Live Alone Or With Others? With Others Information not available 07/04/2016 Marital Status Informatio n not available 07/04/2016 What Was [...] Functional Status Question Answer Note LastModified by Organizat ion Details LastModified Time What is your level of alcohol consumption? Occasional Information not available 07/04/2016 Are you currently employed? Yes Information not available 07/04/2016 Are you able to care for yourself? Yes Information not available 07/04/2016 What is your occupation? [employer] Information not available 07/04/2016 Mental Status None recorded. Family History Relationship Description Onset Age of this Age Resolved Age Notes LastModified by Organization Details LastModified Time Mother Essential hypertension Not available 08:37:17 Mother Malignant tumor of colon 74 [email or web address] Not available 2016 16:01:13 Sister Essential hypertension [email or web address] Not available 08:37:17 Medical History Condition Response [...] cancelled patient objection Rhianna Cochran MD [address], [place], [address], [facility] 01/20/2020 11:51:51 Influenza, MDCK, quadrivalent, PF 01/20/20 20 cancelled patient objection Rhianna Cochran MD [address], [place], [address], [facility] 01/20/2020 11:51:51 Tdap 01/20/20 20 cancelled patient objection Rhianna Cochran MD [address], [place], [address], [facility] 01/20/2020 11:51:51 Past Encounters Encounter ID Performer Location Encounter Start Date Encounter Closed Date Diagnosis/Indication Diagnosis SNOMED-CT Code Diagnosis ICD10 Code Diagnosis Note [id number] Rhianna Cochran MD [employer], [facility] [address] [place] [address] 07/04/2016 12:38:35 07/04/2016 13:12:18 Renewal of prescription 856928983 Z76.0 Essential hypertension 87783792 I10 Overweight 710704500 E66 .3 Fatigue 93641588 R53.83 Screening for malignant neoplasm of cervix 703357983 Z12.4 Screening mammography 24 825468 Z12.31 Nausea 603800615 R11.0 Incontinence of feces 72 903537 R15.9 Active or passive immunization 159227613 Z23 pt stat she is having @ work next week Thyroid nodule 526490899 E04.1 Tattoo of skin 078037954 1 02 L81.8 [id number] Rhianna Cohcran MD [employer] [facility], [facility] [address] [place] [address] 08/02/2016 09:51:12 08/02/2016 10:53:05 Low blood pressure 94333245 I95.9 will send to ER for eval and poss IV fluids ,will get records from [facility] iratory infection 98582312 J06.9 ER eval Tachypnea 256383259 R06. 82 [id number] Rhianna Cochran MD [employer] [facility], [facility] [address] [place] [address] 08/12/2016 14:13:42 08/12/2016 14:43:40 Benign hypertension 09054951 I10 off all BP meds after ER visit for hypotensio n , Cr is back to [place], having stress test next week ,dash diet , BP 3 weeks Overweight 007845208 E66 .3 [id number] Veronica Cedillo, ANP-BC [employer] [facility], [facility] [address] [place] [address] 12/25/2016 13:22:34 12/25/2016 14:44:08 Reactive depression (situational) 62477064 F32.9 Family his tory of cancer of colon 870151165 Z80.0 Insomnia 744589899 G47.0 0 [id number] Rhianna Cochran MD [employer] [facility], [facility] [address] [place] [address] 08/05/2017 15:40:19 08/05/2017 16:25:53 Essential hypertension 74824792 I10 restart norvasc , BP 2 weeks Reactive d epression (situational) 13293759 F32.9 4 weeks off work History of laparoscopic adjustable gastric banding 962898433 Z98.84 Overweight 089682816 E66 .3 Family his tory of cancer of colon 632913508 Z80.0 Screening mammography 24 077283 Z12.31 Screening for malignant neoplasm of cervix 169740529 Z12.4 last Active or passive immunization 877076489 Z23 Thyroid nodule 846793813 E04.1 Tattoo of skin 265433789 1 02 L81.8 [id number] NAY LOZANO APN [employer] [facility], [facility] [address] [place] [address] 12/31/2017 12:15:34 12/31/2017 13:13:23 Essential hypertension 78027343 I10 Reactive d epression (situational) 50779557 F32.9 recent loss of --- from CHFwellbut rin not helping with symptoms - underlying anxiety with exacerbate d symptoms of depression - will titrate off wellbutrin and start zoloftenco uraged to increase frequency of counseling from 1 x per month during this time History of laparoscopic adjustable gastric banding 021038433 Z98.84 reports obtaining injections by self with Rx from surgeon Dr. Zulema Marcus Overweight 079850301 E66 .3 Family his tory of cancer of colon 168237263 Z80.0 Screening mammography 24 151778 Z12.31 Screening for malignant neoplasm of cervix 282956347 Z12.4 Active or passive immunization 457924430 Z23 declines flu and Tdap vaccinatio n Thyroid nodule 805787285 E04.1 Tattoo of skin 950912734 1 02 L81.8 Insomnia 271883913 G47.0 0 [id number] Rhianna Cochran MD [employer], [facility] [address] [place] [address] 02/04/2018 14:32:31 02/04/2018 15:18:28 Mixed anxiety and depressive disorder 454730677 F41.8 Essential hypertension 72693524 I10 fair control History of laparoscopic adjustable gastric banding 250879770 Z98.84 F/U with surg Family his tory of cancer of colon 984875589 Z80.0 Screening mammography 24 371328 Z12.31 Screening for malignant neoplasm of cervix 434298210 Z12.4 last Acanthosis nigricans 402 545884 L83 Cholesterol screening 27 4268015 Z13.220 [id number] Rhianna Cochran MD [employer] [address] [place] [address] 02/27/2018 11:07:38 02/27/2018 11:49:07 Insomnia 812285628 G47.00 Low back pain 838833495 M54.5 Acanthosis nigricans 402 776833 L83 [id number] NAY LOZANO APN [employer] [facility] [address] [place] [address] 04/23/2018 12:04:47 04/23/2018 13:14:51 Follow-up visit 456404719 Z09 Colitis 66758943 K52.[address] Nava -will be scheduling in next couple weeks for colonoscop ystools much improved --- reports 3 soft stools per daydenies BRBPR/abd pain/nause a/vomiting tolerating bland diet -- keeping food downsympto ms resolving Salmonella infection 302 057073 A02.9 2 days left of Bactrim - Acute jasiel l impairment 088184118 N28.9 drink 64 fluid ounces of water----- daily to maintain hydration Mass of pancreas 1210848 00 K86.89 MRI scheduled for Friday for follow up on abnormal CT abd/ pelvis1.3c m pancreatic tail mass Essential hypertension 88410598 I10 Bp meds were resumed at discharge - will follow up on labs [id number] Rhianna Cochran MD [employer] [address] [place] [address] 05/07/2018 14:50:29 05/07/2018 15:17:58 Adult health examination 047701047 Z00.01 Colitis 87441220 K52.9 better Acute jasiel l impairment 510829896 N28.9 2.5 @ hosp Gallstone 120004634 K80. 20 History of laparoscopic adjustable gastric banding 415553320 Z98.84 F/U with surg Overweight 331063855 E66 .3 education Essential hypertension 35500741 I10 fair controllas t optometry eval 04/2018 Reactive d epression (situational) 54717679 F32.9 4 weeks off work Insomnia 905893461 G47.0 0 Tattoo of skin 871988483 1 02 L81.8 Screening mammography 24 013306 Z12.31 Screening for malignant neoplasm of cervix 900593814 Z12.4 last Screening for malignant neoplasm of colon 143319290 Z12.11 Thyroid nodule 999078418 E04.1 Active or passive immunization 132024215 Z23 [id number] Rhianna Cochran MD [facility] [address] [place] [address] 06/01/2018 14:19:15 06/01/2018 15:21:28 Hypokalemia 42152894 E87.6 Serum crea tinine above reference range 318926468 R79.89 Leukocytosis 336177433 D 72.829 Essential hypertension 27940917 I10 increase norvasc to 5 mg QAM , BP 2 weeks //last optometry eval 04/2018 Body mass index 40+ - severely obese 281675670 Z68.42 education Hemorrhoids 61673059 K64 .9 Screening for malignant neoplasm of colon 940170242 Z12.11 Screening for malignant neoplasm of cervix 631329153 Z12.4 last Screening mammography 24 420764 Z12.31 Active or passive immunization 478869662 Z23 Eruption 275367861 R21 [id number] NAY LOZANO APN [employer], [facility] [address] [place] [address] 08/18/2018 11:04:32 08/18/2018 12:15:41 Follow-up visit 232324083 Z09 s/p choley with follow up ERCP for CBD stone -Dr. PaiDr. Dionicio duongn and joyce mera orco PRNsymptom s improvingP atient advised to call back if symptoms do not improve or worsen. Patient agrees with below plan. Leukocytosis 913981301 D 72.829 Acute cholecystitis 6527 5009 K81.0 recheck levels Essential hypertension 39733470 I10 has not taken BP meds this amBO check in one - two weeks - Hyperlipid emia screening 316363697 Z13.220 Diarrhea 60530665 R19.7 [id number] Rhianna Cochran MD [employer], [facility] [address] [place] [address] 08/24/2018 16:51:28 08/24/2018 17:49:45 Upper abdominal pain 39208069 R10.10 Low back pain 970491832 M54.5 History of cholecystectomy 215785187 Z90.49 one of the incension ?? infection , will start clinda [id number] Rhianna Cochran MD [facility] [address] [place] [address] 10/20/2018 12:54:00 10/20/2018 13:32:30 Benign hypertension 91610359 I10 increase losartan to 50/12.5 QAM , BP 3 weeks Goiter 1315143 E04.9 Edema of l ower extremity 909842379 R60.0 Snoring 69913786 R06.83 Persistent insomnia 1919 09652 G47.09 Screening mammography 24 052766 Z12.31 Screening for malignant neoplasm of cervix 890771874 Z12.4 last Screening for malignant neoplasm of colon 162827374 Z12.11 Active or passive immunization 795011493 Z23 refuse any shots [id number] NAY LOZANO APN [employer] [facility], [facility] [address] [place] [address] 11/23/2018 11:43:03 11/23/2018 12:13:21 Essential hypertension 36649667 I10 compliant with all medication s - took them this ampt reports having stress test [address] Martinez i need noteecho scheduled 12/10/18chan ging losartan/h ctz to valsartan --- if symptoms do not improve of worsen, call the office - follow up in one week Headache 36970026 R51 occipital = AYALA x 2 daysshould er tightnessd enies n/v, vision abnormalit ies [id number] NAY LOZANO [employer] [facility], [facility] [address] [facility] [address] [place] [address] 11/30/2018 11:48:37 11/30/2018 12:41:58 Essential hypertension 79113222 I10 compliant with all medication s - took them this ampt reports having stress test [address] Martinez i need noteecho scheduled 12/10/18stab le BP with med change last week Headache 81118026 R51 occipital = AYALA since last weekoccurs usually in am - and subsides for rest of day -denies n/v, vision abnormalit ies Daytime somnolence 15743 87948 00 R40.0 with insomnia - only obtains 4 hours of sleep per night Mixed anxi ety and depressive disorder 514938998 F41.8 recent family member loss -denies SI or HI Insomnia 550809999 G47.0 0 trazadone doesn't work -aleve PM - doesn't work rx belsomra - [place] Microscopic hematuria 19 6762831 R31.21 Dysuria 19335392 R30.0 [id number] NAY LOZANO APN [employer], [facility] [address] [place] [address] 01/06/2019 14:32:05 01/06/2019 15:43:56 Acute urinary tract infection 363159405 N39.0 fluoroquin olones assoc. with tendinitis /tendon rupture. Microscopic hematuria 19 2437947 R31.21 Low back pain 764100477 M54.5 holding NSAIDS and tylenol due to previous renal and liver studiestra madol as needed Proteinuria 11723260 R80 .9 Benign hypertension 1072 5009 I10 pt reports being compliant with medication -pt is being seen today for low back pain -bp check 2 weeks at next appt date 01/19 Alkaline p hosphatase above reference range 387351337 R74.8 Macrocytosis 469161382 D 75.89 08/18/18 Hyperlipid emia screening 961554203 Z13.220 LDL 40-- 08/18/18 Cholelithi asis without obstruction 25788713 K80.20 cholangiog dianna - 08/13/18 - partial obstructio n -spoke to pt regarding resultsshe has not seen GI -- encouraged [id number] Rhianna Cochran MD [facility], [facility] [address] [place] [address] 01/19/2019 12:21:39 01/19/2019 13:53:16 Low back pain 190447948 M54.5 holding NSAIDS and tylenol due to previous renal and liver studiestra madol as needed Acute urin beata tract infection 125275090 N39.0 fluoroquin olones assoc. with tendinitis /tendon rupture. Microscopic hematuria 19 6334023 R31.21 Proteinuria 32978877 R80 .9 SPEP , UPEP -ve Benign hypertension 1072 5009 I10 pt reports being compliant with medication -pt is being seen today for low back pain -bp check 2 weeks at next appt date 01/19 Alkaline p hosphatase above reference range 406822182 R74.8 seeing GI tomorrow Cholelithi asis without obstruction 11222644 K80.20 cholangiog dianna - 08/13/18 - partial obstructio n -spoke to pt regarding resultsshe has not seen GI -- encouraged Macrocytosis 413488119 D 75.89 08/18/18 Hyperlipid emia screening 623741404 Z13.220 LDL 40-- 08/18/18 Screening mammography 24 071602 Z12.31 Screening for malignant neoplasm of cervix 464117684 Z12.4 last Reactive d epression (situational) 58652133 F32.9 4 weeks off work [id number] NAY LOZANO APN [facility] [address] [place] [address] 02/23/2019 12:52:56 02/23/2019 13:46:50 Dysuria 07704602 R30.0 completed macrobid last month - UC -does not feel infection cleared up Benign hypertension 1072 5009 I10 Mixed anxi ety and depressive disorder 758847049 F41.8 recent family member loss -denies SI or HIwellbutr in not helping with symptoms Cholelithi asis without obstruction 77235608 K80.20 cholangiog dianna - 08/13/18 - partial obstructio n -elevated LFT spoke to pt regarding resultsshe has not seen GI -- encouraged Acute urin beata tract infection 409796292 N39.0 [id number] NAY LOZANO APN [facility] [address] [place] [address] 03/19/2019 12:16:30 03/19/2019 13:13:13 Acute urinary tract infection 169038287 N39.0 stopped macrobid last month - felt fever and chills thought it was related to abx Benign hypertension 1072 5009 I10 states valsartan 320 is too large - Mixed anxi ety and depressive disorder 232329074 F41.8 recent family member loss -denies SI or HIwellbutr in not helping with symptoms - stoppedins urance didn't cover lexapro Cholelithi asis without obstruction 25567799 K80.20 cholangiog dianna - 08/13/18 - partial obstructio n -elevated LFT spoke to pt regarding resultshad GI follow up 01/10/19 [id number] Rhianna Cochran MD [employer] [address] [place] [address] 01/20/2020 11:25:55 01/20/2020 11:57:06 Benign hypertension 15944460 I10 pt reports being compliant with medication bp check 2 weeksper pt had optometry 2018 Tattoo of skin 623032612 1 02 L81.8 History of laparoscopic adjustable gastric banding 270112163 Z98.84 F/U with surg Gallstone 356142329 K80. 20 asymptomat ic Dysuria 59269871 R30.0 Mixed anxi ety and depressive disorder 697594981 F41.8 Screening mammography 24 903333 Z12.31 Screening for malignant neoplasm of cervix 435443286 Z12.4 last PAP 11/2019 Screening for malignant neoplasm of colon 271403015 Z12.11 Active or passive immunization 860757741 Z23 refuse any shots Eruption 143737431 R21 [id number] Rhianna Cochran MD [employer], [facility] [address] [place] [address] 07/25/2020 16:39:27 07/25/2020 17:16:50 Adult health examination 675552540 Z00.01 Benign hypertension 1072 5009 I10 pt reports not taking her amlodipine bp check 2 weeksper pt had optometry 2019 History of laparoscopic adjustable gastric banding 925733117 Z98.84 F/U with surg Mixed anxi ety and depressive disorder 528301325 F41.8 no SI ,No HI Insomnia 874038722 G47.0 0 Tattoo of skin 969378954 1 02 L81.8 Family his tory of cancer of colon 669527437 Z80.0 Body mass index 40+ - severely obese 725754980 Z68.42 education Neck pain 81446201 M54.2 Noncomplia nce with medication regimen 773749355 Z91.14 education Screening mammography 24 569856 Z12.31 Screening for malignant neoplasm of cervix 402903730 Z12.4 last PAP 11/2019 Screening for malignant neoplasm of colon 265881850 Z12.11 Active or passive immunization 018150492 Z23 refuse any shots COVID-19 616490664 U07.1 resolved , [place] to go back to work Urgent edgar igor to urinate 72624188 R39.15 [id number] Rhianna Cochran MD [employer], [facility] [address] [place] [address] 08/30/2020 18:54:35 08/30/2020 19:16:47 Neck pain 30955384 M54.2 rtc 1 week if not gone Benign hypertension 1072 5009 I10 bp check 2 weeksper pt had optometry 2019pls do labs from last visit Mixed anxi ety and depressive disorder 059969613 F41.8 no SI ,No HI Active or passive immunization 372290102 Z23 refuse any shots [id number] Rhianna Cochran MD [employer] [facility], [facility] [address] [place] [address] 11/10/2020 11:49:56 11/10/2020 12:36:02 Benign hypertension 89052710 I10 bp check 2 weeksper pt had optometry 2019pls do labs from last visitadd hydralazin e , BP 2 weeks Body mass index 40+ - severely obese 396372377 Z68.42 education Neck pain 81441655 M54.2 rtc 1 week if not gone Mixed anxi ety and depressive disorder 704220555 F41.8 no SI ,No HIlast TSH 09/06/20 Screening mammography 24 033946 Z12.31 Screening for malignant neoplasm of cervix 220578838 Z12.4 last PAP 11/2019 Screening for malignant neoplasm of colon 633837722 Z12.11 Active or passive immunization 268715111 Z23 refuse any shots Cholesterol screening 27 3012455 Z13.220 History of laparoscopic adjustable gastric banding 118985702 Z98.84 F/U with surg [id number] Rhianna Cochran MD [employer] [address] [place] [address] 12/12/2021 11:59:38 12/12/2021 12:48:53 Adult health examination 433346984 Z00.01 Benign hypertension 1072 5009 I10 bp check 2 weeksper pt had optometry 2019pls do labs from last visitresta rt valsartan Body mass index 40+ - severely obese 314412555 Z68.42 educations eeing weight management Sharonda sleeve Family his tory of cancer of colon 520417313 Z80.0 Gallstone 608419831 K80. 20 asymptomat ic History of laparoscopic adjustable gastric banding 784135282 Z98.84 F/U with surg Insomnia 057815599 G47.0 0 better Microscopic hematuria 19 5340435 R31.21 Mixed anxi ety and depressive disorder 841756794 F41.8 no SI ,No HIlast TSH 09/06/20 Noncomplia nce with medication regimen 591879101 Z91.14 education Tattoo of skin 868425196 1 02 L81.8 Neck pain 04243641 M54.2 Pain of le ft shoulder joint 4875515570 9047056 M25.512 Allergic r hinitis caused by pollen 23303123 J30.1 Screening mammography 24 767884 Z12.31 Screening for malignant neoplasm of cervix 412584751 Z12.4 last PAP 11/2019 Screening for malignant neoplasm of colon 935479432 Z12.11 Active or passive immunization 353855327 Z23 refuse any shots Localized eruption of skin 933116609 R21 [id number] Rhianna Cochran MD [facility] [address] [place] [address] 01/28/2022 15:01:25 01/28/2022 15:57:15 Benign hypertension 69483100 I10 add metoprolol 25 QAMbp check 2 weeksper pt had optometry 2019pls do labs from last visit Body mass index 40+ - severely obese 405316567 Z68.42 educations eeing weight management Drwants to check sleeve Microscopic hematuria 19 8683612 R31.21 Neck pain 18666506 M54.2 had X ray and PT Pain of le ft shoulder joint 0750985293 5381494 M25.512 Serum tota l protein outside reference range 400488659 R79.89 Macrocytosis 963384510 D 75.89 Screening mammography 24 787224 Z12.31 last mammogram 12/28/21 Screening for malignant neoplasm of cervix 594587609 Z12.4 last PAP 11/2019 Screening for malignant neoplasm of colon 640649835 Z12.11 Active or passive immunization 351569854 Z23 refuse any shots [id number] Rhianna Cochran MD [facility] [address] [place] [address] 06/17/2022 09:42:05 06/17/2022 10:27:03 Benign hypertension 89220415 I10 bp check 2 weeksper pt had optometry 2019increa se valsartan Body mass index 40+ - severely obese 923418435 Z68.42 educations eeing weight management Drwants to check sleeve Localized eruption of skin 404511987 R21 Mammography abnormal 168 831244 R92.8 Microscopic hematuria 19 2174940 R31.21 Mixed anxi ety and depressive disorder 104007024 F41.8 no SI ,No HIlast TSH 09/06/20 Noncomplia nce with medication regimen 211571447 Z91.14 education Serum tota l protein outside reference range 203139138 R79.89 Macrocytosis 437980133 D 75.89 Screening mammography 24 641426 Z12.31 last mammogram 12/28/21 Screening for malignant neoplasm of cervix 330097074 Z12.4 last PAP 11/2021 per pt Screening for malignant neoplasm of colon 602482051 Z12.11 Active or passive immunization 357265001 Z23 refuse any shots Low back pain 632868836 M54.50 on baclofen , naproxen and tylenolwil l send to X rayper pt had 2 weeks PT with apex Pain of le ft shoulder joint 1924217799 8555751 M25.512 [id number] Rhianna Cochran MD [facility] [address] [place] [address] 08/16/2022 09:45:12 08/16/2022 10:36:08 Low back pain 390273425 M54.50 on baclofen , naproxen and tylenolwil l send to X rayper pt had 2 weeks PT with apexseen pain management FMLA 4 pages form done today Mixed anxi ety and depressive disorder 238676823 F41.8 no SI ,No HIlast TSH 09/06/20 Benign hypertension 1072 5009 I10 bp checkcall if it >130/80per pt had optometry 03/2022 Body mass index 40+ - severely obese 601923447 Z68.42 educations eeing weight management Drwants to check sleeve Family his tory of cancer of colon 923400691 Z80.0 education Screening mammography 24 772092 Z12.31 last mammogram 12/28/21 Screening for malignant neoplasm of cervix 976813550 Z12.4 last PAP 11/2021 per pt Active or passive immunization 552721978 Z23 refuse any shots [id number] Rhianna Cochran MD [employer] [address] [place] [address] 12/26/2022 13:31:31 12/26/2022 14:43:50 Adult health examination 085082484 Z00.01 Benign hypertension 1072 5009 I10 add doxazosine 2 QHSBP 2 weeksper pt had optometry 03/2022 Body mass index 40+ - severely obese 102085655 Z68.42 educations eeing weight management Drdown 21 LBs on diet Family his tory of cancer of colon 421952450 Z80.0 education Gallstone 902250125 K80. 20 asymptomat ic History of laparoscopic adjustable gastric banding 299692431 Z98.84 F/U with surg Hypokalemia 05856034 E87 .6 recheck Insomnia 270256897 G47.0 0 better Macrocytosis 468896247 D 75.89 Mammography abnormal 168 768985 R92.8 never did diagnostic Microscopic hematuria 19 6647585 R31.21 Mixed anxi ety and depressive disorder 133925782 F41.8 no SI ,No HIlast TSH 09/06/20 Neck pain 19248319 M54.2 had X ray and PT Noncomplia nce with medication regimen 104403986 Z91.14 education Reactive d epression (situational) 33982564 F32.9 No SI , No HI Serum tota l protein outside reference range 818039858 R79.89 Tattoo of skin 714527062 1 02 L81.8 hep C -ve 12/2021 Urgent edgar igor to urinate 68398065 R39.15 Anterior epistaxis 39724 4002 R04.0 Screening mammography 24 155768 Z12.31 last mammogram 12/28/21 Screening for malignant neoplasm of cervix 665522600 Z12.4 last PAP 11/2021 per pt Screening for malignant neoplasm of colon 064077590 Z12.11 Active or passive immunization 131347041 Z23 refuse any shots Dyspnea 279775198 R06.00 O2 is 96% on RA Allergic r hinitis caused by pollen 49633053 J30.1 [id number] Rhianna Cochran MD [facility] [address] [place] [address] 06/12/2023 10:25:31 06/12/2023 11:42:39 Benign hypertension 04979678 I10 restart losartanBP 2 weeksper pt had optometry 03/2022 Body mass index 40+ - severely obese 067642131 Z68.42 educationd own 15 Lbs on diet History of laparoscopic adjustable gastric banding 053176649 Z98.84 F/U with surgS/P removal 04/2023 Mammography abnormal 168 803213 R92.8 B/L diagnostic 01/31/23 was NL Mixed anxi ety and depressive disorder 001478725 F41.8 no SI ,No HIlast TSH 09/06/20 Serum tota l protein outside reference range 850159603 R79.89 Cholesterol screening 27 6900489 Z13.220 Screening mammography 24 323054 Z12.31 last mammogram 01/31/23 Screening for malignant neoplasm of cervix 817177066 Z12.4 last PAP 11/2021 per pt Screening for malignant neoplasm of colon 580509414 Z12.11 03/17/23 , good for 10 years Active or passive immunization 964407150 Z23 refuse any shots Snoring 47414879 R06.83 Fatigue 83021585 R53.83 Microscopic hematuria 19 9054696 R31.21 Low back pain 204655052 M54.50 on baclofen , naproxen and tylenolwil l send to X rayper pt had 2 weeks PT with apexseen pain management FMLA 4 pages form done today [id number] Rhianna Cochran MD [facility] [address] [place] [address] 09/03/2023 15:24:10 09/03/2023 16:51:50 Pain of right shoulder joint 4182824513 6154887 M25.511 Benign hypertension 1072 5009 I10 betterBP 2 weeksper pt had optometry 03/2022 Numbness of foot 8899341 00 R20.0 Active or passive immunization 874783956 Z23 refuse any shots Mixed anxi ety and depressive disorder 844469481 F41.8 no SI ,No HIlast TSH 09/06/20 [id number] Rhianna Cochran MD [facility] [address] [place] [address] 10/20/2023 17:15:10 10/20/2023 17:59:33 Benign hypertension 15474496 I10 pls take your BP meds on reg basisBP 2 weeksper pt had optometry 03/2023last EKG 06/12/23 Body mass index 40+ - severely obese 944060970 Z68.42 educationo n diet Numbness of foot 3189376 00 R20.0 Hyperglycemia 30913508 R 73.9 Screening mammography 24 385345 Z12.31 last mammogram 01/31/23 Screening for malignant neoplasm of cervix 544173699 Z12.4 last PAP 11/2021 per pt Screening for malignant neoplasm of colon 704313307 Z12.11 03/17/23 , good for 10 years Active or passive immunization 422678287 Z23 refuse any shots [id number] Rhianna Cochran MD [employer] [address] [place] [address] 11/06/2023 15:25:54 11/06/2023 16:41:55 Benign hypertension 09483334 I10 add felodipine BP 2 weeksper pt had optometry 03/2023last EKG 06/12/23 Body mass index 40+ - severely obese 280895748 Z68.42 educationo n diet Cardiomegaly 4363280 I51 .7 on CXR 01/31/23 Macrocytosis 666057127 D 75.89 Microscopic hematuria 19 6559169 R31.21 Persistent insomnia 1919 18965 G47.09 Numbness of foot 1346740 00 R20.0 Mixed anxi ety and depressive disorder 355412786 F41.8 no SI ,No HIlast TSH 06/12/23off work since 10/09/23 till she sees psych1 page FMLA paper form done Snoring 32145188 R06.83 Active or passive immunization 283334047 Z23 refuse any shots [id number] Rhianna Cochran MD [employer], [facility] [address] [place] [address] 12/17/2023 14:11:29 12/17/2023 14:57:48 Accidental fall 470009610 W19.XXXA educations top topamax Benign hypertension 1072 5009 I10 good controlBP 2 weeksper pt had optometry 03/2023last EKG 06/12/23 Body mass index 40+ - severely obese 422708897 Z68.42 educationo n diet History of laparoscopic adjustable gastric banding 101803385 Z98.84 F/U with surgS/P removal 04/2023 Mixed anxi ety and depressive disorder 463873932 F41.8 no SI ,No HIlast TSH 06/12/23off work since 10/09/23 till she sees psych1 page FMLA paper form done Screening mammography 24 669696 Z12.31 last mammogram 01/31/23 Screening for malignant neoplasm of cervix 900171525 Z12.4 last PAP 11/2021 per pt Screening for malignant neoplasm of colon 283659296 Z12.11 03/17/23 , good for 10 years Active or passive immunization 513991912 Z23 refuse any shots Health Concerns Section Related Observation LastModified by Organization Detai ls LastModified Time None Recorded Concern Status LastModified by Organization Details LastModified Time None Recorded Advance Directives Directive N: Payers Insurance Date Sequence Insurance Name Policy Number Policy Collins Covered Member ID Collins Member ID Guarantor Name 10/29/2024 1 [employer] [id number] Nevin Deshpande [id number] Nevin Deshpande 04/09/2024 1 [place] [id number] Nevin Deshpande [id number] Nevin Deshpande Notes Date Note Type Note [...] taking valsartansnoring and fatigue Rhianna Cochran MD [address] [place] [address] [address], [place], [address], [facility] 06/12/2023 11:44:51 09/03/2023 text/html Hypertension F/UReported bypatient.Medications: taking medications as directed; no side effects from medication Lifestyle:regular exercise; limiting/avoiding salt; compliant with low salt diet Associated Symptoms:no dizziness; no lightheadedness; no chest pain; no shortness of breath; no palpitations; no edema; no calf pain with exertion; no headache Rt shoulder pain , no injury , weeks Rhianna Cochran MD [address], [place], [address], [facility] 09/03/2023 16:32:34 10/20/2023 text/html Hypertension F/UReported bypatient.Medications: taking medications as directed; no side effects from medication Lifestyle:regular exercise; limiting/avoiding salt; compliant with low salt diet Associated Symptoms:no dizziness; no lightheadedness; no chest pain; no shortness of breath; no palpitations; no edema; no calf pain with exertion; no headache had URI symptoms , better with Abx Rhianna Cochran MD [address], [place], [address], [facility] 10/20/2023 17:57:01 11/06/2023 text/html Hypertension F/UReported bypatient.Medications: taking medications as directed; no side effects from medication Lifestyle:regular exercise; limiting/avoiding salt; compliant with low salt diet Associated Symptoms:no dizziness; no lightheadedness; no chest pain; no shortness of breath; no palpitations; no edema; no calf pain with exertion; no headache Rhianna Cochran MD [address], [place], [address], [facility] 11/06/2023 16:26:06 12/17/2023 text/html Hypertension F/UReported bypatient.Medications: [...] and started quetiapine Rhianna Cochran MD [address], [place], [address], [facility] 12/17/2023 14:51:01 OBGyn Episode No OBEpisode recorded.
--- OUTSIDE RECORDS SUMMARY | 2025-03-19 17:12 | XMS_ITS | Continuity of Care Document ---
Author Organization [facility] Address [address] [place] [address] [address] [place] [address] Phone Care Team Providers Care Employment Service Specialist Name Role Phone Magaly Christopher Unavailable Unavailable Procedures Procedure Date Remove Eyelid Lesion Office Consultation Advance Directives Directive Yes / No Effective Date File Name No Information Encounters Encounter Description Practice Location Reason(s) For Visit Diagnoses Date Provider Providers Copied on Encounter [facility], [address] [place] [address] [address], [place], [place], [id number], tel:[phone] [facility] No Information 8 Candi Mckenzie. [address] , [address], [place], [place], [facility], [place]. tel:[phone] Office Consultation [facility], [address] [place] [address] [address], [place], [place], [id number], tel:[phone] SEC [facility] No Information 8 Candi Mckenzie. [address] , [address], [place], [address], [place]. tel:[phone] Referring Provider: Nathan Rothman, [address] [facility], [place], [address]. tel:[phone] Family History Family Member Type Diagnosis Age [...]
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
--- OUTSIDE RECORDS SUMMARY | 2025-03-19 17:43 | XMS_ITS | CONTINUITY OF CARE DOCUMENT ---
Author Name natasha kaur Address Unknown Organization [facility] Address [address] [place] [address] Phone [phone] Care Team Providers Care Ore Digger Name Role Phone Boo BHATT, Dede Unavailable JOSE BONILLA MD Unavailable Jose BHATT, Marco Garcia Unavailable [phone] INSURANCE PROVIDERS Payer name Policy type / Coverage type Libby red green party ID [facility] [id number]
--- OUTSIDE RECORDS SUMMARY | 2025-03-19 17:43 | XMS_ITS | Continuity of Care Document ---
Author Organization [facility] Address [address] [place] [address] [address] [place] [address] Phone Care Team Providers Care Sewer Pipe Sorter Name Role Phone Magaly Christopher Unavailable Unavailable Procedures Procedure Date Remove Eyelid Lesion Office Consultation Advance Directives Directive Yes / No Effective Date File Name No Information Encounters Encounter Description Practice Location Reason(s) For Visit Diagnoses Date Provider Providers Copied on Encounter [facility], [address] [place] [address] [address], [place], [place], [id number], tel:[phone] SEC [facility] No Information 8 Candi Mckenzie. [address] , [address], [place], [place], [facility], [place]. tel:[phone] Office Consultation [facility], [address] [place] [address] [address], [place], [place], [address], tel:[phone] SEC [facility] No Information 8 Candi Mckenzie. [address] , [address], [place], [address], [place]. tel:[phone] Referring Provider: Nathan Rothman, [address] [facility], [place], [address]. tel:[phone] Family History Family Member Type Diagnosis Age [...]
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
--- OUTSIDE RECORDS SUMMARY | 2025-03-19 17:43 | XMS_ITS | Continuity of Care Document ---
Author Organization [facility] Address [address] [place] [address] Phone Care Team Providers Care Delicatessen Department Manager Name Role Phone Unavailable Unavailable Unavailable Allergies, [...] Diagnoses Date Provider Providers Copied on Encounter [facility], [address], [place], [place], [address] , [place] tel: [phone] [facility] [place] No Information 0 No Information OFFICE/OUTPA TIENT VISIT, [employer] [facility], [address], [place], [place], [id number] , tel: [phone] [facility] establish care (chief complaint) Body mass index (BMI) 45.0-49.9, adultEncounter for adult annual physical exam w/ abnormal findingEssential (primary) hypertensionObes ity, unspecifiedLow back painAnxiety depression 201 9 No Information Family History Family Member Type Diagnosis Age At Onset No Information Payers Payer name Insurance type Covered green party ID Authorabebea tieva(s) No Information Social History [...] nt Illness establish care Patient [facility] care . Patient has a history of HTN and depression. Patient passed 1 year ago and currently is being seen by Dr. Camryn Marsh [place]. Patient brought [facility] paperwork to be completed. Patient says her [...]
== END 2025-03-19 19:00 | disposition home or self-care (01) ==
PROVIDERS: Emergency Provider Physician Assistant
DX: S09.90XA Unspecified injury of head, initial encounter (principal); S16.1XXA Strain of muscle, fascia and tendon at neck level, initial encounter; I10 Essential (primary) hypertension; K21.9 Gastro-esophageal reflux disease without esophagitis; Z98.84 Bariatric surgery status; Z90.711 Acquired absence of uterus with remaining cervical stump; Z90.49 Acquired absence of other specified parts of digestive tract; V49.40XA Driver injured in collision with unspecified motor vehicles in traffic accident, initial encounter
CPT/HCPCS: 70450; 72125; 99284